=== PATIENT | female | born 1965 | race African-American/Black ===

== ENCOUNTER → 2018-11-11 | Day surgery (SDC) | payer MEDICARE ==
[~2018-11-11] MED LIST: AZATHIOPRINE50 MG PO; CARVEDILOL12.5 MG PO; CYCLOBENZAPRINE10 MG PO; DULOXETINE PO; EYLEA2 MG/0.05 IM; FENTANYL CITRATE/PF 100MCG/2 ML INJ ONE; MIDAZOLAM HCL 2 MG/2 ML VIAL ONE; MULTI-VITAMIN1 EACH PO; PROPOFOL IV EMULSION 10 MG/ML 50 ML VIAL ONE; RIZATRIPTAN PO; TYLENOL WITH C1 EACH PO; VALIUM5 MG PO
--- OUTSIDE RECORDS SUMMARY | 2018-11-11 06:24 | XMS REPORT | Clinical Summary ---
Author Author [facility] Organization [place] [facility] Address Unknown Phone Unavailable Care Team Providers Care Fraud Manager Name Role Phone Tristin South MD PCP Allergies Comments Active Allergy Reactions Severity Noted Date Ketorolac Hives, 05/09/2018 Itching Hydrocodone-Acetaminophen Itching 08/17/2016 Medications End Date Status Medication Sig Dispensed Refills Start Date Active acetaminophen-codeine Take 1 tablet 0 (TYLENOL WITH CODEINE #3) by mouth 300-30 mg per tablet every 6 (six) hours as needed for moderate pain. Active CITALOPRAM HYDROBROMIDE Take 40 mg by 0 (CITALOPRAM ORAL) mouth every morning. Active clobetasol (TEMOVATE) Apply 1 0 0.05 % external solution application topically as needed. Active cyclobenzaprine Take 10 mg by 0 (FLEXERIL) 10 mg tablet mouth 3 (three) times a day. Active aspirin (ECOTRIN) 81 MG Take 81 mg by 0 enteric coated tablet mouth daily. Active SJANGTKZ-WAC-EBLDI-HYALUR Take 1 tablet 0 ON AC ORAL by mouth daily. Active clonAZEPAM (KlonoPIN) 2 Take 2 mg by 0 MG tablet mouth 2 (two) times a day as needed for seizures. Active azaTHIOprine (IMURAN) 50 Take 100 mg 0 mg tablet by mouth daily. Active DULoxetine (CYMBALTA) 60 Take 60 mg by 0 MG capsule mouth daily. Active carvedilol (COREG) 6.25 Take 6.25 mg 0 MG tablet by mouth 2 (two) times a day with meals. Active rizatriptan (MAXALT) 10 Take 10 mg by 0 MG tablet mouth once as needed for migraine. May repeat in 2 hours if unresolved. Do not exceed 30 mg in 24 hours. Active simethicone (MYLICON) 80 Chew 80 mg 0 MG chewable tablet every 6 (six) hours as needed for flatulence. Active diclofenac (VOLTAREN) 50 Take 50 mg by 0 MG EC tablet mouth 2 (two) times a day. 05/09/2018 Discontinued LORAZepam (ATIVAN) 2 MG Take 2 mg by 0 tablet mouth every 8 (eight) hours as needed for anxiety. 05/09/2018 Discontinued meloxicam (MOBIC) 7.5 mg Take 7.5 mg 0 tablet by mouth 2 (two) times a day. 05/09/2018 Discontinued terbinafine HCl (LamiSIL) Take 250 mg 0 250 mg tablet by mouth daily. 05/09/2018 Discontinued mirtazapine (REMERON) 15 Take 30 mg by 0 MG tablet mouth nightly. 05/09/2018 Discontinued rizatriptan (MAXALT) 10 Take 10 mg by 0 MG tablet mouth daily. May repeat in 2 hours if unresolved. Do not exceed 30 mg in 24 hours. 05/09/2018 Discontinued QUEtiapine (SEROquel) 50 Take 50 mg by 0 MG tablet mouth nightly. 1-2 tab qpm for migraine 05/09/2018 Discontinued folic acid (FOLVITE) 1 MG Take 1 mg by 0 tablet mouth daily. 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 Transcribe Access Orders Radhames Schneider MD Movement disorder (Primary Dx); Muscle spasm; Generalized weakness 05/31/2018 Emergency Emergency Medicine Tristin South MD Acute back pain with sciatica, right; Dysphonia of organic tremor 05/26/2018 Hospital Radiology Encounter Tristin South MD Acute back pain with sciatica, right; Dysphonia of organic tremor 05/26/2018 Hospital Radiology Encounter Tristin South MD Acute back pain with sciatica, right (Primary Dx); Dysphonia of organic tremor 05/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 Last Filed Vital Signs Reading Time Taken Comments Vital Sign 138/78 05/31/2018 7:05 PM CDT Blood Pressure 77 05/31/2018 7:05 PM CDT Pulse 36.7 C (98 F) 05/31/2018 1:03 PM CDT Temperature 20 05/31/2018 7:05 PM CDT Respiratory Rate 100% 05/31/2018 7:05 PM CDT Oxygen Saturation - - Inhaled Oxygen Concentration 122 kg (269 lb) 05/09/2018 3:18 PM [facility] Weight - - Height 47.65 02/03/2017 1:16 PM [facility] Body Mass Index Plan of Treatment Care Team Description Date Type Specialty Sami Wong II, MD [address] [place] [address], [address] [place] [address] [phone] 12/02/2018 Office Visit Obstetrics and Gynecology Health Maintenance Due Date Last Done Comments CERVICAL CANCER SCREENING 01/09/1988 BREAST CANCER SCREENING 2017 COLONOSCOPY SCREENING 2017 SHINGLES VACCINES (#1) 2017 INFLUENZA VACCINE 10/21/2018 Procedures Comments Procedure Name Priority Date/Time Associated Diagnosis CT HEAD WO CONTRAST Routine 10/21/2018 Paralysis of the face 5:[address] MAXILLOFACIAL WO Routine 10/21/2018 Facial nerve paralysis CONTRAST 1:09 PM CDT MRI CERVICAL SPINE WO STAT 05/31/2018 CONTRAST 6:25 PM CDT MRI BRAIN WO CONTRAST STAT 05/31/2018 6:[address] ANGIOGRAM NECK W WO STAT 05/31/2018 CONTRAST 4:[address] ANGIOGRAM HEAD W WO STAT 05/31/2018 CONTRAST 3:[address] HEAD WO CONTRAST STAT 05/31/2018 3:59 PM CDT XR CHEST 1 VW PORTABLE STAT 05/31/2018 1:42 PM CDT ECG 12-LEAD STAT 05/31/2018 12:06 PM CDT ESTIMATED GFR STAT 05/31/2018 11:59 AM CDT B NATRIURETIC PEPTIDE STAT 05/31/2018 11:59 AM CDT TROPONIN STAT 05/31/2018 11:59 AM CDT COMPREHENSIVE METABOLIC STAT 05/31/2018 PANEL 11:59 AM CDT PROTHROMBIN TIME WITH INR STAT 05/31/2018 11:59 AM CDT PARTIAL THROMBOPLASTIN STAT 05/31/2018 TIME (PTT) 11:59 AM CDT HC COMPLETE BLD COUNT STAT 05/31/2018 W/AUTO DIFF 11:59 AM CDT ECG ED PRELIMINARY Routine 05/31/2018 INTERPRETATION 11:45 AM CDT XR LUMBAR SPINE COMPLETE Routine 05/26/2018 Acute back pain with 4+ VW 5:32 PM [facility] sciatica, right Dysphonia of organic tremor XR CERVICAL SPINE Routine 05/26/2018 Acute back pain with COMPLETE 5:31 PM [facility] sciatica, right Dysphonia of organic tremor TROPONIN Timed 05/09/2018 8:54 PM [facility] ECG 12-LEAD STAT 05/09/2018 8:22 PM [facility] XR SHOULDER 2+ VW LEFT STAT 05/09/2018 7:55 PM [facility] XR HUMERUS LEFT STAT 05/09/2018 7:53 PM [facility] XR ELBOW 3+ VW LEFT STAT 05/09/2018 7:52 PM [facility] ECG ED PRELIMINARY Routine 05/09/2018 INTERPRETATION 4:30 PM [facility] ECG 12-LEAD STAT 05/09/2018 3:55 PM [facility] ESTIMATED GFR STAT 05/09/2018 3:54 PM [facility] B NATRIURETIC PEPTIDE STAT 05/09/2018 3:54 PM [facility] TROPONIN STAT 05/09/2018 3:54 PM [facility] COMPREHENSIVE METABOLIC STAT 05/09/2018 PANEL 3:54 PM [facility] HC COMPLETE BLD COUNT STAT 05/09/2018 W/AUTO DIFF 3:54 PM [facility] after 11/10/2017 Results * CT Head Wo Contrast (10/21/2018 5:35 PM CDT) Only the most recent of 2 results within the time period is included. 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 CT imaging was performed with iterative reconstruction technique and/or automated exposure control to reduce radiation dose. FINDINGS: Parenchymal volume is normal. There is no acute hemorrhage, midline shift, hydrocephalus, edema, or extra-axial collections. .The visualized paranasal sinuses are well aerated.The mastoid air cells are well aerated. No destructive calvarial lesions are seen. The visualized orbits are unremarkable. IMPRESSION: No acute intracranial abnormality. 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 CT imaging was performed with iterative reconstruction technique and/or automated exposure control to reduce radiation dose. FINDINGS: Parenchymal volume is normal. There is no acute hemorrhage, midline shift, hydrocephalus, edema, or extra-axial collections. .The visualized paranasal sinuses are well aerated. The mastoid air cells are well aerated. No destructive calvarial lesions are seen. The visualized orbits are unremarkable. IMPRESSION: No acute intracranial abnormality. 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 Coronal and sagittal reconstructions were also performed. CT imaging was performed with iterative reconstruction techniques and/or automated exposure control to reduce radiation dose. FINDINGS: No mass is identified. No fracture or aggressive bone lesion is seen. The temporal bones are grossly unremarkable. Parotid glands are grossly unremarkable. Pterygopalatine fossa is unremarkable. Paranasal sinuses are clear. Orbits are unremarkable. No aerodigestive mucosal lesion is seen. Submandibular glands are unremarkable. No lymphadenopathy is seen. Included portions of the brain are unremarkable. IMPRESSION: Unremarkable CT of the maxillary facial structures. 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 Coronal and sagittal reconstructions were also performed. CT imaging was performed with iterative reconstruction techniques and/or automated exposure control to reduce radiation dose. FINDINGS: No mass is identified. No fracture or aggressive bone lesion is seen. The temporal bones are grossly unremarkable. Parotid glands are grossly unremarkable. Pterygopalatine fossa is unremarkable. Paranasal sinuses are clear. Orbits are unremarkable. No aerodigestive mucosal lesion is seen. Submandibular glands are unremarkable. No lymphadenopathy is seen. Included portions of the brain are unremarkable. IMPRESSION: Unremarkable CT of the maxillary facial structures. [id number] Performing Organization Address [facility] Phone Number [facility] [address] [place] [address] * MRI Cervical Spine Wo Contrast (05/31/2018 6:25 PM CDT) Specimen Narrative Performed At [facility] EXAMINATION: MRI CERVICAL SPINE WO CONTRAST CLINICAL HISTORY: neck pain COMPARISON:None TECHNIQUE: Multiplanar multisequence noncontrast enhanced examination was performed of the cervical spine. FINDINGS: Vertebral body heights are maintained. The cervicomedullary junction is unremarkable. No cord signal abnormality identified. No focal marrow lesions. No masses are present in the visualized prevertebral soft tissues. Cervical alignment is preserved with normal lordosis. There is no significant spondylolisthesis. Axial images through the disc spaces demonstrate the following: C1-C2: The atlantoaxial interval is intact with no significant disease or stenosis. C2-C3: No significant posterior disc disease, spinal canal or neural foraminal stenosis. C3-C4: Mildly degenerative disc. Facet and uncovertebral arthropathy contributes to moderate right foraminal stenosis. No central or left foraminal stenosis. C4-C5: Mild degenerative disc. No significant posterior disc disease, spinal canal or neural foraminal stenosis. C5-C6: No significant posterior disc disease, spinal canal or neural foraminal stenosis. C6-C7: No significant posterior disc disease, spinal canal or neural foraminal stenosis. C7-T1: No significant posterior disc disease, spinal canal or neural foraminal stenosis. No significant posterior disc disease, spinal canal or neural foraminal stenosis at other visualized levels. IMPRESSION: Mild degenerative changes. No acute abnormality. [facility]-[id number] Procedure Note Interface, Radiology Results Incoming - 05/31/2018 6:33 PM CDT EXAMINATION: MRI CERVICAL SPINE WO CONTRAST CLINICAL HISTORY: neck pain COMPARISON: None TECHNIQUE: Multiplanar multisequence noncontrast enhanced examination was performed of the cervical spine. FINDINGS: Vertebral body heights are maintained. The cervicomedullary junction is unremarkable. No cord signal abnormality identified. No focal marrow lesions. No masses are present in the visualized prevertebral soft tissues. Cervical alignment is preserved with normal lordosis. There is no significant spondylolisthesis. Axial images through the disc spaces demonstrate the following: C1-C2: The atlantoaxial interval is intact with no significant disease or stenosis. C2-C3: No significant posterior disc disease, spinal canal or neural foraminal stenosis. C3-C4: Mildly degenerative disc. Facet and uncovertebral arthropathy contributes to moderate right foraminal stenosis. No central or left foraminal stenosis. C4-C5: Mild degenerative disc. No significant posterior disc disease, spinal canal or neural foraminal stenosis. C5-C6: No significant posterior disc disease, spinal canal or neural foraminal stenosis. C6-C7: No significant posterior disc disease, spinal canal or neural foraminal stenosis. C7-T1: No significant posterior disc disease, spinal canal or neural foraminal stenosis. No significant posterior disc disease, spinal canal or neural foraminal stenosis at other visualized levels. IMPRESSION: Mild degenerative changes. No acute abnormality. [facility]-[id number] Performing Organization Address [facility] Phone Number [facility] [address] [place] [address] * MRI Brain Wo Contrast (05/31/2018 6:25 PM CDT) Specimen Narrative Performed At EXAMINATION: MRI BRAIN WO CONTRAST [facility] CLINICAL HISTORY: neurologic symptoms COMPARISON:CT head same date; MRI brain 01/06/2017 TECHNIQUE: Multiplanar and multisequence MRI imaging of the brain was obtained without contrast. FINDINGS: No evidence of acute intracranial hemorrhage, mass, mass effect, acute infarct or midline shift. No significant T2 FLAIR signal abnormality within the brain parenchyma. Ventricles and sulci are normal in appearance for age. No abnormal susceptibility. Basal cisterns are clear. Major intracranial flow voids are maintained. Orbits are normal in appearance. Visualized paranasal sinuses and mastoid air cells are clear. IMPRESSION: 1. No acute intracranial abnormality. [id number] Procedure Note [facility], Radiology Results [facility] - 05/31/2018 6:34 PM CDT EXAMINATION: MRI BRAIN WO CONTRAST CLINICAL HISTORY: neurologic symptoms COMPARISON: CT head same date; MRI brain 01/06/2017 TECHNIQUE: Multiplanar and multisequence MRI imaging of the brain was obtained without contrast. FINDINGS: No evidence of acute intracranial hemorrhage, mass, mass effect, acute infarct or midline shift. No significant T2 FLAIR signal abnormality within the brain parenchyma. Ventricles and sulci are normal in appearance for age. No abnormal susceptibility. Basal cisterns are clear. Major intracranial flow voids are maintained. Orbits are normal in appearance. Visualized paranasal sinuses and mastoid air cells are clear. IMPRESSION: 1. No acute intracranial abnormality. [id number] Performing Organization Address [facility] Phone Number [facility] [address] [place] [address] * CTA Neck W Wo Contrast (05/31/2018 4:00 PM CDT) Specimen Narrative Performed At EXAMINATION:CT ANGIOGRAM NECK W WO CONTRAST [facility] CLINICAL HISTORY:Stroke COMPARISON:MRA neck 05/23/2012 TECHNIQUE: Neck CTA with multi-planar MIP and volumetric rendering (3D) after bolus intravenous iodinated contrast administration was performed. All CT images were acquired using low-dose technique with automated exposure control. FINDINGS: Normal branching pattern of the aortic arch. The bilateral cervical carotid and vertebral arterial systems appear patent without dissection or hemodynamically significant stenosis (0% by NASCET criteria). The left vertebral artery is dominant. IMPRESSION: No significant cervical carotid or vertebral artery stenosis. [id number] Procedure Note Interface, Radiology Results - 05/31/2018 4:09 PM CDT EXAMINATION: CT ANGIOGRAM NECK W WO CONTRAST CLINICAL HISTORY: Stroke COMPARISON: MRA neck 05/23/2012 TECHNIQUE: Neck CTA with multi-planar MIP and volumetric rendering (3D) after bolus intravenous iodinated contrast administration was performed. All CT images were acquired using low-dose technique with automated exposure control. FINDINGS: Normal branching pattern of the aortic arch. The bilateral cervical carotid and vertebral arterial systems appear patent without dissection or hemodynamically significant stenosis (0% by NASCET criteria). The left vertebral artery is dominant. IMPRESSION: No significant cervical carotid or vertebral artery stenosis. [id number] Performing Organization Address City/State/Zipcode Phone Number [facility] [address] [place] [address] * CTA Head W Wo Contrast (05/31/2018 3:59 PM CDT) Specimen Narrative Performed At EXAMINATION:CT ANGIOGRAM HEAD W WO CONTRAST [facility] CLINICAL HISTORY:stroke COMPARISON:None. FINDINGS: Axial images were obtained throughout the the brain after intravenous contrast infusion with MPR and 3-D MIP image reconstructions. CT scans are performed using radiation dose reduction techniques. Technical factors are evaluated and adjusted to ensure appropriate moderation of exposure. Automated dose management technology is applied to adjust radiation exposure while achieving a highly diagnostic quality image. There is patency of the large intracranial arteries. There is no definite large artery stenosis or focal aneurysm. There is dural venous sinus patency. IMPRESSION: Unremarkable examination. [id number] Procedure Note Interface, Radiology Results - 05/31/2018 4:09 PM CDT EXAMINATION: CT ANGIOGRAM HEAD W WO CONTRAST CLINICAL HISTORY: stroke COMPARISON: None. FINDINGS: Axial images were obtained throughout the the brain after intravenous contrast infusion with MPR and 3-D MIP image reconstructions. CT scans are performed using radiation dose reduction techniques. Technical factors are evaluated and adjusted to ensure appropriate moderation of exposure. Automated dose management technology is applied to adjust radiation exposure while achieving a highly diagnostic quality image. There is patency of the large intracranial arteries. There is no definite large artery stenosis or focal aneurysm. There is dural venous sinus patency. IMPRESSION: Unremarkable examination. [id number] Performing Organization Address [facility] Phone Number [facility] [address] [place] [address] * XR Chest 1 Vw Portable (05/31/2018 1:42 PM CDT) Specimen Narrative Performed At EXAMINATION:XR CHEST 1 VW PORTABLE [facility] CLINICAL HISTORY:cough XR CHEST 1 VW PORTABLEimages are submitted COMPARISON:Chest x-rays dated July 27, 2016. FINDINGS: Lines/tubes:None. Heart and mediastinum:Unremarkable Lungs:The lungs are well inflated and clear. There is no evidence of pneumonia or pulmonary edema. Pleura:There is no pleural effusion or pneumothorax. Bones:unremarkable. IMPRESSION: Negative for acute cardiopulmonary disease. [id number] Procedure Note Hm Interface, Radiology Results Incoming - 05/31/2018 1:46 PM CDT EXAMINATION: XR CHEST 1 VW PORTABLE CLINICAL HISTORY: cough XR CHEST 1 VW PORTABLE images are submitted COMPARISON: Chest x-rays dated July 27, 2016. FINDINGS: Lines/tubes: None. Heart and mediastinum: Unremarkable Lungs: The lungs are well inflated and clear. There is no evidence of pneumonia or pulmonary edema. Pleura: There is no pleural effusion or pneumothorax. Bones: unremarkable. IMPRESSION: Negative for acute cardiopulmonary disease. [id number] Performing Organization Address [facility] Phone Number [facility] [address] [place] [address] * ECG 12 lead (05/31/2018 12:06 PM CDT) Only the most recent of 3 results within the time period is included. Ventricular 97 [facility] rate Atrial rate 97 [facility] PA interval 118 [facility] QRSD interval 82 [facility] QT interval 352 [facility] QTC interval 447 [facility] P axis 1 50 [facility] QRS axis 1 48 [facility] T wave axis 19 [facility] EKG impression Normal sinus rhythm-Normal [facility] ECG-In automated comparison with ECG of 09-MAY-2018 20:22,-T wave inversion now evident in Inferior leads- Specimen Narrative Performed At Performing Organization Address City/State/Zipcode Phone Number [facility] [address] [place] [address] * Estimated GFR (05/31/2018 11:59 AM CDT) Only the most recent of 2 results within the time period is included. [facility] Estimated GFR 75 mL/min/1.73 m2 [facility] >=90 Normal or high G2 60-89Mildly decreased [id number] Mildly to moderately decreased [id number] Moderately to severely decreased G4 15-29Severely decreased G5 <15Kidney failure The eGFR was calculated using the Chronic Kidney Disease Epidemiology Collaboration (CKD-EPI) equation. Interpretation is based on recommendations of the National Kidney Foundation-Kidney Disease Outcomes Quality Initiative (NKF-KDOQI) published in 2014. Specimen Plasma specimen Performing Organization Address City/[facility] Phone Number [address] * Troponin (05/31/2018 11:59 AM CDT) Only the most recent of 3 results within the time period is included. [facility] Troponin <0.30 0.00 - 0.30 ng/mL [facility] Comment: DR[facility] [place] 0.11 - 1.49 [facility] indicate increased risk of acute coronary syndrome. >=1.5 ng/ml Consistent with acute myocardial infarction. The diagnostic value of a single normal or non-diagnostic result is questionable.Serial samples at 2-6 hour intervals are required to rule out acute myocardial injury. Specimen Plasma specimen Performing Organization Address City/[facility]/Zipcode Phone Number [address] [address] PATHOLOGY [address] [place] [address] [facility] * Partial thromboplastin time, activated (05/31/2018 11:59 AM CDT) Pathologist [facility] PTT 34.9 23.0 - 36.0 sec [facility] Comment: VITA FELIX PTT therapeutic range for KAREN unfractionated heparin is [facility]OSPITAL 61.0-112.0 seconds which corresponds to Anti-Xa 0.3-0.7 U/ml. Note:Change in Panic Value The PTT Panic Value is changing from 110 sec. to 100 sec. due to new instrumentation and reagents. Correlation studies have been performed to validate this result. Specimen Blood Performing Organization Address City/[facility]/Zipcode Phone Number [address] * Prothrombin time with INR (05/31/2018 11:59 AM CDT) [facility] Prothrombin 13.8 11.5 - 14.5 sec [facility] INR 1.09 [facility] Comment: VITA FELIX For patients on anticoagulant KAREN therapy, reference ranges [facility]OS[facility]ITAL below: Indication: INR Value Treatment of Venous Thrombosis, 2.0-3.0 pulmonary emboli, or prophylaxis of a venous thrombosis, or systemic emboli. High dose, high risk patients 3.0-4.5 with mechanical valves. NOTE:INR values over 3.0 are sometimes associated with gastrointestinal hemorrhage, especially values over 4.0. Specimen Blood Performing Organization Address City/[facility]/Zipcode Phone Number [address] * CBC with platelet and differential (05/31/2018 11:59 AM CDT) Only the most recent of 2 results within the time period is included. [facility] WBC 7.7 4.2 - 11.0 k/uL [facility] RBC 5.03 4.04 - 5.86 m/uL [facility] HGB 13.6 11.5 - 15.3 g/dL [facility] HCT 44.4 34.0 - 45.0 % [facility] MCV 88.3 80.0 - 98.0 fL [facility] MCH 27.0 27.0 - 34.0 pg [facility] MCHC 30.6 (L) 31.5 - 36.5 g/dL [facility] RDW - SD 47.5 37.0 - 51.0 fL [facility] MPV 11.0 (H) 7.4 - 10.4 fL [facility] Platelet count 298 150 - 400 k/uL [facility] Nucleated RBC 0.00 /100 WBC [facility] Neutrophils 73.2 (H) 36.0 - 66.0 % [facility] Lymphocytes 15.9 (L) 24.0 - 44.0 % [facility] Monocytes 8.2 (H) 0.0 - 6.0 % [facility] Eosinophils 1.6 0.0 - 6.0 % [facility] Basophils 0.7 0.0 - 1.2 % [facility] Immature 0.4 0.0 - 1.0 % [facility] granulocytes [facility] Specimen Blood Performing Organization Address City/State/[place] [address] PATHOLOGY AND GENOMIC MEDICINE [address] * B natriuretic peptide (05/31/2018 11:59 AM CDT) Only the most recent of 2 results within the time period is included. BNP <3 0 - 100 pg/mL [facility] Specimen Blood Performing Organization Address City/[facility]/[place] [address] PATHOLOGY AND GENOMIC MEDICINE [address] * Comprehensive metabolic panel (05/31/2018 11:59 AM CDT) Only the most recent of 2 results within the time period is included. Sodium 138 135 - 150 mEq/L [facility] Potassium 4.2 3.5 - 5.0 mEq/L [facility] Chloride 101 98 - 112 mEq/L [facility] CO2 26 24 - 31 mmol/L [facility] Anion gap 11@[email or web address] 7 - 15 mEq/L [facility] BUN 13 7 - 18 mg/dL [facility] Creatinine 1.00 (H) 0.50 - 0.90 mg/dL [facility] Glucose 143 (H) 65 - 100 mg/dL [facility] Calcium 9.3 8.3 - 10.2 mg/dL [facility] Protein 7.2 6.3 - 8.3 g/dL [facility] Albumin 3.6 3.5 - 5.0 g/dL [facility] A/G ratio 1.0 0.7 - 3.8 [facility] Alkaline 60 0 - 104 U/L [facility] phosphatase [facility] AST 19 10 - 35 U/L [facility] ALT 13 5 - 50 U/L [facility] Total bilirubin 0.3 0.2 - 1.2 mg/dL [facility] Specimen Plasma specimen Performing Organization Address City/State/Zipcode Phone Number [facility] [place] [address] PATHOLOGY AND GENOMIC MEDICINE [address] * ECG ED Preliminary Interpretation - Not an Order (05/31/2018 11:45 AM CDT) Only the most recent of 2 results within the time period is included. Narrative Performed At Radhames Schneider MD 05/31/20187:05 PM ECG ED Preliminary Interpretation - Not an Order Performed by: Radhames Schneider MD Authorized by: Radhames Schneider MD ECG reviewed by ED Physician in the absence of a motor analyst: yes Rate: ECG rate:97 ECG rate assessment: normal Rhythm: Rhythm: sinus rhythm Ectopy: Ectopy: none QRS: QRS axis:Normal QRS intervals:Normal Conduction: Conduction: normal * XR Lumbar Spine Complete 4+ Vw (05/26/2018 5:32 PM [facility]) Specimen Narrative Performed At EXAMINATION: XR LUMBAR SPINE COMPLETE 4VW [facility] CLINICAL HISTORY: M54.41 Lumbago with sciaticaright side, R25.1 Tremorunspecified, m54.41 r25.1 COMPARISON:None IMPRESSION: 6 views of the lumbar spine were obtained lumbar spine alignment is normal. Sacroiliac joints are intact. Oblique images shows no spondylolysis. There is no fracture or spondylolisthesis. Vertebral body heights and disc heights are preserved at all levels. No significant lumbar spine abnormality identified. [facility]-[id number] Procedure Note Interface, Radiology Results Incoming - 05/26/2018 5:38 PM [facility] EXAMINATION: XR LUMBAR SPINE COMPLETE 4 VW CLINICAL HISTORY: M54.41 Lumbago with sciatica right side, R25.1 Tremor unspecified, m54.41 r25.1 COMPARISON: None IMPRESSION: 6 views of the lumbar spine were obtained lumbar spine alignment is normal. Sacroiliac joints are intact. Oblique images shows no spondylolysis. There is no fracture or spondylolisthesis. Vertebral body heights and disc heights are preserved at all levels. No significant lumbar spine abnormality identified. [facility]-[id number] Performing Organization Address City/State/Zipcode Phone Number [facility] [address] [place] [address] * XR Cervical Spine Complete (05/26/2018 5:31 PM [facility]) Specimen Narrative Performed At EXAMINATION: XR CERVICAL SPINE COMPLETE [facility] CLINICAL HISTORY: M54.41 Lumbago with sciaticaright side, R25.1 Tremorunspecified, m54.41 COMPARISON:None IMPRESSION: 6 views of the cervical spine were obtained. There is normal cervical lordosis. There is no fracture or spondylolisthesis. Prevertebral soft tissues are within normal limits. Oblique images shows no osseous foraminal narrowing. No acute osseous abnormalities are identified. [facility]-[id number] Procedure Note Interface, Radiology Results Incoming - 05/26/2018 5:37 PM [facility] EXAMINATION: XR CERVICAL SPINE COMPLETE CLINICAL HISTORY: M54.41 Lumbago with sciatica right side, R25.1 Tremor unspecified, m54.41 COMPARISON: None IMPRESSION: 6 views of the cervical spine were obtained. There is normal cervical lordosis. There is no fracture or spondylolisthesis. Prevertebral soft tissues are within normal limits. Oblique images shows no osseous foraminal narrowing. No acute osseous abnormalities are identified. [facility]-[id number] Performing Organization Address [facility]/Zipcode Phone Number [facility] [address] [place] [address] * XR Shoulder 2+ Vw Left (05/09/2018 7:55 PM [facility]) Specimen Narrative Performed At EXAM:XR SHOULDER 2VW LEFT [facility] CLINICAL HISTORY:arm pain COMPARISON:None. IMPRESSION: 1.No evidence of acute displaced left shoulder fracture or dislocation. Soft tissues are unremarkable. [facility]-[id number] Procedure Note Interface, Radiology Results Incoming - 05/09/2018 8:00 PM [facility] EXAM: XR SHOULDER 2 VW LEFT CLINICAL HISTORY: arm pain COMPARISON: None. IMPRESSION: 1. No evidence of acute displaced left shoulder fracture or dislocation. Soft tissues are unremarkable. [facility]-[id number] Performing Organization Address [facility] Phone Number [facility] [address] [place] [address] * XR Humerus Left (05/09/2018 7:53 PM [facility]) Specimen Narrative Performed At EXAM:XR HUMERUS LEFT HM [facility] CLINICAL HISTORY:arm pain COMPARISON:None. IMPRESSION: 1.No evidence of acute displaced left humerus fracture or dislocation. Soft tissues are unremarkable. [facility]-[id number] Procedure Note Interface, Radiology Results Incoming - 05/09/2018 7:59 PM [facility] EXAM: XR HUMERUS LEFT CLINICAL HISTORY: arm pain COMPARISON: None. IMPRESSION: 1. No evidence of acute displaced left humerus fracture or dislocation. Soft tissues are unremarkable. [facility]-[id number] Performing Organization Address [facility]/Zipcode Phone Number [facility] [address] [place] [address] * XR Elbow 3+ Vw Left (05/09/2018 7:52 PM [facility]) Specimen Narrative Performed At EXAM:XR ELBOW 3VW LEFT [facility] CLINICAL HISTORY:arm pain COMPARISON:None. IMPRESSION: 1.No evidence of acute displaced left elbow fracture, dislocation, or joint effusion. Soft tissues are unremarkable. [facility]-[id number] Procedure Note Interface, Radiology Results Incoming - 05/09/2018 7:59 PM [facility] EXAM: XR ELBOW 3 VW LEFT CLINICAL HISTORY: arm pain COMPARISON: None. IMPRESSION: 1. No evidence of acute displaced left elbow fracture, dislocation, or joint effusion. Soft tissues are unremarkable. [facility]-[id number] Performing Organization Address City/State/Zipcode Phone Number [facility] [address] [place] [address] after 11/10/2017 Insurance Type Payer Benefit Subscriber ID Effective Phone Address Plan / Dates Group O [facility] MEDICARE AARP xxxxxxxxx [id number] MEDICARE resent COMPLETE [facility] Advance Directives For more information, please contact: [phone] Patient Magnetic Doctor Explanation Type Date Recorded Advance Directives, 05/31/2018 2:02 PM Living Will and Medical Power of Joint Runner Advance Directives, 01/06/2017 11:51 AM Living Will and Medical Power of Joint Runner Advance Directives, 05/09/2018 7:58 PM Living Will and Medical Power of Joint Runner
--- OUTSIDE RECORDS SUMMARY | 2018-11-11 06:28 | XMS REPORT ---
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
--- OUTSIDE RECORDS SUMMARY | 2018-11-11 06:28 | XMS REPORT ---
Author Randolph Montanez Organization [employer] Address Unknown Phone Unavailable Care Team Providers Care Terminal Superintendent Name Role Phone Randolph Young CP Unavailable Allergies No Known Allergies Problems Problem Type Condition Code Onset Dates Condition Status Problem Central retinal vein thrombosis H34.819 Active Problem Thyroid enlargement E04.9 Active Problem Hip bursitis M70.70 Active Problem Other forms of systemic lupus erythematosus M32.8 Active Problem Other senior living (current) drug therapy Z79.899 Active Problem Complication following infusion and therapeutic injection T80.90XA Active Problem Lupus M32.9 Active Medications No Known Medications Results No Known Results Summary Purpose [employer] Submission
--- OUTSIDE RECORDS SUMMARY | 2018-11-11 06:28 | XMS REPORT ---
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
--- OUTSIDE RECORDS SUMMARY | 2018-11-11 06:28 | XMS REPORT | Continuity of Care Document ---
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 Name Role Phone [employer] Unavailable Unavailable Problems Problem Status Onset Date Classification Date Reported Comments Source INSOMNIA Active 07/27/2017 Diagnosis 08/18/2017 [facility] Vitamin D deficiency Active 07/09/2017 Diagnosis 08/18/2017 [facility] Screening for endocrine disease Active 07/09/2017 Diagnosis 08/18/2017 [facility] Elevated blood pressure Active 07/09/2017 Diagnosis 08/18/2017 [facility] Reactive airway disease Active 06/19/2017 Diagnosis 08/18/2017 [facility] Hot flashes Active 03/05/2017 Diagnosis 08/18/2017 [facility] FATIGUE Active 03/05/2017 Diagnosis 08/18/2017 [facility] Snoring Active 03/05/2017 Diagnosis 08/18/2017 [facility] Joint pain Active 12/01/2016 Diagnosis 08/18/2017 [facility] Body aches Active 12/01/2016 Diagnosis 08/18/2017 [facility] Onychomycosis Active 12/01/2016 Diagnosis 08/18/2017 [facility] ANXIETY DISORDER IN CONDITIONS CLASSIFIED ELSEWHERE Active 10/20/2016 Diagnosis 08/18/2017 [facility] Pseudoseizures Active 09/03/2016 Diagnosis 08/18/2017 [facility] Seizure disorder Inactive 08/21/2016 Problem 08/18/2017 [facility] Multiple thyroid nodules Active 05/20/2016 Diagnosis 08/18/2017 [facility] Screening for lipid disorder Active 05/20/2016 Diagnosis 08/18/2017 [facility] Screening for anemia Active 05/20/2016 Diagnosis 08/18/2017 [facility] Laparoscopic adjustable gastric banding Active 05/20/2016 Diagnosis 08/18/2017 [facility] Major depression, recurrent, in remission Inactive 05/06/2016 Diagnosis 08/18/2017 [facility] Major depression, recurrent, moderate Active 05/06/2016 Diagnosis 08/18/2017 [facility] Anxiety disorder in conditions classified elsewhere Inactive 05/06/2016 Diagnosis 08/18/2017 [facility] Obsessive-compulsive disorder Inactive 05/06/2016 Diagnosis 08/18/2017 [facility] Obsessive-compulsive disorder, unspecified Active 05/06/2016 Diagnosis 08/18/2017 [facility] Systemic lupus erythematosus Active 05/06/2016 Diagnosis 08/18/2017 [facility] Central retinal vein thrombosis Active Problem 11/06/2018 Stephen Young Thyroid enlargement Active Problem 11/06/2018 Stephen Young Hip bursitis Active Problem 11/06/2018 Stephen oYung Other forms of systemic lupus erythematosus Active Problem 07/24/2018 Stephen Samueler Other salvage determiner drug therapy Active Problem 10/14/2018 Stephen Young Complication following infusion and therapeutic injection Active Problem 11/06/2018 Stephen Young Lupus Active Problem 11/06/2018 Stephen Young Tremor Active Problem 11/06/2018 Stephen Young Polyarthralgia Active Problem 11/06/2018 Stephen Young Movement disorder Active Problem 11/06/2018 Stephen Young Lupus Active Problem 11/16/2015 Stephen Young Polyarthralgia Active Problem 11/16/2015 Stephen Young Unspecified drug dependence Active Diagnosis 03/30/2014 Stephen Young Shortness of breath Active Diagnosis 10/13/2015 Stephen Young Muscle spasm of back Active Diagnosis 02/07/2016 Stephen Young Other jail (current) drug therapy Active Problem 11/06/2018 Stephen Young Medications Medication Details Route Status Patient Instructions Ordering Provider Order Date Source Azathioprine as directed Orally Active 50 MG Orally 3 pills in the am and then 2 pills q pm Young 11/05/2018 Stephen Young Tylenol/Codeine #3 1 tablet as needed Orally Active 300-30 MG Orally every 6 hrs Young 10/13/2018 Stephen Young Tylenol/Codeine #3 1 TABLET NEEDED Orally Active 300-30 MG Orally every 6 hrs Young 07/23/2018 Stephen Young Azathioprine 2 tablets Orally Active 50 MG Orally bid Young 04/12/2018 Stephen Young Tylenol/Codeine #3 1 TABLET NEEDED Orally Active 300-30 MG Orally every 6 hrs Young 04/12/2018 Stephen Young Cyclobenzaprine HCl 1 tablet Orally Active 10 MG Orally Three times a day Young 04/12/2018 Stephen Young Azathioprine take 2 tablets by mouth every day Orally Active 50 MG Orally bid Shonto 03/17/2018 Stephen Young Medrol Dose Jose as directed Orally Active 4mg Orally as directed Shonto 12/28/2017 Stephen Samueler Flexeril 1 tablet as needed Orally Active 10 MG Orally qid Shonto 12/28/2017 Stephen Young Flexeril 1 tablet as needed Orally Active 10 MG Orally qid Shonto 10/20/2017 Stephen Young Hydroxychloroquine Sulfate TAKE 1 TABLET BY MOUTH TWICE A DAY WITH FOOD OR MILK NA Active 200 MG Not taking Shonto 10/20/2017 Stephen Young Acetaminophen-Codeine #3 1 tablet as needed Orally Active 300- 30 MG Orally every 6 hrs Shonto 10/20/2017 Stephen Young AMBIEN 5 MG ORAL TABLET 1 by mouth nightly at bedtime as needed for insomnia Active 1 by mouth nightly at bedtime as needed for insomnia 07/27/2017 [facility] HYDROCHLOROTHIAZIDE 1 by mouth every day Active 1 by mouth every day 07/09/2017 [facility] Medrol Dose Jose as directed Orally Active 4mg Orally as directed Shonto 07/03/2017 Stephen Young LAMISIL 250 MG ORAL TABLET 1 by mouth every day Active 1 by mouth every day 06/19/2017 [facility] PROAIR HFA 108 (90 BASE) MCG/ACT INHALATION AEROSOL SOLUTION 2 puffs every 4 - 6 hours as needed Active 2 puffs every 4 - 6 hours as needed 06/19/2017 [facility] Medrol Dose Jose as directed Orally Active 4mg Orally once a day Shonto 06/04/2017 Stephen Young Azathioprine-50 mg day two capsules orally Active 50 mg orally daily Shonto 04/14/2017 Stephen Young CELEXA 40 MG ORAL TABLET 1 tab By Mouth qdaily for depression , anxiety Active 1 tab By Mouth qdaily for depression , anxiety 03/04/2017 [facility] Hydroxychloroquine Sulfate 1 tablet with food or milk Orally Active 200 MG Orally bid Shonto 03/02/2017 Stephen Young REMERON 45 MG ORAL TABLET 1 tab By Mouth take at bedtime for insomnia Active 1 tab By Mouth take at bedtime for insomnia 01/22/2017 [facility] REMERON 45 MG ORAL TABLET 1 tab By Mouth take at bedtime for insomnia No Longer Active 1 tab By Mouth take at bedtime for insomnia 01/22/2017 [facility] LAMISIL 250 MG ORAL TABLET 1 by mouth every day Active 1 by mouth every day 12/01/2016 [facility] TYLENOL WITH CODEINE #3 300-30 MG ORAL TABLET one tablet every 6 hrs as needed Active one tablet every 6 hrs as needed 12/01/2016 [facility] PREDNISONE 1 tablet once a day for 5 days No Longer Active 1 tablet once a day for 5 days 12/01/2016 [facility] LAMISIL 250 MG ORAL TABLET 1 by mouth every day No Longer Active 1 by mouth every day 12/01/2016 [facility] Methotrexate 5 tablets Orally Active 2.5 MG Orally q week Daron 10/09/2016 Stephen Young Folic Acid 1 tablet Orally Active 1 MG Orally Once a day Daron 10/09/2016 Stephen Young Folic Acid 1 tablet Orally Active 1 MG Orally Once a day Young 10/09/2016 Stephen Young EFFEXOR XR 37.5 MG ORAL CAPSULE EXTENDED RELEASE 24 HOUR 1 cap By Mouth qdaily for anxiety, OCD Active 1 cap By Mouth qdaily for anxiety, OCD 09/03/2016 [facility] EFFEXOR XR 37.5 MG ORAL CAPSULE EXTENDED RELEASE 24 HOUR 1 cap By Mouth qdaily for anxiety, OCD No Longer Active 1 cap By Mouth qdaily for anxiety, OCD 09/03/2016 [facility] ERGOCALCIFEROL One tablet by mouth once per week for 6 to 8 weeks Active One tablet by mouth once per week for 6 to 8 weeks 08/22/2016 [facility] B-12 COMPLIANCE INJECTION 1000 MCG/ML INJECTION KIT Administer 1mL weekly x 2 weeks Active Administer 1mL weekly x 2 weeks 08/21/2016 [facility] LORAZEPAM 1 tab By Mouth Twice a Day for anxiety Active 1 tab By Mouth Twice a Day for anxiety 05/06/2016 [facility] CELEXA 40 MG ORAL TABLET 1 tab By Mouth Every Morning for anxiety, depression Active 1 tab By Mouth Every Morning for anxiety, depression 05/06/2016 [facility] SEROQUEL 50 MG ORAL TABLET 1-2 tablets By Mouth take at bedtime for migraines Active 1-2 tablets By Mouth take at bedtime for migraines 05/06/2016 [facility] METHOTREXATE TABLET Active 05/06/2016 [facility] FOLIC ACID TABLET Active 05/06/2016 [facility] FUROSEMIDE 1 tab By Mouth qdaily for fluid retention Active 1 tab By Mouth qdaily for fluid retention 05/06/2016 [facility] MELOXICAM 1 tab By Mouth Twice a Day for pain Active 1 tab By Mouth Twice a Day for pain 05/06/2016 [facility] CYCLOBENZAPRINE HCL TABLET Active 05/06/2016 [facility] PROMETHAZINE HCL TABS Active 05/06/2016 [facility] METHOTREXATE TABLET No Longer Active 05/06/2016 [facility] SEROQUEL 50 MG ORAL TABLET 1-2 tablets By Mouth take at bedtime for migraines No Longer Active 1-2 tablets By Mouth take at bedtime for migraines 05/06/2016 [facility] CELEXA 40 MG ORAL TABLET 1 tab By Mouth Every Morning for anxiety, depression No Longer Active 1 tab By Mouth Every Morning for anxiety, depression 05/06/2016 [facility] Acetaminophen-Codeine #3 1 tablet as needed Orally Active 300- 30 MG Orally every 6 hrs Tavares 04/04/2016 Stephen Young Folic Acid 1 tablet Orally Active 1 MG Orally Once a day Shonto 03/25/2016 Stephen Young Methotrexate 3 tablets Orally Active 2.5 MG Orally q week Young 03/25/2016 Stephen Young Acetaminophen-Codeine #3 1 tablet as needed Orally Active 300- 30 MG Orally every 6 hrs Tavares 02/04/2016 Stephen Young Cyclobenzaprine HCl 1 tablet Orally Active 10 MG Orally Three times a day Young 02/04/2016 Stephen Young [place] 1 tablet as needed Orally No Longer Active 325-7.5 MG Orally once a day as needed Tavares 01/07/2016 Stephen Young Promethazine HCl 1 tablet as needed Orally Active 25 MG Orally every 6 hrs Tavares 12/10/2015 Stephen Young Promethazine HCl 1 tablet as needed Orally Active 25 MG Orally every 6 hours prn for nausea Tavares 10/09/2015 Stephen Young Prednisone Taper 3 tablets for 5 days, 2 tablets for 5 days and then 1 tablet for 5 days orally Active 5mg orally q am with food Shonto 02/03/2014 Stephen Young PredniSONE begin after 15 day taper of prednsione Orally Active 5 MG Orally Once a day Shonto 02/03/2014 Stephen Young Prednisone 5 mg day one tab orally Active 5 mg orally daily Amilcar Mccain 01/04/2013 Stephen Young Albuterol as directed Inhalation Active 90 MCG/ACT Inhalation prn Daron Stephen Young ClobetaPlus Ointment not defined Externally Active 0.05 & 2.3 % Externally twice a day Daron Stephen Young Folic Acid 1 tablet Orally Active 1 MG Orally Once a day Daron Stephen Young Citalopram Hydrobromide 1 tablet Orally Active 20 MG Orally Once a day Daron Stephen Young Acetaminophen-Codeine #3 1 tablet as needed Orally Active 300- 30 MG Orally every 6 hrs Daron Stephen Young Lorazepam 1 tablet at bedtime as needed Orally Active 2 MG Orally Once a day Daron Stephen Young Benlysta 10MG/KG IV NA Active 10MG/KG Q4 WEEKS Daron Stephen Young Eylea 0.05 ml Intraocular Active 2 MG/0.05ML Intraocular into the eye q 6 weeks Daron Stephen Young Methotrexate 5 tablets Orally Active 2.5 MG Orally q week Daron Stephen Young Cyclobenzaprine HCl 1 tablet Orally Active 10 MG Orally Three times a day Daron Stephen Young Seroquel 1 or 2 tablets Orally Active 50 MG Orally at bedtime Daron Stephen Young Zyrtec Allergy 1 tablet Orally Active 10 MG Orally Once a day Daron Stephen Young Meloxicam TAKE 1 TABLET BY MOUTH TWICE A DAY WITH FOOD NA Active 7.5 MG Young Stephen Young Rizatriptan Benzoate 1 tablet as needed one time Orally Active 10 MG Orally Once a day Daron Stephen Young Lactose as directed NA Active - Stephen Young Aspirin 1 tablet Orally Active 81 MG Orally Once a day Daron Stephen Young Keppra 1 tablet Orally Active 250 MG Orally Once a day Daron Stephen Young Promethazine HCl 1 tablet as needed Orally Active 25 MG Orally every 12 hrs Daron Stephen Young Vitamin D (Ergocalciferol) 1 capsule Orally Active 80912 UNIT Orally once a week Daron Stephen Young Lorazepam 1 tablet at bedtime as needed Orally Active 2 MG Orally Once a day Young Stephen Young Vitamin D (Ergocalciferol) 1 capsule Orally Active 52809 UNIT Orally once a week Hector Young Acetaminophen-Codeine #3 1 tablet as needed Orally Active 300- 30 MG Orally every 6 hrs Hector Young Lactose as directed NA Active - Young Stephen Young Eylea 0.05 ml Intraocular Active 2 MG/0.05ML Intraocular into the eye q 6 weeks Hector Young Flexeril TAKE 1 TABLET BY MOUTH 3 TIMES A DAY NA Active 10 MG Shonto Stephen Young Rizatriptan Benzoate 1 tablet as needed one time Orally Active 10 MG Orally Once a day Shonto Stephen Samueler Terbinafine HCl 1 tablet Orally Active 250 MG Orally [facility] a [facility] Samueler Promethazine HCl 1 tablet as needed Orally Active 25 MG Orally every 12 hrs Shonto Stephen Young ClobetaPlus Ointment not defined Externally Active 0.05 & 2.3 % Externally twice a day Shonto Stephen Samueler Citalopram Hydrobromide 1 tablet Orally Active 20 MG Orally Once a day Shonto Stephen Young Mirtazapine 1 tablet at bedtime Orally Active 15 MG Orally Once a day [facility] Stephen Samueler Tylenol/Codeine #3 TAKE 1 TABLET BY MOUTH EVERY 6 HOURS NEEDED NA Active 300-30 MG Shonto Stephen Young Azathioprine take 2 tablets by mouth every day Orally Active 50 MG Orally bid [facility] Young Carvedilol 1 tablet Orally Active 6.25 MG Orally Twice a day Shonto Stephen Young Clonazepam 1 tablet Orally Active 1 MG Orally Once a day [facility] Young Cymbalta 1 capsule Orally Active 20 MG Orally Twice a day [facility] Samueler Hemp Oil 1 mL Orally Active 500 MG Orally Once a day [place]onto Stephen Samueler Azathioprine as directed Orally Active 50 MG Orally 3 pills in the am and then 2 pills q pm Shonto Stephen Young Cymbalta 1 capsule Orally Active 30 MG Orally Once a day Amilcar Mccain Stephen Young Meloxicam 1 tablet Orally Active 7.5 MG Orally bid with food [facility] Samuel[facility] Tramadol one tablet orally Active 50 mg orally twice a day [place] Stephen Young Augmentin 20 ml Orally Active 125-31.25 MG/5ML Orally Amilcar Young Wellbutrin SR 1 tablet Orally Active 150 MG Orally Twice a day Shonto Stephen Samueler Hydroxychloroquine Sulfate 1 tablet with food or milk Orally Active 200 Orally twice a day [facility] Young Cranberry as directed Orally Active 84 MG Orally Shonto Stephen Young Amitriptyline HCl 2 tablets NA Active 50mg at night Shonto Stephen Young PredniSONE 1 tablet Orally Active 10 MG Orally q am with food [place] Stephen Young [place] Jelly as directed Orally Active 200 MG Orally T[place] Stephenthais Young Tylenol/Codeine #3 1 tablet as needed Orally Active 300-30 MG Orally every 6 hrs Shonto Stephenthais Young Fluocinonide as directed Externally Active 0.05 % Externally Shonto Stephen Young Cranberry as directed Orally Active 84 MG Orally Shonto Stephen Young Hydroxychloroquine Sulfate 1 tablet with food or milk Orally Active 200 MG Orally bid [place]onto Stephen Young Divalproex Sodium 1 tablet Orally Active 250 MG Orally Twice a day [place] Stephen Young Plaquenil 1 tablet with food or milk Orally Active 200 MG Orally bid [place] Stephen Samueler Duexis 1 tablet Orally Active 800-26.6 MG Orally Three times a day [place] Stephen Young Azelastine HCl 1 puff in each nostril Nasally Active 137 MCG/SPRAY Nasally prn [place] Stephen Young Cephalexin 1 capsule Orally Active 500 MG Orally Twice a day [place] Stephen Young Loratadine 1 tablet Orally Active 10 MG Orally Once a day [place] Stephen Young Hydroxychloroquine Sulfate TAKE 1 TABLET BY MOUTH TWICE A DAY WITH FOOD OR MILK NA Active 200 MG [place] Stephen Samueler Meloxicam 1 tablet NA Active 7.5 MG once a day [place] Stephen Samueler Linzess 1 capsule Orally Active 145 MCG Orally Once a day [place] Stephen Young Albuterol as directed Inhalation Active 90 MCG/ACT Inhalation Shonto Stephen Young Allergies, Adverse Reactions, Alerts Substance Category Reaction Severity Reaction type Status Date Reported Comments Source N.K.D.A. Adverse Reaction Info Not Available Adverse Reaction Active 07/24/2016 Stephen Young Methotrexate Adverse Reaction pt thinks her tremors started after starting MTX Adverse Reaction Active 07/13/2018 Stephen Young Hydroxychloroquine Sulfate Adverse Reaction Info Not Available Adverse Reaction Active 07/13/2018 Stephen Young Immunizations Immunization Date Given Site Status Last Updated Comments Source Depomedrol 08/22/2014 completed Stephen Young depomedrol 07/04/2013 completed Stephen Young Results Order Name Results Value Reference Range Date Interpretation Comments Source pH, urine, semiquantitative 5.5 07/09/2017 [facility] lymphocyte count, blood, automated 2.6 X10E3/UL 0.7 - 3.1 07/09/2017 [facility] bilirubin, urine negative 07/09/2017 [facility] urea nitrogen, blood 12 6 - 24 07/09/2017 [facility] creatinine, serum 0.91 0.57 - 1.00 07/09/2017 [facility] chloride, serum 97 96 - 106 07/09/2017 [facility] mean corpuscular volume, RBC 84 79 - 97 07/09/2017 [facility] erythrocyte (RBC) count 5.65 X10E6/UL 3.77 - 5.28 07/09/2017 [facility] Estimated Glomerular Filtration Rate (calc) 74 >59 07/09/2017 [facility] platelet count 405 X10E3/UL 150 - 379 07/09/2017 [facility] appearance, urine clear 07/09/2017 [facility] red blood cell distribution width 15.6 12.3 - 15.4 07/09/2017 [facility] protein, total, serum 7.5 6.0 - 8.5 07/09/2017 [facility] glucose, urine, semiquantitative negative 07/09/2017 [facility] albumin/globulin ratio, serum 1.4 1.2 - 2.2 07/09/2017 [facility] eosinophils as percent of blood leukocytes 0 Not Estab. 07/09/2017 [facility] Absolute Neutrophils 9.3 X10E3/UL 1.4 - 7.0 07/09/2017 [facility] basophil count, absolute 0.1 x10E3/uL 0.0 - 0.2 07/09/2017 [facility] alanine aminotransferase (SGPT), serum 22 0 - 32 07/09/2017 [facility] monocytes as percent of blood leukocytes 6 Not Estab. 07/09/2017 [facility] nitrite, urine, semiquantitative negative 07/09/2017 [facility] urine culture No growth 07/09/2017 [facility] mean corpuscular hemoglobin concentration, RBC 32.5 G/DL 31.5 - 35.7 07/09/2017 [facility] hemoglobin, blood 15.4 11.1 - 15.9 07/09/2017 [facility] leukocyte esterase, urine, by dipstick negative 07/09/2017 [facility] leukocyte count, blood 12.9 X10E3/UL 3.4 - 10.8 07/09/2017 [facility] protein, urine, semiquantitative (dipstick) negative 07/09/2017 [facility] hematocrit, blood 47.4 34.0 - 46.6 07/09/2017 [facility] globulin, serum 3.1 1.5 - 4.5 07/09/2017 [facility] vitamin D 25-hydroxy, serum 12.9 30.0 - 100.0 07/09/2017 [facility] thyroid stimulating hormone, serum 0.780 0.450 - 4.500 07/09/2017 [facility] albumin, serum 4.4 3.5 - 5.5 07/09/2017 [facility] urobilinogen, urine, semiquantitative (dipstick) negative 07/09/2017 [facility] calcium, serum 10.4 8.7 - 10.2 07/09/2017 [facility] basophils as percent of blood leukocytes 1 Not Estab. 07/09/2017 [facility] thyroxine, serum, free 1.21 0.82 - 1.77 07/09/2017 [facility] monocyte count, blood, automated 0.8 X10E3/UL 0.1 - 0.9 07/09/2017 [facility] immature granulocytes, percentage of total cells, blood 1 Not Estab. 07/09/2017 [facility] urea nitrogen/creatinine ratio, serum 13 9 - 23 07/09/2017 [facility] eGFR if 85 >59 07/09/2017 [facility] lymphocytes as percent of blood leukocytes 20 Not Estab. 07/09/2017 [facility] carbon dioxide, venous blood 24 18 - 29 07/09/2017 [facility] sodium, serum 138 134 - 144 07/09/2017 [facility] hemoglobin A1C, blood, as % of total hemoglobin 6.7 4.8 - 5.6 07/09/2017 [facility] alkaline phosphatase, serum 74 39 - 117 07/09/2017 [facility] ketones, urine, by test strip negative 07/09/2017 [facility] Eosinophil Absolute Count 0.0 X10E3/UL 0.0 - 0.4 07/09/2017 [facility] specific gravity, urine 1.015 07/09/2017 [facility] mean corpuscular hemoglobin, RBC 27.3 26.6 - 33.0 07/09/2017 [facility] bilirubin, serum, total <0.2 mg/dL 0.0 - 1.2 07/09/2017 [facility] neutrophils as percent of blood leukocytes 72 Not Estab. 07/09/2017 [facility] blood in urine (hemoglobin) by dipstick negative 07/09/2017 [facility] blood glucose, random 87 65 - 99 07/09/2017 [facility] potassium, serum 4.9 3.5 - 5.2 07/09/2017 [facility] aspartate aminotransferase (SGOT), serum 22 0 - 40 07/09/2017 [facility] urine color yellow 07/09/2017 [facility] follicle stimulating hormone, serum 5.9 03/05/2017 [facility] B-12, serum 470 232 - 1245 03/05/2017 [facility] luteinizing hormone, serum 6.2 03/05/2017 [facility] triglyceride, serum, fasting 106 0 - 149 05/20/2016 [facility] HDL cholesterol, serum 48 >39 05/20/2016 [facility] LDL cholesterol, serum 133 0 - 99 05/20/2016 [facility] cholesterol, serum 202 100 - 199 05/20/2016 [facility] very low density lipoproteins 21 5 - 40 05/20/2016 [facility] Pathology Reports No Data Provided for This Section Diagnostic Reports No Data Provided for This Section Consultation Notes No Data Provided for This Section Discharge Summaries No Data Provided for This Section History and Physicals No Data Provided for This Section Vital Signs Vital Sign Value Date Comments Source Weight 263.2 07/13/2018 Stephen Young Height 63 07/13/2018 Stephne Young Temperature Oral (F) 97.0 F 07/13/2018 Stephen Young Heart Rate 88 07/13/2018 Stephen Young Diastolic (mm Hg) 64 07/13/2018 Stephen Young Systolic (mm Hg) 126 07/13/2018 Stephen Young Weight 265 12/28/2017 Stephen Young Height 63 12/28/2017 Stephen Young Temperature Oral (F) 97.4 F 12/28/2017 Stephen Young Heart Rate 96 12/28/2017 Stephen Young Diastolic (mm Hg) 90 12/28/2017 Stephen Young Systolic (mm Hg) 132 12/28/2017 Stephen Young Weight 266 10/20/2017 Stephen Young Height 63 10/20/2017 Stephen Young Temperature Oral (F) 97.9 F 10/20/2017 Stephen Young Heart Rate 96 10/20/2017 Stephen Young Diastolic (mm Hg) 88 10/20/2017 Stephen Young Systolic (mm Hg) 118 10/20/2017 Stephen Young Diastolic (mm Hg) 90 07/27/2017 [facility] Systolic (mm Hg) 129 07/27/2017 [facility] Height 63 07/27/2017 [facility] Heart Rate 99 07/27/2017 [facility] Respitory Rate 16 07/27/2017 [facility] Temperature Oral (F) 98.3 F 07/27/2017 [facility] Weight 255.20 07/27/2017 [facility] Diastolic (mm Hg) 88 07/09/2017 [facility] Systolic (mm Hg) 138 07/09/2017 [facility] Height 63 07/09/2017 [facility] Heart Rate 104 07/09/2017 [facility] Respitory Rate 23 07/09/2017 [facility] Temperature Oral (F) 98.8 F 07/09/2017 [facility] Weight 254 07/09/2017 [facility] Diastolic (mm Hg) 88 06/19/2017 [facility] Systolic (mm Hg) 127 06/19/2017 [facility] Height 63 06/19/2017 [facility] Heart Rate 90 06/19/2017 [facility] Respitory Rate 16 06/19/2017 [facility] Temperature Oral (F) 98.3 F 06/19/2017 [facility] Weight 262 06/19/2017 [facility] Weight 267 04/14/2017 Stephen Young Height 63 04/14/2017 Stephen Young Temperature Oral (F) 98.5 F 04/14/2017 Stephen Young Heart Rate 80 04/14/2017 Stephen Young Diastolic (mm Hg) 82 04/14/2017 Stephen Young Systolic (mm Hg) 118 04/14/2017 Stephen Young Diastolic (mm Hg) 89 03/05/2017 [facility] Systolic (mm Hg) 128 03/05/2017 [facility] Height 63 03/05/2017 [facility] Heart Rate 98 03/05/2017 [facility] Respitory Rate 17 03/05/2017 [facility] Temperature Oral (F) 98.6 F 03/05/2017 [facility] Weight 264.80 03/05/2017 [facility] Diastolic (mm Hg) 84 03/04/2017 [facility] Systolic (mm Hg) 127 03/04/2017 [facility] Height 63 03/04/2017 [facility] Heart Rate 132 03/04/2017 [facility] Weight 265.20 03/04/2017 [facility] Diastolic (mm Hg) 104 01/22/2017 [facility] Systolic (mm Hg) 146 01/22/2017 [facility] Height 63 01/22/2017 [facility] Heart Rate 137 01/22/2017 [facility] Weight 269.40 01/22/2017 [facility] Weight 271 01/16/2017 Stephen Young Height 63 01/16/2017 Stephen Young Temperature Oral (F) 97.9 F 01/16/2017 Stephen Young Heart Rate 92 01/16/2017 Stephen Young Diastolic (mm Hg) 96 01/16/2017 Stephen Young Systolic (mm Hg) 138 01/16/2017 Stephen Young Diastolic (mm Hg) 86 12/05/2016 [facility] Systolic (mm Hg) 137 12/05/2016 [facility] Height 63 12/05/2016 [facility] Heart Rate 83 12/05/2016 [facility] Weight 256.60 12/05/2016 [facility] Diastolic (mm Hg) 86 12/01/2016 [facility] Systolic (mm Hg) 137 12/01/2016 [facility] Height 63 12/01/2016 [facility] Heart Rate 76 12/01/2016 [facility] Respitory Rate 17 12/01/2016 [facility] Temperature Oral (F) 98.1 F 12/01/2016 [facility] Weight 261.40 12/01/2016 [facility] Diastolic (mm Hg) 83 11/07/2016 [facility] Systolic (mm Hg) 120 11/07/2016 [facility] Height 63 11/07/2016 [facility] Heart Rate 98 11/07/2016 [facility] Weight 261.38 11/07/2016 [facility] Weight 258 10/09/2016 Stephen Young Height 63 10/09/2016 Stephen Young Temperature Oral (F) 97.0 F 10/09/2016 Stephen Young Heart Rate 88 10/09/2016 Stephen Young Diastolic (mm Hg) 80 10/09/2016 Stephen Young Systolic (mm Hg) 122 10/09/2016 Stephen Young Diastolic (mm Hg) 80 10/08/2016 [facility] Systolic (mm Hg) 127 10/08/2016 [facility] Height 63 10/08/2016 [facility] Heart Rate 94 10/08/2016 [facility] Weight 258.40 10/08/2016 [facility] Diastolic (mm Hg) 81 09/19/2016 [facility] Systolic (mm Hg) 124 09/19/2016 [facility] Height 63 09/19/2016 [facility] Heart Rate 109 09/19/2016 [facility] Weight 255.38 09/19/2016 [facility] Diastolic (mm Hg) 85 09/03/2016 [facility] Systolic (mm Hg) 139 09/03/2016 [facility] Height 63 09/03/2016 [facility] Heart Rate 92 09/03/2016 [facility] Weight 254.80 09/03/2016 [facility] Diastolic (mm Hg) 82 08/21/2016 [facility] Systolic (mm Hg) 115 08/21/2016 [facility] Height 63 08/21/2016 [facility] Heart Rate 86 08/21/2016 [facility] Respitory Rate 19 08/21/2016 [facility] Temperature Oral (F) 98.9 F 08/21/2016 [facility] Weight 253 08/21/2016 [facility] Diastolic (mm Hg) 78 08/20/2016 [facility] Systolic (mm Hg) 124 08/20/2016 [facility] Height 63 08/20/2016 [facility] Heart Rate 82 08/20/2016 [facility] Weight 253.60 08/20/2016 [facility] Weight 257 07/24/2016 Stephen Young Height 63 07/24/2016 Stephen Young Temperature Oral (F) 97.9 F 07/24/2016 Stephen Young Heart Rate 96 07/24/2016 Stephen Young Diastolic (mm Hg) 80 07/24/2016 Stephen Young Systolic (mm Hg) 140 07/24/2016 Stephen Young Weight 266 05/12/2016 Stephen Young Height 63 05/12/2016 Stephen Young Temperature Oral (F) 97.9 F 05/12/2016 Stephen Young Heart Rate 99 05/12/2016 Stephen Young Diastolic (mm Hg) 85 05/12/2016 Stephen Young Systolic (mm Hg) 167 05/12/2016 Stephen Young Weight 271.8 03/25/2016 Stephen Young Height 63 03/25/2016 Stephen Young Temperature Oral (F) 97.2 F 03/25/2016 Stephen Young Heart Rate 88 03/25/2016 Stephen Young Diastolic (mm Hg) 72 03/25/2016 Stephen Young Systolic (mm Hg) 142 03/25/2016 Stephen Young Weight 279.1 02/04/2016 Stephen Young Height 63 02/04/2016 Stephen Young Temperature Oral (F) 97.0 F 02/04/2016 Stephen Young Heart Rate 94 02/04/2016 Stephen Young Diastolic (mm Hg) 90 02/04/2016 Stephen Young Systolic (mm Hg) 152 02/04/2016 Stephen Young Weight 277 01/07/2016 Stephen Young Height 63 01/07/2016 Stephen Young Temperature Oral (F) 97.4 F 01/07/2016 Tsephen Young Heart Rate 88 01/07/2016 Stephen Young Diastolic (mm Hg) 75 01/07/2016 Stephen Young Systolic (mm Hg) 134 01/07/2016 Stephen Young Weight 272 12/10/2015 Stephen Young Height 63 12/10/2015 Stephen Young Temperature Oral (F) 97.6 F 12/10/2015 Stephen Young Heart Rate 92 12/10/2015 Stephen Young Diastolic (mm Hg) 91 12/10/2015 Stephen Young Systolic (mm Hg) 158 12/10/2015 Stephen Young Diastolic (mm Hg) 89 11/06/2015 Stephen Young Systolic (mm Hg) 160 11/06/2015 Stephen Young Weight 277 11/06/2015 Stephen Young Temperature Oral (F) 97.6 F 11/06/2015 Stephen Young Heart Rate 90 11/06/2015 Stephen Young Weight 254 04/23/2015 Stephen Young Height 63 04/23/2015 Stephen Young Temperature Oral (F) 97.0 F 04/23/2015 Stephen Young Heart Rate 78 04/23/2015 Stephen Young Diastolic (mm Hg) 72 04/23/2015 Stephen Young Systolic (mm Hg) 122 04/23/2015 Stephen Young Weight 247 01/31/2015 Stephen Young Height 63 01/31/2015 Stephen Young Temperature Oral (F) 98.9 F 01/31/2015 Stephen Young Heart Rate 80 01/31/2015 Stephen Young Diastolic (mm Hg) 78 01/31/2015 Stephen Young Systolic (mm Hg) 130 01/31/2015 Stephen Young Weight 254 10/09/2014 Stephen Young Height 63 10/09/2014 Stephen Young Temperature Oral (F) 98.6 F 10/09/2014 Stephen Young Heart Rate 82 10/09/2014 Stephen Young Diastolic (mm Hg) 74 10/09/2014 Stephen Young Systolic (mm Hg) 124 10/09/2014 Stephen Young Weight 244 08/22/2014 Stephen Young Height 62 08/22/2014 Stephen Young Temperature Oral (F) 98.2 F 08/22/2014 Stephen Young Heart Rate 80 08/22/2014 Stephen Young Diastolic (mm Hg) 76 08/22/2014 Stephen Young Systolic (mm Hg) 122 08/22/2014 Stephen Young Weight 245 03/21/2014 Stephen Young Height 62 03/21/2014 Stephen Young Temperature Oral (F) 97.1 F 03/21/2014 Stephen Young Heart Rate 76 03/21/2014 Stephen Young Diastolic (mm Hg) 84 03/21/2014 Stephen Young Systolic (mm Hg) 124 03/21/2014 Stephen Young Weight 246 02/03/2014 Stephen Young Height 62 02/03/2014 Stephen Young Temperature Oral (F) 98.2 F 02/03/2014 Stephne Young Heart Rate 80 02/03/2014 Stephen Young Diastolic (mm Hg) 76 02/03/2014 Stephen Young Systolic (mm Hg) 132 02/03/2014 Stephen Young Weight 229 07/04/2013 Stephen Young Height 63 07/04/2013 Stephen Young Temperature Oral (F) 97.4 F 07/04/2013 Stephen Young Heart Rate 76 07/04/2013 Stephen Young Diastolic (mm Hg) 78 07/04/2013 Stephen Young Systolic (mm Hg) 114 07/04/2013 Stephen Young Encounters Location Location Details Encounter Type Encounter Number Reason For Visit Attending Provider ADM Date DC Date Status Source Randolph Young MD 4 w f/u [id number] 07/04/2013 07/04/2013 Stephen Young MD 4 w f/u [id number] 07/04/2013 07/04/2013 Stephen Young MD 4 w f/u [id number] 07/04/2013 07/04/2013 Stephen Young MD 4 w f/u qv545bt3-70t3-7y07-i4dp-2c87b2n551g8 07/04/2013 07/04/2013 Stephen Young MD 4 w f/u ri941565-g96q-81qz-a01q-40m18ia4u1c7 07/04/2013 07/04/2013 Stephen Young MD 4 w f/u 0893f6w1-56ui-5x59-a49j-553g8n1t14p6 07/04/2013 07/04/2013 Stephen Young MD 4 w f/u 81e1136q-705g-2l71-4714-h1ea3j1570t4 07/04/2013 07/04/2013 Stephen Young MD 4 w f/u 01l7938d-87y8-1y90-i585-7o23bi86r92o 07/04/2013 07/04/2013 Stephen Young MD 4 w f/u z0zb0v57-p5p9-4ehg-g157-[id number] 07/04/2013 07/04/2013 Stephen Young MD 4 w f/u h690ci11-c2bi-4757-4e5l-e5l2b41hf509 07/04/2013 07/04/2013 Stephen Young MD 4 w f/u qo310y2k-7b48-36hs-o570-6919e7a73683 07/04/2013 07/04/2013 Stephen Young MD 4 w f/u bt7n27vw-4d3m-62wo-60tp-577e46a390b8 07/04/2013 07/04/2013 Stephen Young MD 4 w f/u 25r01867-c4a8-5300-ke95-68g791h1a897 07/04/2013 07/04/2013 Stephen Young MD 4 w f/u 6m8r7j2g-4891-087c-1t36-9wwz4850ge6g 07/04/2013 07/04/2013 Stephen Young MD 4 w f/u 69j42210-4k63-886z-fzos-057jnq72xhaw 07/04/2013 07/04/2013 Stephen Young MD 4 w f/u g476i82n-q22x-4m88-wvm3-x7e899i3n232 07/04/2013 07/04/2013 Stephen Young MD 4 w f/u f51u150x-uz4n-78hb-9sv2-5u3g619v41x5 07/04/2013 07/04/2013 Stephen Young MD 4 w f/u 2rl6xa87-3fn5-7580-8k54-78y9701jpfaw 07/04/2013 07/04/2013 Stephen Young MD 4 w f/u 607f68g1-2fjd-6u87-s4z3-1771c31411h4 07/04/2013 07/04/2013 Stephen Young MD 4 w f/u 16h0b160-5q3i-3ht0-tswc-a3i1u35388qy 07/04/2013 07/04/2013 Stephen Young MD 4 w f/u 58z9g3tl-z7gj-614t-lr8c-ykj0tv071p8d 07/04/2013 07/04/2013 Stephen Young MD 4 w f/u e36h0t5r-x80h-03t6-n742-46i58e0005a8 07/04/2013 07/04/2013 Stephen Young MD 4 w f/u 324t8fr9-2610-13lo-r302-6405ddr5n626 07/04/2013 07/04/2013 Stephen Young MD 4 w f/u 6008zn62-65wo-7n8r-k266-0002x433e83n 07/04/2013 07/04/2013 Stephen Young MD 4 w f/u 439f8753-m811-39y1-6mzb-3vr537h442x9 07/04/2013 07/04/2013 Stephen Young MD 4 w f/u dcp53987-6775-5359-w590-s622667682h9 07/04/2013 07/04/2013 Stephen Young MD 4 w f/u 4ffi006c-p46q-496t-vb71-5ff9d6o05n04 07/04/2013 07/04/2013 Stephen Young MD 4 w f/u n2k28200-4784-701o-kvu6-79e811n96659 07/04/2013 07/04/2013 Stephen Young MD 4 w f/u sd4r82y2-7v8j-4q04-4t91-9k9881mu7iu8 07/04/2013 07/04/2013 Stephen Young MD 4 w f/u 7521383l-555u-49s8-330l-8c3ni58d1211 07/04/2013 07/04/2013 Stephen Young MD 4 w f/u m7ig28v7-7lp5-13xw-5425-2lc1pi68r783 07/04/2013 07/04/2013 Stephen Young MD 4 w f/u 658a1n20-4i3o-6550-x7z5-7ci0axjo4374 07/04/2013 07/04/2013 Stephen Young MD 4 w f/u dw9w2039-u9db-5e40-y224-59kg67s8t3aj 07/04/2013 07/04/2013 Stephen Young MD 4 w f/u b243v6av-vv4e-1757-5pm5-d09xgp53405a 07/04/2013 07/04/2013 Stephen Young MD 4 w f/u 0e994771-f0r2-8375-9af6-a572q3dq23p5 07/04/2013 07/04/2013 Stephen Young MD 4 w f/u j0p59d02-3m10-4nm3-7s57-cn856r69kt6a 07/04/2013 07/04/2013 Stephen Young MD 4 w f/u 0d597014-787n-6l0c-0ak6-66zy2q6aq144 07/04/2013 07/04/2013 Stephen Young MD 4 w f/u s908z80w-56j8-7491-fhfg-j19500x06053 07/04/2013 07/04/2013 Stephen Young MD 4 w f/u 335fz3i9-3b79-3776-e18c-qw87m36f7943 07/04/2013 07/04/2013 Stephen Young MD 4 w f/u 7r49u890-51ag-1878-565y-7f2470i36033 07/04/2013 07/04/2013 Stephen Young MD 4 w f/u 1h29oj3b-8r4g-7491-3c7z-5xu6y4615n64 07/04/2013 07/04/2013 Stephen Young MD 4 w f/u wm74s368-r26n-5b8d-6183-216n36ua3474 07/04/2013 07/04/2013 Stephen Young MD 4 w f/u 0n651641-5th9-3651-8ac0-67n6y19qp85i 07/04/2013 07/04/2013 Stephen Young MD 4 w f/u 6523p957-4u67-8d62-110i-1tj5862my325 07/04/2013 07/04/2013 Stephen Young MD 4 w f/u 61y22zby-16q3-36s7-o9d4-3hoi3r395g47 07/04/2013 07/04/2013 Stephen Young MD 4 w f/u 18248ta7-9n04-58e3-x8ww-m7201p97aazv 07/04/2013 07/04/2013 Stephen Young MD 4 w f/u m4z7b314-m425-47qj-n619-es25897k0611 07/04/2013 07/04/2013 Stephen Young MD 4 w f/u 23207e33-1qt9-47k2-ig01-to6m754i55p9 07/04/2013 07/04/2013 Stephen Young MD 4 w f/u ui31b5d4-xt96-1pn8-29yc-5twd8x6g1008 07/04/2013 07/04/2013 Stephen Young MD 4 w f/u 9kshw550-7q1h-9wqb-y4xd-c7011281x5zz 07/04/2013 07/04/2013 Stephen Young MD 4 w f/u 45k67mvt-e3sh-1pvo-9840-1nt1cu8p60u2 07/04/2013 07/04/2013 Stephen Young MD Pt. Depo Update il75zoq5-r381-6523-kpk8-3i9g2r7eamp4 07/11/2013 07/11/2013 Stephen Young MD Pt. Depo Update 98i3o4a7-58v8-0748-3k2n-99w23017056i 07/11/2013 07/11/2013 Stephen Young MD Pt. Depo Update n1qx1d5k-z2j4-41j3-p82d-m34m948633o9 07/11/2013 07/11/2013 Stephen Young MD Pt. Depo Update 390j2c70-8338-7w2u-dms3-456w52c51144 07/11/2013 07/11/2013 Stephen Young MD Pt. Depo Update 13iw5538-2e18-0638-x5k7-xxi9r554vdwm 07/11/2013 07/11/2013 Stephen Young MD Pt. Depo Update [id number]-d554-0zn454x14p4s 07/11/2013 07/11/2013 Stephen Young MD Pt. Depo Update 7rt661ta-26d5-9h45-2y27-97k7muz42b70 07/11/2013 07/11/2013 Stephen Young MD Pt. Depo Update [id number]-u8e6-jskgdj963661 07/11/2013 07/11/2013 Stephen Young MD Pt. Depo Update 0loo988e-29v8-014x-y43a-7l2oz8kj54m1 07/11/2013 07/11/2013 Stephen Young MD Pt. Depo Update 901sv757-z74k-064j-9cng-i887cmb31475 07/11/2013 07/11/2013 Stephen Young MD Pt. Depo Update hyf30789-50b6-7pm6-kei4-1c9maweht812 07/11/2013 07/11/2013 Stephen Young MD Pt. Depo Update wp27l9ye-6841-04zp-lx6m-fw80y61528ar 07/11/2013 07/11/2013 Stephen Young MD Pt. Depo Update 51663a74-y13a-91hi-2373-419l9l34a54d 07/11/2013 07/11/2013 Stephen Young MD Pt. Depo Update 0j07w5p4-b93l-650k-35ad-37349h10tso3 07/11/2013 07/11/2013 Stephen Young MD Pt. Depo Update 09c0i9s9-4832-53j2-060v-swb311466164 07/11/2013 07/11/2013 Stephen Young MD Pt. Depo Update g321z772-0398-6z3f-99mc-6q8z722e0l29 07/11/2013 07/11/2013 Stephen Young MD Pt. Depo Update nh334w06-28s3-743g-6875-2c4z9n737t29 07/11/2013 07/11/2013 Stephen Young MD Pt. Depo Update w16k3822-6902-767s-v60q-r8694kh19l35 07/11/2013 07/11/2013 Stephen Young MD Pt. Depo Update 742zoj96-4893-65s7-45z2-vd3yip719g10 07/11/2013 07/11/2013 Stephen Young MD Pt. Depo Update 89r47f8b-2z26-0lqp-s160-676nem8k9no4 07/11/2013 07/11/2013 Stephen Young MD Pt. Depo Update h1700v26-5scm-899f-23s2-262l26y772x0 07/11/2013 07/11/2013 Stephen Young MD Pt. Depo Update q954ub4z-2mb5-043v-5638-6zv389441463 07/11/2013 07/11/2013 Stephen Young MD Pt. Depo Update m0r868cp-48yo-1812-6vjd-k558268s776h 07/11/2013 07/11/2013 Stephen Young MD Pt. Depo Update 35742g31-6jwg-39og-2z0d-834uyf2p3c53 07/11/2013 07/11/2013 Stephen Young MD Pt. Depo Update 0q7953q1-r1oh-80nm-1h9i-11q457289g2s 07/11/2013 07/11/2013 Stephen Young MD Pt. Depo Update roz7247g-3v5t-103q-fli5-8299ctytsn61 07/11/2013 07/11/2013 Stephen Young MD Pt. Depo Update r2y9s226-6294-3hmf-8x49-3w602r4aw73a 07/11/2013 07/11/2013 Stephen Young MD Pt. Depo Update wmc9u906-67ob-1535-rbc6-6200fkl136xm 07/11/2013 07/11/2013 Stephen Young MD Pt. Depo Update 1i32hfd4-7pye-3307-3m4g-3vt1at8l1m08 07/11/2013 07/11/2013 Stephen Young MD Pt. Depo Update sds8u53n-5d42-6q71-6241-21s0c8grq2tk 07/11/2013 07/11/2013 Stephen Young MD Pt. Depo Update 73go5l13-6341-6729-5j92-0c9839671w5o 07/11/2013 07/11/2013 Stephen Young MD Pt. Depo Update 8q8x1b67-v5d9-8066-f6mr-30f8vggnj6of 07/11/2013 07/11/2013 Stephen Young MD Pt. Depo Update ki624576-s396-04c3-y39c-08xdka7674bn 07/11/2013 07/11/2013 Stephen Young MD Pt. Depo Update 9a427900-154g-3q95-hzb5-82s007w48p0r 07/11/2013 07/11/2013 Stephen Young MD Pt. Depo Update yacom7t5-n8f1-4880-6k7c-wl492ov2pz99 07/11/2013 07/11/2013 Stephen Young MD Pt. Depo Update 7ms7e2e3-2752-9a0g-gw07-3a8f1awms93s 07/11/2013 07/11/2013 Stephen Young MD Pt. Depo Update 7060w4q0-xa5s-3698-bh79-4529wx67xbjp 07/11/2013 07/11/2013 Stephen Young MD Pt. Depo Update yynp9nl9-dct1-8g16-d2qv-a2aj1rnyk774 07/11/2013 07/11/2013 Stephen Young MD Pt. Depo Update 5ut4026l-75eo-33y3-9pe2-911e2p0337a1 07/11/2013 07/11/2013 Stephen Young MD Pt. Depo Update 52105090-gk75-5k97-b435-az67fqwx2q38 07/11/2013 07/11/2013 Stephen Young MD Pt. Depo Update 79nzu4dx-154b-4984-v9kt-n6511v9e6j33 07/11/2013 07/11/2013 Stephen Young MD Pt. Depo Update 9948jq90-3glf-1a95-1r42-5p24eeh6x01e 07/11/2013 07/11/2013 Stephen Young MD Pt. Depo Update rn46x2jj-c824-5dj2-9xq3-449e7x3564h8 07/11/2013 07/11/2013 Stephen Young MD Pt. Depo Update 2q4931c7-b8l6-5593-c0i4-n2l7p2vv4m5g 07/11/2013 07/11/2013 Stephen Young MD Pt. Depo Update wu30redr-jt4t-35n6-091w-z87p6ycp4z4i 07/11/2013 07/11/2013 Stephen Young MD Pt. Depo Update eh9900t0-3978-14g5-c2d6-70u6cr35v008 07/11/2013 07/11/2013 Stephen Young MD Pt. Depo Update 45mz7531-4lvc-2545-u6b1-0899x7q03y6n 07/11/2013 07/11/2013 Stephen Young MD Pt. Depo Update kem5y2yn-x753-4i39-62uv-228d2l86a879 07/11/2013 07/11/2013 Stephen Young MD Pt. Depo Update w94c721g-8131-400c-a231-cnf42zbi734o 07/11/2013 07/11/2013 Stephen Young MD Pt. Depo Update m038op97-0r1c-3x0x-d58k-4sv0840f9i45 07/11/2013 07/11/2013 Stephen Young MD Pt. Depo Update 8j78t110-2lb0-744j-qwqf-30014399y139 07/11/2013 07/11/2013 Stephen Young MD Pt. Depo Update 83f43981-u143-86l8-u224-pg8v0n89r1zf 07/11/2013 07/11/2013 Stephen Young MD rash n5z0z27v-9899-7q1v-mng1-f9e1h8o9687r 10/28/2013 10/28/2013 Stephen Young MD rash 57e16x41-i14y-87x2-1bib-n425647f2w2p 10/28/2013 10/28/2013 Stephen Young MD rash u34940il-0wb4-6knv-1tb1-00q589n52e3p 10/28/2013 10/28/2013 Stephen Young MD rash 42m3w339-9sn7-043a-j100-03r4e6o737j1 10/28/2013 10/28/2013 Stephen Young MD rash se4921q4-2u03-8ig5-4e7v-ln3tpbe174v6 10/28/2013 10/28/2013 MD deya Arce i890r357-5n2t-2492-0e7k-brw091117744 10/28/2013 10/28/2013 MD deya Arce 506u348b-594k-0g65-xfbg-ugw08v9uf2wp 10/28/2013 10/28/2013 MD deya Arce 0qyj51wl-7n63-4r23-2974-9yk81e9b374f 10/28/2013 10/28/2013 MD deya Arce 52168g68-2ibo-2h48-x7tt-64t88dj9x561 10/28/2013 10/28/2013 MD deya Arce 3xh4l914-8f6q-6it4-9n76-x23i5sp92z50 10/28/2013 10/28/2013 Stephen Young MD rash 48169i1w-2o71-0405-yo23-y4i96235bu57 10/28/2013 10/28/2013 Stephen Young MD rash 810zifdk-c33o-9134b91z-4710-w2v9-sk54821800v0 10/28/2013 10/28/2013 Stephen Young MD rash 0o6hi232-20ob-86v9-310o-tr5095n80o9d 10/28/2013 10/28/2013 Stephen Young MD rash a93742il-86d0-34vm-qt98-3zc573w25jvi 10/28/2013 10/28/2013 Stephen Young MD rash a77yu905-9a6d-6l5u-qm17-3168j5j763o7 10/28/2013 10/28/2013 Stephen Young MD rash 564q1d1m-f612-3val-9d08-1f8gli3v71z3 10/28/2013 10/28/2013 Stephen Young MD rash 507ed19j-t641-24x7-eb12-f0k6w9o08x88 10/28/2013 10/28/2013 MD deya Arce 429v0ek6-5n7q-6795-2184-8o636d7w4eto 10/28/2013 10/28/2013 MD deya Arce 2251642q-1n63-96pi-e50l-by2s5256v4s3 10/28/2013 10/28/2013 MD deya Arce 788d9t0s-94f8-2809-05k4-r49ib68017rx 10/28/2013 10/28/2013 Stephen Young MD rash 92913c65-6xl8-26gb-3530-0rlsc5kk19l5 10/28/2013 10/28/2013 Stephen Young MD rash 503w20qi-155h-9dl1-117f-76j976q38085 10/28/2013 10/28/2013 Stephen Young MD rash 3214h591-3701-11vw-4362-635zbmct1258 10/28/2013 10/28/2013 Stephen Young MD rash 7085zix4-55u8-6c02-9914-894omkgj5d81 10/28/2013 10/28/2013 Stephen Young MD rash tb474i52-2c43-9tz4-38eq-2a859rv40g01 10/28/2013 10/28/2013 Stephen Young MD rash rkocy252-jc90-4490-xmnl-23887orw73jy 10/28/2013 10/28/2013 MD deya Arce 71946n69-7769-749m-87d7-w3e0189u5iw8 10/28/2013 10/28/2013 MD deya Arce dzx66952-k3pq-806f-7134-w72s42t4l0af 10/28/2013 10/28/2013 MD deya Arce cs2010g9-95qu-3u07-9f4n-64cm067645e0 10/28/2013 10/28/2013 MD deya Arce p7d4094t-8269-136h-n0r5-5e66314m39q4 10/28/2013 10/28/2013 MD deya Arce 67a246d6-db4h-9285-6q34-27cc2q1i029w 10/28/2013 10/28/2013 MD deya Arce 21p59th3-83e5-2aa1-8194-5q02727wu7e5 10/28/2013 10/28/2013 MD deya Arce osu87112-53l2-1059-50jo-i2i663yyol0p 10/28/2013 10/28/2013 MD deya Arce 9rfr275w-cw48-4119-454o-y47ezx22sw4i 10/28/2013 10/28/2013 MD deya Arce k2879o5k-89ad-8x2c-5959-c22c07le6j1b 10/28/2013 10/28/2013 Stephen Young MD rash ace0imaj-1643-4974-0z5f-07c2ixbjv972 10/28/2013 10/28/2013 MD deya Arce ngbf81zp-5my0-7e65-6gc5-6fw85dmg969s 10/28/2013 10/28/2013 MD deya Arce 590br598-34g6-682i-f81z-56z8qo4dpi8v 10/28/2013 10/28/2013 Stephen Young MD rash ch4aaw65-73y6-724l-9789-7nc8c334zl74 10/28/2013 10/28/2013 MD deya Arce hz6n1b11-54j3-63o2-fcxw-w420343o3fh7 10/28/2013 10/28/2013 Stephen Young MD rash 1255ny0l-emj7-53o2-p85j-t3990q76bt1f 10/28/2013 10/28/2013 MD deya Arce 6s5b0185-6h98-2985-0z6d-s7y9681c90u2 10/28/2013 10/28/2013 MD deya Arce 19333389-8044-671r-20n1-2359873500w9 10/28/2013 10/28/2013 MD deya Arce 3hsl8sm7-0093-4708-as78-0otb34gng06o 10/28/2013 10/28/2013 MD deya Arce 7j611y09-or3f-55m1-h67h-0664971twbl1 10/28/2013 10/28/2013 Stephen Young MD rash 0606t446-22si-4hlb-3j52-32v252oz9y27 10/28/2013 10/28/2013 Stephen Young MD rash 9j554upo-43zf-70w4-x79u-g7tkz74t14h3 10/28/2013 10/28/2013 Stephen Young MD rash 832axrb2-i579-8v04-fd23-0ce9s764y031 10/28/2013 10/28/2013 Stephen Young MD [facility] 2i455e8s-5g2w-8470-y405-z1915128l219 10/28/2013 10/28/2013 Stephen Young MD [facility] 963j177v-g623-085f-au6i-ws3xcg45436v 10/28/2013 10/28/2013 Stephen Young MD 4-6 wk f/u u50ys2c5-77sm-4481-3597-8b659g94sez6 11/25/2013 11/25/2013 Stephen Young MD 4-6 wk f/u 4m66d012-g4c7-7598-72jx-d9367b6kt45s 11/25/2013 11/25/2013 Stephen Young MD 4-6 wk f/u 13f3jz8q-nsq6-665b-5510-m19raf43ap6r 11/25/2013 11/25/2013 Stephen Young MD 4-6 wk f/u 2c4dgkz6-pq01-5hn3-2q79-6xqbibt02164 11/25/2013 11/25/2013 Stephen Young MD 4-6 wk f/u bw8929fq-sz25-291v-49m5-067k176q62p7 11/25/2013 11/25/2013 Stephen Young MD 4-6 wk f/u 16w1a62d-1z6d-1m85-85o2-6s9d5g79127q 11/25/2013 11/25/2013 Stephen Young MD 4-6 wk f/u yk0460mz-ln13-4d0u-9o0w-2d8t90i2hiob 11/25/2013 11/25/2013 Stephen Young MD 4-6 wk f/u 440c4309-jy3t-78f4-n6e8-7u062254dp40 11/25/2013 11/25/2013 Stephen Young MD 4-6 wk f/u 4f821dj0-t7l2-4iez-791w-9tx8y0q4j357 11/25/2013 11/25/2013 Stephen Young MD 4-6 wk f/u [id number] 11/25/2013 11/25/2013 Stephen Young MD 4-6 wk f/u 482175p0-2132-2qb2-6nck-0gk71265cb20 11/25/2013 11/25/2013 Stephen Young MD 4-6 wk f/u z7t87i87-2651-9z67-ji27-z4813stl7067 11/25/2013 11/25/2013 Stephen Young MD 4-6 wk f/u 81j9g61k-3298-242y-u6h3-y43a1b1q0406 11/25/2013 11/25/2013 Stephen Young MD 4-6 wk f/u 5v6c8sy5-w720-2900-gu92-4dq76e78l1v9 11/25/2013 11/25/2013 Stephen Young MD 4-6 wk f/u 57fbc7dn-412i-8dn0-019u-00b018t9st19 11/25/2013 11/25/2013 Stephen Young MD 4-6 wk f/u c0b3zjkw-965f-711g-8m7a-0gw3q50448pp 11/25/2013 11/25/2013 Stephen Young MD 4-6 wk f/u 0p7u5018-is86-4m56-6m72-bc505y9m3s31 11/25/2013 11/25/2013 Stephen Young MD 4-6 wk f/u tvf800y6-a4r3-2562-87sg-4j459aas73a8 11/25/2013 11/25/2013 Stephen Young MD 4-6 wk f/u m1cw035r-3dc7-9z7w-88b1-j8s9c1wt56y5 11/25/2013 11/25/2013 Stephen Young MD 4-6 wk f/u g57e8r91-fu64-0sql-9854-2443lq0g0n9r 11/25/2013 11/25/2013 Stephen Young MD 4-6 wk f/u sd2k26dz-8mjv-2762-y7p2-7g67wc038gbr 11/25/2013 11/25/2013 Stephen Young MD 4-6 wk f/u 9kg01937-l8oj-94s2-gxko-xf7y895v6767 11/25/2013 11/25/2013 Stephen Young MD 4-6 wk f/u 469fx49r-b48q-8cr5-8fz8-3n2306dl8ou1 11/25/2013 11/25/2013 Stephen Young MD 4-6 wk f/u 66051kvq-6gab-4f2a-9fv3-a23r7lbgd7m9 11/25/2013 11/25/2013 Stephen Young MD 4-6 wk f/u l5z05h60-9g6c-2f44-yk57-ziyn27p5p8o5 11/25/2013 11/25/2013 Stephen Young MD 4-6 wk f/u uij9m27x-4e8i-1e4d-gr76-uz8h0u0618t4 11/25/2013 11/25/2013 Stephen Young MD 4-6 wk f/u 6h05s8k2-9b97-4p8p-6f2w-12i40140185b 11/25/2013 11/25/2013 Stephen Young MD 4-6 wk f/u 28q6f5a4-2fww-2201-41s1-2c93a911otat 11/25/2013 11/25/2013 Stephen Young MD 4-6 wk f/u 40w0u27h-s53h-9vuj-acy3-x0yj8e5lg230 11/25/2013 11/25/2013 Stephen Young MD 4-6 wk f/u [id number]ae7921207xy 11/25/2013 11/25/2013 Stephen Young MD 4-6 wk f/u ay2007a1-3di8-5h0y-06uq-3u2vpd5ysq1d 11/25/2013 11/25/2013 Stephen Young MD 4-6 wk f/u um2z1u2m-80p7-6242-i29z-v93168v0852g 11/25/2013 11/25/2013 Stephen Young MD 4-6 wk f/u [id number]-n846-00o3-v6a5-qap90n6uq168 11/25/2013 11/25/2013 Stephen Young MD 4-6 wk f/u 7b8w29z1-c474-997n-29ia-3iu8565018e7 11/25/2013 11/25/2013 Stephen Young MD 4-6 wk f/u 42c2ce73-25t5-6j72-x6en-wb85u4w44q7h 11/25/2013 11/25/2013 Stephen Young MD 4-6 wk f/u 11z9ox01-4l00-3eiz-4ej3-4n5898g85c8l 11/25/2013 11/25/2013 Stephen Young MD 4-6 wk f/u upj38m14-983l-4a78-gn91-5829wn575e3y 11/25/2013 11/25/2013 Stephen Young MD 4-6 wk f/u 90p89g0s-055n-7qw9-1wsd-5pufo30xpsa1 11/25/2013 11/25/2013 Stephen Young MD 4-6 wk f/u 54474wp5-317b-7a30-jxj7-7yh69r841ux2 11/25/2013 11/25/2013 Stephen Young MD 4-6 wk f/u 9idi79ec-6hw2-350q-5918-r5pm7v16u953 11/25/2013 11/25/2013 Stephen Young MD 4-6 wk f/u 1d034f02-881w-0ag6-lkvc-b826stgy2m7m 11/25/2013 11/25/2013 Stephen Young MD 4-6 wk f/u 76273oi6-j39b-88zy-6s9b-2785kb5679qk 11/25/2013 11/25/2013 Stephen Young MD 4-6 wk f/u g7n29901-99if-41hk-v25f-9454e9a58857 11/25/2013 11/25/2013 Stephen Young MD Unknown [id number] 11/27/2013 11/27/2013 Stephen Young MD Unknown [id number]-f61f1s807qm4 11/27/2013 11/27/2013 Stephen Young MD Unknown [id number] 11/27/2013 11/27/2013 Stephen Young MD Unknown [id number] 11/27/2013 11/27/2013 Stephen Young MD Unknown [id number] 11/27/2013 11/27/2013 Stephen Young MD Unknown [id number] 11/27/2013 11/27/2013 Stephen Young MD Unknown [id number] 11/27/2013 11/27/2013 Stephen Young MD Unknown [id number] 11/27/2013 11/27/2013 Stephen Young MD Unknown [id number] 11/27/2013 11/27/2013 Stephen Young MD Unknown [id number]-[id number] 11/27/2013 11/27/2013 Stephen Young MD Unknown [id number] 11/27/2013 11/27/2013 Stephen Young MD Unknown [id number] 11/27/2013 11/27/2013 Stephen Young MD Unknown [id number] 11/27/2013 11/27/2013 Stephen Young MD Unknown [id number] 11/27/2013 11/27/2013 Stephen Young MD Unknown [id number]-[id number] 11/27/2013 11/27/2013 Stephen Young MD Unknown [id number] 11/27/2013 11/27/2013 Stephen Young MD Unknown [id number] 11/27/2013 11/27/2013 Stephen Young MD Unknown [id number] 11/27/2013 11/27/2013 Stephen Young MD Unknown [id number] 11/27/2013 11/27/2013 Stephen Young MD Unknown [id number] 11/27/2013 11/27/2013 Stephen Young MD Unknown [id number] 11/27/2013 11/27/2013 Stephen Young MD Unknown [id number] 11/27/2013 11/27/2013 Stephen Young MD Unknown [id number] 11/27/2013 11/27/2013 Stephen Young MD Unknown [id number] 11/27/2013 11/27/2013 Stephen Young MD Unknown [id number] 11/27/2013 11/27/2013 Stephne Young MD Unknown [id number] 11/27/2013 11/27/2013 Stephen Young MD Unknown [id number] 11/27/2013 11/27/2013 Stephen Young MD Unknown [id number] 11/27/2013 11/27/2013 Stephen Young MD Unknown [id number] 11/28/2013 11/28/2013 Stephen Young MD Unknown [id number] 11/28/2013 11/28/2013 Stephen Young MD Unknown [id number] 11/28/2013 11/28/2013 Stephen Young MD Unknown [id number] 11/28/2013 11/28/2013 Stephen Young MD Unknown [id number] 11/28/2013 11/28/2013 Stephen Young MD Unknown [id number] 11/28/2013 11/28/2013 Stephen Young MD Unknown [id number] 11/28/2013 11/28/2013 Stephen Young MD Unknown [id number] 11/28/2013 11/28/2013 Stephen Young MD Unknown [id number] 11/28/2013 11/28/2013 Stephen Young MD Unknown [id number] 11/28/2013 11/28/2013 Stephen Young MD Unknown [id number] 11/28/2013 11/28/2013 Stephen Young MD Unknown [id number] 11/28/2013 11/28/2013 Stephen Young MD Unknown [id number] 11/28/2013 11/28/2013 Stephen Young MD Unknown [id number] 11/28/2013 11/28/2013 Stephen Young MD Unknown [id number] 11/28/2013 11/28/2013 Stephen Young MD Unknown [id number] 11/28/2013 11/28/2013 Stephen Young MD Unknown [id number] 11/28/2013 11/28/2013 Stephen Young MD Unknown [id number] 11/28/2013 11/28/2013 Stephen Young MD Unknown [id number] 11/28/2013 11/28/2013 Stephen Young MD Unknown [id number] 11/28/2013 11/28/2013 Stephen Young MD Unknown [id number] 11/28/2013 11/28/2013 Stephen Young MD FMLA UPDATE [id number] 11/28/2013 11/28/2013 Stephen Young MD FMLA UPDATE [id number] 11/28/2013 11/28/2013 Stephen Young MD FMLA UPDATE [id number] 11/28/2013 11/28/2013 Stephen Young MD FMLA UPDATE [id number] 11/28/2013 11/28/2013 Stephen Young MD FMLA UPDATE [id number] 11/28/2013 11/28/2013 Stephen Young MD FMLA UPDATE [id number] 11/28/2013 11/28/2013 Stephen Young MD FMLA UPDATE [id number] 11/28/2013 11/28/2013 Stehpen Young MD FMLA UPDATE [id number] 11/28/2013 11/28/2013 Stephen Young MD FMLA UPDATE [id number] 11/28/2013 11/28/2013 Stephen Young MD FMLA UPDATE [id number] 11/28/2013 11/28/2013 Stephen Young MD FMLA UPDATE [id number] 11/28/2013 11/28/2013 Stephen Young MD FMLA UPDATE [id number] 11/28/2013 11/28/2013 Stephen Young MD FMLA UPDATE [id number] 11/28/2013 11/28/2013 Stephen Young MD FMLA UPDATE [id number] 11/28/2013 11/28/2013 Stephen Young MD FMLA UPDATE [id number] 11/28/2013 11/28/2013 Stephen Young MD FMLA UPDATE [id number] 11/28/2013 11/28/2013 Stephen Young MD FMLA UPDATE [id number] 11/28/2013 11/28/2013 Stephen Young MD FMLA UPDATE [id number] 11/28/2013 11/28/2013 Stephen Young MD FMLA UPDATE [id number] 11/28/2013 11/28/2013 Stephen Young MD FMLA UPDATE [id number] 11/28/2013 11/28/2013 Stephen Young MD FMLA UPDATE [id number] 11/28/2013 11/28/2013 Stephen Young MD FMLA UPDATE [id number] 11/28/2013 11/28/2013 Stephen Young MD FMLA UPDATE [id number] 11/28/2013 11/28/2013 Stephen Young MD FMLA UPDATE [id number] 11/28/2013 11/28/2013 Stephen Young MD FMLA UPDATE [id number] 11/28/2013 11/28/2013 Stephen Young MD FMLA UPDATE [id number] 11/28/2013 11/28/2013 Stephen Young MD FMLA UPDATE [id number] 11/28/2013 11/28/2013 Stephen Young MD FMLA UPDATE [id number] 11/28/2013 11/28/2013 Stephen Young MD FMLA UPDATE [id number] 11/28/2013 11/28/2013 Stephen Young MD FMLA UPDATE [id number] 11/28/2013 11/28/2013 Stephen Young MD FMLA UPDATE [id number] 11/28/2013 11/28/2013 Stephen Young MD FMLA UPDATE [id number] 11/28/2013 11/28/2013 Stephen Young MD FMLA UPDATE [id number] 11/28/2013 11/28/2013 Stephen Young MD FMLA UPDATE [id number] 11/28/2013 11/28/2013 Stephen Young MD FMLA UPDATE [id number] 11/28/2013 11/28/2013 Stephen Young MD FMLA UPDATE [id number] 11/28/2013 11/28/2013 Stephen Young MD FMLA UPDATE [id number] 11/28/2013 11/28/2013 Stephen Young MD FMLA UPDATE [id number] 11/28/2013 11/28/2013 Stephen Young MD FMLA UPDATE [id number] 11/28/2013 11/28/2013 Stephen Young MD FMLA UPDATE [id number] 11/28/2013 11/28/2013 Stephen Young MD FMLA UPDATE [id number] 11/28/2013 11/28/2013 Stephen Young MD FMLA UPDATE [id number] 11/28/2013 11/28/2013 Stephen Young MD FMLA UPDATE [id number] 11/28/2013 11/28/2013 Stephen Young MD FMLA UPDATE [id number] 11/28/2013 11/28/2013 Stephen Young MD FMLA UPDATE [id number] 11/28/2013 11/28/2013 Stephen Young MD FMLA UPDATE [id number] 11/28/2013 11/28/2013 Stephen Young MD [place] [id number] 11/28/2013 11/28/2013 Stephen Young MD [place] [id number] 11/28/2013 11/28/2013 Stephen Young MD FMLA UPDATE [id number] 11/28/2013 11/28/2013 Stephen Young MD [facility] [id number] 12/01/2013 12/01/2013 Stephen Young MD [facility] [id number] 12/01/2013 12/01/2013 Stephen Young MD [facility] [id number] 12/01/2013 12/01/2013 MD Zena Arce [id number] 12/01/2013 12/01/2013 Stephen Young MD [facility] [id number] 12/01/2013 12/01/2013 Stephen Young MD [facility] [id number] 12/01/2013 12/01/2013 Stephen Young MD [facility] [id number] 12/01/2013 12/01/2013 Stephen Young MD [facility] [id number] 12/01/2013 12/01/2013 Stephen Young MD [facility] [id number] 12/01/2013 12/01/2013 Stephen Young MD [facility] [id number] 12/01/2013 12/01/2013 Stephen Young MD [facility] [id number] 12/01/2013 12/01/2013 Stephen Young MD [facility] [id number] 12/01/2013 12/01/2013 Stephen Young MD [facility] [id number] 12/01/2013 12/01/2013 Stephen Young MD [facility] [id number] 12/01/2013 12/01/2013 Stephen Young MD [facility] [id number] 12/01/2013 12/01/2013 Stephen Young MD [facility] [id number] 12/01/2013 12/01/2013 Stephen Young MD [facility] [id number] 12/01/2013 12/01/2013 Stephen Young MD [facility] [id number] 12/01/2013 12/01/2013 Stephen Young MD [facility] [id number] 12/01/2013 12/01/2013 Stephen Young MD [facility] [id number] 12/01/2013 12/01/2013 Stephen Young MD [facility] [id number] 12/01/2013 12/01/2013 Stephen Young MD [facility] [id number] 12/01/2013 12/01/2013 Stephen Young MD [facility] [id number] 12/01/2013 12/01/2013 Stephen Young MD [facility] [id number] 12/01/2013 12/01/2013 Stephen Young MD [facility] [id number] 12/01/2013 12/01/2013 Stephen Young MD [facility] [id number] 12/01/2013 12/01/2013 Stephen Young MD [facility] [id number] 12/01/2013 12/01/2013 Stephen Young MD [facility] [id number] 12/01/2013 12/01/2013 Stephen Young MD [facility] [id number] 12/01/2013 12/01/2013 Stephen Young MD [facility] [id number] 12/01/2013 12/01/2013 Stephen Young MD [facility] [id number] 12/01/2013 12/01/2013 Stephen Young MD [facility] -[id number] 12/01/2013 12/01/2013 Stephen Young MD [facility] [id number] 12/01/2013 12/01/2013 Stephen Young MD [facility] [id number] 12/01/2013 12/01/2013 Stephen Young MD [facility] [id number] 12/01/2013 12/01/2013 Stephen Young MD [facility] [id number] 12/01/2013 12/01/2013 Stephen Young MD [facility] [id number] 12/01/2013 12/01/2013 Stephen Young MD [facility] [id number] 12/01/2013 12/01/2013 Stephen Young MD [facility] [id number] 12/01/2013 12/01/2013 Stephen Young MD [facility] [id number] 12/01/2013 12/01/2013 Stephen Young MD [facility] [id number] 12/01/2013 12/01/2013 Stephen Young MD [facility] [id number] 12/01/2013 12/01/2013 Stephen Young MD [facility] [id number] 12/01/2013 12/01/2013 Stephen Young MD [facility] [id number] 12/01/2013 12/01/2013 Stephen Young MD [facility] [id number] 12/01/2013 12/01/2013 Stephen Young MD [facility] [id number] 12/01/2013 12/01/2013 Stephen Young MD [facility] [id number] 12/01/2013 12/01/2013 Stephen Young MD [facility] [id number] 12/01/2013 12/01/2013 Stephen Young MD [facility] [id number] 12/01/2013 12/01/2013 Stephen Young MD [facility] [id number]-[id number] 12/01/2013 12/01/2013 Stephen Young MD [facility] [id number] 12/01/2013 12/01/2013 Stephen Young MD [facility] [id number]-7urc-[id number] 12/01/2013 12/01/2013 Stephen Young MD [facility] 5yvte386-q95r-7d2l-6509-82na139a70s9 12/01/2013 12/01/2013 Stephen Young MD [facility] [id number] 12/01/2013 12/01/2013 Stephen Young MD [facility] np097hx6-y54s-95r8-d6dp-4p9495o2kqux 12/01/2013 12/01/2013 Stephen Young MD [facility] j987ja0b-c22u-5amg-5989-816w0b2df4vm 12/01/2013 12/01/2013 Stephen Young MD [facility] [id number]-[id number] 12/01/2013 12/01/2013 Stephen Young MD [facility] [id number]-rw8o-[id number]-mb0kd8a10po5 12/01/2013 12/01/2013 Stephen Young MD [facility] [id number]-x849-g93e218oimim 12/01/2013 12/01/2013 Stephen Young MD [facility] [id number]-hlx7-5974j0fl0g69 12/01/2013 12/01/2013 Stephen Young MD [facility] [id number]-[id number] 12/01/2013 12/01/2013 Stephen Young MD [facility] [id number]-b932-g037t6783wo9 12/01/2013 12/01/2013 Stephen Young MD [facility] [id number]-9bo7-[id number] 12/01/2013 12/01/2013 Stephen Young MD [facility] [id number]-97i788y90dum 12/01/2013 12/01/2013 Stephen Young MD [facility] 340294zr-g746-688p-0567-e510ft75083d 12/01/2013 12/01/2013 Stephen Young MD [facility] 148p2rmb-9vx6-9uw3-d228-8lb859wg5m0f 12/01/2013 12/01/2013 Stephen Young MD [facility] wbbt04dx-k2e4-01w3-pjnk-v0lb1r0ez38x 12/01/2013 12/01/2013 Stephen Young MD [facility] [id number]-t84u-9zm8-vc4m-6147428s96xu 12/01/2013 12/01/2013 Stephen Young MD [facility] 46991cp2-07ac-7bp0-10j3-823a4d0nw2pa 12/01/2013 12/01/2013 Stephen Young MD [facility] yq62rl6m-x5h9-3c43-5803-lo651646d809 12/01/2013 12/01/2013 Stephen Young MD [facility] e4m7s3nd-t08z-89h5-4458-453x4r29f5q0 12/01/2013 12/01/2013 Stephen Young MD [facility] f415s17o-kc82-2ek7-hhah-nv94oo5h51m1 12/01/2013 12/01/2013 Stephen Young MD [facility] [id number] 12/01/2013 12/01/2013 Stephen Young MD [facility] tn8hq0g6-0e36-3208-l14f-f090tlu4z17u 12/01/2013 12/01/2013 Stephen Young MD [facility] 13qk6e6h-[id number]-i7i202257983 12/01/2013 12/01/2013 Stephen Young MD [facility] n62eq5oi-u00e-7l29-0c7v-116f77282w09 12/01/2013 12/01/2013 Stephen Young MD [facility] m65dz8x1-k372-9s61-pcf6-670hwwjg39k1 12/01/2013 12/01/2013 Stephen Young MD [facility] 47qe1r3g-5444-20y6-9t0q-7386ob3l7944 12/01/2013 12/01/2013 Stephen Young MD [facility] [id number]-y2229f032k86 12/01/2013 12/01/2013 Stephen Young MD [facility] 9r32y917-r38v-2s4b-u7qj-xf40763gxik8 12/01/2013 12/01/2013 Stephen Young MD [facility] [id number]-x5m6-3k129aumhub0 12/01/2013 12/01/2013 Stephen Young MD [facility] 2987g607-iptr-5047-68az-as3048i2p51d 12/01/2013 12/01/2013 Stephen Young MD [facility] [id number]3ti 12/01/2013 12/01/2013 Stephen Young MD [facility] 725kadez-676g-68k251y2-6wr7-78a91836921u 12/01/2013 12/01/2013 Stephen Young MD [facility] [id number]-4232f89u6873 12/01/2013 12/01/2013 Stephen Young MD [facility] 19j3w03i-057o-4j17-7484-423r8g59ow3s 12/01/2013 12/01/2013 Stephen Young MD [facility] dt6ox961-x0af-4r6f-e93p-71xg23k8s988 12/01/2013 12/01/2013 Stephen Young MD [facility] eu38kg59-76wi-[id number]-y7x7yb741444 12/01/2013 12/01/2013 Stephen Young MD [facility] [id number]-a714-3619439953y4 12/01/2013 12/01/2013 Stephen Young MD [facility] 6eyz8tw7-031l-5h4g-u231-9b01kz745zd4 12/01/2013 12/01/2013 Stephen Young MD [facility] 44uv0u74-1r5r-5ic8-8izw-2hp5e45p2ff0 12/01/2013 12/01/2013 Stephen Young MD [facility] [id number]-2546-6588-qs8l-749831c370ta 12/01/2013 12/01/2013 Stephen Young MD [facility] 88y2k6s5-n87z-100f-dh3w-ug8ex1d377y2 12/01/2013 12/01/2013 Stephen Young MD [facility] [id number]-sk41-4oqs-6z50-2joni507g741 12/01/2013 12/01/2013 Stephen Young MD [facility] [id number]-5f05-20w1-044z32q3y765 12/01/2013 12/01/2013 Stephen Young MD [facility] f0451bk6-kx38-8455-bp1h-5s31vu37rkwj 12/01/2013 12/01/2013 Stephen Young MD [facility] 42h60v9m-22ns-7p7d-ki83-7287ah1j5d1y 12/01/2013 12/01/2013 Stephen Young MD [facility] [id number]-ug03-zzs585893yw8 12/01/2013 12/01/2013 Stephen Young MD 4-6 wk f/u [id number]-[id number] 02/03/2014 02/03/2014 Stephen Young MD 4-6 wk f/u m00k30g7-51dp-832u-4384-h3cwx9fw083s 02/03/2014 02/03/2014 Stephen Young MD 4-6 wk f/u t3535x62-t91d-3o78-5f27-n496u51j018g 02/03/2014 02/03/2014 Stephen Young MD 4-6 wk f/u 7i2hbn48-wt75-6d3q-09j1-ou934s17823k 02/03/2014 02/03/2014 Stephen Young MD 4-6 wk f/u 5gw03f4u-x750-4t1u-8lv8-q7723j3891mp 02/03/2014 02/03/2014 Stephen Young MD 4-6 wk f/u 4j1d942q-gk6o-04zj-93n7-5o23l19x7q30 02/03/2014 02/03/2014 Stephen Young MD 4-6 wk f/u [id number] 02/03/2014 02/03/2014 Stephen Young MD 4-6 wk f/u [id number]-e734-54015z88952c 02/03/2014 02/03/2014 Stephen Young MD 4-6 wk f/u s0f8148t-r7y5-4r03-j430-03s41l75egr4 02/03/2014 02/03/2014 Stephen Young MD 4-6 wk f/u [id number]-[id number] 02/03/2014 02/03/2014 Stephen Young MD 4-6 wk f/u 9025y68k-53h3-40rh-e01d-i7l95p18030s 02/03/2014 02/03/2014 Stephen Young MD 4-6 wk f/u va08691f-hqyf-9034-75g3-59c47hdj4u67 02/03/2014 02/03/2014 Stephen Young MD 4-6 wk f/u 93lbx225-hhs8-800v-t294-in472pd65c63 02/03/2014 02/03/2014 Stephen Young MD 4-6 wk f/u wc796p42-uk26-1b06-8477-19210rh8543t 02/03/2014 02/03/2014 Stephen Young MD 4-6 wk f/u 81f1f154-g0n5-454e-10hr-di2999ny71gz 02/03/2014 02/03/2014 Stephen Young MD 4-6 wk f/u [id number]-7g46-gln0-wp6716t8b7dk 02/03/2014 02/03/2014 Stephen Young MD 4-6 wk f/u ej970wd5-4k3m-1r0m-14e7-d9n10og0gmr2 02/03/2014 02/03/2014 Stephen Young MD 4-6 wk f/u 9jz71o7w-3286-2207-z87x-1v9802mu3352 02/03/2014 02/03/2014 Stephen Young MD 4-6 wk f/u 4fc8gl47-r49t-1284-a7yo-q4b566129072 02/03/2014 02/03/2014 Stephen Young MD 4-6 wk f/u wv626l54-7314-58w2-76ks-9f47gu87y681 02/03/2014 02/03/2014 Stephen Young MD 4-6 wk f/u 0f1k6016-v022-675f-71lc-q17lax1du20t 02/03/2014 02/03/2014 Stephen Young MD 4-6 wk f/u 38554gm5-v4ag-4w68-zd7l-v1hf43cwc89l 02/03/2014 02/03/2014 Stephen Young MD 4-6 wk f/u g50589k2-x666-49p0-l5r0-x9ss3951t1o9 02/03/2014 02/03/2014 Stephen Young MD 4-6 wk f/u s02e36ig-[id number] 02/03/2014 02/03/2014 Stephen Young MD 4-6 wk f/u [id number] 02/03/2014 02/03/2014 Stephen Young MD 4-6 wk f/u [id number] 02/03/2014 02/03/2014 Stephen Young MD 4-6 wk f/u [id number] 02/03/2014 02/03/2014 Stephen Young MD 4-6 wk f/u [id number]-[id number] 02/03/2014 02/03/2014 Stephen Young MD 4-6 wk f/u [id number] 02/03/2014 02/03/2014 Stephen Young MD 4-6 wk f/u [id number] 02/03/2014 02/03/2014 Setphen Young MD 4-6 wk f/u [id number] 02/03/2014 02/03/2014 Stephen Young MD 4-6 wk f/u [id number]-[id number] 02/03/2014 02/03/2014 Stephen Young MD 4-6 wk f/u [id number] 02/03/2014 02/03/2014 Stephen Young MD 4-6 wk f/u [id number] 02/03/2014 02/03/2014 Stephen Young MD 4-6 wk f/u [id number] 02/03/2014 02/03/2014 Stephen Young MD 4-6 wk f/u [id number] 02/03/2014 02/03/2014 Stephen Young MD 4-6 wk f/u [id number] 02/03/2014 02/03/2014 Stephen Young MD 4-6 wk f/u [id number]-4y8454gcxxr5 02/03/2014 02/03/2014 Stephen Young MD 4-6 wk f/u [id number] 02/03/2014 02/03/2014 Stephen Young MD 4-6 wk f/u [id number] 02/03/2014 02/03/2014 Stephen Young MD 4-6 wk f/u [id number] 02/03/2014 02/03/2014 Stephen Young MD 4-6 wk f/u [id number] 02/03/2014 02/03/2014 Stephen Young MD 4-6 wk f/u [id number]-xdt9-520am5bg690b 02/03/2014 02/03/2014 Stephen Young MD 4-6 wk f/u [id number] 02/03/2014 02/03/2014 Stephen Young MD 4-6 wk f/u [id number]-gy91iijbq00i 02/03/2014 02/03/2014 Stephen Young MD 6WKS PER R YOUNG [id number] 03/21/2014 03/21/2014 Stephen Young MD 6WKS PER R YOUNG [id number]-87ni1mzh8627 03/21/2014 03/21/2014 Stephen Young MD 6WKS PER R YOUNG [id number]-[id number] 03/21/2014 03/21/2014 Stephen Young MD 6WKS PER R YOUNG [id number] 03/21/2014 03/21/2014 Stephen Young MD 6WKS PER R YOUNG [id number] 03/21/2014 03/21/2014 Stephen Young MD 6WKS PER R YOUNG [id number] 03/21/2014 03/21/2014 Stephen Young MD 6WKS PER R YOUNG [id number] 03/21/2014 03/21/2014 Stephen Young MD 6WKS PER R YOUNG [id number] 03/21/2014 03/21/2014 Stephen Young MD 6WKS PER R YOUNG [id number] 03/21/2014 03/21/2014 Stephen Young MD 6WKS PER R YOUNG [id number]-[id number] 03/21/2014 03/21/2014 Stephen Young MD 6WKS PER R YOUNG [id number] 03/21/2014 03/21/2014 Stephen Young MD 6WKS PER R YOUNG [id number]-y326-st828w2gplp5 03/21/2014 03/21/2014 Stephen Young MD 6WKS PER R YOUNG [id number] 03/21/2014 03/21/2014 Stephen Young MD 6WKS PER R YOUNG [id number] 03/21/2014 03/21/2014 Stephen Young MD 6WKS PER R YOUNG [id number] 03/21/2014 03/21/2014 Stephen Young MD 6WKS PER R YOUNG [id number]-792q-[id number] 03/21/2014 03/21/2014 Stephen Young MD 6WKS PER R YOUNG [id number] 03/21/2014 03/21/2014 Stephen Young MD 6WKS PER R YOUNG [id number] 03/21/2014 03/21/2014 Stephen Young MD 6WKS PER R YOUNG [id number]-34rvmfo0tj1l 03/21/2014 03/21/2014 Stephen Young MD 6WKS PER R YOUNG [id number] 03/21/2014 03/21/2014 Stephen Young MD 6WKS PER R YOUNG [id number] 03/21/2014 03/21/2014 Stephen Young MD 6WKS PER R YOUNG [id number] 03/21/2014 03/21/2014 Stephen Young MD 6WKS PER R YOUNG [id number] 03/21/2014 03/21/2014 Stephen Young MD 6WKS PER R YOUNG [id number] 03/21/2014 03/21/2014 Stephen Young MD 6WKS PER R YOUNG [id number]-[id number] 03/21/2014 03/21/2014 Stephen Young MD 6WKS PER R YOUNG [id number] 03/21/2014 03/21/2014 Stephen Young MD 6WKS PER R YOUGN [id number] 03/21/2014 03/21/2014 Stephen Young MD 6WKS PER R YOUNG [id number]-[id number] 03/21/2014 03/21/2014 Stephen Young MD 6WKS PER R YOUNG [id number] 03/21/2014 03/21/2014 Stephen Young MD 6WKS PER R YOUNG [id number]-[id number] 03/21/2014 03/21/2014 Stephen Young MD 6WKS PER R YOUNG [id number] 03/21/2014 03/21/2014 Stephen Young MD 6WKS PER R YOUNG [id number] 03/21/2014 03/21/2014 Stephen Young MD 6WKS PER R YOUNG [id number] 03/21/2014 03/21/2014 Stephen Young MD 6WKS PER R YOUNG [id number] 03/21/2014 03/21/2014 Stephen Young MD 6WKS PER R YOUNG [id number] 03/21/2014 03/21/2014 Stephen Young MD 6WKS PER R YOUNG [id number] 03/21/2014 03/21/2014 Stephen Young MD 6WKS PER R YOUNG [id number] 03/21/2014 03/21/2014 Stephen Young MD 6WKS PER R YOUNG [id number] 03/21/2014 03/21/2014 Stephen Young MD 6WKS PER R YOUNG [id number] 03/21/2014 03/21/2014 Stephen Young MD 6WKS PER R YOUNG [id number] 03/21/2014 03/21/2014 Stephen Young MD 6WKS PER R YOUNG [id number] 03/21/2014 03/21/2014 Stephen Young MD 6WKS PER R YOUNG [id number] 03/21/2014 03/21/2014 Stephen Young MD 6WKS PER R YOUNG [id number] 03/21/2014 03/21/2014 Stephen Young MD 6WKS PER R YOUNG [id number] 03/21/2014 03/21/2014 Stephen Young MD 6WKS PER R HECTOR [id number] 03/21/2014 03/21/2014 Stephen Young MD Kidney Infection [id number] 05/03/2014 05/03/2014 Stephen Young MD Kidney Infection [id number] 05/03/2014 05/03/2014 Stephen Young MD Kidney Infection [id number]-k390-g717e9b171mx 05/03/2014 05/03/2014 Stephen Young MD Kidney Infection [id number]-fvp4-5s16-9w9u-29m16oag1563 05/03/2014 05/03/2014 Stephen Young MD Kidney Infection p8l6v302-22c1-530c-393c-3k96eg82g39a 05/03/2014 05/03/2014 Stephen Young MD Kidney Infection [id number]-ly6r-6j37o81h5i3a 05/03/2014 05/03/2014 Stephen Young MD Kidney Infection 048ml0dh-0854-8w73-98v9-glk6b2vcsi40 05/03/2014 05/03/2014 Stephen Young MD Kidney Infection 475u17a0-7vcu-2y5i-238c-1j44365h8927 05/03/2014 05/03/2014 Stephen Young MD Kidney Infection jn32a040-j39n-1535-bxi8-n36h15b1947g 05/03/2014 05/03/2014 Stephen Young MD Kidney Infection [id number]-y188pv6d354j 05/03/2014 05/03/2014 Stephen Young MD Kidney Infection 411y66i1-5871-1u86-47p2-68zim7vhy1g1 05/03/2014 05/03/2014 Stephen Young MD Kidney Infection b4jbm783-dx87-8c26-170o-uk7f7vkp974x 05/03/2014 05/03/2014 Stephen Young MD Kidney Infection 951m9i47-7b37-5jr1-799k-wk909b247bll 05/03/2014 05/03/2014 Stephen Young MD Kidney Infection t92148w0-73h1-76as-97q7-501p24g997d5 05/03/2014 05/03/2014 Stephen Young MD Kidney Infection ros45e45-zm53-978d-de86-1096gh7f9696 05/03/2014 05/03/2014 Stephen Young MD Kidney Infection n5961t98-6e9g-55b8-1483-e2y896380y90 05/03/2014 05/03/2014 Stephen Young MD Kidney Infection u1qm5cn8-z3q6-1y81-5v49-2wd486f48y7m 05/03/2014 05/03/2014 Stephen Young MD Kidney Infection s1a107vq-3std-9n0r-xe00-x4c55725r998 05/03/2014 05/03/2014 Stephen Young MD Kidney Infection n3hf0786-265u-8wke-lre1-7324j6563i9s 05/03/2014 05/03/2014 Stephen Young MD Kidney Infection 755u01t9-96y1-96n8-okp3-a098788vxy04 05/03/2014 05/03/2014 Stephen Young MD Kidney Infection kk92qp3h-z613-7t56-f5e2-8796res76ynm 05/03/2014 05/03/2014 Stephen Young MD Kidney Infection ji49j986-20ss-7940-351c-18pbnl0t61v7 05/03/2014 05/03/2014 Stephen Young MD Kidney Infection 291rj35g-2sr5-3106-06y9-2oh264p2k1e0 05/03/2014 05/03/2014 Stephen Young MD Kidney Infection 5r198960-gr75-9fms-73d8-xef8838jn29k 05/03/2014 05/03/2014 Stephen Young MD Kidney Infection 94304y71-bpy6-89i5-u734-884154pt09z2 05/03/2014 05/03/2014 Stephen Young MD Kidney Infection xfq37007-01mw-82jb-k275-08czj69244s3 05/03/2014 05/03/2014 Stephen Young MD Kidney Infection 482nu6vt-1468-07lz-keaw-sgq905cab7m2 05/03/2014 05/03/2014 Stephen Young MD Kidney Infection x1ndu4is-72cf-5i25-827g-8c304175282n 05/03/2014 05/03/2014 Stephen Young MD Kidney Infection 3z7361a1-95i9-6fw1-w9c5-w835ze50s698 05/03/2014 05/03/2014 Stephen Yougn MD Kidney Infection 771a54py-7767-1a5x-4862-if5h2tc39485 05/03/2014 05/03/2014 Stephen Young MD Kidney Infection r54275g9-6w5m-3810-t2bq-49h195g4h1l2 05/03/2014 05/03/2014 Stephen Young MD Kidney Infection 8f5m7088-926o-8v22-2290-357c60194595 05/03/2014 05/03/2014 Stephen Young MD Kidney Infection 8y365606-573q-7075-53o9-286i72p5t2nr 05/03/2014 05/03/2014 Stephen Young MD Kidney Infection 8v67008o-k585-0liz-8726-77b86r3fw12e 05/03/2014 05/03/2014 Stephen Young MD Kidney Infection 1r8cd60h-52hf-7742-697r-92cnwfq4r3g2 05/03/2014 05/03/2014 Stephen Young MD Kidney Infection 25834m52-4751-12ah-641n-0z206o2oj609 05/03/2014 05/03/2014 Stephen oYung MD Kidney Infection 03c6qbz0-7w6x-2rr6-v7n9-uunc3g1h5522 05/03/2014 05/03/2014 Stephen Young MD Kidney Infection e9zm0a17-1yv1-8283-6b8k-31w3qckr4iw9 05/03/2014 05/03/2014 Stephen Young MD Kidney Infection o807pj51-rvs6-7y02-edr2-p88d49c6m570 05/03/2014 05/03/2014 Stephen Young MD Kidney Infection h4bwmw52-bc0f-87u1-x7kx-kn867997g271 05/03/2014 05/03/2014 Stephen Young MD Kidney Infection qxy8o7q3-0072-26g9-6e65-h1wvd07lyg69 05/03/2014 05/03/2014 Stephen Young MD Kidney Infection 909ge640-51re-256u-ctg0-3l8gi4703477 05/03/2014 05/03/2014 Stephen Young MD Kidney Infection g5r8t7pd-5x16-8t6c-rwk8-7y4344vzi231 05/03/2014 05/03/2014 Stephen Young MD FMLA Update 9thw2m20-8878-79a6-jx23-3208n0pb4r0l 05/19/2014 05/19/2014 Stephen Young MD FMLA Update t5ddvi1y-g5e2-5ua6-784z-c246c637w4vy 05/19/2014 05/19/2014 Stephen Young MD FMLA Update 8a5520x5-1s45-87v8-a3s9-2bbkmm6tsz75 05/19/2014 05/19/2014 Stephen Young MD FMLA Update f9z8155k-2d0b-5v33-d8cp-63a55995h1v3 05/19/2014 05/19/2014 Stephen Young MD FMLA Update h2qsk33y-2k1m-4620-j66v-jz5vs0mxg05k 05/19/2014 05/19/2014 Stephen Young MD FMLA Update 16d30480-2i80-6u38-4rl5-[id number] 05/19/2014 05/19/2014 Stephen Young MD FMLA Update 829z8765-a4p8-277t-a885-76l39vy0a985 05/19/2014 05/19/2014 Stephen Young MD FMLA Update 32e1a967-33oo-7132-448l-267028e8n5v9 05/19/2014 05/19/2014 Stephen Young MD FMLA Update s42805r6-xo8u-6547-89d1-c2370zzjn40y 05/19/2014 05/19/2014 Stephen Young MD FMLA Update 20633289-0631-0534-i454-3288tb8qpc95 05/19/2014 05/19/2014 Stephen Young MD FMLA Update d8y8ow28-g875-701g-9ao2-61ly0e4cc613 05/19/2014 05/19/2014 Stephen Young MD FMLA Update gco7io31-qkb8-78n5-23fe-6ph04e799d36 05/19/2014 05/19/2014 Stephen Young MD FMLA Update pu40g8x3-57i8-7439-0xqm-8r20azd6s965 05/19/2014 05/19/2014 Stephen Young MD FMLA Update 4lfp4a9q-855d-6672-kw47-9d925o62d2i0 05/19/2014 05/19/2014 Stephen Young MD FMLA Update 1061579z-72j3-2m4c-73os-we64758071d0 05/19/2014 05/19/2014 Stephen Young MD FMLA Update l4097gw1-q8n5-8153-koi3-8592d38316h6 05/19/2014 05/19/2014 Stephen Young MD FMLA Update j68q1x6p-e732-75x9-1z64-0do5cm4yc470 05/19/2014 05/19/2014 Stephen Young MD FMLA Update 716aj21q-667t-634m-dv71-a91406050947 05/19/2014 05/19/2014 Stephen Young MD FMLA Update 83l2m0e3-x19g-8uet-ljz9-pg034y24ul8r 05/19/2014 05/19/2014 Stephen Young MD FMLA Update e400o850-m264-03x3-ah13-06339t8s04i6 05/19/2014 05/19/2014 Stephen Young MD FMLA Update 1v588yh8-rw9x-4l06-yo03-k9y272e651b2 05/19/2014 05/19/2014 Stephen Young MD FMLA Update [id number]-[id number]-u9035rv8dl4q 05/19/2014 05/19/2014 Stephen Young MD FMLA Update m1947nn4-7ue8-444z-7tx8-89077lf88naz 05/19/2014 05/19/2014 Stephen Young MD FMLA Update 7460q428-l625-9v35-x4wo-68897722x4s6 05/19/2014 05/19/2014 Stephen Young MD FMLA Update 1x3xa322-7a4z-0k8d-5w79-4p40fith4770 05/19/2014 05/19/2014 Stephen Young MD FMLA Update 6g885892-154m-4764-4822-225724tm1w0k 05/19/2014 05/19/2014 Stephen Young MD FMLA Update 6353zlw5-t065-65y4-3u9c-z359vk9383s6 05/19/2014 05/19/2014 Stephen Young MD FMLA Update 2xb8bm9x-i620-9w78-3ii1-837nio31z4a6 05/19/2014 05/19/2014 Stephen Young MD FMLA Update x0202hm2-5297-925t-1392-874or9741533 05/19/2014 05/19/2014 Stephen Young MD FMLA Update 57yop560-22kc-0322-cgw9-2i711x13k65v 05/19/2014 05/19/2014 Stephen Young MD FMLA Update 23kctrz7-5wh1-34x0-9693-021b6y313663 05/19/2014 05/19/2014 Stephen Young MD FMLA Update hk789947-35e9-544l-9336-50169ezak1qh 05/19/2014 05/19/2014 Stephen Young MD FMLA Update 1448wu19-i216-081x-oyty-rfl720813u50 05/19/2014 05/19/2014 Stephen Young MD FMLA Update 031t4461-y7d6-0a3i-1wb7-38yf3k12ig24 05/19/2014 05/19/2014 Stephen Young MD FMLA Update 6k12a7n0-k033-7dpg-58i7-54468lu0lwlt 05/19/2014 05/19/2014 Stephen Young MD FMLA Update zt80rl8t-fe71-34j4-407b-56458tp9xjl6 05/19/2014 05/19/2014 Stephen Young MD FMLA Update 7x1j12f1-71yf-8897-v6s2-5428x5341821 05/19/2014 05/19/2014 Stephen Young MD FMLA Update 22alb8w3-4638-165z-3814-wnap74x36fa3 05/19/2014 05/19/2014 Stephen Young MD FMLA Update 9d7r3bew-f90n-00u6-114m-yb6v0o4ym8k6 05/19/2014 05/19/2014 Stephen Young MD FMLA Update ku29535k-353g-6088-ud03-z6b1746v4w20 05/19/2014 05/19/2014 Stephen Young MD FMLA Update o81mix63-71q8-9734-nz21-5i858vfuq54z 05/19/2014 05/19/2014 Stephen Young MD FMLA Update 05fyf742-0p02-4191-736l-1qt2158ej860 05/19/2014 05/19/2014 Stephen Young MD FMLA UPDATE x5z84877-3ai0-1588-cumd-dti11h5brfm9 05/22/2014 05/22/2014 Stephen Young MD FMLA UPDATE [id number]-38y3-jl29-4g989g478692 05/22/2014 05/22/2014 Stephen Young MD FMLA UPDATE 253yv3s1-31w8-5o58-ts88-891x5608q0ma 05/22/2014 05/22/2014 Stephen Young MD FMLA UPDATE 1420bm3f-4l4y-1964-ub3u-716p8026o5y4 05/22/2014 05/22/2014 Stephen Young MD FMLA UPDATE [id number]-49rh-9mdi-0c13-9v68974787ao 05/22/2014 05/22/2014 Stephen Young MD FMLA UPDATE [id number]-o332-576q-x345-58nw49063994 05/22/2014 05/22/2014 Stephen Young MD FMLA UPDATE x0f4o768-i15h-9ce1-8qk4-1327oi8m1451 05/22/2014 05/22/2014 Stephen Young MD FMLA UPDATE oc36d340-ze58-43m7-ch65-92528u255v87 05/22/2014 05/22/2014 Stephen Young MD FMLA UPDATE 642r0xz7-5x68-7x39-0f6f-3663kg79gx00 05/22/2014 05/22/2014 Stephen Young MD FMLA UPDATE bn62h002-164i-4858-d82e-c2d614p0ejz0 05/22/2014 05/22/2014 Stephen Young MD FMLA UPDATE 8w3l6zt5-c1mn-335g-x143-909pk22n4ie8 05/22/2014 05/22/2014 Stephen Young MD FMLA UPDATE n64y6604-1laj-35c4-1088-44mhw4t2t92c 05/22/2014 05/22/2014 Stephen Young MD FMLA UPDATE [id number]-e6a7-8fhr314gxu68 05/22/2014 05/22/2014 Stephen Young MD FMLA UPDATE 22c15u90-6ki9-8905-ga97-1511f9msu9h3 05/22/2014 05/22/2014 Stephen Young MD FMLA UPDATE 5g5987oj-8dhn-862x-25j8-1q67r3z8p59o 05/22/2014 05/22/2014 Stephen Young MD FMLA UPDATE 8n03n029-60rg-167u-dc34-a520q9v0l9z0 05/22/2014 05/22/2014 Stephen Young MD FMLA UPDATE ek0m3j2r-y900-0685-46jt-3k6ief6qv554 05/22/2014 05/22/2014 Stephen Young MD FMLA UPDATE 83f6f0u8-u1ol-0129-2094-s2482p4tr588 05/22/2014 05/22/2014 Stephen Young MD FMLA UPDATE e0ii6xr2-7664-35q0-y4c9-674w0781rs4m 05/22/2014 05/22/2014 Stephen Young MD FMLA UPDATE 21z89171-dxx3-43z7-hc45-04b038701548 05/22/2014 05/22/2014 Stephen Young MD FMLA UPDATE hg0j31q9-ndyf-7a7r-y289-5a972817ji47 05/22/2014 05/22/2014 Stephen Young MD FMLA UPDATE 6j63u8qj-37k8-5wip-1ocu-nw1p8gzb9c45 05/22/2014 05/22/2014 Stephen Young MD FMLA UPDATE 485q4m95-341a-4d66-85i2-y336r16cby28 05/22/2014 05/22/2014 Stephen Young MD FMLA UPDATE 405le1yt-496t-66w2-9hn5-w36605149qz4 05/22/2014 05/22/2014 Stephen Young MD FMLA UPDATE k2x0711n-t904-5a94-1qn8-s8c108lr5vp8 05/22/2014 05/22/2014 Stephen Young MD FMLA UPDATE 01a30907-3jdx-4j11-9n5u-325a4hbob737 05/22/2014 05/22/2014 Stephen Young MD FMLA UPDATE 3og3v21a-7k28-5771-df55-n72k8zyg2z4j 05/22/2014 05/22/2014 Stephen Young MD FMLA UPDATE 96123oz5-h157-36q7-4r9t-64wfti8gr74r 05/22/2014 05/22/2014 Stephen Young MD FMLA UPDATE 3p9i009x-wve4-48yy-u649-nus17r09i831 05/22/2014 05/22/2014 Stephen Young MD FMLA UPDATE 1y149ez3-7719-940f-8n4t-2w628k37711k 05/22/2014 05/22/2014 Stephen Young MD FMLA UPDATE kj7qbd1y-tc6t-81p7-7665-91320a403997 05/22/2014 05/22/2014 Stephen Young MD FMLA UPDATE y79p9056-2u53-2jx6-i0sw-w626127g0708 05/22/2014 05/22/2014 Stephen Young MD FMLA UPDATE 96x06xk8-ide5-126y-rt91-8is6y2222664 05/22/2014 05/22/2014 Stephen Young MD FMLA UPDATE [id number]-0756-29r7-7pzv25j6h5ar 05/22/2014 05/22/2014 Stephen Young MD FMLA UPDATE [id number]-j700-7422-q775-7qm71n699y28 05/22/2014 05/22/2014 Stephen Young MD FMLA UPDATE [id number]-y856-23f4-3839-g3gaa72385y5 05/22/2014 05/22/2014 Stephen Young MD [place] UPDATE k8f4394a-9d5v-76y3-498y-5w4yex00jv88 05/22/2014 05/22/2014 Stephen Young MD FMLA UPDATE [id number]-9sei-73ed-2gq9-z4807u7863z5 05/22/2014 05/22/2014 Stephen Young MD [place] w75k6727-4067-7336-6yik-v9o25p84sde9 05/22/2014 05/22/2014 Stephen Young MD [place] 6n53t84m-89eq-0g6o-42jn-3j0v6435sl22 05/22/2014 05/22/2014 Stephen Young MD FMLA UPDATE cf08v7h1-huy3-9159-13c9-mw5x574078ss 05/22/2014 05/22/2014 Stephen Young MD [place] 9617x8u8-5043-51d7-7rmq-9911f10n70v0 05/22/2014 05/22/2014 Stephen Young MD f/u k8627bxr-45st-5455-at25-80fc2vy740n5 06/20/2014 06/20/2014 Stephen Yonug MD f/u 2417r2gc-6949-3or9-yji0-14w79c66192p 06/20/2014 06/20/2014 Stephen Young MD f/u b99xsc0b-1133-4411-6z6d-njt9j9w9y683 06/20/2014 06/20/2014 Stephen Young MD f/u c1k32n5q-t728-2b41-g22j-g085851jqn13 06/20/2014 06/20/2014 Stephen Young MD f/u 03k9713r-7742-8q6u-h64y-70x57w7dquy4 06/20/2014 06/20/2014 Stephen Young MD f/u 47649q9h-9669-5842-t377-vpqas16400b9 06/20/2014 06/20/2014 Stephen Young MD [facility]/u 4ha055r5-8i4q-6hs7-i630-np66t8ysc588 06/20/2014 06/20/2014 Stephen Young MD f/u mx833c38-733o-6q37-sphu-1hpz7d8zr8k8 06/20/2014 06/20/2014 Stephen Young MD f/u 80304963-26l3-5d4p-8404-t4e5vg226v42 06/20/2014 06/20/2014 Stephen Young MD [facility]/u 485p2fc3-z52a-01u4-baq2-9xi298f2d3rr 06/20/2014 06/20/2014 Stephen oYung MD f/u 386084q0-4s38-66xo-67e2-zj144529k835 06/20/2014 06/20/2014 Stephen Young MD [facility]/u 26p4m0vr-49j6-058h-1eaw-mk5622paj234 06/20/2014 06/20/2014 Stephen Young MD f/u nwwn9zm4-9715-5b86-1s26-310l4b11876b 06/20/2014 06/20/2014 Stephen Young MD f/u f9c20a1o-wjzm-360w-3n0x-dw1wf0l1g6tg 06/20/2014 06/20/2014 Stephen Young MD f/u kctesw62-98f5-7328-v0b6-3ergj7j412fw 06/20/2014 06/20/2014 Stephen Young MD f/u c0558y66-j4wi-7013-f278-721wt3bt3uj3 06/20/2014 06/20/2014 Stephen Young MD f/u w5bw812g-584y-49ws-4u27-4txxqx469282 06/20/2014 06/20/2014 Stephen Young MD f/u 7952x006-3x98-54h5-687i-47yh8l41uqqo 06/20/2014 06/20/2014 Stephen Young MD f/u l14pt847-2u45-01r3-5f2u-8phoqn6ve7lc 06/20/2014 06/20/2014 Stephen Young MD f/u t6rkml56-4901-56g9-spr2-9067qbzb7v91 06/20/2014 06/20/2014 Stephen Young MD f/u k7d53mx6-14e4-4c51-9q13-68i69zmj8x57 06/20/2014 06/20/2014 Stephen Young MD f/u z44er2ww-8b30-0480-t782-5lrr7q8l535g 06/20/2014 06/20/2014 Stephen Young MD f/u 7lc1nq0c-20b9-03jj-f93g-z732ht6to698 06/20/2014 06/20/2014 Stephen Young MD f/u 370753y1-6c22-6486-9956-511p43d3516n 06/20/2014 06/20/2014 Stephen Young MD f/u d3362d72-92ms-4si1-77p1-p4dxwjcs1d60 06/20/2014 06/20/2014 Stephen Young MD f/u 0x0s1645-r867-33zm-92y5-99814983oh89 06/20/2014 06/20/2014 Stephen Young MD f/u o1d16r16-4781-32f1-9018-o04h59l01575 06/20/2014 06/20/2014 Stephen Young MD f/u 41r6b718-zm5o-2a12-nf64-8585y32584c5 06/20/2014 06/20/2014 Stephen Young MD f/u 0k670p1w-j005-3356-597i-35v790381g0s 06/20/2014 06/20/2014 Stephen Young MD f/u qefe905m-nj7r-3116-3587-9y70wrm9e1p4 06/20/2014 06/20/2014 Stephen Young MD f/u z3dzs17q-31zl-9738-98o6-71909b1ca5b0 06/20/2014 06/20/2014 Stephen Young MD f/u f2448270-708u-8750-nl6i-6298k030a0v0 06/20/2014 06/20/2014 Stephen Young MD f/u u41o0o59-1gj0-869d-c99l-s032e80w9s9h 06/20/2014 06/20/2014 Stephen Young MD f/u un90pg04-o96f-92tn-v918-3393ub2c6wu1 06/20/2014 06/20/2014 Stephen Young MD f/u 6g1d66k3-v573-95fb-y441-114569297j50 06/20/2014 06/20/2014 Stephne Young MD f/u 121g262o-5s91-8x5l-1zb6-tg0e56z75zpz 06/20/2014 06/20/2014 Stephen Young MD f/u z6a0mlr6-353m-8w56-5220-17qaj49o8582 06/20/2014 06/20/2014 Stephen Young MD f/u b8xk1l70-1fn8-48o7-3o92-z93n845gto39 06/20/2014 06/20/2014 Stephen Young MD f/u g636gp26-6164-1dm1-53vr-4732w070r188 06/20/2014 06/20/2014 Stephen Young MD f/u x17v40t0-z86q-8626-d243-4b9302501025 06/20/2014 06/20/2014 Stephen Young MD [employer] o3o4m339-[id number]-33674y37f6v9 08/22/2014 08/22/2014 Stephen Young MD [employer] a70ksehy-8e5k-7n63-qdc2-g1m7xtmld3u8 08/22/2014 08/22/2014 Stephen Young MD [employer] [id number] 08/22/2014 08/22/2014 Stephen Young MD [employer] [id number] 08/22/2014 08/22/2014 Stephen Young MD [employer] [id number] 08/22/2014 08/22/2014 tSephen Young MD [employer] [place] [id number] 08/22/2014 08/22/2014 Stephen Young MD [employer] [id number]-15lh-7bx2-e3r9-7691g3p49q1o 08/22/2014 08/22/2014 Stephen Young MD [employer] [id number] 08/22/2014 08/22/2014 Stephen Young MD [employer] [id number] 08/22/2014 08/22/2014 Stephen Yonug MD [employer] [id number] 08/22/2014 08/22/2014 Stephen Young MD [employer] [id number] 08/22/2014 08/22/2014 Stephen Young MD [employer] [id number] 08/22/2014 08/22/2014 Stephen Young MD [employer] [id number] 08/22/2014 08/22/2014 Stephen Young MD [employer] [id number] 08/22/2014 08/22/2014 Stephen Young MD [employer] [id number] 08/22/2014 08/22/2014 Stephen Young MD [employer] [id number] 08/22/2014 08/22/2014 Stephen Young MD [employer] [id number]-[id number] 08/22/2014 08/22/2014 Stephen Young MD [employer] [id number] 08/22/2014 08/22/2014 Stephen Young MD [employer] [id number] 08/22/2014 08/22/2014 Stephen Young MD [employer] [id number] 08/22/2014 08/22/2014 Stephen Young MD [employer] [id number] 08/22/2014 08/22/2014 Stephen Young MD [employer] [id number] 08/22/2014 08/22/2014 Stephen Young MD [employer] [id number] 08/22/2014 08/22/2014 Stephen Young MD [employer] [id number] 08/22/2014 08/22/2014 Stephen Young MD [employer] [id number] 08/22/2014 08/22/2014 Stephen Young MD [employer] [id number] 08/22/2014 08/22/2014 Stephen Young MD [employer] [id number] 08/22/2014 08/22/2014 Stephen Young MD [employer] [employer] [id number] 08/22/2014 08/22/2014 Stephen Young MD [employer] [employer] [id number] 08/22/2014 08/22/2014 Stephen Young MD [employer] [employer] [id number] 08/22/2014 08/22/2014 Stephen Young MD [employer] [employer] [id number] 08/22/2014 08/22/2014 Stephen Young MD [employer] [employer] [id number] 08/22/2014 08/22/2014 Stephen Young MD [employer] [employer] [id number] 08/22/2014 08/22/2014 Stephen Young MD [employer] [employer] [id number] 08/22/2014 08/22/2014 Stephen Young MD [employer] [employer] [id number] 08/22/2014 08/22/2014 Stephen Young MD [employer] [employer] [id number] 08/22/2014 08/22/2014 Stephen Young MD [employer] [employer] [id number] 08/22/2014 08/22/2014 Stephen Young MD [employer] [employer] [id number] 08/22/2014 08/22/2014 Stephen Young MD [employer] [id number] 08/22/2014 08/22/2014 Stephen Young MD [employer] [employer] [id number] 08/22/2014 08/22/2014 Stephen Young MD Research [id number] 08/22/2014 08/22/2014 Stephen Young MD Research [id number] 08/22/2014 08/22/2014 Stephen Young MD Research [id number] 08/22/2014 08/22/2014 Stephen Young MD Research [id number] 08/22/2014 08/22/2014 Stephen Young MD Research [id number] 08/22/2014 08/22/2014 Stephen Young MD Research [id number] 08/22/2014 08/22/2014 Stephen Young MD Research [id number] 08/22/2014 08/22/2014 Stephen Young MD Research [id number] 08/22/2014 08/22/2014 Stephen Young MD Research [id number] 08/22/2014 08/22/2014 Stephen Young MD Research [id number] 08/22/2014 08/22/2014 Stephen Young MD Research [id number] 08/22/2014 08/22/2014 Stephen Young MD Research [id number] 08/22/2014 08/22/2014 Stephen Young MD Research [id number] 08/22/2014 08/22/2014 Stephen Young MD Research [id number] 08/22/2014 08/22/2014 Stephen Young MD Research [id number] 08/22/2014 08/22/2014 Stephen Young MD Research [id number] 08/22/2014 08/22/2014 Stephen Young MD Research [id number] 08/22/2014 08/22/2014 Stephen Young MD Research [id number] 08/22/2014 08/22/2014 Stephen Young MD Research [id number] 08/22/2014 08/22/2014 Stephen Young MD Research [id number] 08/22/2014 08/22/2014 Stephen oYung MD Research [id number] 08/22/2014 08/22/2014 Stephen Young MD Research [id number] 08/22/2014 08/22/2014 Stephen Young MD Research [id number] 08/22/2014 08/22/2014 Stephen Young MD Research [id number] 08/22/2014 08/22/2014 Stephen Young MD Research [id number] 08/22/2014 08/22/2014 Stephen Young MD Research [id number] 08/22/2014 08/22/2014 Stephen Young MD Research [id number] 08/22/2014 08/22/2014 Stephen Young MD Research [id number] 08/22/2014 08/22/2014 Stephen Young MD Research [id number] 08/22/2014 08/22/2014 Stephen Young MD Research [id number] 08/22/2014 08/22/2014 Stephen Young MD Research [id number] 08/22/2014 08/22/2014 Stephen Young MD Research [id number] 08/22/2014 08/22/2014 Stephen Young MD Research [id number] 08/22/2014 08/22/2014 Stephen Young MD Research [id number] 08/22/2014 08/22/2014 Stephen Young MD Research [id number] 08/22/2014 08/22/2014 Stephen Young MD Research [id number] 08/22/2014 08/22/2014 Stephen Young MD Research [id number] 08/22/2014 08/22/2014 Stephen Young MD Research [id number] 08/22/2014 08/22/2014 Stephen Young MD Research [id number] 08/22/2014 08/22/2014 Stephen Young MD Research [id number] 08/22/2014 08/22/2014 Stephen Young MD UPDATE [id number] 08/28/2014 08/28/2014 Stephen Young MD UPDATE [id number] 08/28/2014 08/28/2014 Stephen Young MD UPDATE [id number] 08/28/2014 08/28/2014 Stephen Young MD UPDATE [id number] 08/28/2014 08/28/2014 Stephen Young MD UPDATE [id number] 08/28/2014 08/28/2014 Stephen Young MD UPDATE [id number] 08/28/2014 08/28/2014 Stephen Young MD UPDATE [id number] 08/28/2014 08/28/2014 Stephen Young MD UPDATE [id number] 08/28/2014 08/28/2014 Stephen Young MD UPDATE [id number] 08/28/2014 08/28/2014 Stephen Young MD UPDATE [id number] 08/28/2014 08/28/2014 Stephen Young MD UPDATE [id number] 08/28/2014 08/28/2014 Stephen Young MD UPDATE [id number] 08/28/2014 08/28/2014 Stephen Young MD UPDATE [id number] 08/28/2014 08/28/2014 Stephen Young MD UPDATE [id number] 08/28/2014 08/28/2014 Stephen Young MD UPDATE [id number] 08/28/2014 08/28/2014 Stephen Young MD UPDATE [id number] 08/28/2014 08/28/2014 Stephen Young MD UPDATE [id number] 08/28/2014 08/28/2014 Stephen Young MD UPDATE [id number] 08/28/2014 08/28/2014 Stephen Young MD UPDATE [id number] 08/28/2014 08/28/2014 Stephen Young MD UPDATE [id number] 08/28/2014 08/28/2014 Stephen Young MD UPDATE [id number] 08/28/2014 08/28/2014 Stephen Young MD UPDATE [id number] 08/28/2014 08/28/2014 Stephen Young MD UPDATE [id number] 08/28/2014 08/28/2014 Stephen Young MD UPDATE [id number] 08/28/2014 08/28/2014 Stephen Young MD UPDATE [id number] 08/28/2014 08/28/2014 Stephen Young MD UPDATE [id number] 08/28/2014 08/28/2014 Stephen Young MD UPDATE [id number] 08/28/2014 08/28/2014 Stephen Young MD UPDATE [id number] 08/28/2014 08/28/2014 Stephen Young MD UPDATE [id number] 08/28/2014 08/28/2014 Stephen Young MD UPDATE [id number] 08/28/2014 08/28/2014 Stephen Young MD UPDATE [id number] 08/28/2014 08/28/2014 Stephen Young MD UPDATE sar014i7-wudc-99si-hpm3-1sl8ex12i6b6 08/28/2014 08/28/2014 Stephen Young MD UPDATE 81fzoq0m-ak49-8929-0u18-du07lenwe881 08/28/2014 08/28/2014 Stephen Young MD UPDATE 82j35vh5-0j60-03jt-h381-dzgj4706po1g 08/28/2014 08/28/2014 Stephen Young MD UPDATE [id number]-d479-gtk2e47x228s 08/28/2014 08/28/2014 Stephen Young MD UPDATE 6slz58q6-50gf-0424-3r97-54iw7114448b 08/28/2014 08/28/2014 Stephen Young MD UPDATE gm990b18-333z-79um-dz22-0u7823422524 08/28/2014 08/28/2014 Stephen Young MD UPDATE [id number]-4pxf-47qm878z8391 08/28/2014 08/28/2014 Stephen Young MD UPDATE cfp25l89-d94p-35u1-wwn6-k34720887uw7 08/28/2014 08/28/2014 Stephen Young MD UPDATE yg9a5f76-y6fb-5f92-0l23-8u2m7wrcuq11 08/28/2014 08/28/2014 Stephen Young MD PE/SLE Assessments [id number]-wxsy-y74cfqk91527 09/07/2014 09/07/2014 Stephen Young MD PE/SLE Assessments 3q9h5os1-t449-41et-6k02-liouiw6ba234 09/07/2014 09/07/2014 Stephen Young MD PE/SLE Assessments [id number]-49z4-ow57-p58f6934f2p8 09/07/2014 09/07/2014 Stephen Young MD PE/SLE Assessments [id number]-a797-z8a647f30t51 09/07/2014 09/07/2014 Stephen Young MD PE/SLE Assessments a123l86b-5395-76bz-91g6-095h82u21y17 09/07/2014 09/07/2014 Stephen Young MD PE/SLE Assessments 2an35m29-4037-376r-mi1z-60vi82b3m426 09/07/2014 09/07/2014 Stephen Young MD PE/SLE Assessments 73wdq2rq-a9i4-77b1-4197-30o081a5i1w7 09/07/2014 09/07/2014 Stephen Young MD PE/SLE Assessments 5t42gd04-301e-429d-j544-vql4q8857h6y 09/07/2014 09/07/2014 Stephen Young MD PE/SLE Assessments bm543i1l-41p2-0wv6-7238-l9087zh55n16 09/07/2014 09/07/2014 Stephen Young MD PE/SLE Assessments f289f6aw-v098-9554-jozc-5r0zj9710d35 09/07/2014 09/07/2014 Stephen Young MD PE/SLE Assessments 9pb0k5bj-046a-4e66-8p70-3b433oo0te43 09/07/2014 09/07/2014 Stephen Young MD PE/SLE Assessments mo046ph8-8f11-1g78-p06y-s2kh5l15y8w4 09/07/2014 09/07/2014 Stephen Young MD PE/SLE Assessments 5s59y46t-6041-3745-410m-t557v6u273uu 09/07/2014 09/07/2014 Stephen Young MD PE/SLE Assessments [id number]-wi1y-2a6twr3030sx 09/07/2014 09/07/2014 Stephen Young MD PE/SLE Assessments 157c8z85-2951-22c6-54g7-99m3d4m271e0 09/07/2014 09/07/2014 Stephen Young MD PE/SLE Assessments 8g532wt7-14m7-447m-5k08-9730h90a282i 09/07/2014 09/07/2014 Stephen Young MD PE/SLE Assessments s8u1976q-2y26-5720-a953-m3mq4s1252iu 09/07/2014 09/07/2014 Stephen Young MD PE/SLE Assessments [id number]2g1 09/07/2014 09/07/2014 Stephen Young MD PE/SLE Assessments [id number]-2e42-36i5-h12q-g7i60v89d7fi 09/07/2014 09/07/2014 Stephen Young MD PE/SLE Assessments u98j043q-3241-83w6-fsg4-cd21m77dv9e6 09/07/2014 09/07/2014 Stephen Young MD PE/SLE Assessments 236zlz4o-42u4-3779-kv7p-c9xpclsi1117 09/07/2014 09/07/2014 Stephen Young MD PE/SLE Assessments n9uxs12a-866g-10j5-v08d-35340b4f5y33 09/07/2014 09/07/2014 Stephen Young MD PE/SLE Assessments loi6enh7-m098-8m93-s234-qe0t2419230z 09/07/2014 09/07/2014 Stephen Young MD PE/SLE Assessments 43mc5zl6-8j0w-4eu3-cq20-8o3977n0312j 09/07/2014 09/07/2014 Stephen Young MD PE/SLE Assessments [id number]-qw19-nqe27kb37428 09/07/2014 09/07/2014 Stephen Young MD PE/SLE Assessments [id number]-e61u-1x5s-3629-83y8n7727s60 09/07/2014 09/07/2014 Stephen Young MD PE/SLE Assessments 7nybdt90-585x-114t-c416-6b3rs8a83112 09/07/2014 09/07/2014 Stephen Young MD PE/SLE Assessments 73sg23m6-27i5-4r86-0302-8vw9mh6708i7 09/07/2014 09/07/2014 Stephen Young MD PE/SLE Assessments g606k039-v354-2609-v61f-fm4w10842sf6 09/07/2014 09/07/2014 Stephen Young MD PE/SLE Assessments p240t6cz-9h6c-3469-i312-50r1q5b03433 09/07/2014 09/07/2014 Stephen Young MD PE/SLE Assessments 1x9n79fy-lw50-69x8-8b31-kv8hsy2i24p0 09/07/2014 09/07/2014 Stephen Young MD PE/SLE Assessments sjx5s40f-2k7a-2o21-oo06-3p9pv6800p5c 09/07/2014 09/07/2014 Stephen Young MD PE/SLE Assessments [id number]-j59y-4i7d-64c3-mq0skyqp391z 09/07/2014 09/07/2014 Stephen Young MD PE/SLE Assessments 8rh393x6-6og0-2253-y95q-z853c686589i 09/07/2014 09/07/2014 Stephen Young MD PE/SLE Assessments irx2ao30-c59n-95i4-057b-c604nc54yeka 09/07/2014 09/07/2014 Stephen Young MD PE/SLE Assessments [id number]-4565-14in-3d85-sb797w4815v9 09/07/2014 09/07/2014 Stephen Young MD PE/SLE Assessments 23vj4zny-0368-543h-gadx-a72rsn647pk0 09/07/2014 09/07/2014 Stephen Young MD PE/SLE Assessments cn3757s7-6v39-6m6w-z14t-92ej7k41f2hb 09/07/2014 09/07/2014 Stephen Young MD PE/SLE Assessments [id number]-[id number] 09/07/2014 09/07/2014 Stephen Young MD PE/SLE Assessments 10i048d6-93t1-341a-sr74-033qp5lw0qos 09/07/2014 09/07/2014 Stephen Young MD Depo[facility]rol IM [id number]-[id number] 09/19/2014 09/19/2014 Stephen Young MD [facility] IM f51dz13v-s4ny-037t-27j2-19gu5l68y02e 09/19/2014 09/19/2014 Stephen Young MD [facility] IM [id number]-v4f4-f12l01i56k53 09/19/2014 09/19/2014 Stephen Young MD [facility] IM [id number] 09/19/2014 09/19/2014 Stephen Young MD [facility] IM [id number]-hx73-9xu352o6473s 09/19/2014 09/19/2014 Stephen Young MD [facility] IM [id number]-fgzf-9r0378s9d40e 09/19/2014 09/19/2014 Stephen Young MD [facility] IM 09g2q488-x33s-9b28-4xuh-420rp4j9w82u 09/19/2014 09/19/2014 Stephen Young MD [facility] IM ll55c5k6-2329-9810-i1nw-x362070tmv5m 09/19/2014 09/19/2014 Stephen Young MD [facility] IM [id number] 09/19/2014 09/19/2014 Stephen Young MD [facility] IM z95k773g-919v-1y78-ytxj-y10h0261bg0d 09/19/2014 09/19/2014 Stephen Young MD [facility] IM [id number]-[id number] 09/19/2014 09/19/2014 Stephen Young MD [facility] IM [id number]-u31k-88tp-kc58-3zkz7v3w8p9q 09/19/2014 09/19/2014 Stephen Young MD [facility] IM [id number]-[id number]-q23na6md0888 09/19/2014 09/19/2014 Stephen Young MD [facility] IM [id number]-936m-70if-6809-gr1i43h7oanu 09/19/2014 09/19/2014 Stephen Young MD [facility] IM [id number]-48w3-7292-0xdi-tuao920500xx 09/19/2014 09/19/2014 Stephen Young MD [facility] IM [id number]-51r2-61ic-6202-14rg900eol4n 09/19/2014 09/19/2014 Stephen Young MD [facility] IM [id number]-[id number]-g15rh940z401 09/19/2014 09/19/2014 Stephen Young MD [facility] IM [id number]-3s09-d04w9746g0cr 09/19/2014 09/19/2014 Stephen Young MD [facility] IM [id number]-8vz1-137a-us73-5210s172r752 09/19/2014 09/19/2014 Stephen Young MD [facility] IM [id number]-xmf0-314f634j491n 09/19/2014 09/19/2014 Stephen Young MD [facility] IM [id number]-m58s-360z-c4y3-2g172p3b6b23 09/19/2014 09/19/2014 Stephen Young MD [facility] IM [id number]-[id number]-4548c674j1v1 09/19/2014 09/19/2014 Stephen Young MD [facility] IM [id number]-a6ep-7tym5s19798z 09/19/2014 09/19/2014 Stephen Young MD [facility] IM [id number] 09/19/2014 09/19/2014 Stephen Young MD [facility] IM [id number]-591g-qud0-xblsh1441244 09/19/2014 09/19/2014 Stephen Young MD [facility] IM [id number]-l03o-6969-13uv-5i633s089627 09/19/2014 09/19/2014 Stephen Young MD [facility] IM [id number]-6694-82xo-852y-40xcj42jd6e9 09/19/2014 09/19/2014 Stephen Young MD [facility] IM [id number]-k109-97gk-k451-95779v40n101 09/19/2014 09/19/2014 Stephen Young MD Dep[facility]rol IM [id number]-76xp-1636-a227ua5hs5y9 09/19/2014 09/19/2014 Stephen Young MD [facility]rol IM [id number]-511r9w692h42 09/19/2014 09/19/2014 Stephen Young MD [facility] IM [id number]-412i-t8o7z9251d89 09/19/2014 09/19/2014 Stephen Young MD [facility] IM [id number]-0z81-6ke8-o6716v10423l 09/19/2014 09/19/2014 Stephen Young MD [facility] IM [id number]-[id number] 09/19/2014 09/19/2014 Stephen Young MD Dep[facility]rol IM [id number]-zb3y-9077-2z2n-499h185d4083 09/19/2014 09/19/2014 Stephen Young MD [facility] IM [id number]-ly89-251s-b41s-nge5v2e3rslg 09/19/2014 09/19/2014 Stephen Young MD [facility] IM [id number]-2x2c-i3z2-tgmqj34y4499 09/19/2014 09/19/2014 Stephen Young MD [facility] IM [id number]-s7180bke5312 09/19/2014 09/19/2014 Stephen Young MD [facility] IM [id number]-9n95-a645ah78459c 09/19/2014 09/19/2014 Stephen Young MD [facility] IM [id number]-x1rf-0610-7068-8u0420o8427u 09/19/2014 09/19/2014 Stephen Young MD [facility] IM [id number]-c6q3-s000qx5dvr43 09/19/2014 09/19/2014 Stephen Young MD Balance 1s6ufa1w-7u94-50up-a275-o6qv2991402d 10/09/2014 10/09/2014 Stephen Young MD Balance 76039256-2k1k-1m47-qcx6-463yw0qv2100 10/09/2014 10/09/2014 Stephen Young MD Balance 34514ebp-515n-0ef1-wg3q-471p35o5wv16 10/09/2014 10/09/2014 Stephen Young MD Balance 4dw73q50-o00p-5x2w-7261-4q78s5v1wdqq 10/09/2014 10/09/2014 Stephen Young MD Balance 2621o102-r0g3-9442-52z9-570s148jcg9b 10/09/2014 10/09/2014 Stephen Young MD Balance 137h5272-j188-43v5-ht6b-6e96b8v459u8 10/09/2014 10/09/2014 Stephen Young MD Balance 09esd86m-sg46-9194-j88x-363cu05gr14q 10/09/2014 10/09/2014 Stephen Young MD Balance 5z2yo96k-ga91-3o05-vjw3-7307qt1z3559 10/09/2014 10/09/2014 Stephen Young MD Balance 620k7b00-i046-5hup-dyq6-g625i47f271o 10/09/2014 10/09/2014 Stephen Young MD Balance 3nc4ar22-1r3d-47t7-n47n-pu2p0uc1t945 10/09/2014 10/09/2014 Stephen Young MD Balance fsiwlncn-5308-31q277l8-4cs0-57o72a2339cr 10/09/2014 10/09/2014 Stephen Young MD Balance 9d4b6w48-0i43-808f-d71d-y9ur24134092 10/09/2014 10/09/2014 Stephen Young MD Balance 5j6m54t1-m979-99c1-ra84-46il02yh4k8y 10/09/2014 10/09/2014 Stephen Young MD Balance 7186p7b5-67b7-656p-8h20-6he66o9vy96g 10/09/2014 10/09/2014 Stephen Young MD Balance z74ktv3q-i188-726a-0bzk-3rk7z4qwku4v 10/09/2014 10/09/2014 Stephen Young MD Balance 6129wd59-ee6n-7tdc-149h-0ktk814p610c 10/09/2014 10/09/2014 Stephen Young MD Balance 77358ciq-1105-8150-snf0-29rf57oex25a 10/09/2014 10/09/2014 Stephen Young MD Balance x36s1744-gl52-78e2-c9l8-r1p8z6v866dy 10/09/2014 10/09/2014 Stephen Young MD Balance u6is10vs-n1bp-9z86-j12o-14744089yz2v 10/09/2014 10/09/2014 Stephen Young MD Balance 1r8g0793-737g-4201-1c7x-7z3d6654k76u 10/09/2014 10/09/2014 Stephen Young MD Balance 514n50a5-ary0-105d-e28r-jum45xc11x56 10/09/2014 10/09/2014 Stephen Young MD Balance u3yg890u-6x5b-40wo-1e69-98z7l35b1649 10/09/2014 10/09/2014 Stephen Young MD f/u 8xhd3os1-5914-5y74-0044-1828264qv9s7 10/09/2014 10/09/2014 Stephen Young MD f/u 35r23t5w-264c-2t9w-e326-5i5d58152366 10/09/2014 10/09/2014 Stephen Young MD f/u 014q9z63-h7i1-9z60-9500-wqg54825385z 10/09/2014 10/09/2014 Stephen Young MD f/u 50cm2y10-8851-2xx0-2h8n-803k413bp92i 10/09/2014 10/09/2014 Stephen Young MD f/u ij606600-93p6-80j8-y6w9-j6rpey2f4t0t 10/09/2014 10/09/2014 Stephen Young MD f/u 11n55by3-8946-9b87-gv68-h811ed256g27 10/09/2014 10/09/2014 Stephen Young MD f/u h69t22f9-9yd2-21h2-a7w7-612y1m339qd8 10/09/2014 10/09/2014 Stephen Young MD f/u v40j4z7b-4r1k-6r66-0dv1-53979o68sb11 10/09/2014 10/09/2014 Stephen Young MD f/u ce1zl1c2-12j3-7799-509d-scm8co0x0125 10/09/2014 10/09/2014 Stephen Young MD f/u 669t4315-7b8t-7a92-5674-9f738xy0676z 10/09/2014 10/09/2014 Stephen Young MD f/u d5p4v819-49z0-9u81-qh6u-3401v926me00 10/09/2014 10/09/2014 Stephen Young MD [facility]/u 36194282-5427-87xl-7354-x45pidhfp17n 10/09/2014 10/09/2014 Stephen Young MD f/u 2349414a-w7g0-8349-q84d-8472i91tt715 10/09/2014 10/09/2014 Stephen Young MD [facility]/u 733xz090-xm2n-1l75-fc4q-4d929p4784w5 10/09/2014 10/09/2014 Stephen Young MD f/u c73901i1-u346-7667-z46s-074t5k1w5ghu 10/09/2014 10/09/2014 Stephen Young MD f/u 3wuj2466-6892-820z-46c7-llh4bxn7q0r6 10/09/2014 10/09/2014 Stephen Young MD f/u 39400cd4-4ua9-1t0e-z82s-156d6h444hy2 10/09/2014 10/09/2014 Stephen Young MD [facility]/u 29jy1o0a-333m-6q7l-a0j6-29lh1z797qs6 10/09/2014 10/09/2014 Stephen Young MD f/u 407ggkw1-85lk-1r4a-74a9-7487zma3br3k 10/09/2014 10/09/2014 Stephen Young MD f/u e4t93667-1188-9fa1-1b70-deq188gln204 10/09/2014 10/09/2014 Stephen Young MD f/u b2977k87-z3y6-1289-r915-4cx8t7u3a756 10/09/2014 10/09/2014 Stephen Young MD f/u 2w66j7h9-57b0-86z2-674a-0b2o3ck3308g 10/09/2014 10/09/2014 Stephen Young MD Balance j8sjox47-2r15-7u59-3236-i79507p31u9z 10/09/2014 10/09/2014 Stephen Young MD Balance i951s78l-w5j1-5225-849v-9130kpe056c1 10/09/2014 10/09/2014 Stephen Young MD Balance 14c7k433-p7d4-90ue-53lm-o4k17pb77xe0 10/09/2014 10/09/2014 Stephen Young MD Balance w594dlrf-zw3y-2a53-y292-3w3848rcr9f4 10/09/2014 10/09/2014 Stephen Young MD Balance n07e90mb-97l4-1g62-0s69-2483825713d3 10/09/2014 10/09/2014 Stephen Young MD Balance 9w0315hn-fp08-8p70-5ll5-l2u8wimek76y 10/09/2014 10/09/2014 Stephen Young MD Balance 43s1c785-ch77-5c5a-0t96-96tl504169os 10/09/2014 10/09/2014 Stephen Young MD Balance s87kj9h1-6280-7y04-j78n-nt7ftoy6hmz5 10/09/2014 10/09/2014 Stephen Young MD Balance 5qtm5133-54d1-0k60-09n9-8983965762ut 10/09/2014 10/09/2014 Stephen Young MD Balance 61259659-f34v-37t1-8w89-3x3cf3l86633 10/09/2014 10/09/2014 Stephen Young MD Balance 7613n71o-228m-3815-wat6-77sxcijimp43 10/09/2014 10/09/2014 Stephen Young MD Balance 0hzk14d9-6561-269x-3335-z1647f8584l7 10/09/2014 10/09/2014 Stephen Young MD Balance 6j9f44tp-my4i-27r2-4m16-955sc370p2w1 10/09/2014 10/09/2014 Stephen Young MD Balance 515p0153-w453-301s-tgko-r68t1o15k03s 10/09/2014 10/09/2014 Stephen Young MD Balance 5y02l016-j491-759b-29sm-55ls803r272w 10/09/2014 10/09/2014 Stephen Young MD Balance 8x97aq62-lrtf-866j-38lg-jwu857u74ooa 10/09/2014 10/09/2014 Stephen Young MD Balance xhm5d0cl-79zi-12d2-69x6-9375255g598a 10/09/2014 10/09/2014 Stephen Young MD Balance k4667917-f0m5-250h-070s-9592251g7w9c 10/09/2014 10/09/2014 Stephen Young MD f/u 2tw8c775-0d66-5hsm-71f0-gq7072u132n9 10/09/2014 10/09/2014 Stephen Young MD f/u a8k10p02-3tz8-0ab9-8r9f-clw2zpx2d4s8 10/09/2014 10/09/2014 Stephen Young MD f/u 2j9262s8-zjn0-4v2n-02yu-784ba7fy206b 10/09/2014 10/09/2014 Stephen Young MD f/u d893v9m5-j86s-9793-4j45-01777i3ca52a 10/09/2014 10/09/2014 Stephen Young MD f/u 9qg0y4ru-872k-5887-a6nt-x2ayl6i68oa2 10/09/2014 10/09/2014 Stephen Young MD f/u 5d626k81-76r3-8286-rt82-64769j7wlt21 10/09/2014 10/09/2014 Stephen Young MD f/u uimg1813-137e-7l49-b930-o48n000ax1u0 10/09/2014 10/09/2014 Stephen Young MD f/u 56637an4-96qm-92qb-3h4k-c9f3d1b0ami0 10/09/2014 10/09/2014 Stephen Young MD f/u f1gx0x4e-9esm-2az0-l19e-7s9839a8244y 10/09/2014 10/09/2014 Stephen Young MD f/u a8z8110p-u068-60t9-357d-6n1767cik189 10/09/2014 10/09/2014 Stephen Young MD f/u g24eyr51-1b77-90q9-580b-2uc26143y839 10/09/2014 10/09/2014 Stephen Young MD f/u x92cei94-468o-9o35-10t4-4u995dz8o9j7 10/09/2014 10/09/2014 Stephen Young MD f/u 3896kn98-ax9w-68d5-rlo6-7o896rb0j39o 10/09/2014 10/09/2014 Stephen oYung MD f/u 4m9r702b-58dt-7i05-d237-j60e44m85802 10/09/2014 10/09/2014 Stephen Young MD f/u p7e0478a-v08c-5z68-7d01-z0r93y746s6k 10/09/2014 10/09/2014 Stephen Young MD f/u 701484c2-qob3-6249-0155-j1743x64h2el 10/09/2014 10/09/2014 Stephen Young MD f/u 632bmsue-8fn6-20176zs6-3886-480d-3849ck58d9tm 10/09/2014 10/09/2014 Stephen Young MD f/u i443v65c-clus-15di-1248-33917sm21ty2 10/09/2014 10/09/2014 Stephen Young MD C1113 x70552s5-55w8-36h2-5i0j-4sh5yvj244f3 2015 2015 Stephen Young MD C1113 fkr8w2cf-1849-36sr-669a-gn080p4289ko 2015 2015 Stephen Young MD C1113 h6x0sa68-s286-726h-2970-v2wfq1ir432e 2015 2015 Stephen Young MD C1113 4d2mn77o-69y5-8989-nl2j-e31837r1l649 2015 2015 Stephen Young MD C1113 18462sb5-nk83-181e-w7d6-en1qpp8171ce 2015 2015 Stephen Young MD C1113 x9077841-vf53-482q-ri6w-ciq020ut36d0 2015 2015 Stephen Young MD C1113 v97f1hem-d7i9-5fm4-0768-618395948q71 2015 2015 Stephen Young MD C1113 x87085o7-242u-92hk-7s80-vupc7b918r63 2015 2015 Stephen Young MD C1113 30f1n8n1-496p-876x-17w5-3e9a3ad27080 2015 2015 Stephen Young MD C1113 6393u32b-0624-2o42-x169-009ae120i440 2015 2015 Stephen Young MD C1113 110g59fp-4k81-2924-gc36-ea8bo22lydg5 2015 2015 Stephen Young MD C1113 349ehw75-btr9-2666-30qz-35010a246p9v 2015 2015 Stephen Young MD C1113 ms6365g5-7312-13ug-8746-8n596tepmon4 2015 2015 Stephen Young MD C1113 ggcnjte1-30m2-577f29m8-241h-2x10-rf44892z6122 2015 2015 Stephen Young MD C1113 9640lt80-4901-8z73-o8k6-u340csz53w68 2015 2015 Stephen Young MD C1113 1x4if2l1-x8t2-4156-2842-2059s41441cp 2015 2015 Stephen Young MD C1113 1d7af244-6999-030s-09lt-4383i8u2d332 2015 2015 Stephen Young MD C1113 7t0389j0-894e-02h2-60y8-69043790t875 2015 2015 Stephen Young MD C1113 44ys08fs-1evt-01vl-kow4-t4y1a0cy03e2 2015 2015 Stephen Young MD C1113 c8o7k5z8-8ja6-673e-o258-h457l86n6v3m 2015 2015 Stephen Young MD C1113 r73cmg46-i5e8-3018-xxoc-160148ter976 2015 2015 Stephen Young MD C1113 65m8y9re-t779-730z-c9wx-t3971g584w13 2015 2015 Stephen Young MD C1113 1o6exz16-40n1-56bo-33xk-06a082ftac6x 2015 2015 Stephen Young MD C1113 q00376y5-xq15-3rx3-tf2x-k245r4r6p4q0 2015 2015 Stephen Young MD C1113 f60jn7y5-8956-2917-35r3-97x5tp1h7112 2015 2015 Stephen Young MD C1113 ro628y4f-o77d-9dgn-k9b9-va0mw5hl2t2s 2015 2015 Stephen Young MD C1113 513tz093-o56s-52xv-6168-62yz32m2b1a7 2015 2015 Stephen Young MD C1113 29t394kx-h4lt-65b0-9gx2-819zj0rmr316 2015 2015 Stephen Young MD C1113 2r451696-4971-4015-q9z1-1042dq05fsqk 2015 2015 Stephen Young MD C1113 o7n700i1-2kx9-081u-t5o1-ec29u2x0l2q2 2015 2015 Stephen Young MD C1113 bbd40nh8-q8ea-883k-9812-04z827n5t2dr 2015 2015 Stephen Young MD C1113 9vs9wq72-w945-6793-o950-dbc7w6n24x46 2015 2015 Stephen Young MD C1113 ho551q5y-g52v-6i39-3l80-274r8t0degq6 2015 2015 Stephen Young MD C1113 fysjb9c9-6a98-1195-412o-8r10n8215v2l 2015 2015 Stephen Young MD C1113 841tqa66-p7x1-4867-iqv7-k646749zfc11 2015 2015 Stephen Young MD C1113 ilz0lucf-963v-2777-mx9m-qsn04v73y8o7 2015 2015 Stephen Young MD f/u aw4so8nz-7983-365k-g5v3-3hgld537a1x7 2015 2015 Stephen Young MD f/u 6e9j5d4u-7537-20g5-130u-l92931rhye82 2015 2015 Stephen Young MD f/u [id number] 2015 2015 Stephen Young MD f/u p7livc9j-569m-[id number]-41nr38wwhrf9 2015 2015 Stephen Young MD f/u [id number]-6i1p-h99169r8lf4g 2015 2015 Stephen Young MD f/u 1479ujns-161k-3xx10zv6-1u32-10stk3vba100 2015 2015 Stephen Young MD f/u 795l0hin-zf9w-5q38-z826-4k9nfib3i677 2015 2015 Stephen Young MD f/u [id number]-[id number]-bn5rw7661zx8 2015 2015 Stephen Young MD f/u gd007a5y-52lf-248m-69u7-7re474t476p2 2015 2015 Stephen Young MD f/u [id number]-8tuz-8rav36w9gkk2 2015 2015 Stephen Young MD f/u [id number]-[id number]-sh1p-[id number] 2015 2015 Stephen Young MD f/u [id number]-[id number]-[id number] 2015 2015 Stephen Young MD [facility]/u [id number]-256p-254k-u0m8-3zz58e444fca 2015 2015 Stephne Young MD [facility]/u [id number]-z8op-[id number] 2015 2015 Stephen Young MD [facility]/u [id number]-437m-8b8s-w4r4-f7q991cfu759 2015 2015 Stephen Young MD [facility] [id number]-l80d-5sjw-50ky-k00977ud310t 2015 2015 Stephen Young MD [facility] [id number]-e8m4-1et9-cpf4-[id number] 2015 2015 Stephen Young MD f/u 7gxjx490-91u1-624j-b341-1ri69w255na2 2015 2015 Stephen Young MD f/u p685nz7m-rzch-6293-[id number] 2015 2015 Stephen Young MD f/u 7099b0i2-jiv9-39wh-g364-9e23m869y90c 2015 2015 Stephen Young MD f/u [id number]-[id number]-huhsdf87a912 2015 2015 Stephen Young MD [facility] [id number]-381d-ni65-69v5xno5n51y 2015 2015 Stephen Young MD f/u [id number]-[id number]-a791kvs16904 2015 2015 Stephen Young MD [facility]u [id number]49d1f6 2015 2015 Stephen Young MD [facility] [id number]-[id number]-n814-vb676634g9r9 2015 2015 Stephen Young MD [facility] [id number]-[id number]-m6a9-ovn2or5f08x8 2015 2015 Stephen Young MD [facility] 35hcr7m6-05do-7lm7-5uw3-2hyl6o5321h0 2015 2015 Stephen Young MD [facility] [id number]-h46n-3xc3-imt5-7d36g81561pr 2015 2015 Stephen Young MD [facility] [id number]-[id number]-d24m-[id number] 2015 2015 Stephen Young MD [facility]u [id number]-ll5zp743797h 2015 2015 Stephen Young MD f/u 40vwvw7u-29rs-65mu-9u38-1de0274hjm7c 2015 2015 Stephen Young MD f/u 2582d8p7-308e-829f-ze2a-c0riarqu499n 2015 2015 Stephen Young MD f/u [id number]-eala-5298c8so2l19 2015 2015 Stephen Young MD f/u 6q74n90u-i7kj-286t-a7aq-9n86r6361403 2015 2015 Stephen Young MD f/u 6t40t829-ot8d-7207-e432-2k39q9nf1h88 2015 2015 Stephen Young MD f/u 1iuf76j0-232e-4989-9w4q-63n4r5770pyb 2015 2015 Stephen Young MD labs [id number]-i1k6-8u1r-a9gb-[id number] 2015 2015 Stephen Young MD labs 00687w34-s9j9-212i-5ci3-37k1j7t8s7uh 2015 2015 Stephen Young MD labs [id number]-0w0x-66l8-1sod-2e43i76873rj 2015 2015 Stephen Young MD labs [id number]-[id number] 2015 2015 Stephen Young MD labs q0ec57o1-i45o-8543-mt2k-64c113h8z619 2015 2015 Stephen Young MD labs [id number]-i6j1-8s2z-58gn-832v3442id73 2015 2015 Stephen Young MD labs 042uqb1i-m5xl-5y73-0q57-550mo4b0887d 2015 2015 Stephen Young MD labs dh4h85k6-v7c4-998r-21u8-03l9523e7o28 2015 2015 Stephen Young MD labs 5l91g4j2-8935-7j92-g982-[id number] 2015 2015 Stephen Young MD labs 70f29y1k-00v8-7f57-u7x7-6g4ib5mq1468 2015 2015 Stephen Young MD labs v9kje018-l45b-940b-07by-e05g738r0zb2 2015 2015 Stephen Young MD labs [id number]-h860-3b16-282t-[id number] 2015 2015 Stephen Young MD labs qp7325oa-9ag5-68j9-11b3-awdt9925dlf5 2015 2015 Stephen Young MD labs [id number]-zl81-980h-6g14-53037lbie33f 2015 2015 Stephen Young MD labs mqt047p5-087f-6a3h-[id number] 2015 2015 Stephen Young MD labs x62wvdqx-h842-66tr-cfzi-206y80v6ns47 2015 2015 Stephen Young MD labs [id number]-k599-06k6-d20g-z722817srru9 2015 2015 Stephen Young MD labs [id number]-uw33-8i3h-gmr2-q01108qm751a 2015 2015 MD Franky Arcelysta qjpr3hu1-z3w9-178u-ch03-g0294jp3614e 2015 2015 MD Unruly Arce [id number]-[id number]-86y3818o1ynn 2015 2015 MD Unruly Arce [id number]-87rl-y8i6-u64y802yhpp0 2015 2015 MD Franky Arcelysingrid [id number]-[id number]-i547-[id number] 2015 2015 MD Unruly Arce [id number] 2015 2015 MD Franky Arcelysingrid [id number]-7r6d-r3zb-7y4gny7n8697 2015 2015 MD Franky Arcelysta [id number]-[id number] 2015 2015 MD Unruly Arce [id number]-[id number]-956u-4n4c-b3o5c95153gn 2015 2015 MD Franky Arcelysta [id number]-[id number]-954b-[id number] 2015 2015 MD Unruly Arce [id number]-[id number]-v964w4z84u7u 2015 2015 MD Unruly Arce [id number]-ywjx-2423-3211-91945e04ut2f 2015 2015 MD Unruly Arce [id number]-i033-x4l65nfi7aet 2015 2015 MD Franky Arcelysingrid [id number]-wqtu-116q-pnb3-9ku3aa021501 2015 2015 MD Franky Arcelysingrid [id number]-6269-73q2y52k8o2r 2015 2015 MD Franky Arcelysta 93jp5k75-792j-1g3n-9w1r-4p93n47i67k8 2015 2015 MD Franky Arcelysingrid [id number]-7u40-9m16-b2q9-v70xu0nlg4v1 2015 2015 MD Franky Arcelysta [id number] 2015 2015 MD Unruly Arce [id number]-k2o2-647s2f987e41 2015 2015 Stephen Young MD [facility] [id number]-w0yl-72q0013x1zvl 2015 2015 Stephen Young MD labs snhxs8g7-ku46-6bgl-6z12-89v9702zl381 2015 2015 Stephen Young MD labs [id number]-9odm-1223-v99w-485k560ruff7 2015 2015 Stephen Young MD labs k31l9jv4-188r-5088-k98l-57z58v2k310b 2015 2015 Stephen Young MD labs 546kl04x-5d4c-2o90-4588-r3d5t990b6e1 2015 2015 Stephen Young MD labs 319lj95e-883t-176r-x6cg-76jxu8750u5s 2015 2015 Stephen Young MD labs 31xud7zz-157a-2ir0-6zo3-1jp0n3lc5j03 2015 2015 Stephen Young MD labs [id number]-dr38-516ha69h2200 2015 2015 Stephen Young MD labs [id number]-t6vs-1dz6-0g13-[id number] 2015 2015 Stephen Young MD labs 0h3apyy4-o16n-9kld-16d4-6tx579q70869 2015 2015 Stephen Young MD labs [id number]-685p-r568-4v3w28hv40b2 2015 2015 Stephen Young MD labs [id number]-d4z0-7q9b-7w46-[id number] 2015 2015 Stephen Young MD labs 3s2f2dcq-849l-2174-44l9-62km532g6258 2015 2015 Stephen Young MD labs [id number]-[id number]-5493-c6llm5045x98 2015 2015 Stephen Young MD labs 559jf3nb-[id number] 2015 2015 Stephen Young MD labs [id number]-z1vi-[id number] 2015 2015 Stephen Young MD labs [id number]-[id number]-hbk8-7v90t6cl2p56 2015 2015 Stephen Young MD labs [id number]-69w85vs10w4i 2015 2015 Stephen Young MD [facility] c62gg648-23h0-02d2-4kd3-536hrh4s362l 2015 2015 Stephen Young MD [facility] 23l50x9u-72s1-5409-550u-8ba079mt0774 2015 2015 Stephen Young MD [facility] [id number]-sl81-6312-ma45-88w52p08ge65 2015 2015 Stephen Young MD [place]sta [id number]-qnsc-07596fxt965o 2015 2015 Stephen Young MD [place] [id number]-[id number] 2015 2015 MD Unruly Arce [id number]-d251-l2lu29ge66l3 2015 2015 MD Unruly Arce [id number]-[id number]-nozs-rj69ja3x7533 2015 2015 MD Unruly Arce [id number] 2015 2015 MD Unruly Arce [id number]-16464j1oaa9j 2015 2015 MD Unruly Arce shg257r4-9862-2r28-9gs3-0q260l455sc0 2015 2015 MD Unruly Arce [id number]-[id number]-j5tw05skr110 2015 2015 MD Unruly Arce dos564nu-8kb2-1s99-j5w6-629q095f41g4 2015 2015 MD Unruly Arce [id number] 2015 2015 MD Unruly Arce [id number] 2015 2015 MD Unruly Arce [id number]-[id number]-suu2-d34z10fxe0am 2015 2015 MD Unruly Arce [id number]-[id number]-[id number] 2015 2015 Stephen Young MD [place] [id number]-s09b-6r83-2mg3-6s7738uhb68r 2015 2015 Stephen Young MD [place] 66jj8twb-zru4-1637-t96v-nq17yk9d2vsb 2015 2015 Stephen Young MD Ultrasound [id number]-qd7w-b30a9qq2t286 01/09/2015 01/09/2015 Stephen Young MD Ultrasound [id number]-[id number]-6a3f724g2447 01/09/2015 01/09/2015 Stephen Young MD Ultrasound 97hyt5qy-4rg7-3292-7020-nyebe6l4t74r 01/09/2015 01/09/2015 Stephen Young MD Ultrasound [id number]-bh54-1rg0-24m0-5m40g4lq6q42 01/09/2015 01/09/2015 Stephen Young MD Ultrasound [id number]-kg25-0272-7tus-924p1s903c16 01/09/2015 01/09/2015 Stephen Young MD Ultrasound [id number]-8314-j6h1-3yyg217q1h53 01/09/2015 01/09/2015 Stephen Young MD Ultrasound [id number]-481m-190bs840r006 01/09/2015 01/09/2015 Stephen Young MD Ultrasound [id number]-2iwt-[id number]-778ns288et38 01/09/2015 01/09/2015 Stephen Young MD Ultrasound [id number]-w1p9-[id number] 01/09/2015 01/09/2015 Stephen Young MD Ultrasound [id number]-5rd7-d799-3b43c9f4665b 01/09/2015 01/09/2015 Stephen Young MD Ultrasound 8d07f5m5-92q3-653k-l7gb-6qh96516b4bk 01/09/2015 01/09/2015 Stephen Young MD Ultrasound [id number]-789b-896l-07fvd8n6m5fd 01/09/2015 01/09/2015 Stephen Young MD Ultrasound [id number]-69h6-7027v921h9x4 01/09/2015 01/09/2015 Stephen Young MD Ultrasound [id number]-tg9m-08ve-n4zm-1zv8h2s8694d 01/09/2015 01/09/2015 Stephen Young MD Ultrasound [id number]-yydi7q7nj605 01/09/2015 01/09/2015 Stephen Young MD Ultrasound [id number] 01/09/2015 01/09/2015 Stephen Young MD Ultrasound [id number]-mj6v-6466-4jte-fi4a9au8t9t8 01/09/2015 01/09/2015 Stephen Young MD Ultrasound [id number]-3493-r3rq-[id number] 01/09/2015 01/09/2015 Stephen Young MD Ultrasound 65l510fs-5c0o-0158-x46v-e0bg1r8fou9r 01/09/2015 01/09/2015 Stephen Young MD Ultrasound cw959p0u-1a57-6767-t5n0-52p5j27a75hp 01/09/2015 01/09/2015 Stephen Young MD Ultrasound [id number]-7a76-7e36db8xwcq1 01/09/2015 01/09/2015 Stephen Young MD Ultrasound [id number]-v9p6-3k9d81063322 01/09/2015 01/09/2015 Stephen Young MD Ultrasound [id number]-9530-1xj2-7100-833s93ko835o 01/09/2015 01/09/2015 Stephen Young MD Ultrasound [id number]-h93n-l82i4281w2sg 01/09/2015 01/09/2015 Stephen Young MD Ultrasound [id number]-[id number]-[id number] 01/09/2015 01/09/2015 Stephen Young MD Ultrasound 1080c749-ew0u-8852-6i16-b5djvr7e69tt 01/09/2015 01/09/2015 Stephen Young MD Ultrasound b8sln769-xv8n-10pm-d123-q3s50039okn7 01/09/2015 01/09/2015 Stephen Young MD Ultrasound [id number]-x4ww-1955v568x8z4 01/09/2015 01/09/2015 Stephen Young MD Ultrasound 3rjiq84g-m999-2n11-qq80-b742j7p86z5m 01/09/2015 01/09/2015 Stephen Young MD Ultrasound [id number]-[id number]-bk097743m6av 01/09/2015 01/09/2015 Stephen Young MD Ultrasound [id number]-t10u-160t93hdum52 01/09/2015 01/09/2015 Stephen Young MD Ultrasound i00vtr30-4eq4-9544-k442-mz0rh990k3h5 01/09/2015 01/09/2015 Stephen Young MD Ultrasound [id number]-07x9-d006-v04k359kx7cd 01/09/2015 01/09/2015 Stephen Young MD Ultrasound 78lv96kn-y2u6-88mt-e7u7-q154d17b19z7 01/09/2015 01/09/2015 Stephen Young MD Ultrasound [id number]-h166-[id number] 01/09/2015 01/09/2015 Stephen Young MD Ultrasound [id number]-[id number]-70a9o1p19yn2 01/09/2015 01/09/2015 Stephen Young MD OV ?? [id number] 01/31/2015 01/31/2015 Stephen Young MD OV ?? [id number] 01/31/2015 01/31/2015 Stephen Young MD OV ?? [id number] 01/31/2015 01/31/2015 Stephen Young MD OV ?? [id number] 01/31/2015 01/31/2015 Stephen Young MD OV ?? [id number] 01/31/2015 01/31/2015 Stephen Young MD OV ?? [id number] 01/31/2015 01/31/2015 Stephen Young MD OV ?? [id number] 01/31/2015 01/31/2015 Stephen Young MD OV ?? [id number]-013v-x16219o4t8p9 01/31/2015 01/31/2015 Stephen Young MD OV ?? [id number]-3z6p4v5v52cu 01/31/2015 01/31/2015 Stephen Young MD OV ?? [id number]-yk3q-78ej-w8u2-jf8704282wxr 01/31/2015 01/31/2015 Stephen Young MD OV ?? [id number]-[id number] 01/31/2015 01/31/2015 Stephen Young MD OV ?? [id number]-089emz6288vo 01/31/2015 01/31/2015 Stephen Young MD OV ?? [id number] 01/31/2015 01/31/2015 Stephen Young MD OV ?? [id number] 01/31/2015 01/31/2015 Stephen Young MD OV ?? [id number] 01/31/2015 01/31/2015 Stephen Young MD OV ?? [id number] 01/31/2015 01/31/2015 Stephen Young MD OV ?? 138dz93m-7bud-7iph-5j5m-1wo69a2y6bgb 01/31/2015 01/31/2015 Stephen Young MD OV ?? [id number]-[id number] 01/31/2015 01/31/2015 Stephen Young MD OV ?? [id number] 01/31/2015 01/31/2015 Stephen Young MD OV ?? [id number] 01/31/2015 01/31/2015 Stephen Young MD OV ?? [id number] 01/31/2015 01/31/2015 Stephen Young MD OV ?? [id number]-i5oq-807hm6mk4e79 01/31/2015 01/31/2015 Stephen Young MD OV ?? [id number]-gw27-4e24ea1h2n62 01/31/2015 01/31/2015 Stephen Young MD OV ?? [id number] 01/31/2015 01/31/2015 Stephen Young MD OV ?? [id number] 01/31/2015 01/31/2015 Stephen Young MD OV ?? [id number] 01/31/2015 01/31/2015 Stephen Young MD OV ?? [id number]-wr0pt831d86a 01/31/2015 01/31/2015 Stephen Young MD OV ?? [id number] 01/31/2015 01/31/2015 Stephen Young MD OV ?? [id number] 01/31/2015 01/31/2015 Stephen Young MD OV ?? [id number] 01/31/2015 01/31/2015 Stephen Young MD OV ?? [id number]-i4k27l9g8z89 01/31/2015 01/31/2015 Stephen Young MD OV ?? [id number] 01/31/2015 01/31/2015 Stephen Young MD OV ?? [id number] 01/31/2015 01/31/2015 Stephen Young MD OV ?? [id number] 01/31/2015 01/31/2015 Stephen Young MD OV ?? [id number] 01/31/2015 01/31/2015 Stephen Young MD OV ?? [id number] 01/31/2015 01/31/2015 Stephen Young MD Unknown [id number] 01/31/2015 01/31/2015 Stephen Young MD Unknown [id number] 01/31/2015 01/31/2015 Stephen Young MD Unknown [id number] 01/31/2015 01/31/2015 Stephen Young MD Unknown [id number] 01/31/2015 01/31/2015 Stephen Young MD Unknown [id number] 01/31/2015 01/31/2015 Stephen Young MD Unknown [id number]-cdkz-706v-[id number] 01/31/2015 01/31/2015 Stephen Young MD Unknown [id number] 01/31/2015 01/31/2015 Stephen Young MD Unknown [id number] 01/31/2015 01/31/2015 Stephen Young MD Unknown [id number] 01/31/2015 01/31/2015 Stephen Young MD Unknown [id number] 01/31/2015 01/31/2015 Stephen Young MD Unknown [id number]-q250-u2is425u227m 01/31/2015 01/31/2015 Stephen Young MD Unknown [id number] 01/31/2015 01/31/2015 Stephen Young MD Unknown [id number] 01/31/2015 01/31/2015 Stephen Young MD Unknown [id number] 01/31/2015 01/31/2015 Stephen Young MD Unknown [id number] 01/31/2015 01/31/2015 Stephen Young MD Unknown [id number] 01/31/2015 01/31/2015 Stephen Young MD Unknown [id number] 01/31/2015 01/31/2015 Stephen Young MD Unknown [id number] 01/31/2015 01/31/2015 Stephen Young MD Unknown [id number] 01/31/2015 01/31/2015 Stephen Young MD Unknown [id number] 01/31/2015 01/31/2015 Stephen Young MD Unknown [id number] 01/31/2015 01/31/2015 Stephen Young MD Treatment [id number] 02/01/2015 02/01/2015 Stephen Young MD Treatment [id number]-hqeu-8c4l372h8oe9 02/01/2015 02/01/2015 Stephen Young MD Treatment [id number]-55x6-nt57-hw1imb50l45p 02/01/2015 02/01/2015 Stephen Young MD Treatment [id number]-67e7ah8n99q5 02/01/2015 02/01/2015 Stephen Young MD Treatment r7s8xq2d-2d39-5933-q385-8jn768211y8t 02/01/2015 02/01/2015 Stephen Young MD Treatment 6nm72fm3-q842-2tib-q9px-wm088te5ihaz 02/01/2015 02/01/2015 Stephen Young MD Treatment [id number]-w4s9-74yj-d893-533vw483m487 02/01/2015 02/01/2015 Stephen Young MD Treatment [id number]-v054-27b3-pq2z-3792y7i3933s 02/01/2015 02/01/2015 Stephen Young MD Treatment [id number]-fjmgu9gz9370 02/01/2015 02/01/2015 Stephen Young MD Treatment to09e8i8-69z5-9414-7v26-35034hqxv5t2 02/01/2015 02/01/2015 Stephen Young MD Treatment [id number]-6k10-045x-w327-725w5ei8h7s9 02/01/2015 02/01/2015 Stephen Young MD Treatment [id number]-[id number]-[id number] 02/01/2015 02/01/2015 Stephen Young MD Treatment c9ibx1a5-c040-2667-qp5d-6031u7f6048u 02/01/2015 02/01/2015 Stephen Young MD Treatment [id number]-n369-4260-ttp7-361oymvolj29 02/01/2015 02/01/2015 Stephen Young MD Treatment [id number]-sd6k-j76y793me1rf 02/01/2015 02/01/2015 Stephen Young MD Treatment 9vi7b85k-8b06-70iz-lgom-w5j53w1o3224 02/01/2015 02/01/2015 Stephen Young MD Treatment zlva11s9-7s9z-2rl4-u88l-1j56vx247bds 02/01/2015 02/01/2015 Stephen Young MD Treatment [id number]-f4bu-l34437l67535 02/01/2015 02/01/2015 Stephen Young MD Treatment 9154w5xp-15jj-5792-2vik-u1vvhx75i0ke 02/01/2015 02/01/2015 Stephen Young MD Treatment vc7f2d18-4b55-4da0-12bu-i001y6hu16a6 02/01/2015 02/01/2015 Stephen Young MD Treatment 95a4064y-5q79-16cl-369y-45a9457r831a 02/01/2015 02/01/2015 Stephen Young MD Treatment 28s1y4m9-exf5-1044-jmc2-hg10g5odn38k 02/01/2015 02/01/2015 Stephen Young MD Treatment qp0015sb-70ic-79h3-sc95-fx7n2660t34r 02/01/2015 02/01/2015 Stephen Young MD Treatment [id number]-zr1326525yb9 02/01/2015 02/01/2015 Stephen Young MD Treatment [id number]-84hz-[id number] 02/01/2015 02/01/2015 Stephen Young MD Treatment [id number]-8275-[id number] 02/01/2015 02/01/2015 Stephen Young MD Treatment n7y4t684-65us-5g3i-fn1o-45058235p075 02/01/2015 02/01/2015 Stephen Young MD Treatment 95bfb97j-5824-1cj4-me83-52n86yl422m6 02/01/2015 02/01/2015 Stephen Young MD Treatment [id number]-64mc-x22y561c59f0 02/01/2015 02/01/2015 Stephen Young MD Treatment 0l24u3rh-ysi1-5986-crxu-hl4za581wbe0 02/01/2015 02/01/2015 Stephen Young MD Treatment [id number]-426h1508lom2 02/01/2015 02/01/2015 Stephen Young MD Treatment [id number]-03ff-972a-678581w05fap 02/01/2015 02/01/2015 Stephen Young MD Treatment [id number]-[id number] 02/01/2015 02/01/2015 Stephen Young MD Treatment 8x3d29x5-vjd3-5203-74ix-7k8ha8von11g 02/01/2015 02/01/2015 Stephen Young MD Treatment p8tge09f-r9xs-4y94-go56-[id number] 02/01/2015 02/01/2015 Stephen Young MD FEELING SICK/ SINCE HER IINFUSION uy752es3-86bs-24g0-113b-33lo378u4i7n 02/07/2015 02/07/2015 Stephen Young MD FEELING SICK/ SINCE HER IINFUSION [id number]-g5kdb957o44p 02/07/2015 02/07/2015 Stephen Young MD FEELING SICK/ SINCE HER IINFUSION 74gf7647-xg13-6145-4ed1-ln15315826t0 02/07/2015 02/07/2015 Stephen Young MD FEELING SICK/ SINCE HER IINFUSION 95t66469-o95r-3344-3sq8-43vo1244l964 02/07/2015 02/07/2015 Stephen Young MD FEELING SICK/ SINCE HER IINFUSION 224b3b8m-05x6-2544-24sp-x5h4974g8767 02/07/2015 02/07/2015 Stephen Young MD FEELING SICK/ SINCE HER IINFUSION 45vxf8gj-162e-103q-19x2-rt62390p18uc 02/07/2015 02/07/2015 Stephen Young MD FEELING SICK/ SINCE HER IINFUSION t0ub8vq0-2761-033p-d428-d0b0j97d5p4o 02/07/2015 02/07/2015 Stephen Young MD FEELING SICK/ SINCE HER IINFUSION 8854644d-si38-8t26-314w-2x90g71l3n8r 02/07/2015 02/07/2015 Stephen Young MD FEELING SICK/ SINCE HER IINFUSION 93v853jo-0577-8rf7-u2pl-56j5jf0pt185 02/07/2015 02/07/2015 Stephen Young MD FEELING SICK/ SINCE HER IINFUSION mf3l488k-u5r3-9t5b-83y9-8t5281044jk6 02/07/2015 02/07/2015 Stephen Young MD FEELING SICK/ SINCE HER IINFUSION 50h7vt75-124x-[id number] 02/07/2015 02/07/2015 Stephen Young MD FEELING SICK/ SINCE HER IINFUSION 21ms635r-4z4c-31pf-1r15-u9q8j5wxvw11 02/07/2015 02/07/2015 Stephen Young MD FEELING SICK/ SINCE HER IINFUSION [id number]-d41e-068qb0824vag 02/07/2015 02/07/2015 Stephen Young MD FEELING SICK/ SINCE HER IINFUSION [id number]-jdn0-48nn86ik961j 02/07/2015 02/07/2015 Stephen Young MD FEELING SICK/ SINCE HER IINFUSION [id number]-7166-w41ey63119hy 02/07/2015 02/07/2015 Stephen Young MD FEELING SICK/ SINCE HER IINFUSION 09p519t6-34y5-48k6-4q7a-8231d41fxhi9 02/07/2015 02/07/2015 Stephen Young MD FEELING SICK/ SINCE HER IINFUSION [id number]-vl0r-42p8t3h86409 02/07/2015 02/07/2015 Stephen Young MD FEELING SICK/ SINCE HER IINFUSION 50g56357-hz3h-8v99-k5pr-470167383dz2 02/07/2015 02/07/2015 Stephen Young MD FEELING SICK/ SINCE HER IINFUSION 97f781j6-et4x-7222-jkh1-5yr44k7f7i61 02/07/2015 02/07/2015 Stephen Young MD FEELING SICK/ SINCE HER IINFUSION 71ua6764-0pm6-3ly5-x4cu-xn11149k9705 02/07/2015 02/07/2015 Stephen Young MD FEELING SICK/ SINCE HER IINFUSION [id number]-if4a-817v501fq04a 02/07/2015 02/07/2015 Stephen Young MD FEELING SICK/ SINCE HER IINFUSION [id number]-u47634oub93s 02/07/2015 02/07/2015 Stephen Young MD FEELING SICK/ SINCE HER IINFUSION [id number]-v6f8-658m-0jx5-tmk7j63r9x83 02/07/2015 02/07/2015 Stephen Young MD FEELING SICK/ SINCE HER IINFUSION [id number]-326911x06425 02/07/2015 02/07/2015 Stephen Young MD FEELING SICK/ SINCE HER IINFUSION 2583u3m0-zcze-758i-vhn7-77a17n89to3m 02/07/2015 02/07/2015 Stephen Young MD FEELING SICK/ SINCE HER IINFUSION 678h6im2-t9js-14va-j435-5qyxa02600v0 02/07/2015 02/07/2015 Stephen Young MD FEELING SICK/ SINCE HER IINFUSION [id number]-54f9-774j-828q812000q1 02/07/2015 02/07/2015 Stephen Young MD FEELING SICK/ SINCE HER IINFUSION rifttj2l-752m-49e2-3wzq-855809684231 02/07/2015 02/07/2015 Stephen Young MD FEELING SICK/ SINCE HER IINFUSION [id number]-187x-11tk-o24x-8q8e74m1768b 02/07/2015 02/07/2015 Stephen Young MD FEELING SICK/ SINCE HER IINFUSION 75t142rx-389a-2468-8p46-ug090mg41542 02/07/2015 02/07/2015 Stephen Young MD FEELING SICK/ SINCE HER IINFUSION 01l9j1jp-1fb7-1026-r7kx-3f82ajy2lu95 02/07/2015 02/07/2015 Stephen Young MD FEELING SICK/ SINCE HER IINFUSION 13s61e3o-6l4c-7882-kw22-hb52794ch4si 02/07/2015 02/07/2015 Stephen Young MD FEELING SICK/ SINCE HER IINFUSION 4150z259-ez9p-96s8-905z-r92e480w6387 02/07/2015 02/07/2015 Stephen Young MD FEELING SICK/ SINCE HER IINFUSION fs64e5k1-3ob5-4n3v-83g8-0pd086x87j31 02/07/2015 02/07/2015 Stephen Young MD PT IS FEELING SICK [id number]-03gb-nogz-zz583thn6906 02/23/2015 02/23/2015 Stephen Young MD PT IS FEELING SICK [id number]-3u70-1qdw-w782hn380822 02/23/2015 02/23/2015 Stephen Young MD PT IS FEELING SICK 0o42vz5a-u678-09qc-cv85-cwwr342u84s5 02/23/2015 02/23/2015 Stephen Young MD PT IS FEELING SICK [id number]-9x39-908g51e846b8 02/23/2015 02/23/2015 Stephen Young MD PT IS FEELING SICK [id number]-d2d0rc980565 02/23/2015 02/23/2015 Stephen Young MD PT IS FEELING SICK 8p5usat9-77ea-[id number]-sh72n1373058 02/23/2015 02/23/2015 Stephen Young MD PT IS FEELING SICK [id number] 02/23/2015 02/23/2015 Stephen Young MD PT IS FEELING SICK 134j0v06-of3g-84gy-rwe6-638ejx2y8kzo 02/23/2015 02/23/2015 Stephen Young MD PT IS FEELING SICK 2lf09z5l-r498-85l1-e6d6-2b29qp826jnh 02/23/2015 02/23/2015 Stephen Young MD PT IS FEELING SICK 4pe9c55l-9sy6-69bk-235n-3g99g4p80a08 02/23/2015 02/23/2015 Stephen Young MD PT IS FEELING SICK 4t3d306z-9rsu-28a7-wv42-372q637l00e8 02/23/2015 02/23/2015 Stephen Young MD PT IS FEELING SICK [id number]-t9t97007340j 02/23/2015 02/23/2015 Stephen Young MD PT IS FEELING SICK lo3l66i4-q15x-4r7o-m23o-7117g7m16j94 02/23/2015 02/23/2015 Stephen Young MD PT IS FEELING SICK [id number]-21j4-0852-v8q3-426v31688h16 02/23/2015 02/23/2015 Stephen Young MD PT IS FEELING SICK o6yy980j-l36l-8la6-qi54-zoi4f2x8tg96 02/23/2015 02/23/2015 Stephen Young MD PT IS FEELING SICK [id number]-[id number] 02/23/2015 02/23/2015 Stephen Young MD PT IS FEELING SICK [id number]-q3a1-4a83e80z158o 02/23/2015 02/23/2015 Stephen Young MD PT [facility] [id number] 02/23/2015 02/23/2015 Stephen Young MD PT [facility] [id number] 02/23/2015 02/23/2015 Stephen Young MD PT [facility] [id number] 02/23/2015 02/23/2015 Stephen Young MD PT [facility] [id number] 02/23/2015 02/23/2015 Stephen Young MD PT [facility] [id number] 02/23/2015 02/23/2015 Stephen Young MD PT [facility] [id number] 02/23/2015 02/23/2015 Stephen Young MD PT [facility] [id number] 02/23/2015 02/23/2015 Stephen Young MD PT [facility] [id number] 02/23/2015 02/23/2015 Stephen Young MD PT [facility] [id number] 02/23/2015 02/23/2015 Stephen Young MD PT [facility] [id number] 02/23/2015 02/23/2015 Stephen Young MD PT [facility] [id number] 02/23/2015 02/23/2015 Stephen Young MD PT [facility] [id number] 02/23/2015 02/23/2015 Stephen Young MD PT [facility] [id number] 02/23/2015 02/23/2015 Stephen Young MD PT [facility] [id number] 02/23/2015 02/23/2015 Stephen Young MD PT [facility] [id number] 02/23/2015 02/23/2015 Stephen Young MD PT [facility] [id number] 02/23/2015 02/23/2015 Stephen Young MD scheduled for [facility] [id number] 03/08/2015 03/08/2015 Stephen Young MD scheduled for [facility] [id number] 03/08/2015 03/08/2015 Stephen Young MD scheduled for [facility] [id number]-[id number] 03/08/2015 03/08/2015 Stephen Young MD scheduled for [facility] [id number] 03/08/2015 03/08/2015 Stephen Young MD scheduled for [facility] [id number]-t88r-55i3-z26d-lv083ga4w906 03/08/2015 03/08/2015 Stephen Young MD scheduled for [facility] [id number] 03/08/2015 03/08/2015 Stephen Young MD scheduled for [facility] [id number]-2179-l5r0-4s7m8j6661gx 03/08/2015 03/08/2015 Stephen Young MD scheduled for [facility] [id number]-[id number] 03/08/2015 03/08/2015 Stephen Young MD scheduled for [facility] tjtxm6a9-017h-[id number] 03/08/2015 03/08/2015 Stephen Young MD scheduled for [facility] [id number]-[id number]-[id number] 03/08/2015 03/08/2015 Stephen Young MD scheduled for [facility] [id number]-36r0h96e0t1p 03/08/2015 03/08/2015 Stephen Young MD scheduled for [facility] [id number]-uj5x-[id number] 03/08/2015 03/08/2015 Stephen Young MD scheduled for [facility] [id number]-2fuv-g37s-[id number] 03/08/2015 03/08/2015 Stephen Young MD scheduled for [facility] [id number]-x21v19881j1q 03/08/2015 03/08/2015 Stephen Young MD scheduled for [facility] [id number] 03/08/2015 03/08/2015 Stephen Young MD scheduled for [facility] [id number]-[id number] 03/08/2015 03/08/2015 Stephen Young MD scheduled for [facility] [id number]-23c4-t26q-707866of9774 03/08/2015 03/08/2015 Stephen Young MD scheduled for [facility] [id number]-9dj2-055c-t6g0-p1580e97g640 03/08/2015 03/08/2015 Stephen Young MD scheduled for [facility] 7gxh6ntk-59e9-21r6-7n1l-33b72ld6v23j 03/08/2015 03/08/2015 Stephen Young MD scheduled for [facility] [id number]-xhw1-eg27u69d4p8f 03/08/2015 03/08/2015 Stephen Young MD scheduled for [facility] n4f329c9-1e4a-[id number] 03/08/2015 03/08/2015 Stephen Young MD scheduled for [facility] [id number]-[id number] 03/08/2015 03/08/2015 Stephen Young MD scheduled for [facility] [id number]-[id number] 03/08/2015 03/08/2015 Stephen Young MD scheduled for [facility] [id number]-z483-5v6m4x9mtcr5 03/08/2015 03/08/2015 Stephen Young MD scheduled for [facility] f6492fkx-jgg7-3fkt-s0i4-40879gnt7830 03/08/2015 03/08/2015 Stephen Young MD scheduled for [facility] [id number]-710q-875k-39257a12gji7 03/08/2015 03/08/2015 Stephen Young MD scheduled for [facility] q58g7m0e-d40t-908d-y1g8-kgk15nugxbk5 03/08/2015 03/08/2015 Stephen Young MD scheduled for [facility] 513w1o6n-[id number]-8430-b27402v6mkqq 03/08/2015 03/08/2015 Stephen Young MD scheduled for [facility] [id number]-jbh4-[id number] 03/08/2015 03/08/2015 Stephen Young MD scheduled for [facility] [id number]-[id number]-[id number] 03/08/2015 03/08/2015 Stephen Young MD scheduled for [facility] [id number]-331h-[id number] 03/08/2015 03/08/2015 Stephen Young MD scheduled for [facility] [id number]-[id number] 03/08/2015 03/08/2015 Stephen Young MD [facility] [id number] 03/29/2015 03/29/2015 Stephen Young MD [facility] [id number] 03/29/2015 03/29/2015 Stephen Young MD [facility] [id number] 03/29/2015 03/29/2015 Stephen Young MD [facility] [id number]-[id number] 03/29/2015 03/29/2015 MD FRANKY [facility] [id number] 03/29/2015 03/29/2015 MD [facility] [id number] 03/29/2015 03/29/2015 MD [facility] [id number]-d92vxa4z0d78 03/29/2015 03/29/2015 MD FRANK[facility] [id number] 03/29/2015 03/29/2015 MD [facility]ANK[facility] [id number] 03/29/2015 03/29/2015 MD FRANK[facility] [id number] 03/29/2015 03/29/2015 MD [facility] [id number] 03/29/2015 03/29/2015 MD [facility] [id number] 03/29/2015 03/29/2015 MD [facility] [id number] 03/29/2015 03/29/2015 MD [facility] [id number] 03/29/2015 03/29/2015 Stephen Young MD [facility] [id number] 03/29/2015 03/29/2015 MD [facility] [id number] 03/29/2015 03/29/2015 MD [facility] [id number] 03/29/2015 03/29/2015 Stephen Young MD [facility] [id number] 03/29/2015 03/29/2015 MD [facility] [id number] 03/29/2015 03/29/2015 MD [facility] [id number]-65u770tlb98z 03/29/2015 03/29/2015 Stephen Young MD [facility] [id number] 03/29/2015 03/29/2015 Stephen Young MD [facility] [id number] 03/29/2015 03/29/2015 MD [facility] [id number] 03/29/2015 03/29/2015 MD [facility] [id number] 03/29/2015 03/29/2015 MD FRANKY ArceLYSTA PREMEDS [id number] 03/29/2015 03/29/2015 MD FRANKY ArceLYSTA PREMEDS [id number] 03/29/2015 03/29/2015 MD UNRULY Arce PREMEDS [id number] 03/29/2015 03/29/2015 MD UNRULY Arce PREMEDS [id number] 03/29/2015 03/29/2015 MD FRANKY ArceLYSINGRID PREMEDS [id number] 03/29/2015 03/29/2015 MD UNRULY Arce PREMEDS [id number] 03/29/2015 03/29/2015 MD FRANKY ArceLYSINGRID PREMEDS [id number] 03/29/2015 03/29/2015 Stephen Young MD Message [id number]-fx9pr8q8rw0j 04/06/2015 04/06/2015 Stephen Young MD Message [id number] 04/06/2015 04/06/2015 Stephen Young MD Message [id number] 04/06/2015 04/06/2015 Stephen Young MD Message [id number] 04/06/2015 04/06/2015 Stephen Young MD Message [id number] 04/06/2015 04/06/2015 Stephen Young MD Message [id number] 04/06/2015 04/06/2015 Stephen Young MD Message [id number]-[id number]-6kzo-q9g4tb20613x 04/06/2015 04/06/2015 Stephen Young MD Message [id number] 04/06/2015 04/06/2015 Stephen Young MD Message [id number] 04/06/2015 04/06/2015 Stephen Young MD Message [id number]-[id number] 04/06/2015 04/06/2015 Stephen Young MD Message [id number] 04/06/2015 04/06/2015 Stephen Young MD Message [id number] 04/06/2015 04/06/2015 Stephen Young MD Message [id number] 04/06/2015 04/06/2015 Stephen Young MD Message [id number]-q5p6-g41vv1dnn69u 04/06/2015 04/06/2015 Stephen Young MD Message [id number] 04/06/2015 04/06/2015 Stephen Young MD Message [id number] 04/06/2015 04/06/2015 Stephen Young MD Message [id number] 04/06/2015 04/06/2015 Stephen Young MD Message [id number] 04/06/2015 04/06/2015 Stephen Young MD Message [id number]-[id number] 04/06/2015 04/06/2015 Stephen Young MD Message [id number] 04/06/2015 04/06/2015 Stephen Young MD Message [id number] 04/06/2015 04/06/2015 Stephen Young MD Message [id number] 04/06/2015 04/06/2015 Stephen Young MD Message [id number] 04/06/2015 04/06/2015 Stephen Young MD Message [id number] 04/06/2015 04/06/2015 Stephen Young MD Message [id number] 04/06/2015 04/06/2015 Stephen Young MD Message [id number] 04/06/2015 04/06/2015 Stephen Young MD Message [id number] 04/06/2015 04/06/2015 Stephen Young MD Message [id number]-[id number] 04/06/2015 04/06/2015 Stephen Young MD Message [id number]-tp1x-1870lz5p0o9j 04/06/2015 04/06/2015 Stephen Young MD Message [id number] 04/06/2015 04/06/2015 Stephen Young MD Message [id number] 04/11/2015 04/11/2015 Stephen Young MD Message [id number] 04/11/2015 04/11/2015 Stephen Young MD Message [id number]-[id number]-ql23x4q5229p 04/11/2015 04/11/2015 Stephen Young MD Message [id number] 04/11/2015 04/11/2015 Stephen Young MD Message [id number] 04/11/2015 04/11/2015 Stephen Young MD Message [id number] 04/11/2015 04/11/2015 Stephen Young MD Message [id number] 04/11/2015 04/11/2015 Stephen Young MD Message [id number] 04/11/2015 04/11/2015 Stephen Young MD Message [id number]-[id number] 04/11/2015 04/11/2015 Stephen Young MD Message [id number] 04/11/2015 04/11/2015 Stephen Young MD Message [id number] 04/11/2015 04/11/2015 Stephen Young MD Message [id number] 04/11/2015 04/11/2015 Stephen Young MD Message [id number] 04/11/2015 04/11/2015 Stephen Young MD Message [id number] 04/11/2015 04/11/2015 Stephen Young MD Message [id number] 04/11/2015 04/11/2015 Stephen Young MD Message [id number] 04/11/2015 04/11/2015 Stephen Young MD Message [id number] 04/11/2015 04/11/2015 Stephen Young MD Message [id number] 04/11/2015 04/11/2015 Stephen Young MD Message [id number] 04/11/2015 04/11/2015 Stephen Young MD Message [id number] 04/11/2015 04/11/2015 Stephen Young MD Message [id number]-zcn9s15m5ua0 04/11/2015 04/11/2015 Stephen Young MD Message [id number]-[id number] 04/11/2015 04/11/2015 Stephen Young MD Message [id number]-r54i-[id number] 04/11/2015 04/11/2015 Stephen Young MD Message [id number] 04/11/2015 04/11/2015 Stephen Young MD Message [id number] 04/11/2015 04/11/2015 Stephen Young MD Message [id number] 04/11/2015 04/11/2015 Stephen Young MD Message [id number] 04/11/2015 04/11/2015 Stephen Young MD Message [id number] 04/11/2015 04/11/2015 Stephen Young MD [facility] [id number]-vga4p9676nj4 04/11/2015 04/11/2015 Stephen Young MD [facility] [id number]-t1nt-[id number] 04/11/2015 04/11/2015 MD Unruly Arce qbfk0q4k-a69i-5p84-a0o7-860zri9dm2w4 04/11/2015 04/11/2015 MD Unruly Arce [id number]-y2s8-73v90b9d2m45 04/11/2015 04/11/2015 MD Unruly Arce ew5jn024-bwg9-16v7-6869-8045u503e9a2 04/11/2015 04/11/2015 MD Unruly Arce [id number]-v9lyhn155hz4 04/11/2015 04/11/2015 MD Unruly Arce [id number]-3rx8-h92133us107v 04/11/2015 04/11/2015 MD Unruly Arce [id number]-56r2-9928-343j3k0s9490 04/11/2015 04/11/2015 MD Unruly Arce [id number]-5vd6-508x8i6x64fu 04/11/2015 04/11/2015 MD Unruly Arce y5f8rb07-38m6-2609-6l53-38645m2xo415 04/11/2015 04/11/2015 MD Unruly Arce r2t90a7o-[id number]-u579-72665g784wp7 04/11/2015 04/11/2015 MD Unruly Arce [id number]-795l-7359-15cy-a38ysr90q31q 04/11/2015 04/11/2015 MD Unruly Arce [id number]-9422-34ie-[id number] 04/11/2015 04/11/2015 MD Unruly Arce 8ysq660c-jv6e-65sa-7g48-8932r52514la 04/11/2015 04/11/2015 MD Unruly Arce m8r2oqof-w7ni-7352-s120-ifqcuh7v55i2 04/11/2015 04/11/2015 MD Unruly Arce gt797z90-5cyz-5482-w1fy-q505487810e2 04/11/2015 04/11/2015 MD Unruly Arce [id number]-[id number]-0b52r4fc86ot 04/11/2015 04/11/2015 MD Unruly Arce [id number]-1cmu-9wb2-yw32-bgu492bl131x 04/11/2015 04/11/2015 MD Unruly Arce 394s8wu1-239w-2221-mtc7-v012768m9z47 04/11/2015 04/11/2015 MD Unruly Arce 4568s636-3jm0-4661-1sth-4nar533m133p 04/11/2015 04/11/2015 MD Unruly Arce be3n1c6b-xb07-3543-q7e6-v2rag6n2v12p 04/11/2015 04/11/2015 MD Unruly Arce e24z3xl6-y2u2-5080-109m-p698y8n11cg0 04/11/2015 04/11/2015 MD Unruly Arce e4f6c628-s5p3-378w-p4x7-9l8913g3fzw2 04/11/2015 04/11/2015 MD Unruly Arce 1111pmu1-7b43-2kug-cj53-79p9kl4b5r57 04/11/2015 04/11/2015 MD Unruly Arce f9d1nmy5-s0r1-6xr3-81ur-f110m4efky6l 04/11/2015 04/11/2015 MD Unruly Arce b97xy0z3-38e9-9iyg-a614-30e1o04r6fq2 04/11/2015 04/11/2015 MD Unruly Arce j707t9n4-ke59-6gs7-62t4-74j3b6dx30ob 04/11/2015 04/11/2015 MD Unruly Arce [id number]-2z69-4417az63cie1 04/11/2015 04/11/2015 MD Unruly Arce 526h1hbm-1949-8iw6-0hk6-1r198xx02w86 04/11/2015 04/11/2015 MD Unruly Arce [id number]-6e8i-4g01-4ny0369847lu 04/11/2015 04/11/2015 MD Unruly Arce uxav61a5-9s9q-329r-2xr9-8fv7m1186942 04/11/2015 04/11/2015 MD Unruly Arce 9b0e81g1-97d4-914j-76y8-uz03z5gl073z 04/11/2015 04/11/2015 Stephen Young MD follow up [id number]-a3q5-109x-c33a-3m9alwh70495 04/23/2015 04/23/2015 Stephen Young MD follow up [id number] 04/23/2015 04/23/2015 Stephen Young MD follow up [id number]-[id number] 04/23/2015 04/23/2015 Stephen Young MD follow up [id number]-mo40-7r27-r889-q65t8ha950w4 04/23/2015 04/23/2015 Stephen Young MD follow up [id number]-[id number]-p229-[id number] 04/23/2015 04/23/2015 Stephen Young MD follow up -26t5-59h0-067f-w5p48go78g4k 04/23/2015 04/23/2015 Stephen Young MD follow up [id number]-u3u9-qv190s58tmi1 04/23/2015 04/23/2015 Stephen Young MD follow up 8aukn0x5-n197-6117-858g-uyren2y4ua16 04/23/2015 04/23/2015 Stephen Young MD follow up [id number]-us0k760xb54n 04/23/2015 04/23/2015 Stephen Young MD follow up [id number]-4rz5-ob25-4inw1mq2pr3q 04/23/2015 04/23/2015 Stephen Young MD follow up [id number] 04/23/2015 04/23/2015 Stephen Young MD follow up [id number]-[id number]-1m1m-u8649x48ae54 04/23/2015 04/23/2015 Stephen Young MD follow up [id number] 04/23/2015 04/23/2015 Stephen Young MD follow up [id number]-153g-[id number] 04/23/2015 04/23/2015 Stephen Young MD follow up 77jpx946-p470-2h5w-kowc-74ii0w14q630 04/23/2015 04/23/2015 Stephen Young MD follow up 79vu3h86-4n37-92wx-71re-p69710vwbqdc 04/23/2015 04/23/2015 Stephen Young MD follow up [id number]-y83n-0h14-of06-07dje454unav 04/23/2015 04/23/2015 Stephen Young MD follow up [id number]-9vy0-19jh-f978xn2dutji 04/23/2015 04/23/2015 Stephen Young MD follow up [id number]-[id number]-8e40-s1id12s28443 04/23/2015 04/23/2015 Stephen Young MD follow up ig0k1j48-05vi-7503-4u48-5wis035i56n2 04/23/2015 04/23/2015 Stephen Young MD follow up [id number]-[id number] 04/23/2015 04/23/2015 Stephen Young MD follow up [id number]-[id number] 04/23/2015 04/23/2015 Stephen Young MD follow up [id number] 04/23/2015 04/23/2015 Stephen Young MD follow up 74xa8jup-i2eo-33aa-1a12-3446spfd6e93 04/23/2015 04/23/2015 Stephen Young MD ophthalmologist/Neurologist 4w6o554v-52o3-8318-txxk-n819xr2r1dw8 05/10/2015 05/10/2015 Stephen Young MD ophthalmologist/Neurologist [id number]-0yyn-2277-ngcz-8i341iq97p6s 05/10/2015 05/10/2015 Stephen Young MD ophthalmologist/Neurologist 5kml028u-472n-2315-qp71-dmh3c19elz41 05/10/2015 05/10/2015 Stephen Young MD ophthalmologist/Neurologist ypu49233-[id number]-d57b332na776 05/10/2015 05/10/2015 Stephen Young MD ophthalmologist/Neurologist q14lc79g-q0y2-4c50-3y15-506upj8192w9 05/10/2015 05/10/2015 Stephen Young MD ophthalmologist/Neurologist 7l10775j-9d00-346c-s0l0-2387z5p50o01 05/10/2015 05/10/2015 Stephen Young MD ophthalmologist/Neurologist r76380d8-5oow-2af3-l533-1zk57t6786fx 05/10/2015 05/10/2015 Stephen Young MD ophthalmologist/Neurologist i2l3ci4v-50e0-7cn2-576k-281k047a469b 05/10/2015 05/10/2015 Stephen Young MD ophthalmologist/Neurologist 928g4v1l-3rq8-95n4-w9s5-n8q11vr4u987 05/10/2015 05/10/2015 Stephen Young MD ophthalmologist/Neurologist 6g1adlh7-ces6-6gt4-4532-5u3ihi892179 05/10/2015 05/10/2015 Stephen Young MD ophthalmologist/Neurologist 819d0c0r-n05o-71v0-fu46-32j773dn9313 05/10/2015 05/10/2015 Stephen Young MD ophthalmologist/Neurologist [id number]-da3e-0rl1-ob56-r29o2fq21123 05/10/2015 05/10/2015 Stephen Young MD ophthalmologist/Neurologist eh267cr5-ds41-370g-ig99-[id number] 05/10/2015 05/10/2015 Stephen Young MD ophthalmologist/Neurologist 31t8908l-8r7u-851n-yb71-3x29979xty08 05/10/2015 05/10/2015 Stephen Young MD ophthalmologist/Neurologist eqi83hyt-ju43-8r8x-527d-5ngek7v4pap6 05/10/2015 05/10/2015 Stephen Young MD ophthalmologist/Neurologist [id number]-513m-20i4-788c-7x84d25zn602 05/10/2015 05/10/2015 Stephen Young MD ophthalmologist/Neurologist 269k8pzb-6a2v-6zcd-a0t3-716qsar63725 05/10/2015 05/10/2015 Stephen Young MD ophthalmologist/Neurologist x2e2oc97-6vy3-1xyy-z25c-1b76460x173c 05/10/2015 05/10/2015 Stephen Young MD ophthalmologist/Neurologist g3x7292w-035d-50ci-2dpm-15x0425y3976 05/10/2015 05/10/2015 Stephen Young MD ophthalmologist/Neurologist 6720sw7f-19v6-81n6-6221-i5n91861j842 05/10/2015 05/10/2015 Stephen Young MD ophthalmologist/Neurologist 05063qri-4786-2958-515o-70ti6f5e52d1 05/10/2015 05/10/2015 Stephen Young MD ophthalmologist/Neurologist k2g9d0m3-9495-8235-18o1-i274191w0756 05/10/2015 05/10/2015 Stephen Young MD ophthalmologist/Neurologist 63c60e93-467r-7029-70iy-1w5933i87e64 05/10/2015 05/10/2015 Stephen Young MD ophthalmologist/Neurologist g2a4p06e-4xn2-6f24-n8y7-1s5ot2f9zr1h 05/10/2015 05/10/2015 Stephen Young MD ophthalmologist/Neurologist 1u211c87-re28-99dq-3t18-0494k2gsa5lq 05/10/2015 05/10/2015 Stephen Young MD ophthalmologist/Neurologist y3a52988-l2ik-84c5-b907-5x9oib580lf4 05/10/2015 05/10/2015 Stephen Young MD ophthalmologist/Neurologist 2e19u543-tp8y-6819-ybbr-8qx5n75g5r31 05/10/2015 05/10/2015 Stephen Young MD pt feeling [facility] [id number]-8n75-546695p0rso1 05/16/2015 05/16/2015 Stephen Young MD pt feeling bad 39tyxe25-mv51-3bp4-3998-n44d29tdis8v 05/16/2015 05/16/2015 Stephen Young MD pt feeling bad 4rhz651d-bm1a-1b3l-41r5-5y0016m5mwt1 05/16/2015 05/16/2015 Stephen Young MD pt feeling bad 49018ng0-82l7-0ugc-p118-i21614y0l5rt 05/16/2015 05/16/2015 Stephen Young MD pt feeling bad 5rd54wp3-8r05-4326-d9t7-85d894828q80 05/16/2015 05/16/2015 Stephen Young MD pt feeling bad 1d4dt567-0q52-6556-p3m5-q7rv698blqh2 05/16/2015 05/16/2015 Stephen Young MD pt feeling bad o7kyf34i-v333-0e07-7qf0-496orljm4v6m 05/16/2015 05/16/2015 Stephen Young MD pt feeling bad r0r895g3-23pa-6ewr-9582-87ljz95huh08 05/16/2015 05/16/2015 Stephen Young MD pt feeling bad w72565h7-5zib-865a-nh67-jh75t58980lm 05/16/2015 05/16/2015 Stephen Young MD pt feeling bad 61l61z7g-zm31-3c20-u261-to02g1us4p68 05/16/2015 05/16/2015 Stephen Young MD pt feeling bad 2696lo6p-xvt5-122g-6492-099ku5h863u7 05/16/2015 05/16/2015 Stephen Young MD pt feeling bad 44zw5yyp-96l0-8tzi-u825-165681sc62sw 05/16/2015 05/16/2015 Stephen Young MD pt feeling bad 9t9ew59j-7259-1135-p116-357jl3f44982 05/16/2015 05/16/2015 Stephen Young MD pt feeling bad 8lf164ie-m19l-837a-5162-474929a1n098 05/16/2015 05/16/2015 Stephen Young MD pt feeling bad 660r5p3e-5d42-47p4-g7rx-qgguneso44ey 05/16/2015 05/16/2015 Stephen Young MD pt feeling bad 066o6h33-49c0-74n4-fj65-u54hb9fg6550 05/16/2015 05/16/2015 Stephen Young MD pt feeling bad z7749y05-1wn3-6j9x-v152-68qgo9o4q16n 05/16/2015 05/16/2015 Stephen Young MD pt feeling bad 2om6oy8d-3z48-7826-n055-5o7ed9452214 05/16/2015 05/16/2015 Stephen Young MD pt feeling bad 6e3c97r2-1355-667d-666i-491va16hu7u8 05/16/2015 05/16/2015 Stephen Young MD pt feeling bad yz6yw77e-3n98-27so-3l34-47a4o5x1b582 05/16/2015 05/16/2015 Stephen Young MD pt feeling bad 45615041-8922-28er-6163-u0135010hg1s 05/16/2015 05/16/2015 Stephen Young MD pt feeling bad a3e0lw31-0827-5az9-i832-a1ihoy43w246 05/16/2015 05/16/2015 Stephen Young MD pt feeling bad 641o28l2-1m11-18l4-c8w0-272k28v6d6b5 05/16/2015 05/16/2015 Stephen Young MD pt feeling bad i7517c33-2464-4c95-sjd2-629et85774a4 05/16/2015 05/16/2015 Stephen Young MD pt feeling bad 4h35n983-ko9o-746f-w1ld-eg4607924i20 05/16/2015 05/16/2015 Stephen Young MD pt feeling bad u827a45o-29a3-426e-zfvf-x8c65n67131d 05/16/2015 05/16/2015 Stephen Young MD [facility] [employer] [id number]-zn2o-5n93-i0yq-2p5o0584d6zb 05/17/2015 05/17/2015 Stephen Young MD [facility] [employer] h91l85f0-7v5j-7863-n97q-o8747b04q513 05/17/2015 05/17/2015 Stephen Young MD [facility] [employer] uzzq40wi-u641-5t37-0608-4954pkyx8387 05/17/2015 05/17/2015 Stephen Young MD [facility] [employer] [facility] 9516gj08-fk66-5656-r42y-v9p9yr362x02 05/17/2015 05/17/2015 Stephen Young MD [facility] [employer] 7i2gmcpt-7962-91ga-g22b-b1i255l8ub74 05/17/2015 05/17/2015 Stephen Young MD [facility] [employer] 6h08p3mq-c27m-9x4f-55t0-0537k3257av3 05/17/2015 05/17/2015 Stephen Young MD [facility] [employer] [id number]-i06s-n7m4i07x5o53 05/17/2015 05/17/2015 Stephen Young MD [facility] [employer] [facility] 3xle42wf-c34w-061h-j51h-c5834mbmn344 05/17/2015 05/17/2015 Stephen Young MD [facility] [employer] [id number]-64b6-69ly-kcc8-956z12t83689 05/17/2015 05/17/2015 Stephen Young MD [facility] [employer] 4r092q92-zzf4-3846-evde-9b4n1q9h23j2 05/17/2015 05/17/2015 Stephen Young MD [facility] [employer] [id number]-[id number] 05/17/2015 05/17/2015 Stephen Young MD [facility] [employer] [id number]-vi00-m9594309oi3q 05/17/2015 05/17/2015 Stephen Young MD [facility] [employer] gm17qp0e-710o-1u98-w3k1-2g3225bw0647 05/17/2015 05/17/2015 Stephen Young MD [facility] [employer] [id number] 05/17/2015 05/17/2015 Stephen Young MD [facility] [employer] 0c0h2al5-4v1v-2584-b51m-28os2k87s00o 05/17/2015 05/17/2015 Stephen Young MD [facility] [employer] [id number]-sl85-0db7-[id number] 05/17/2015 05/17/2015 Stephen Young MD [facility] [employer] [id number]-x45819911s46 05/17/2015 05/17/2015 Stephen Young MD [facility] [employer] 0fw6xm99-v61f-6km8-lzk6-689r2u3z114r 05/17/2015 05/17/2015 Stephen Young MD [facility] [employer] [id number]-o176-03102x71usb2 05/17/2015 05/17/2015 Stephen Young MD [facility] [employer] 006r3h36-4pa3-9q6q-hr3r-180c9y5j0865 05/17/2015 05/17/2015 Stephen oYung MD [facility] [employer] [id number] 05/17/2015 05/17/2015 Stephen Young MD [facility] [employer] [id number] 05/17/2015 05/17/2015 Stephen Young MD [facility] [employer] [id number] 05/17/2015 05/17/2015 Stephen Young MD [facility] [employer] [id number] 05/17/2015 05/17/2015 Stephen Young MD [facility] [employer] [id number] 05/17/2015 05/17/2015 Stephen Young MD [facility] paperwork. [id number] 06/18/2015 06/18/2015 Stephen Young MD [facility] paperwork. [id number] 06/18/2015 06/18/2015 Stephen Young MD [facility] paperwork. [id number] 06/18/2015 06/18/2015 Stephen Young MD [facility] paperwork. [id number] 06/18/2015 06/18/2015 Stephen Young MD [facility] paperwork. [id number] 06/18/2015 06/18/2015 Stephen Young MD [facility] paperwork. [id number] 06/18/2015 06/18/2015 Stephen Young MD [facility] paperwork. [id number] 06/18/2015 06/18/2015 Stephen Young MD [facility] paperwork. [id number] 06/18/2015 06/18/2015 tSephen Young MD [facility] paperwork. [id number] 06/18/2015 06/18/2015 Stephen Young MD [facility] paperwork. [id number] 06/18/2015 06/18/2015 Stephen Young MD [facility] paperwork. [id number] 06/18/2015 06/18/2015 Stephen Young MD [facility] paperwork. [id number] 06/18/2015 06/18/2015 Stephen Young MD [facility] paperwork. [id number] 06/18/2015 06/18/2015 Stephen Young MD [facility] paperwork. [id number] 06/18/2015 06/18/2015 Stephen Young MD [facility] paperwork. [id number] 06/18/2015 06/18/2015 Stephen Young MD [facility] paperwork. [id number] 06/18/2015 06/18/2015 Stephen Young MD [facility] paperwork. [id number] 06/18/2015 06/18/2015 Stephen Young MD [facility] paperwork. [id number] 06/18/2015 06/18/2015 Stephen Young MD [facility] paperwork. [id number] 06/18/2015 06/18/2015 Stephen Young MD [facility] paperwork. [id number] 06/18/2015 06/18/2015 Stephen Young MD [facility] paperwork. [id number] 06/18/2015 06/18/2015 Stephen Young MD [facility] paperwork. [id number] 06/18/2015 06/18/2015 Stephen Young MD [facility] paperwork. [id number] 06/18/2015 06/18/2015 Stephen Young MD [employer] [id number] 07/05/2015 07/05/2015 Stephen Young MD [employer] [id number] 07/05/2015 07/05/2015 Stephen Young MD [employer] [id number] 07/05/2015 07/05/2015 Stephen Young MD [employer] [id number] 07/05/2015 07/05/2015 Stephen Young MD [employer] [id number] 07/05/2015 07/05/2015 Stephen Young MD [employer] [id number] 07/05/2015 07/05/2015 Stephen Young MD [employer] [id number] 07/05/2015 07/05/2015 Stephen Young MD [employer] [id number] 07/05/2015 07/05/2015 Stephen Young MD [employer] [id number] 07/05/2015 07/05/2015 Stephen Young MD [employer] [id number] 07/05/2015 07/05/2015 Stephen Young MD [employer] [id number] 07/05/2015 07/05/2015 Stephen Young MD [employer] [id number] 07/05/2015 07/05/2015 Stephen Young MD [employer] [id number] 07/05/2015 07/05/2015 Stephen Young MD [employer] [id number] 07/05/2015 07/05/2015 Stephen Young MD [employer] [id number] 07/05/2015 07/05/2015 Stephen Young MD [employer] [id number] 07/05/2015 07/05/2015 Stephen Young MD [employer] [id number] 07/05/2015 07/05/2015 Stephen Young MD [employer] [id number] 07/05/2015 07/05/2015 Stephen Young MD [employer] [id number] 07/05/2015 07/05/2015 Stephen Young MD [employer] [id number] 07/05/2015 07/05/2015 Stephen Young MD [employer] [id number] 07/05/2015 07/05/2015 Stephen Young MD [employer] [id number] 07/05/2015 07/05/2015 Stephen Young MD billing. [id number] 07/23/2015 07/23/2015 Stephen Young MD billing. [id number] 07/23/2015 07/23/2015 Stephen Young MD billing. [id number] 07/23/2015 07/23/2015 Stephen Young MD billing. [id number] 07/23/2015 07/23/2015 Stephen Young MD billing. [id number] 07/23/2015 07/23/2015 Stephen Young MD billing. [id number] 07/23/2015 07/23/2015 Stephen Young MD billing. [id number] 07/23/2015 07/23/2015 Stephen Young MD billing. [id number] 07/23/2015 07/23/2015 Stephen Young MD billing. [id number] 07/23/2015 07/23/2015 Stephen Young MD billing. [id number] 07/23/2015 07/23/2015 Stephen Young MD billing. [id number] 07/23/2015 07/23/2015 Stephen Young MD billing. [id number] 07/23/2015 07/23/2015 Stephen Young MD billing. [id number] 07/23/2015 07/23/2015 Stephen Young MD billing. [id number] 07/23/2015 07/23/2015 Stephen Young MD billing. [id number] 07/23/2015 07/23/2015 Stephen Young MD billing. [id number] 07/23/2015 07/23/2015 Stephen Young MD billing. [id number]-k5z9il3212rp 07/23/2015 07/23/2015 Stephen Young MD billing. 6380hft4-m042-8x7k-a5ug-04r62q80t6l6 07/23/2015 07/23/2015 Stephen Young MD billing. [id number]-9zm3-b47v-0i4dkqfrm57t 07/23/2015 07/23/2015 Stephen Young MD billing. [id number]-098y-o9zf795su6c3 07/23/2015 07/23/2015 Stephen Young MD infusion appt 2870ops0-rds9-9ee6-6v8e-1rw5r6374237 08/10/2015 08/10/2015 Stephen Young MD infusion appt 49xoc733-0191-3616-u85h-911hgc430g6b 08/10/2015 08/10/2015 Stephen Young MD infusion appt i3vtd0la-nr26-4b59-d293-x3f2w812lb30 08/10/2015 08/10/2015 Stephen Young MD infusion appt f1z07152-7435-460l-vl1x-zo5434d11t35 08/10/2015 08/10/2015 Stephen Young MD infusion appt uc23y33f-0p70-60rf-9ehz-52en046h9v23 08/10/2015 08/10/2015 Stephen Young MD infusion appt 973o79v4-3jd1-1i95-3v33-2or92y026462 08/10/2015 08/10/2015 Stephen Young MD infusion appt f19b3p2a-4400-7w16-n749-329504q1l94a 08/10/2015 08/10/2015 Stephen Young MD infusion appt 00twb8x8-4m2x-8fxw-c348-ay20872cq05y 08/10/2015 08/10/2015 Stephen Young MD infusion appt 9j6m0828-x261-2444-1wa4-9whs988c9q47 08/10/2015 08/10/2015 Stephen Young MD infusion appt 8t52b01w-22j4-5u55-r120-8sl1q6cgm1a3 08/10/2015 08/10/2015 Stephen Young MD infusion appt [id number]5n1 08/10/2015 08/10/2015 Stephen Young MD infusion appt y7jd83r9-2fzu-2z14-r650-d302o35648d3 08/10/2015 08/10/2015 Stephen Young MD infusion appt 0u9s9t38-0797-200m-8102-p5bo464c23sd 08/10/2015 08/10/2015 Stephen Young MD infusion appt 5y38ubp9-p5pc-2891-zor9-n3p98197881n 08/10/2015 08/10/2015 Stephen Young MD infusion appt kgu1x41o-938o-0wdj-5327-322e8462685y 08/10/2015 08/10/2015 Stephen Young MD infusion appt 8j559986-67e5-3576-c63p-jkk01zw7v393 08/10/2015 08/10/2015 Stephen Young MD infusion appt 3j00k3d0-8ps6-3800-w774-34954k9wo1i7 08/10/2015 08/10/2015 Stephen Young MD infusion appt 28i56f59-d667-15r7-bwt3-j3orf60m614r 08/10/2015 08/10/2015 Stephen Young MD infusion appt l7782gy1-4l66-9t71-upbb-4m7598q3569o 08/10/2015 08/10/2015 Stephen Young MD FOLLOW UP o4n9p0j5-u105-9384-965w-01iani5m41x0 10/08/2015 10/08/2015 Stephen Young MD FOLLOW UP 25s384j3-49a0-68t7-4934-25127m60124b 10/08/2015 10/08/2015 Stephen Young MD FOLLOW UP i42b79q7-9227-42go-4990-72qz108251j1 10/08/2015 10/08/2015 Stephen Young MD FOLLOW UP 05pg9272-8yc2-217l-p47d-y62m5vl536uo 10/08/2015 10/08/2015 Stephen Young MD FOLLOW UP 3s5z780b-3x79-7203-l0t4-3714856446r4 10/08/2015 10/08/2015 Stephen Young MD FOLLOW UP z26r315n-8734-3lru-yiy0-56366pc47s2h 10/08/2015 10/08/2015 Stephen Young MD FOLLOW UP se97877w-9753-9w2x-438f-3047r43m6e53 10/08/2015 10/08/2015 Stephen Young MD FOLLOW UP y5ppv343-k3ck-112c-547m-98u5s13s88n0 10/08/2015 10/08/2015 Stephen Young MD FOLLOW UP 85ts124g-x71b-3612-511o-w8a961uynl46 10/08/2015 10/08/2015 Stephen Young MD FOLLOW UP 5565cj9z-51q6-87v8-h594-4832q80r8579 10/08/2015 10/08/2015 Stephen Young MD FOLLOW UP y94ws08s-plj1-5uy7-2dtf-s636sp8fs786 10/08/2015 10/08/2015 Stephen Young MD FOLLOW UP 51v72e09-nkqr-43k2-uz75-8347ap25y6q7 10/08/2015 10/08/2015 Stephen Young MD FOLLOW UP j4otc19x-6j7d-39y2-9a84-3i859xq98mug 10/08/2015 10/08/2015 Stephen Young MD FOLLOW UP lx82t263-w748-829n-xp34-xmj251iz8e55 10/08/2015 10/08/2015 Stephen Young MD FOLLOW UP 5bh3p04j-l2b0-1pb6-8o39-fpmoi4i6u3np 10/08/2015 10/08/2015 Stephen Young MD FOLLOW UP [id number]-0d02-d243-420o575dw238 10/08/2015 10/08/[address] lungs 2y52cd30-j789-0sc9-d501-wp76367320mo 10/09/2015 10/09/[address] lungs [id number]-v4s2-8gth-7q7x-1b50o6v6n37r 10/09/2015 10/09/[address] lungs [id number]-f4ap-1vq1cn1or994 10/09/2015 10/09/[address] lungs [id number]-2889-68i3-5835m21j74r5 10/09/2015 10/09/[address] lungs 85eqn6s0-yv99-8o10-s26q-8hjj4038p7dx 10/09/2015 10/09/[address] lungs [id number]-0oo1-3547-07r1-6p76224843v6 10/09/2015 10/09/[address] lungs 5644vt14-7491-236f-u3h5-t77gb5k2bsbk 10/09/2015 10/09/[address] lungs 72vus34m-80pw-94vb-i0jm-52mz0r6evr65 10/09/2015 10/09/[address] lungs [id number]-h692-355dfo9g4693 10/09/2015 10/09/[address] lungs 28j9f5bh-sb1o-0w16-k83e-zm1ki2k0jyf4 10/09/2015 10/09/[address] lungs 6f0878d5-g99b-30kg-w585-17ob8z2344fh 10/09/2015 10/09/[address] lungs 127s7o69-1q6i-23jd-j0j9-r24gxt98y756 10/09/2015 10/09/[address] lungs 25k90713-o958-0409-4p1m-as85m9485597 10/09/2015 10/09/[address] lungs 52pr8x02-47bj-47fz-1com-j2945g1quy12 10/09/2015 10/09/[address] lungs 5wwv69z7-a09s-0052-4p2k-02m575rp241h 10/09/2015 10/09/[address] lungs 92828rji-s0w8-63gp-r215-93405182ft71 10/09/2015 10/09/[address] lungs 8bz5387f-51k4-372b-le1z-4495axju4di6 10/09/2015 10/09/[address] lungs l9189p8i-ltz2-7496-2184-0rmxwm9i259y 10/09/2015 10/09/2015 Stephen Young MD Promethazine. 8401j35u-567c-159j-24iy-pjxppz84942o 10/09/2015 10/09/2015 Stephen Young MD Promethazine. 8g319h8l-599w-08oq-l07b-30023mu68yaq 10/09/2015 10/09/2015 Stephen Young MD Promethazine. 3s88q57h-0020-4mqf-t219-w493n8944om3 10/09/2015 10/09/2015 Stephen Young MD Promethazine. [id number]-b5t3-[id number] 10/09/2015 10/09/2015 Stephen Young MD Promethazine. kk3v061z-8i00-4163-1m4g-e5f2818t87j9 10/09/2015 10/09/2015 Stephen Young MD Promethazine. 7nq68o53-8h56-6be4-0405-v8s9ug79r352 10/09/2015 10/09/2015 Stephen Young MD Promethazine. 902w9jj4-9q27-7b85-577a-98lz7xg3z6r2 10/09/2015 10/09/2015 Stephen Young MD Promethazine. 1p9i5625-dv83-0kn0-f0o1-1xx8l2jeih85 10/09/2015 10/09/2015 Stephen Young MD Promethazine. miq5b480-8694-8qm8-91m3-d5k2k192o24a 10/09/2015 10/09/2015 Stephen Young MD Promethazine. o93g874s-54jl-8480-9m5j-m872w036v892 10/09/2015 10/09/2015 Stephen Young MD Promethazine. z155483x-jiot-0603-c48v-5da006x91em5 10/09/2015 10/09/2015 Stephen Young MD Promethazine. 4754qvi9-56a7-4489-3385-809q788vu047 10/09/2015 10/09/2015 Stephen Young MD Promethazine. 8q023909-0442-1783-xwcl-11n17ypnfmg2 10/09/2015 10/09/2015 Stephen Young MD Promethazine. 6l1vwktm-o0ra-717n-yovz-k9z81j54a795 10/09/2015 10/09/2015 Stephen Young MD Promethazine. d4x9327p-3vle-0804-b685-h4dw5y99jc5p 10/09/2015 10/09/2015 Stephen Young MD Promethazine. 4p223807-1y9w-7f52-m933-7y9a9i8m766t 10/09/2015 10/09/2015 Stephen Young MD Promethazine. 5k117yd5-q173-0827-o8jm-r481l85x7841 10/09/2015 10/09/2015 Stephen Young MD Promethazine. 9t2y0n36-32ma-6yk8-tu7c-d1qf3m90pxf4 10/09/2015 10/09/[address] SCAN [id number]-i68g-pn9f9408299o 10/12/2015 10/12/[address] SCAN 9xdwq074-gnaq-628p-rrhw-r699r65580v9 10/12/2015 10/12/[address] SCAN [id number] 10/12/2015 10/12/[address] SCAN 07npr8p4-z154-06fg-2d5n-p232r948h0fr 10/12/2015 10/12/[address] SCAN 6f6e2z4j-tiq0-0d02-04x5-9tp41n4pwh72 10/12/2015 10/12/[address] SCAN [id number]-f0u1-c9m720ljt731 10/12/2015 10/12/[address] SCAN [id number]-j1568o8o6550 10/12/2015 10/12/[address] SCAN [id number]-[id number] 10/12/2015 10/12/[address] SCAN [id number]-5o11-n77729t93l41 10/12/2015 10/12/[address] SCAN [id number] 10/12/2015 10/12/[address] SCAN [id number]-[id number] 10/12/2015 10/12/[address] SCAN h3ngr29z-[id number]-p47p-vey7h24g330x 10/12/2015 10/12/[address] SCAN [id number] 10/12/2015 10/12/[address] SCAN [id number]-[id number] 10/12/2015 10/12/[address] SCAN 89r96j9m-[id number] 10/12/2015 10/12/2015 Stephen Young MD FOLLOW UP 4sg009b4-290p-18ae-y19q-7207v236e03l 11/06/2015 11/06/2015 Stephen Young MD FOLLOW UP 71j9258c-g724-8pv8-g4u1-ph8m4ef8447m 11/06/2015 11/06/2015 Stephen Young MD FOLLOW UP 12837x2q-[id number]-k651-w8il44g57019 11/06/2015 11/06/2015 Stephen Young MD FOLLOW UP 3617x6bf-4p06-8fvu-4211-bptsm0375g4q 11/06/2015 11/06/2015 Stephen Young MD FOLLOW UP 45h74g42-5820-602q-3520-jf260du91j83 11/06/2015 11/06/2015 Stephen Young MD FOLLOW UP ntz98n8a-kdv6-028i-1914-f75k36375bd5 11/06/2015 11/06/2015 Stephen Young MD FOLLOW UP hgn5af76-384f-4aks-x518-fum384317bes 11/06/2015 11/06/2015 Stephen Young MD FOLLOW UP v015nm0p-gd35-726s-lfnx-80q397i0be24 11/06/2015 11/06/2015 Stephen Young MD FOLLOW UP 9dy59ob9-3sp5-1i49-25m5-3bzk58376m95 11/06/2015 11/06/2015 Stephen Young MD FOLLOW UP o52s656b-k784-5f03-c206-6j475m6gz050 11/06/2015 11/06/2015 Stephen Young MD FOLLOW UP d0h564x3-5kk8-6y7w-j021-v3n3277827rj 11/06/2015 11/06/2015 Stephen Young MD FOLLOW UP [id number]-5830-pkyr9x659751 11/06/2015 11/06/2015 Stephen Young MD Refill - Promethazine p12c3c8u-av74-5n44-ss26-26971y99687c 11/06/2015 11/06/2015 Stephen Young MD Refill - Promethazine 69724o25-9970-3ay4-k2gr-a2hnlkfw789l 11/06/2015 11/06/2015 Stephen Young MD Refill - Promethazine qin66u5l-wyvp-99u3-3911-94s5565ad095 11/06/2015 11/06/2015 Stephen Young MD Refill - Promethazine 5c3q54r6-0795-56cs-5792-t1x4vq3hinxm 11/06/2015 11/06/2015 Stephen Young MD Refill - Promethazine 3j1s4s2f-lp27-1q2q-3d1q-7ze980296l97 11/06/2015 11/06/2015 Setphen Young MD Refill - Promethazine 79g3r9w7-wog2-4e46-zw0k-a68910012e94 11/06/2015 11/06/2015 Stephen Young MD Refill - Promethazine 0sc9f68s-t796-49p4-kyk4-zl4f9bck4sv2 11/06/2015 11/06/2015 Stephen Young MD Refill - Promethazine 078kys73-33y7-06e5-y183-39r645o378j9 11/06/2015 11/06/2015 Stephen Young MD Refill - Promethazine 35tfoaxe-l546-2i94r581-2z73-mw63-g4z7ah9282te 11/06/2015 11/06/2015 Stehpen Young MD Refill - Promethazine [id number]68e 11/06/2015 11/06/2015 Stephen Young MD Refill - Promethazine 9m0439a3-dwf1-8673-ml13-5a789cr7mf3k 11/06/2015 11/06/2015 Stephen Young MD Refill - Promethazine p8o3i105-xzm6-6538-452r-4198e3au9dl4 11/06/2015 11/06/2015 Stephen Young MD Refill - Promethazine 10w68597-19c2-3991-0297-0ydp1s0a38v8 11/06/2015 11/06/2015 Stephen Young MD Refill - Promethazine 3kl8n4gs-gpw5-0066-169q-yq9916s082o6 11/06/2015 11/06/2015 Stephen Young MD GI w990k987-102l-4941-7rq7-085h21p5rh36 11/06/2015 11/06/2015 Stephen Young MD GI 02b1ek61-6169-40q5-khlj-a4f70afc6izb 11/06/2015 11/06/2015 Stephen Young MD GI 0959b405-03vn-0688-h1pc-w8jp6nbt983u 11/06/2015 11/06/2015 Stephen Young MD GI 6n000w94-2wd7-11vl-0563-41ov880h036i 11/06/2015 11/06/2015 Stephen Young MD GI 203125m9-l939-7u66-ko60-181c329c198g 11/06/2015 11/06/2015 Stephen Young MD GI fes3x8w5-7en2-8mt6-1926-110nr827rixp 11/06/2015 11/06/2015 Stephen Young MD c903049q-hxgn-4325-pa10-mo785w2709ly 11/06/2015 11/06/2015 Stephen Young MD 408i1quv-4572-2849-s333-2v7864ewg261 11/06/2015 11/06/2015 Stephen Young MD 9b53511q-m802-9u93-vxq2-20592peva092 11/06/2015 11/06/2015 Stephen Young MD gdo362de-48v8-1nl6-m3b0-47ced466kbdi 11/06/2015 11/06/2015 Stephen Young MD qcs5we22-9hy8-0arr-97yu-47a910347690 11/06/2015 11/06/2015 Stephen Young MD 6yz2u2el-m806-0j50-5m0w-4200j2wmr60q 11/06/2015 11/06/2015 Stephen Young MD 150xg0fm-mlo9-8927-3442-6z9n77421nag 11/06/2015 11/06/2015 Stephen Young MD [id number]-y526-991t-2083-102cr7z18453 11/06/2015 11/06/2015 Stephen Young MD Promethazine 066929vu-x824-5gow-y5a8-6vqg6a473dpd 12/07/2015 12/07/2015 Stephen Young MD Promethazine h204at59-095r-3vf9-b219-7q23587z57d2 12/07/2015 12/07/2015 Stephen Young MD Promethazine q794sk58-5010-3it9-3025-28z360g97622 12/07/2015 12/07/2015 Stephen Young MD Promethazine 45i80c07-c7vg-04nz-w3w2-x87fyo34joe5 12/07/2015 12/07/2015 Stephen Young MD Promethazine dvr091an-6k90-339z-dji4-25r4404528w3 12/07/2015 12/07/2015 Stephen Young MD Promethazine ts22l04p-5w87-021o-qs96-0k966kep90r2 12/07/2015 12/07/2015 Stephen Young MD Promethazine t5y969x5-7901-57t0-u413-vup911a2565b 12/07/2015 12/07/2015 Stephen Young MD Promethazine 4mjfg29x-64ib-1cq0-95xn-587e7r28pf34 12/07/2015 12/07/2015 Stephen Young MD Promethazine b321389g-h45k-2g44-a292-685440460cc5 12/07/2015 12/07/2015 Stephen Young MD Promethazine 9g94gm5e-1w91-362f-e9hs-34049gqk19v1 12/07/2015 12/07/2015 Stephen Young MD Promethazine 973b5196-2n09-904w-pvz0-a6rp71442419 12/07/2015 12/07/2015 Stephen Young MD Refills request [id number] 12/07/2015 12/07/2015 Stephen Young MD Refills request [id number] 12/07/2015 12/07/2015 Stephen Young MD Refills request [id number]-y377-6k436w2h17u8 12/07/2015 12/07/2015 Stephen Young MD Refills request [id number]-f86686ig7vnn 12/07/2015 12/07/2015 Stephen Young MD Refills request [id number] 12/07/2015 12/07/2015 Stephen Young MD Refills request [id number]-y770-01s9yg428bmt 12/07/2015 12/07/2015 Stephen Young MD Refills request [id number]-6lw8r5ie7347 12/07/2015 12/07/2015 Stephen Young MD Refills request [id number] 12/07/2015 12/07/2015 Stephen Young MD Refills request [id number]-9518-ft36-4xj3964y8610 12/07/2015 12/07/2015 Stephen Young MD Refills request [id number] 12/07/2015 12/07/2015 Stephen Young MD Refills request [id number]-cj4u-p757a7343o8t 12/07/2015 12/07/2015 Stephen Young MD BOA a3810p24-h36p-7yd2-goj7-d8p4647r22z0 12/10/2015 12/10/2015 Stephen Young MD BOA 74d9l442-90gc-6p36-593c-eoykq7clkgb7 12/10/2015 12/10/2015 Stephen Young MD BOA 3e75s7q3-7s4k-7j1c-24x5-1o29383xde37 12/10/2015 12/10/2015 Stephen Young MD FOLLOW UP ee2c0c94-2h26-55co-mqz7-31bf092453xe 12/10/2015 12/10/2015 Stephen Young MD FOLLOW UP 5m18d400-64y3-73m9-w077-830m58x74k2y 12/10/2015 12/10/2015 Stephen Young MD BOA ijy51001-v5fc-0739-ql6l-eg5l97859641 12/10/2015 12/10/2015 Stephen Young MD BOA 3192v32e-3srw-4957-vnp6-34340y252931 12/10/2015 12/10/2015 Stephen Young MD BOA 972uymbq-35jp-29r902y2-y207-vfl1238b8c8r 12/10/2015 12/10/2015 Stephen Young MD BOA r66ax12w-8946-62o5-lz92-8aio09630207 12/10/2015 12/10/2015 Stephen Young MD BOA 55173h3v-jh13-1uhk-zxqd-z60m1e29757b 12/10/2015 12/10/2015 Stephen Young MD BOA 7n30922i-6548-599d-889h-45kp8ea28g3r 12/10/2015 12/10/2015 Stephen Young MD FOLLOW UP 6ij29133-4wjf-430m-jdzo-3m16d027o06k 12/10/2015 12/10/2015 Stephen Young MD FOLLOW UP 1t2u6eu4-7679-73x5-4gk0-m6p6wn624079 12/10/2015 12/10/2015 Stephen Young MD FOLLOW UP v8s903er-36nc-34sj-5l62-b60hwx448074 12/10/2015 12/10/2015 Stephen Young MD FOLLOW UP 416f430m-tzr6-5pq3-vv30-joj612wj291k 12/10/2015 12/10/2015 Stephen Young MD FOLLOW UP 8gziao43-29s6-62ah-5a52-d1u6e4978ru5 12/10/2015 12/10/2015 Stephen Young MD FOLLOW UP 611d2160-603w-7984-ryn6-p0h7ixr254bj 12/10/2015 12/10/2015 Stephen Young MD Unknown mwod055y-565s-2l76-5457-g5b17o26350o 01/07/2016 01/07/2016 Stephen Young MD Unknown gw68w843-64r4-21p8-fr72-04nf6uq5rt6x 01/07/2016 01/07/2016 Stephen Young MD Unknown [id number]-sa24-p7c727636390 01/07/2016 01/07/2016 Stephen Young MD Unknown a30r7r10-9b7l-690e-w9my-87md57s40441 01/07/2016 01/07/2016 Stephen Young MD Unknown a4y093dl-v7nu-590c-1yz3-w91d9x7o5546 01/07/2016 01/07/2016 Stephen Young MD Unknown [id number]-[id number] 01/07/2016 01/07/2016 Stephen Young MD Unknown a1p3jy6v-a3r2-22m8-0609-522ep26489gw 01/07/2016 01/07/2016 Stephen Young MD [facility] [id number]-05nh-3aqx-225d524q0105 02/01/2016 02/01/2016 Stephen Young MD [facility] 12z5bw5s-2n14-0926-n1k3-11k5qjd3767o 02/01/2016 02/01/2016 Stephen Young MD [facility] 4j0y75ag-7w83-9p9u-s3i2-968sr0o012oy 02/01/2016 02/01/2016 Stephen Young MD [facility] [id number]-167f-5999-wkcd2o960h3n 02/01/2016 02/01/2016 Stephen Young MD [facility] [id number]-[id number]-5v28qg4k8339 02/01/2016 02/01/2016 Stephen Young MD [facility] [id number]-nj9k55ugildz 02/01/2016 02/01/2016 Stephen Young MD FU [id number]-f5b5-055t1q2763r7 02/04/2016 02/04/2016 Stephen Young MD FU [id number]-sw46n2ejyoyb 02/04/2016 02/04/2016 Stephen Young MD FU [id number]-1845-fb69-pcz6582m0742 02/04/2016 02/04/2016 Stephen Young MD FU [id number]-[id number]-ky94-768rsq2u98fv 02/04/2016 02/04/2016 Stephen Young MD FU [id number]-[id number]-77v5q24m463i 02/04/2016 02/04/2016 Stephen Young MD Follow-Up [id number]-xhv9-1128-e287-7rw4f7he457g 03/25/2016 03/25/2016 Stephen Young MD Follow-Up [id number] 03/25/2016 03/25/2016 Stephen Yuong MD Follow-Up [id number]-l3k2-13a73m2n682e 03/25/2016 03/25/2016 Stephen Young MD Follow-Up [id number]-53rn-96646o6gn166 03/25/2016 03/25/2016 Stephen Young MD BOA [id number]-tjw5-p5q9dun60116 05/08/2016 05/08/2016 Stephen Young MD BOA [id number]-17w9-f97wt6740370 05/08/2016 05/08/2016 Stephen Young MD BOA [id number] 05/08/2016 05/08/2016 Stephen Young [facility] Est Patient Exp Problem - 32001 [id number] Sam Sauceda MD 05/20/2016 [facility] Young MD HIP INJ [id number] 05/21/2016 05/21/2016 Stephen Young MD [facility] C1112 Study [id number] 05/26/2016 05/26/2016 Stephen Young MD [facility] C1112 Study [id number] 05/26/2016 05/26/2016 Stephen Young [facility] Est Patient Exp Problem - 55939 [id number] Grey Woodard MD 06/05/2016 [facility] Est Patient Detailed - 30253 [id number] Grey Woodard MD 08/20/2016 [facility] Est Patient Exp Problem - 23769 [id number] Anny Zaman D.O. 08/21/2016 [facility] Est Patient Detailed - 05940 [id number] Grey Woodard MD 09/03/2016 [facility] Est Patient Detailed - 70667 [id number] Grey Woodard MD 09/19/2016 [facility] Est Patient Detailed - 86743 [id number] Grey Woodard MD 10/08/2016 [facility] Est Patient Exp Problem - 14568 [id number] Grey Woodard MD 11/07/2016 [facility] Est Patient Detailed - 39793 [id number] Fiona Alvarez MD 12/01/2016 [facility] Est Patient Exp Problem - 30235 [id number] Grey Woodard MD 12/05/2016 [facility] Est Patient Detailed - 85420 [id number] Grey Woodard MD 01/23/2017 [facility] Est Patient Detailed - 30046 [id number] Grey Woodard MD 03/04/2017 [facility] Est Patient Exp Problem - 21299 [id number] Fiona Alvarez MD 03/16/2017 [facility] Est Patient Exp Problem - 29828 [id number] Fiona Alvarez MD 07/05/2017 [facility] Est Patient Detailed - 54074 [id number] Beverley Mera MD 07/17/2017 [facility] Est Patient Detailed - 44085 [id number] Beverley Mera MD 08/17/2017 [facility] Procedures Procedure Code Date Perfomer Comments Source Diagnostic evaluation (no medical) - 82686 12515 10/20/2016 Siva DAS [facility] Patient Well Exam (40 - 64 Yrs) - 14114 59351 05/20/2016 Sohail DAVID [facility] Diagnostic evaluation with medical - 62582 87186 05/06/2016 Yamilet DAVID [facility] Assessment and Plan No Data Provided for This Section Plan of Care No Data Provided for This Section Social History Social History Date Source Social History ElementQualifiersDate Reported Diet: no. May 12, 2016 Tobacco Use: . Are you a:: never smoker May 12, 2016 Marital Status: . May 12, 2016 Caffeine: yes. frequency: 2 cups May 12, 2016 Exercise: yes. walking May 12, 2016 Alcohol: no. May 12, 2016 Occupation: [facility]. [employer] [facility] [employer] accessories [employer] May 12, 2016 05/12/2016 Stephen Young Family History Value Date Source QualifierDescriptionCommentDate Reported Maternal Grandmother Comment not available Apr 09, 2015 Paternal Grandmother Comment not available Apr 09, 2015 Siblings Comment not available Apr 09, 2015 Maternal Grandfather Comment not available Apr 09, 2015 Children Comment not available Apr 09, 2015 Father unknown Comment not available Apr 09, 2015 Paternal Grandfather Comment not available Apr 09, 2015 Mother alive high blood pressure, diabeties, arthritis Apr 09, 2015 Other: Comment not available Apr 09, 2015 03/30/2015 Stephen Young Advance Directives No Data Provided for This Section Functional Status No Data Provided for This Section
--- OUTSIDE RECORDS SUMMARY | 2018-11-11 06:28 | XMS REPORT ---
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
--- OUTSIDE RECORDS SUMMARY | 2018-11-11 06:28 | XMS REPORT ---
Author Author Jah Neri [facility] eClinicalWorks Address Unknown Phone Unavailable Care Team Providers Care Sebd Teacher Name Role Phone Jah Neri Unavailable Allergies, Adverse Reactions, Alerts Substance Reaction Event Type N.K.D.A. 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 [address]-33 50 MG Orally at bedtime Active 1 or 2 tablets Folic Acid [facility] [address]-89 1 MG Orally Once a day Active 1 tablet ClobetaPlus Ointment [facility] [address]-57 0.05 & 2.3 % Externally twice a day Active not defined Benlysta [facility] 18379-954-62 10MG/KG Q4 WEEKS Active 10MG/KG IV Citalopram Hydrobromide [facility] [address]-04 20 MG Orally Once a day Active 1 tablet Methotrexate [facility] [address]-66 2.5 MG Orally q week Active 5 tablets Albuterol [facility] 0 90 MCG/ACT Inhalation Active as directed Lorazepam [facility] [address]-61 2 MG Orally Once a day Active 1 tablet at bedtime as needed Rizatriptan Benzoate [facility] [address]-28 10 MG Orally Once a day Active 1 tablet as needed one time Lactose [facility] [address]-31 - Active as directed Meloxicam [facility] 14227892053 7.5 MG Active TAKE 1 TABLET BY MOUTH TWICE A DAY WITH FOOD Aspirin [facility] [address]-78 81 MG Orally Once a day Active 1 tablet Acetaminophen-Codeine #[address] [facility] [address]-38 300-30 MG Orally every 6 hrs Active 1 tablet as needed Eylea [facility] [address]-70 2 MG/0.05ML Intraocular into the eye q 6 weeks Active 0.05 ml Keppra [facility] [address]-19 250 MG Orally Once a day Active 1 tablet Promethazine HCl [facility] [address]-91 25 MG Orally every 12 hrs Active 1 tablet as needed Vital Signs Date/Time: July 24, 2016 BMI 45.52 Index Weight 257 lbs Height 63 in Temperature 97.9 F Cardiac Monitoring Heart Rate 96 /min Blood Pressure Diastolic 80 mm Hg Blood Pressure Systolic 140 mm Hg Results No Known Results Summary Purpose eClinicalWorks Submission
--- OUTSIDE RECORDS SUMMARY | 2018-11-11 06:28 | XMS REPORT ---
Author Randolph Montanez Organization eClinicalWorks Address Unknown Phone Unavailable Care Team Providers Care Connie Cleaner Name Role Phone Randolph Young CP Unavailable Allergies No Known Allergies Problems Problem Type Condition Code Onset Dates Condition Status Problem Other terminal manager (current) drug therapy Z79.899 Active Problem Hip [...]
--- OUTSIDE RECORDS SUMMARY | 2018-11-11 06:28 | XMS REPORT ---
Author Randolph Montanez Organization eClinical[employer] Address Unknown Phone Unavailable Care Team Providers Care Fur Comber Name Role Phone Randolph Young CP Unavailable Allergies No Known Allergies Problems Problem Type Condition Code Onset Dates Condition Status Problem Central retinal vein thrombosis H34.819 Active Problem Thyroid enlargement E04.9 Active Problem Hip bursitis M70.70 Active Problem Other forms of systemic lupus erythematosus M32.8 Active Problem Other [facility] (current) drug therapy Z79.899 Active Problem Complication following infusion and therapeutic injection T80.90XA Active Problem Lupus M32.9 Active Medications No Known Medications Results No Known Results Summary Purpose eClinicalWorks Submission
--- OUTSIDE RECORDS SUMMARY | 2018-11-11 06:28 | XMS REPORT ---
Author Randolph Montanez Organization eClinicalWorks Address Unknown Phone Unavailable Care Team Providers Care Customer Account Administrator Name Role Phone Randolph Young CP Unavailable Allergies No Known Allergies Problems Problem Type Condition Code Onset Dates Condition Status Problem Other terminal carman (current) drug therapy Z79.899 Active Problem Hip [...]
--- OUTSIDE RECORDS SUMMARY | 2018-11-11 06:28 | XMS REPORT ---
Author Randolph Montanez Organization eClinicalWorks Address Unknown Phone Unavailable Care Team Providers Care Digital Media Manager Name Role Phone Randolph Young CP Unavailable Allergies No Known Allergies Problems Problem Type Condition Code Onset Dates Condition Status Problem Central retinal vein thrombosis H34.819 Active Problem Thyroid enlargement E04.9 Active Problem Hip bursitis M70.70 Active Problem Other forms of systemic lupus erythematosus M32.8 Active Problem Other care home (current) drug therapy Z79.899 Active Problem Complication following infusion and therapeutic injection T80.90XA Active Problem Lupus M32.9 Active Medications No Known Medications Results No Known Results Summary Purpose eClinicalWorks Submission
--- OUTSIDE RECORDS SUMMARY | 2018-11-11 06:28 | XMS REPORT ---
Author Author Jah Neri [facility] eClinicalWorks Address Unknown Phone Unavailable Care Team Providers Care Liquid Floor And Wall Applier Name Role Phone Jah Neri Unavailable Allergies, Adverse Reactions, Alerts Substance Reaction Event Type N.K.D.A. Info Not Available Non Drug Allergy Problems Problem Type Condition Code Onset Dates Condition Status Assessment Hip bursitis M70.70 Active Assessment Lupus M32.9 Active Assessment Other long-term (current) drug therapy Z79.899 Active Problem Central retinal vein thrombosis H34.819 Active Problem Thyroid enlargement E04.9 Active Problem Hip bursitis M70.70 Active Problem Other forms of systemic lupus erythematosus M32.8 Active Problem Other long-term (current) drug therapy Z79.899 Active Problem Complication following infusion and therapeutic injection T80.90XA Active Problem Lupus M32.9 Active Medications Medication Code System Code Instructions Start Date End Date Status Dosage Albuterol [facility] 0 90 MCG/ACT Inhalation Active as directed ClobetaPlus Ointment [facility] [address]-03 0.05 & 2.3 % Externally twice a day Active not defined Folic Acid [facility] [address]-64 1 MG Orally Once a day Active 1 tablet Citalopram Hydrobromide [facility] [address]-47 20 MG Orally Once a day Active 1 tablet Acetaminophen-Codeine #3 [facility] [address]-48 300-30 MG Orally every 6 hrs Active 1 tablet as needed Lorazepam [facility] [address]-68 2 MG Orally Once a day Active 1 tablet at bedtime as needed Benlysta [facility] 89114-830-28 10MG/KG Q4 WEEKS Active 10MG/KG IV Eylea [facility] [address]-85 2 MG/0.05ML Intraocular into the eye q 6 weeks Active 0.05 ml Methotrexate [facility] [address]-63 2.5 MG Orally q week Active 5 tablets Cyclobenzaprine HCl [facility] [address]-03 10 MG Orally Three times a day Active 1 tablet Seroquel [facility] [address]-18 50 MG Orally at bedtime Active 1 or 2 tablets Zyrtec Allergy [facility] [address]-22 10 MG Orally Once a day Active 1 tablet Meloxicam [facility] 36877617998 7.5 MG Active TAKE 1 TABLET BY MOUTH TWICE A DAY WITH FOOD Vital Signs Date/Time: May 12, 2016 BMI 47.11 Index Weight 266 lbs Height 63 in Temperature 97.9 F Cardiac Monitoring Heart Rate 99 /min Blood Pressure Diastolic 85 mm Hg Blood Pressure Systolic 167 mm Hg Results No Known Results Summary Purpose eClinicalWorks Submission
--- OUTSIDE RECORDS SUMMARY | 2018-11-11 06:28 | XMS REPORT ---
Author Randolph Montanez Organization eClinicalWorks Address Unknown Phone Unavailable Care Team Providers Care Ecosystem Ecology Professor Name Role Phone Randolph Young CP Unavailable Allergies No Known Allergies Problems Problem Type Condition Code Onset Dates Condition Status Problem Other watermaster (current) drug therapy Z79.899 Active Problem Hip [...]
--- OUTSIDE RECORDS SUMMARY | 2018-11-11 06:28 | XMS REPORT ---
Author Randolph Montanez Organization eClinicalWorks Address Unknown Phone Unavailable Care Team Providers Care Awning Erector Name Role Phone Randolph Young CP Unavailable Allergies No Known Allergies Problems Problem Type Condition Code Onset Dates Condition Status Problem Other terminal gauger supervisor (current) drug therapy Z79.899 Active Problem Hip [...]
--- OUTSIDE RECORDS SUMMARY | 2018-11-11 06:28 | XMS REPORT ---
Author Randolph Montanez Organization eClinicalWorks Address Unknown Phone Unavailable Care Team Providers Care Service Dog Trainer Name Role Phone Randolph Young CP Unavailable Allergies No Known Allergies Problems Problem Type Condition Code Onset Dates Condition Status Problem Central retinal vein thrombosis H34.819 Active Problem Thyroid enlargement E04.9 Active Problem Hip bursitis M70.70 Active Problem Other forms of systemic lupus erythematosus M32.8 Active Problem Other alf (current) drug therapy Z79.899 Active Problem Complication following infusion and therapeutic injection T80.90XA Active Problem Lupus M32.9 Active Medications No Known Medications Results No Known Results Summary Purpose eClinicalWorks Submission
--- OUTSIDE RECORDS SUMMARY | 2018-11-11 06:28 | XMS REPORT ---
Author Randolph Montanez Organization eClinicalWorks Address Unknown Phone Unavailable Care Team Providers Care Electroplating Sales Representative Name Role Phone Randolph Young CP Unavailable [...]
--- OUTSIDE RECORDS SUMMARY | 2018-11-11 06:28 | XMS REPORT ---
Author Randolph Montanez Organization eClinicalWorks Address Unknown Phone Unavailable Care Team Providers Care Deaf/Hard Of Hearing Specialist Name Role Phone Randolph Young CP Unavailable Allergies No Known Allergies Problems Problem Type Condition Code Onset Dates Condition Status Problem Central retinal vein thrombosis H34.819 Active Problem Thyroid enlargement E04.9 Active Problem Hip bursitis M70.70 Active Problem Other forms of systemic lupus erythematosus M32.8 Active Problem Other assisted (current) drug therapy Z79.899 Active Problem Complication following infusion and therapeutic injection T80.90XA Active Problem Lupus M32.9 Active Medications No Known Medications Results No Known Results Summary Purpose eClinicalWorks Submission
--- OUTSIDE RECORDS SUMMARY | 2018-11-11 06:29 | XMS REPORT ---
Author Randolph Montanez [facility] eClinicalWorks Address Unknown Phone Unavailable Care Team Providers Care Personal Banking Assistant Name Role Phone Randolph Young CP Unavailable Allergies, Adverse Reactions, Alerts Substance Reaction Event Type Methotrexate pt thinks her tremors started after starting MTX Drug Allergy Hydroxychloroquine Sulfate Info Not Available Drug Allergy Problems Problem Type Condition Code Onset Dates Condition Status Assessment Lupus M32.9 Active Problem Other forms of systemic lupus erythematosus M32.8 Active Problem Lupus M32.9 Active Assessment Other custodial (current) drug therapy Z79.899 Active Problem Tremor R25.1 Active Problem Hip bursitis M70.70 Active Problem Polyarthralgia M25.50 Active Problem Complication following infusion and therapeutic injection T80.90XA Active Problem Other custodial (current) drug therapy Z79.899 Active Problem Central retinal vein thrombosis H34.819 Active Problem Thyroid enlargement E04.9 Active Medications Medication Code System Code Instructions Start Date End Date Status Dosage Citalopram Hydrobromide [facility] 26262732936 20 MG Orally Once a day Active 1 tablet Lactose [facility] 44477957005 - Active as directed Hydroxychloroquine Sulfate [facility] 41119607450 200 MG Orally bid Mar 02, 2017 May 31, 2017 Active 1 tablet with food or milk Tylenol/Codeine #3 [facility] 44794989819 300-30 MG Active TAKE 1 TABLET BY MOUTH EVERY 6 HOURS NEEDED Folic Acid [facility] 99572538656 1 MG Orally Once a day October 09, 2016 Active 1 tablet Lorazepam ND 25678938584 2 MG Orally Once a day Active 1 tablet at bedtime as needed Meloxicam [facility] 93911640230 7.5 MG Active TAKE 1 TABLET BY MOUTH TWICE A DAY WITH FOOD Eylea [facility] 12585377062 2 MG/0.05ML Intraocular into the eye q 6 weeks Active 0.05 ml Promethazine HCl ND 19898158080 25 MG Orally every 12 hrs Active 1 tablet as needed Azathioprine-50 mg day NDC 0 50 mg orally daily Apr 14, 2017 July 13, 2017 Active two capsules Flexeril [facility] 98831186337 10 MG Active TAKE 1 TABLET BY MOUTH 3 TIMES A DAY Vitamin D (Ergocalciferol) [facility] 69303851319 68419 UNIT Orally once a week Active 1 capsule ClobetaPlus Ointment [facility] 43575122422 0.05 & 2.3 % Externally twice a day Active not defined Acetaminophen-Codeine #3 [facility] 27384177318 300-30 MG Orally every 6 hrs Active 1 tablet as needed Rizatriptan Benzoate [facility] 26295215336 10 MG Orally Once a day Active 1 tablet as needed one time Vital Signs Date/Time: Apr 14, 2017 BMI 47.29 Index Weight 267 lbs Height 63 in Temperature 98.5 F Cardiac Monitoring Heart Rate 80 /min Blood Pressure Diastolic 82 mm Hg Blood Pressure Systolic 118 mm Hg Results No Known Results Summary Purpose eClinicalWorks Submission
--- OUTSIDE RECORDS SUMMARY | 2018-11-11 06:29 | XMS REPORT ---
Author Author Randolph Young Organization eClinicalWorks Address Unknown Phone Unavailable Care Team Providers Care Motor Vehicle Technician Name Role Phone Randolph Young CP Unavailable Allergies No Known Allergies Problems Problem Type Condition Code Onset Dates Condition Status Problem Other intermediate (current) drug therapy Z79.899 Active Problem Lupus M32.9 Active Problem Polyarthralgia M25.50 Active Problem Tremor R25.1 Active Problem Movement disorder G25.9 Active Problem Thyroid enlargement E04.9 Active Problem Complication following infusion and therapeutic injection T80.90XA Active Problem Hip bursitis M70.70 Active Problem Central retinal vein thrombosis H34.819 Active Medications No Known Medications Results No Known Results Summary Purpose eClinicalWorks Submission
--- OUTSIDE RECORDS SUMMARY | 2018-11-11 06:29 | XMS REPORT ---
Author Randolph Montanez Organization eClinicalWorks Address Unknown Phone Unavailable Care Team Providers Care Staff Counselor Name Role Phone Randolph Young CP Unavailable Allergies No Known Allergies Problems Problem Type Condition Code Onset Dates Condition Status Problem Other forms of systemic lupus erythematosus M32.8 Active Problem Lupus M32.9 Active Problem Tremor R25.1 Active Problem Hip bursitis M70.70 Active Problem Polyarthralgia M25.50 Active Problem Complication following infusion and therapeutic injection T80.90XA Active Problem Other care home (current) drug therapy Z79.899 Active Problem Central retinal vein thrombosis H34.819 Active Problem Thyroid enlargement E04.9 Active Medications Medication Code System Code Instructions Start Date End Date Status Dosage Medrol Dose [facility] 22255892059 4mg Orally once a day June 04, 2017 June 16, 2017 Active as directed Results No Known Results Summary Purpose eClinicalWorks Submission
--- OUTSIDE RECORDS SUMMARY | 2018-11-11 06:29 | XMS REPORT ---
Author Randolph Montanez Organization eClinicalWorks Address Unknown Phone Unavailable Care Team Providers Care Video Journalist Name Role Phone Randolph Young CP Unavailable Allergies No Known Allergies Problems Problem Type Condition Code Onset Dates Condition Status Problem Other forms of systemic lupus erythematosus M32.8 Active Problem Lupus M32.9 Active Problem Tremor R25.1 Active Problem Hip bursitis M70.70 Active Problem Polyarthralgia M25.50 Active Problem Complication following infusion and therapeutic injection T80.90XA Active Problem Other [facility] (current) drug therapy Z79.899 Active Problem Central retinal vein thrombosis H34.819 Active Problem Thyroid enlargement E04.9 Active Medications No Known Medications Results No Known Results Summary Purpose eClinicalWorks Submission
--- OUTSIDE RECORDS SUMMARY | 2018-11-11 06:29 | XMS REPORT ---
Author Author Randolph Young Organization eClinicalWorks Address Unknown Phone Unavailable Care Team Providers Care Rn Case Mgr Name Role Phone Randolph Young CP Unavailable Allergies No Known Allergies Problems Problem Type Condition Code Onset Dates Condition Status Problem Other forms of systemic lupus erythematosus M32.8 Active Problem Lupus M32.9 Active Problem Tremor R25.1 Active Problem Hip bursitis M70.70 Active Problem Polyarthralgia M25.50 Active Problem Complication following infusion and therapeutic injection T80.90XA Active Problem Other roasterman (current) drug therapy Z79.899 Active Problem Central retinal vein thrombosis H34.819 Active Problem Thyroid enlargement E04.9 Active Medications No Known Medications Results No Known Results Summary Purpose eClinicalWorks Submission
--- OUTSIDE RECORDS SUMMARY | 2018-11-11 06:29 | XMS REPORT ---
Author Randolph Montanez Organization eClinicalWorks Address Unknown Phone Unavailable Care Team Providers Care Creel Clerk Name Role Phone Randolph Young CP Unavailable Allergies No Known Allergies Problems Problem Type Condition Code Onset Dates Condition Status Problem Other remote computer terminal operator (current) drug therapy Z79.899 Active Problem Hip [...]
--- OUTSIDE RECORDS SUMMARY | 2018-11-11 06:29 | XMS REPORT ---
Author Author Oliva Tavares [facility] eClinicalWorks Address Unknown Phone Unavailable Care Team Providers Care Specification Manager Name Role Phone Oliva Tavares Unavailable Allergies No Known Allergies Problems Problem [...]
--- OUTSIDE RECORDS SUMMARY | 2018-11-11 06:29 | XMS REPORT ---
Author Author Randolph Young Organization eClinicalWorks Address Unknown Phone Unavailable Care Team Providers Care Orthotic/Prosthetic Practitioner Name Role Phone Randolph Young CP Unavailable Allergies No Known Allergies Problems Problem Type Condition Code Onset Dates Condition Status Problem Other forms of systemic lupus erythematosus M32.8 Active Problem Lupus M32.9 Active Problem Tremor R25.1 Active Problem Hip bursitis M70.70 Active Problem Polyarthralgia M25.50 Active Problem Complication following infusion and therapeutic injection T80.90XA Active Problem Other vermin exterminator (current) drug therapy Z79.899 Active Problem Central retinal vein thrombosis H34.819 Active Problem Thyroid enlargement E04.9 Active Medications No Known Medications Results No Known Results Summary Purpose eClinicalWorks Submission
--- OUTSIDE RECORDS SUMMARY | 2018-11-11 06:29 | XMS REPORT ---
Author Randolph Montanez Organization eClinicalWorks Address Unknown Phone Unavailable Care Team Providers Care President Ergonomic Consulting Name Role Phone Randolph Young CP Unavailable Allergies No Known Allergies Problems Problem Type Condition Code Onset Dates Condition Status Problem Other forms of systemic lupus erythematosus M32.8 Active Problem Lupus M32.9 Active Problem Tremor R25.1 Active Problem Hip bursitis M70.70 Active Problem Polyarthralgia M25.50 Active Problem Complication following infusion and therapeutic injection T80.90XA Active Problem Other [facility] (current) drug therapy Z79.899 Active Problem Central retinal vein thrombosis H34.819 Active Problem Thyroid enlargement E04.9 Active Medications No Known Medications Results No Known Results Summary Purpose eClinicalWorks Submission
--- OUTSIDE RECORDS SUMMARY | 2018-11-11 06:29 | XMS REPORT ---
Author Randolph Montanez Organization eClinicalWorks Address Unknown Phone Unavailable Care Team Providers Care Cardiology Coordinator Name Role Phone Randolph Young CP Unavailable Allergies No Known Allergies Problems Problem Type Condition Code Onset Dates Condition Status Problem Other forms of systemic lupus erythematosus M32.8 Active Problem Lupus M32.9 Active Problem Tremor R25.1 Active Problem Hip bursitis M70.70 Active Problem Polyarthralgia M25.50 Active Problem Complication following infusion and therapeutic injection T80.90XA Active Problem Other alf (current) drug therapy Z79.899 Active Problem Central retinal vein thrombosis H34.819 Active Problem Thyroid enlargement E04.9 Active Medications No Known Medications Results No Known Results Summary Purpose eClinicalWorks Submission
--- OUTSIDE RECORDS SUMMARY | 2018-11-11 06:29 | XMS REPORT ---
Author Randolph Montanez [facility] eClinicalWorks Address Unknown Phone Unavailable Care Team Providers Care Cigar Bander Hand Name Role Phone Randolph Young CP Unavailable Allergies, Adverse Reactions, Alerts Substance Reaction Event Type Methotrexate pt thinks her tremors started after starting MTX Drug Allergy Hydroxychloroquine Sulfate Info Not Available Drug Allergy Problems Problem Type Condition Code Onset Dates Condition Status Problem Other half-way (current) drug therapy Z79.899 Active Problem Lupus M32.9 Active Problem Polyarthralgia M25.50 Active Problem Tremor R25.1 Active Problem Movement disorder G25.9 Active Problem Thyroid enlargement E04.9 Active Problem Complication following infusion and therapeutic injection T80.90XA Active Problem Hip bursitis M70.70 Active Problem Central retinal vein thrombosis H34.819 Active Assessment Tremor R25.1 Active Assessment Other half-way (current) drug therapy Z79.899 Active Assessment Movement disorder G25.9 Active Assessment Central retinal vein thrombosis H34.819 Active Assessment Lupus M32.9 Active Medications Medication Code System Code Instructions Start Date End Date Status Dosage Azathioprine ND 56987176188 50 MG Orally 3 pills in the am and then 2 pills q pm Active as directed Cymbalta ND 25493211007 20 MG Orally Twice a day Active 1 capsule Rizatriptan Benzoate ND 64352621798 10 MG Orally Once a day Active 1 tablet as needed one time Cyclobenzaprine HCl ND 57804265343 10 MG Orally Three times a day Apr 12, 2018 Active 1 tablet ClobetaPlus Ointment ND 69373103540 0.05 & 2.3 % Externally twice a day Active not defined Clonazepam ND 92800371956 1 MG Orally Once a day Active 1 tablet Hemp Oil NDC 0 500 MG Orally Once a day Active 1 mL Promethazine HCl ND 70533169785 25 MG Orally every 12 hrs Active 1 tablet as needed Eylea ND 16137383049 2 MG/0.05ML Intraocular into the eye q 6 weeks Active 0.05 ml Tylenol/Codeine #3 [facility] 87442945429 300-30 MG Orally every 6 hrs Apr 12, 2018 Active 1 TABLET NEEDED Carvedilol [facility] 18926537919 6.25 MG Orally Twice a day Active 1 tablet Lactose [facility] 88506558006 - Active as directed Vital Signs Date/Time: July 13, 2018 BMI 46.62 Index Weight 263.2 lbs Height 63 in Temperature 97.0 F Cardiac Monitoring Heart Rate 88 /min Blood Pressure Diastolic 64 mm Hg Blood Pressure Systolic 126 mm Hg Results No Known Results Summary Purpose eClinicalWorks Submission
--- OUTSIDE RECORDS SUMMARY | 2018-11-11 06:29 | XMS REPORT ---
Author Randolph Montanez Organization [employer] Address Unknown Phone Unavailable Care Team Providers Care Route Process Administrator Name Role Phone Randolph Young CP [...]
--- OUTSIDE RECORDS SUMMARY | 2018-11-11 06:29 | XMS REPORT ---
Author Randolph Montanez Organization [employer] Address Unknown Phone Unavailable Care Team Providers Care Professor Of Literacy Name Role Phone Randolph Young CP Unavailable Allergies No Known Allergies Problems Problem Type Condition Code Onset Dates Condition Status Problem Other forms of systemic lupus erythematosus M32.8 Active Problem Lupus M32.9 Active Problem Tremor R25.1 Active Problem Hip bursitis M70.70 Active Problem Polyarthralgia M25.50 Active Problem Complication following infusion and therapeutic injection T80.90XA Active Problem Other correction (current) drug therapy Z79.899 Active Problem Central retinal vein thrombosis H34.819 Active Problem Thyroid enlargement E04.9 Active Medications No Known Medications Results No Known Results Summary Purpose eClinicalWorks Submission
--- OUTSIDE RECORDS SUMMARY | 2018-11-11 06:29 | XMS REPORT ---
Author Randolph Montanez [facility] eClinical[employer] Address Unknown Phone Unavailable Care Team Providers Care Paper Cutter Name Role Phone Randolph Young CP Unavailable [...] and therapeutic injection T80.90XA Active Problem Other [facility] (current) drug therapy Z79.899 Active Problem Central retinal vein thrombosis H34.819 Active Problem Thyroid enlargement E04.9 Active Assessment Other termite inspector (current) drug therapy Z79.899 Active Assessment Polyarthralgia M25.50 Active Assessment Tremor R25.1 Active Assessment Lupus M32.9 Active Medications Medication Code System Code Instructions Start Date End Date Status Dosage Clonazepam [facility] 77573492844 1 MG Orally Once a day Active 1 tablet ClobetaPlus Ointment [facility] 11424781447 0.05 & 2.3 % Externally twice a day Active not defined Medrol Dose Jose [facility] 30918435933 4mg Orally as directed Dec 28, 2017 Jan 09, 2018 Active as directed Carvedilol [facility] 00523746825 6.25 MG Orally Twice a day Active 1 tablet Cymbalta [facility] 11344187031 20 MG Orally Twice a day Active 1 capsule Lactose [facility] 25247884462 - Active as directed Azathioprine [facility] 55681270687 50 MG Orally bid Active take 2 tablets by mouth every day Eylea [facility] 01970357395 2 MG/0.05ML Intraocular into the eye q 6 weeks Active 0.05 ml Acetaminophen-Codeine #3 [facility] 65344519686 300-30 MG Orally every 6 hrs Active 1 tablet as needed Promethazine HCl [facility] 34788702916 25 MG Orally every 12 hrs Active 1 tablet as needed Hemp Oil NDC 0 500 MG Orally Once a day Active 1 mL Flexeril ND 37036992277 10 MG Orally qid Dec 28, 2017 Apr 27, 2018 Active 1 tablet as needed Rizatriptan Benzoate ND 68672189774 10 MG Orally Once a day Active 1 tablet as needed one time Vital Signs Date/Time: Dec 28, 2017 BMI 46.94 Index Weight 265 lbs Height 63 in Temperature 97.4 F Cardiac Monitoring Heart Rate 96 /min Blood Pressure Diastolic 90 mm Hg Blood Pressure Systolic 132 mm Hg Results Name Result Date Reference Range Unit Abnormality Flag HIGH SENSITIVITY CRP ----HIGH SENSITIVITY CRP 1.9 20171228 SEE BELOW MG/L CBC W/AUTO DIFF ----PLATELET COUNT 385 20972034 130-400 K/UL ----MCV 82.8 75858683 80.0-100.0 fL ----HEMATOCRIT 42.7 01239988 34.0-45.0 % ----BASOPHILS 1.0 07783722 0.0-2.0 % ----MCHC 33.3 62225641 32.0-35.5 G/DL ----EOSINOPHILS 3.1 50713386 0.0-7.0 % ----MCH 27.5 92103110 27.0-34.0 PG ----MONOCYTES 7.7 13758265 4.0-13.0 % ----WBC 5.2 80542787 4.0-11.0 K/UL ----HEMOGLOBIN 14.2 41824112 11.5-15.5 G/DL ----RBC 5.16 77217763 3.80-5.10 M/UL H ----LYMPHOCYTES 28.5 42253265 19.0-48.0 % ----RDW 14.5 85906863 11.0-15.0 % ----NEUTROPHILS 59.7 98075050 40.0-74.0 % COMPREHENSIVE METABOLIC PANEL ----CALC A/G RATIO 1.6 00691912 1.0-2.6 RATIO ----CALC GLOBULIN 2.6 63557356 1.9-3.7 G/DL ----ALKALINE PHOSPHATASE 62 30830874 40-128 U/L ----BILIRUBIN, TOTAL 0.3 20171228 <=1.2 MG/DL ----CHLORIDE 103 20171228 95-107 MEQ/L ----ALT 12 20171228 5-40 U/L ----POTASSIUM 4.5 04424013 3.5-5.4 MEQ/L ----AST 19 20171228 9-40 U/L ----SODIUM 143 93892455 133-146 MEQ/L ----CALC BUN/CREAT 9 20171228 6-28 RATIO ---- eGFR NON- AMER. 69 20171228 >60 ML/MIN/1.73 ----CALCIUM 9.4 70885318 8.5-10.5 MG/DL ----CARBON DIOXIDE 29 20171228 19-31 MEQ/L ----ALBUMIN 4.2 45443281 3.5-5.2 G/DL ----PROTEIN, TOTAL 6.8 20171228 6.1-8.3 G/DL ----GLUCOSE 100 88155364 70-99 MG/DL H ----BUN 9 20171228 6-20 MG/DL ----CREATININE 0.96 20171228 0.60-1.30 MG/DL ---- eGFR AMER. 80 20171228 >60 ML/MIN/1.73 SEDIMENTATION RATE ----SEDIMENTATION RATE 12 20171228 0-20 MM/HOUR Summary Purpose eClinicalWorks Submission
--- OUTSIDE RECORDS SUMMARY | 2018-11-11 06:29 | XMS REPORT ---
Author Randolph Montanez Organization [employer] Address Unknown Phone Unavailable Care Team Providers Care Threading Machine Feeder Automatic Name Role Phone Randolph Young CP Unavailable Allergies No Known Allergies Problems Problem Type Condition Code Onset Dates Condition Status Problem Other forms of systemic lupus erythematosus M32.8 Active Problem Lupus M32.9 Active Problem Tremor R25.1 Active Problem Hip bursitis M70.70 Active Problem Polyarthralgia M25.50 Active Problem Complication following infusion and therapeutic injection T80.90XA Active Problem Other [facility] (current) drug therapy Z79.899 Active Problem Central retinal vein thrombosis H34.819 Active Problem Thyroid enlargement E04.9 Active Medications No Known Medications Results No Known Results Summary Purpose eClinicalWorks Submission
--- OUTSIDE RECORDS SUMMARY | 2018-11-11 06:29 | XMS REPORT ---
Author Author Jah Neri [facility] [place] eClinicalWorks Address Unknown Phone Unavailable Care Team Providers Care Labeling Machine Operator Name Role Phone Jah Neri CP Unavailable Allergies, Adverse Reactions, Alerts Substance Reaction Event Type Methotrexate pt thinks her tremors started after starting MTX Drug Allergy Hydroxychloroquine Sulfate Info Not Available Drug Allergy Problems Problem Type Condition Code Onset Dates Condition Status Assessment Tremor R25.1 Active Problem Other [facility] (current) drug therapy Z79.899 Active Assessment Lupus M32.9 Active Assessment Other long term care phlebotomist (current) drug therapy Z79.899 Active Problem Hip bursitis M70.70 Active Problem Central retinal vein thrombosis H34.819 Active Problem Tremor R25.1 Active Problem Lupus M32.9 Active Problem Other forms of systemic lupus erythematosus M32.8 Active Problem Thyroid enlargement E04.9 Active Problem Complication following infusion and therapeutic injection T80.90XA Active Medications Medication Code System Code Instructions Start Date End Date Status Dosage ClobetaPlus Ointment [facility] [address]-45 0.05 & 2.3 % Externally twice a day Active not defined Eylea [facility] [address]-05 2 MG/0.05ML Intraocular into the eye q 6 weeks Active 0.05 ml Lactose [facility] [address]-88 - Active as directed Meloxicam [facility] 25240472453 7.5 MG Active TAKE 1 TABLET BY MOUTH TWICE A DAY WITH FOOD Albuterol ND 0 90 MCG/ACT Inhalation prn Active as directed Methotrexate [facility] [address]-51 2.5 MG Orally q week October 09, 2016 Inactive 5 tablets Seroquel [facility] [address]-78 50 MG Orally at bedtime Active 1 or 2 tablets Rizatriptan Benzoate [facility] [address]-80 10 MG Orally Once a day Active 1 tablet as needed one time Promethazine HCl [facility] [address]-75 25 MG Orally every 12 hrs Active 1 tablet as needed Acetaminophen-Codeine #3 [facility] [address]-68 300-30 MG Orally every 6 hrs Active 1 tablet as needed Vitamin D (Ergocalciferol) [facility] [address]-71 69584 UNIT Orally once a week Active 1 capsule Lorazepam [facility] [address]-77 2 MG Orally Once a day Active 1 tablet at bedtime as needed Citalopram Hydrobromide [facility] [address]-84 20 MG Orally Once a day Active 1 tablet Folic Acid [facility] [address]-92 1 MG Orally Once a day October 09, 2016 Active 1 tablet Vital Signs Date/Time: October 09, 2016 BMI 45.70 Index Weight 258 lbs Height 63 in Temperature 97.0 F Cardiac Monitoring Heart Rate 88 /min Blood Pressure Diastolic 80 mm Hg Blood Pressure Systolic 122 mm Hg Results Name Result Date Reference Range Unit Abnormality Flag IdentRA ----14.3.3 ETA PROTEIN <0.2 [id number] <0.2 ng/mL ----RHEUMATOID FACTOR 9 69522651 <14 IU/mL ----CYCLIC CITRULLINATED PEPTIDE (CCP) AB (IGG) <16 40168981 Units TSH, 3RD GENERATION W/REFLEX TO FT4 ----TSH W/REFLEX TO FT4 0.97 41001068 mIU/L N VISHNU IFA SCREEN W/REFL TO TITER AND PATTERN, IFA ----VISHNU SCREEN, IFA NEGATIVE 20161009 NEGATIVE N SJOGREN'S ANTIBODIES (SS-A,SS-B) ----SJOGREN'S ANTIBODY (SS-B) <1.0 NEG 97180195 <1.0 NEG AI N ----SJOGREN'S ANTIBODY (SS-A) <1.0 NEG 98272722 <1.0 NEG AI N C-REACTIVE PROTEIN ----C-REACTIVE PROTEIN 0.81 58177343 <0.80 mg/dL H DS DNA-Crithidia Ifa w/ Reflex ----DNA AB (DS) CRITHIDIA,IFA NEGATIVE 20161009 NEGATIVE SED RATE BY MODIFIED WESTERGREN ----SED RATE BY MODIFIED WESTERGREN 6 92178938 < OR=20 mm/h N COMPREHENSIVE METABOLIC PANEL W/EGFR ----POTASSIUM 4.1 20161009 3.5-5.3 mmol/L N ----SODIUM 139 06815733 135-146 mmol/L N ----BUN/CREATININE RATIO 7 20161009 6-22 (calc) N ----eGFR 93 02330107 > OR=60 mL/min/1.73m2 N ----eGFR NON-AFR. MOZAMBICAN 80 20161009 > OR=60 mL/min/1.73m2 N ----CREATININE 0.85 48987490 0.50-1.10 mg/dL N ----UREA NITROGEN (BUN) 6 52165817 7-25 mg/dL L ----GLUCOSE 116 30066009 65-99 mg/dL H ----AST 13 34872378 10-35 U/L N ----GLOBULIN 2.6 65616968 1.9-3.7 g/dL (calc) N ----ALT 6 41625995 6-29 U/L N ----ALBUMIN/GLOBULIN RATIO 1.4 05352217 1.0-2.5 (calc) N ----BILIRUBIN, TOTAL 0.2 96880339 0.2-1.2 mg/dL N ----ALKALINE PHOSPHATASE 67 18407275 33-115 U/L N ----CARBON DIOXIDE 28 45529437 20-31 mmol/L N ----CALCIUM 8.5 57986359 8.6-10.2 mg/dL L ----PROTEIN, TOTAL 6.2 36027444 6.1-8.1 g/dL N ----ALBUMIN 3.6 87452692 3.6-5.1 g/dL N ----CHLORIDE 104 09150036 98-110 mmol/L N CBC (INCLUDES DIFF/PLT) ----HEMOGLOBIN 12.9 92667886 11.7-15.5 g/dL N ----RED BLOOD CELL COUNT 4.85 97061898 3.80-5.10 Million/uL N ----MCV 85.4 31660751 80.0-100.0 fL N ----HEMATOCRIT 41.4 07168561 35.0-45.0 % N ----MCHC 31.2 67631370 32.0-36.0 g/dL L ----MCH 26.6 48627439 27.0-33.0 pg L ----PLATELET COUNT 306 43695287 140-400 Thousand/uL N ----RDW 14.3 13621747 11.0-15.0 % N ----MPV 11.0 88590253 7.5-12.5 fL N ----ABSOLUTE LYMPHOCYTES 2033 64754703 850-3900 cells/uL N ----ABSOLUTE NEUTROPHILS 6256 65295732 5583-4772 cells/uL N ----ABSOLUTE EOSINOPHILS 202 14462701 15-500 cells/uL N ----ABSOLUTE MONOCYTES 635 83117025 200-950 cells/uL N ----NEUTROPHILS 68 35994042 % N ----WHITE BLOOD CELL COUNT 9.2 15195926 3.8-10.8 Thousand/uL N ----BASOPHILS 0.8 97858841 % N ----ABSOLUTE BASOPHILS 74 48572531 0-200 cells/uL N ----EOSINOPHILS 2.2 35402739 % N ----LYMPHOCYTES 22.1 99681943 % N ----MONOCYTES 6.9 50740977 % N Summary Purpose eClinicalWorks Submission
--- OUTSIDE RECORDS SUMMARY | 2018-11-11 06:29 | XMS REPORT ---
Author Author Silverio Jaime Organization [employer]Works Address Unknown Phone Unavailable Care Team Providers Care Senior Analysis Specialist Name Role Phone Addison Chandrakantmiracle CP Unavailable Allergies, Adverse Reactions, Alerts Substance Reaction Event Type Methotrexate pt thinks her tremors started after starting MTX Drug Allergy Hydroxychloroquine Sulfate Info Not Available Drug Allergy Problems Problem Type Condition Code Onset Dates Condition Status Assessment Polyarthralgia M25.50 Active Problem Other forms of systemic lupus erythematosus M32.8 Active Problem Lupus M32.9 Active Problem Tremor R25.1 Active Problem Hip bursitis M70.70 Active Problem Polyarthralgia M25.50 Active Problem Complication following infusion and therapeutic injection T80.90XA Active Problem Other intermediate manager (current) drug therapy Z79.899 Active Problem Central retinal vein thrombosis H34.819 Active Problem Thyroid enlargement E04.9 Active Assessment Thyroid enlargement E04.9 Active Assessment Other intermediate manager (current) drug therapy Z79.899 Active Assessment Other forms of systemic lupus erythematosus M32.8 Active Assessment Tremor R25.1 Active Assessment Lupus M32.9 Active Medications Medication Code System Code Instructions Start Date End Date Status Dosage Lorazepam [facility] 88475281704 2 MG Orally Once a day Active 1 tablet at bedtime as needed Vitamin D (Ergocalciferol) [facility] 38750482987 43237 UNIT Orally once a week Active 1 capsule Acetaminophen-Codeine #3 [facility] 04237783505 300-30 MG Orally every 6 hrs Active 1 tablet as needed Meloxicam ND 05560397652 7.5 MG Active TAKE 1 TABLET BY MOUTH TWICE A DAY WITH FOOD Lactose [facility] 24241274568 - Active as directed Eylea [facility] 82751725851 2 MG/0.05ML Intraocular into the eye q 6 weeks Active 0.05 ml Flexeril [facility] 04248055096 10 MG Active TAKE 1 TABLET BY MOUTH 3 TIMES A DAY Rizatriptan Benzoate [facility] 34866150117 10 MG Orally Once a day Active 1 tablet as needed one time Terbinafine HCl [facility] 04682713726 250 MG Orally Once a day Active 1 tablet Promethazine HCl [facility] 48708800881 25 MG Orally every 12 hrs Active 1 tablet as needed Folic Acid [facility] 84707132048 1 MG Orally Once a day October 09, 2016 Active 1 tablet ClobetaPlus Ointment [facility] 00279016256 0.05 & 2.3 % Externally twice a day Active not defined Citalopram Hydrobromide [facility] 62909277697 20 MG Orally Once a day Active 1 tablet Mirtazapine [facility] 53061367352 15 MG Orally Once a day Active 1 tablet at bedtime Vital Signs Date/Time: Jan 16, 2017 BMI 48.00 Index Weight 271 lbs Height 63 in Temperature 97.9 F Cardiac Monitoring Heart Rate 92 /min Blood Pressure Diastolic 96 mm Hg Blood Pressure Systolic 138 mm Hg Results No Known Results Summary Purpose eClinicalWorks Submission
--- OUTSIDE RECORDS SUMMARY | 2018-11-11 06:29 | XMS REPORT ---
Author Randolph Montanez Organization [employer] Address Unknown Phone Unavailable Care Team Providers Care Procedure Tech Name Role Phone Randolph Young CP Unavailable [...]
--- OUTSIDE RECORDS SUMMARY | 2018-11-11 06:29 | XMS REPORT ---
Author Author Randolph Young Organization [employer] Address Unknown Phone Unavailable Care Team Providers Care Automotive Heavy Mechanic Name Role Phone Randolph Young CP Unavailable Allergies No Known Allergies Problems Problem Type Condition Code Onset Dates Condition Status Problem Other halfway (current) drug therapy Z79.899 Active Problem Lupus [...]
--- OUTSIDE RECORDS SUMMARY | 2018-11-11 06:29 | XMS REPORT ---
Author Randolph Montanez Organization [employer] Address Unknown Phone Unavailable Care Team Providers Care Hatchery Supervisor Name Role Phone Randolph Young CP Unavailable [...]
--- OUTSIDE RECORDS SUMMARY | 2018-11-11 06:29 | XMS REPORT ---
Author Randolph Montanez Organization [employer] Address Unknown Phone Unavailable Care Team Providers Care Aircraft Skin Burnisher Name Role Phone Randolph Young CP Unavailable [...] Date End Date Status Dosage Medrol Dose [facility] 49661410858 4mg Orally as directed July 03, 2017 July 09, 2017 Active as directed Results No Known Results Summary Purpose eClinicalWorks Submission
--- OUTSIDE RECORDS SUMMARY | 2018-11-11 06:29 | XMS REPORT ---
Author Randolph Montanez Organization [employer] Address Unknown Phone Unavailable Care Team Providers Care Ticketer Name Role Phone Randolph Young CP Unavailable Allergies No Known Allergies Problems Problem Type Condition Code Onset Dates Condition Status Problem Other forms of systemic lupus erythematosus M32.8 Active Problem Lupus M32.9 Active Problem Tremor R25.1 Active Problem Hip bursitis M70.70 Active Problem Polyarthralgia M25.50 Active Problem Complication following infusion and therapeutic injection T80.90XA Active Problem Other [facility] (current) drug therapy Z79.899 Active Problem Central retinal vein thrombosis H34.819 Active Problem Thyroid enlargement E04.9 Active Medications Medication Code System Code Instructions Start Date End Date Status Dosage Hydroxychloroquine Sulfate [facility] 88572901717 200 MG Orally bid Mar 02, 2017 May 31, 2017 Active 1 tablet with food or milk Results No Known Results Summary Purpose eClinicalWorks Submission
--- OUTSIDE RECORDS SUMMARY | 2018-11-11 06:29 | XMS REPORT ---
Author Randolph Montanez Organization e[employer]Works Address Unknown Phone Unavailable Care Team Providers Care Ceramic Engineering Professor Name Role Phone Randolph Young CP Unavailable Allergies No Known Allergies Problems Problem Type Condition Code Onset Dates Condition Status Problem Other forms of systemic lupus erythematosus M32.8 Active Problem Lupus M32.9 Active Problem Tremor R25.1 Active Problem Hip bursitis M70.70 Active Problem Polyarthralgia M25.50 Active Problem Complication following infusion and therapeutic injection T80.90XA Active Problem Other [facility] (current) drug therapy Z79.899 Active Problem Central retinal vein thrombosis H34.819 Active Problem Thyroid enlargement E04.9 Active Medications Medication Code System Code Instructions Start Date End Date Status Dosage Azathioprine [facility] 86119425278 50 MG Orally bid Mar 17, 2018 June 15, 2018 Active take 2 tablets by mouth every day Results No Known Results Summary Purpose eClinicalWorks Submission
--- OUTSIDE RECORDS SUMMARY | 2018-11-11 06:29 | XMS REPORT ---
Author Author Randolph Young Organization eClinicalWorks Address Unknown Phone Unavailable Care Team Providers Care Financial Assistant Name Role Phone Randolph Young CP Unavailable Allergies No Known Allergies Problems Problem Type Condition Code Onset Dates Condition Status Problem Other group home (current) drug therapy Z79.899 Active Problem Lupus M32.9 Active Problem Polyarthralgia M25.50 Active Problem Tremor R25.1 Active Problem Movement disorder G25.9 Active Problem Thyroid enlargement E04.9 Active Problem Complication following infusion and therapeutic injection T80.90XA Active Problem Hip bursitis M70.70 Active Problem Central retinal vein thrombosis H34.819 Active Medications Medication Code System Code Instructions Start Date End Date Status Dosage Tylenol/Codeine #3 [facility] 27499956700 300-30 MG Orally every 6 hrs October 13, 2018 Active 1 tablet as needed Results No Known Results Summary Purpose eClinicalWorks Submission
--- OUTSIDE RECORDS SUMMARY | 2018-11-11 06:29 | XMS REPORT ---
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 83383171520 50 MG Orally bid Apr 12, 2018 Active 2 tablets Tylenol/Codeine #[address] [facility] 70541332870 300-30 MG Orally every 6 hrs Apr 12, 2018 Active 1 TABLET NEEDED Cyclobenzaprine HCl [facility] 89943666193 10 MG Orally Three times a day Apr 12, 2018 Active 1 tablet Results No Known Results Summary Purpose eClinicalWorks Submission
--- OUTSIDE RECORDS SUMMARY | 2018-11-11 06:29 | XMS REPORT ---
Author Randolph Montanez Organization eClinicalWorks Address Unknown Phone Unavailable Care Team Providers Care Sports Nutritionist Name Role Phone Randolph Young CP Unavailable Allergies No Known Allergies Problems Problem Type Condition Code Onset Dates Condition Status Problem Other forms of systemic lupus erythematosus M32.8 Active Problem Lupus M32.9 Active Problem Tremor R25.1 Active Problem Hip bursitis M70.70 Active Problem Polyarthralgia M25.50 Active Problem Complication following infusion and therapeutic injection T80.90XA Active Problem Other retirement (current) drug therapy Z79.899 Active Problem Central retinal vein thrombosis H34.819 Active Problem Thyroid enlargement E04.9 Active Medications Medication Code System Code Instructions Start Date End Date Status Dosage Acetaminophen-Codeine #3 [facility] 28656604625 300-30 MG Orally every 6 hrs Active 1 tablet as needed Results No Known Results Summary Purpose eClinicalWorks Submission
--- OUTSIDE RECORDS SUMMARY | 2018-11-11 06:29 | XMS REPORT ---
Author Randolph Montanez [facility] [place] eClinicalWorks Address Unknown Phone Unavailable Care Team Providers Care Lunch Wagon Operator Name Role Phone Randolph Young CP Unavailable Allergies, Adverse Reactions, Alerts Substance Reaction Event Type Methotrexate pt thinks her tremors started after starting MTX Drug Allergy Hydroxychloroquine Sulfate Info Not Available Drug Allergy Problems Problem Type Condition Code Onset Dates Condition Status Assessment Lupus M32.9 Active Problem Other forms of systemic lupus erythematosus M32.8 Active Problem Lupus M32.9 Active Assessment Other longterm (current) drug therapy Z79.899 Active Problem Tremor R25.1 Active Problem Hip bursitis M70.70 Active Problem Polyarthralgia M25.50 Active Problem Complication following infusion and therapeutic injection T80.90XA Active Problem Other longterm (current) drug therapy Z79.899 Active Problem Central retinal vein thrombosis H34.819 Active Problem Thyroid enlargement E04.9 Active Medications Medication Code System Code Instructions Start Date End Date Status Dosage Flexeril [facility] 65997012204 10 MG Orally qid October 20, 2017 Active 1 tablet as needed Tylenol/Codeine #3 [facility] 47721704747 300-30 MG Active TAKE 1 TABLET BY MOUTH EVERY 6 HOURS NEEDED Citalopram Hydrobromide [facility] 72121623184 20 MG Orally Once a day Active 1 tablet Vitamin D (Ergocalciferol) [facility] 19287386376 87678 UNIT Orally once a week Active 1 capsule ClobetaPlus Ointment [facility] 61660721890 0.05 & 2.3 % Externally twice a day Active not defined Folic Acid [facility] 41170611352 1 MG Orally Once a day October 09, 2016 Active 1 tablet Lactose [facility] 20568852083 - Active as directed Lorazepam ND 01001188151 2 MG Orally Once a day Active 1 tablet at bedtime as needed Azathioprine ND 59725475337 50 MG Orally bid Active take 2 tablets by mouth every day Hydroxychloroquine Sulfate ND 04010046689 200 MG Not taking October 20, 2017 Inactive TAKE 1 TABLET BY MOUTH TWICE A DAY WITH FOOD OR MILK Promethazine HCl [facility] 96021788018 25 MG Orally every 12 hrs Active 1 tablet as needed Carvedilol [facility] 97731390108 6.25 MG Orally Twice a day Active 1 tablet Rizatriptan Benzoate [facility] 20684098499 10 MG Orally Once a day Active 1 tablet as needed one time Meloxicam [facility] 98431675177 7.5 MG Active TAKE 1 TABLET BY MOUTH TWICE A DAY WITH FOOD Eylea [facility] 67082716734 2 MG/0.05ML Intraocular into the eye q 6 weeks Active 0.05 ml Acetaminophen-Codeine #3 [facility] 38543268241 300-30 MG Orally every 6 hrs October 20, 2017 Active 1 tablet as needed Vital Signs Date/Time: October 20, 2017 BMI 47.11 Index Weight 266 lbs Height 63 in Temperature 97.9 F Cardiac Monitoring Heart Rate 96 /min Blood Pressure Diastolic 88 mm Hg Blood Pressure Systolic 118 mm Hg Results No Known Results Summary Purpose eClinicalWorks Submission
--- OUTSIDE RECORDS SUMMARY | 2018-11-11 06:29 | XMS REPORT ---
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
--- OUTSIDE RECORDS SUMMARY | 2018-11-11 06:30 | XMS REPORT ---
Author Author Jah Neri [facility] eClinicalWorks Address Unknown Phone Unavailable Care Team Providers Care Fine Patcher Name Role Phone Jah Neri Unavailable Allergies, Adverse Reactions, Alerts Substance Reaction Event Type N.K.D.A. Info Not Available Non Drug Allergy Encounters Encounter Location Date FMLA UPDATE Randolph Young MD Nov 28, 2013 [facility] Randolph Young MD Dec 01, 2013 Answering Service/Dizziness Randolph Young MD Dec 01, 2013 Unknown Randolph Young MD Nov 27, 2013 Pt. Depo Update Randolph Young MD July 11, 2013 4 w f/u Randolph Young MD July 04, 2013 rash Randolph Young MD Oct 28, 2013 6WKS PER R LOBO Young MD Mar 21, 2014 4-6 wk f/u Randolph Young MD Feb 03, 2014 Problems Problem Type Condition ICD-9 Code Onset Dates Condition Status Problem Polyarthralgia 719.49 Active Assessment Unspecified drug dependence 304.90 Active Problem Lupus 710.0 Active Assessment Polyarthralgia 719.49 Active Assessment Lupus 710.0 Active Medications Medication Code System Code Instructions Start Date End Date Status Dosage Hydroxychloroquine Sulfate [facility] 76182741435 200 Active TAKE 1 TABLET BY MOUTH TWICE DAILY WITH FOOD OR MILK Cranberry [facility] [address]286 84 MG Orally Active as directed [place] Jelly [facility] [address]270 200 MG Orally Active as directed Tramadol Unknown 0 50 mg orally bid Active one tab PredniSONE [facility] [address]-85 5 MG Orally Once a day Feb 03, 2014 June 03, 2014 Active begin after 15 day taper of prednsione Amitriptyline HCl [facility] [address]-93 25mg at night Active 2 tablets ClobetaPlus Ointment [facility] [address]-61 0.05 & 2.3 % Externally Active as directed Fluocinonide [facility] [address]-68 0.05 % Externally Active as directed Meloxicam [facility] [address]-52 7.5 MG Orally Once a day Active 1 tablet Social History Social History Element Qualifiers Date Reported Tobacco Use: . Are you a:: never smoker Mar 21, 2014 Marital Status: . Mar 21, 2014 Caffeine: yes. frequency: 2 cups Mar 21, 2014 Exercise: yes. walking Mar 21, 2014 Alcohol: no. 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 [place](-> OR=60 mL/min/1.73m2) 64 ALKALINE PHOSPHATASE(-33-115 U/L) 59 eGFR (-> OR=60 mL/min/1.73m2) 74 BILIRUBIN, TOTAL(-0.2-1.2 mg/dL) 0.5 BUN/CREATININE RATIO(-6-22 (calc)) NOT APPLICABLE ALBUMIN/GLOBULIN RATIO(-1.0-2.5 (calc)) 1.5 SODIUM(-135-146 mmol/L) 140 GLOBULIN(-1.9-3.7 g/dL (calc)) 2.9 POTASSIUM(-3.5-5.3 mmol/L) 4.0 GLUCOSE(-65-99 mg/dL) 84 CHLORIDE(-98-110 mmol/L) 102 ALBUMIN(-3.6-5.1 g/dL) 4.3 UREA NITROGEN (BUN)(-7-25 mg/dL) 9 PROTEIN, TOTAL(-6.1-8.1 g/dL) 7.2 SED RATE BY MODIFIED [place]STERGR[place] SED RATE BY MODIFIED WESTERGREN(-< OR=20 mm/h) 8 C-REACTIVE PROTEIN C-REACTIVE PROTEIN(-<0.80 mg/dL) 0.31 CBC (INCLUDES DIFF/PLT) MCHC(-32.0-36.0 g/dL) 32.5 MCH(-27.0-33.0 pg) 27.8 PLATELET COUNT(-140-400 Thousand/uL) 263 RDW(-11.0-15.0 %) 14.5 ABSOLUTE LYMPHOCYTES(-850-3900 cells/uL) 2202 ABSOLUTE MONOCYTES(-200-950 cells/uL) 485 ABSOLUTE NEUTROPHILS(-2692-4140 cells/uL) 6926 NEUTROPHILS(- %) 71.4 HEMATOCRIT(-35.0-45.0 %) 43.5 LYMPHOCYTES(- %) 22.7 MCV(-80.0-100.0 fL) 85.5 RED BLOOD CELL COUNT(-3.80-5.10 Million/uL) 5.09 ABSOLUTE EOSINOPHILS(-15-500 cells/uL) 68 ABSOLUTE BASOPHILS(-0-200 cells/uL) 19 HEMOGLOBIN(-11.7-15.5 g/dL) 14.1 BASOPHILS(- %) 0.2 WHITE BLOOD CELL COUNT(-3.8-10.8 Thousand/uL) 9.7 MONOCYTES(- %) 5.0 EOSINOPHILS(- %) 0.7 SM AND SM/ORACLE MANAGER ANTIBODIES SM ANTIBODY(-<1.0 NEG AI) <1.0 NEG SM/ORACLE MANAGER ANTIBODY(-<1.0 NEG AI) <1.0 NEG DS DNA-Crithidia Ifa w/ Reflex DNA AB (DS) CRITHIDIA,IFA(-NEGATIVE ) NEGATIVE VISHNU IFA SCREEN W/REFL TO TITER AND PATTERN, IFA VISHNU SCREEN, IFA(-NEGATIVE ) NEGATIVE C3, C4, COMPLEMENT COMPLEMENT, TOTAL (CH50)(-31-60 U/mL) >60 COMPLEMENT COMPONENT C4C(-ADULTS: 16-47 mg/dL) 39 COMPLEMENT COMPONENT C3C(- mg/dL) 147 URINALYSIS, COMPLETE SPECIFIC GRAVITY(-1.001-1.035 ) 1.010 APPEARANCE(-CLEAR ) CLEAR GLUCOSE(-NEGATIVE ) NEGATIVE PH(-5.0-8.0 ) 6.0 KETONES(-NEGATIVE ) NEGATIVE BILIRUBIN(-NEGATIVE ) NEGATIVE PROTEIN(-NEGATIVE ) NEGATIVE OCCULT BLOOD(-NEGATIVE ) NEGATIVE NITRITE(-NEGATIVE ) NEGATIVE WBC(-< OR=5 /HPF) NONE SEEN LEUKOCYTE ESTERASE(-NEGATIVE ) NEGATIVE SQUAMOUS EPITHELIAL CELLS(-< OR=5 /HPF) NONE SEEN RBC(-< OR=3 /HPF) NONE SEEN HYALINE CAST(-NONE SEEN /LPF) NONE SEEN COLOR(-YELLOW ) YELLOW BACTERIA(-NONE SEEN /HPF) NONE SEEN Summary Purpose eClinicalWorks Submission
--- OUTSIDE RECORDS SUMMARY | 2018-11-11 06:30 | XMS REPORT ---
Author Author Randolph Young [facility] eClinicalWorks Address Unknown Phone Unavailable Care Team Providers Care International Logistics Coordinator Name Role Phone Randolph Young Unavailable Encounters Encounter Location Date Pt. Depo Update Randolph Young MD July 11, 2013 Problems Problem Type Condition ICD-9 Code Onset Dates Condition Status Problem Polyarthralgia 719.49 Active Social History Social History Element Qualifiers Date Reported Tobacco Use: . Are you a:: never smoker July 04, 2013 Marital Status: . July 04, 2013 Caffeine: yes. frequency: 2 cups July 04, 2013 Exercise: yes. walking July 04, 2013 Alcohol: no. 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
--- OUTSIDE RECORDS SUMMARY | 2018-11-11 06:30 | XMS REPORT ---
Author Author Randolph Young eClinicalWorks Address Unknown Phone Unavailable Care Team Providers Care Auto Transmission Mechanic Name Role Phone Randolph Young CP Unavailable Allergies, Adverse Reactions, Alerts Substance Reaction Event Type N.K.D.A. Info Not Available Non Drug Allergy Encounters Encounter Location Date FMLA UPDATE Randolph Young MD Nov 28, 2013 [facility] Randolph Young MD Dec 01, 2013 Answering Service/Dizziness Randolph Young MD Dec 01, 2013 Unknown Randolph Young MD Nov 27, 2013 Pt. Depo Update Randolph Young MD July 11, 2013 4 w f/u Randolph Young MD July 04, 2013 rash Randolph Young MD Oct 28, 2013 4-6 wk f/u Randolph Young MD Nov 25, 2013 PE/SLE Assessments Randolph Young MD September 07, 2014 3m f/u Randolph Young MD October 09, 2014 6WKS PER R LOBO Young MD Mar 21, 2014 4-6 wk f/u Randolph Young MD Feb 03, 2014 DepoMedrol IM Randolph Young MD September 19, 2014 LUPUS FLARE Randolph Young MD August 22, 2014 UPDATE Randolph Young MD August 28, 2014 Research Randolph Young MD August 22, 2014 FMLA UPDATE Randolph Young MD May 22, 2014 3m f/u Randolph Yuong MD June 20, 2014 Kidney Infection Randolph Young MD May 03, 2014 FMLA Update Randolph Young MD May 19, 2014 Balance Randolph Young MD October 09, 2014 Problems Problem Type Condition ICD-9 Code Onset Dates Condition Status Problem Polyarthralgia 719.49 Active Assessment Lupus 710.0 Active Problem Lupus 710.0 Active Medications Medication Code System Code Instructions Start Date End Date Status Dosage Wellbutrin SR [facility] [address]-89 150 MG Orally Twice a day Active 1 tablet Hydroxychloroquine Sulfate [facility] 88644601681 200 Orally twice a day Active 1 tablet with food or milk Cranberry [facility] 51779-[address]52 84 MG Orally Active as directed Amitriptyline HCl [facility] [address]-49 50mg at night Active 2 tablets PredniSONE [facility] [address]-92 10 MG Orally q am with food Active 3 tablets Tramadol Unknown 0 50 mg orally bid Active one tab [place] Jelly [facility] 50[address]64 200 MG Orally Active as directed Tylenol/Codeine #3 [facility] [address]-52 300-30 MG Orally every 6 hrs Active 1 tablet as needed Meloxicam [facility] [address]-35 7.5 MG Orally bid with food Active 1 tablet ClobetaPlus Ointment [facility] [address]-08 0.05 & 2.3 % Externally Active as directed Social History Social History Element Qualifiers Date Reported Diet: no. October 09, 2014 Tobacco Use: . Are you a:: never smoker October 09, 2014 Marital Status: . October 09, 2014 Caffeine: yes. frequency: 2 cups October 09, 2014 Exercise: yes. walking October 09, 2014 Alcohol: no. 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
--- OUTSIDE RECORDS SUMMARY | 2018-11-11 06:30 | XMS REPORT ---
Author Author Randolph Young eClinicalWorks Address Unknown Phone Unavailable Care Team Providers Care Otr Owner Operator Name Role Phone Randolph Young CP Unavailable Encounters Encounter Location Date 4-6 wk f/u Randolph Young MD Nov 25, 2013 [facility] Randolph Young MD Mar 29, 2015 scheduled for erna Young MD Mar 08, 2015 PT IS FEELING SICK Randolph Young MD Feb 23, 2015 Erna Young MD Apr 11, 2015 DepoMedrol IM Randolph Young MD September 19, 2014 LUPUS FLARE Randolph Young MD August 22, 2014 Message Randolph Young MD Apr 06, 2015 UPDATE Randolph Young MD August 28, 2014 Message Randolph Young MD Apr 11, 2015 Research Randolph Young MD August 22, 2014 FMLA UPDATE Randolph Young MD May 22, 2014 3m f/u Randolph Young MD June 20, 2014 Kidney Infection Randolph Young MD May 03, 2014 FMLA Update Randolph Young MD May 19, 2014 Balance Randolph Young MD October 09, 2014 FMLA UPDATE Randolph Young MD Nov 28, 2013 [facility] Randolph Young MD Dec 01, 2013 Answering Service/Dizziness Randolph Young MD Dec 01, 2013 Unknown Randolph Young MD Nov 27, 2013 Pt. Depo Update Randolph Young MD July 11, 2013 4 w f/u Randolph Young MD July 04, 2013 rash Randolph Young MD Oct 28, 2013 PE/SLE Assessments Randolph Young MD September 07, 2014 3m f/u Randolph Young MD October 09, 2014 6WKS PER R LOBO Young MD Mar 21, 2014 4-6 wk f/u Randolph Young MD Feb 03, 2014 3m f/u Randolph Young MD 2015 OV ?? Randolph Young MD Jan 31, 2015 Treatment Randolph Young MD Feb 01, 2015 FEELING SICK/ SINCE HER IINFUSION Randolph Young MD Feb 07, 2015 [id number] Randolph Young MD 2015 labs Randolph Young MD 2015 Benlysta Randolph Young MD 2015 Ultrasound Randolph Young MD Jan 09, 2015 Problems Problem Type Condition ICD-9 Code Onset Dates Condition Status Problem Complication following infusion and therapeutic injection T80.90XA Active Problem Lupus M32.9 Active Problem Thyroid enlargement E04.9 Active Problem Lupus 710.0 Active Problem Polyarthralgia 719.49 Active Problem Other forms of systemic lupus erythematosus M32.8 Active Problem Other senior care (current) drug therapy Z79.899 Active Social History Social History Element Qualifiers Date Reported Diet: no. Apr 26, 2015 Tobacco Use: . Are you a:: never smoker Apr 26, 2015 Marital Status: . Apr 26, 2015 Caffeine: yes. frequency: 2 cups Apr 26, 2015 Exercise: yes. walking Apr 26, 2015 Alcohol: no. 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
--- OUTSIDE RECORDS SUMMARY | 2018-11-11 06:30 | XMS REPORT ---
Author Author Randolph Young eClinicalWorks Address Unknown Phone Unavailable Care Team Providers Care Hand Rug Braider Name Role Phone Randolph Young CP Unavailable Encounters Encounter Location Date FMLA UPDATE Randolph Young MD Nov 28, 2013 [facility] Randolph Young MD Dec 01, 2013 Answering Service/Dizziness Randolph Young MD Dec 01, 2013 Unknown Randolph Young MD Nov 27, 2013 Pt. Depo Update Randolph Young MD July 11, 2013 4 w f/u Randolph Young MD July 04, 2013 rash Randolph Young MD Oct 28, 2013 Problems Problem Type Condition ICD-9 Code Onset Dates Condition Status Problem Polyarthralgia 719.49 Active Social History Social History Element Qualifiers Date Reported Tobacco Use: . Are you a:: never smoker Nov 25, 2013 Marital Status: . Nov 25, 2013 Caffeine: yes. frequency: 2 cups Nov 25, 2013 Exercise: yes. walking Nov 25, 2013 Alcohol: no. 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
--- OUTSIDE RECORDS SUMMARY | 2018-11-11 06:30 | XMS REPORT ---
Author Author Randolph Young eClinicalWorks Address Unknown Phone Unavailable Care Team Providers Care Road Worker Name Role Phone Randolph Young CP Unavailable Encounters Encounter Location Date FMLA UPDATE Randolph Young MD Nov 28, 2013 [facility] Randolph Young MD Dec 01, 2013 Answering [...] Dates Condition Status Problem Polyarthralgia 719.49 Active Problem Lupus 710.0 Active Social History Social History Element Qualifiers Date Reported Diet: no. October 09, 2014 Tobacco Use: . Are you a:: never smoker October 09, 2014 Marital Status: . October 09, 2014 Caffeine: yes. frequency: 2 cups October 09, 2014 Exercise: yes. walking October 09, 2014 Alcohol: no. 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
--- OUTSIDE RECORDS SUMMARY | 2018-11-11 06:30 | XMS REPORT ---
Author Author Randolph Young eClinicalWorks Address Unknown Phone Unavailable Care Team Providers Care Diamond Sizer And Sorter Name Role Phone Randolph Young CP Unavailable Encounters Encounter Location Date FMLA UPDATE Randolph Young MD Nov 28, 2013 [facility] Randolph Young MD Dec 01, 2013 Answering [...] Polyarthralgia 719.49 Active Problem Lupus 710.0 Active Medications Medication Code System Code Instructions Start Date End Date Status Dosage Tylenol/Codeine #3 [facility] [address]-90 300-30 MG Orally every 6 hrs Active 1 tablet as needed Tramadol Unknown 0 50 mg orally bid Active one tab ClobetaPlus Ointment [facility] [address]-21 0.05 & 2.3 % Externally Active as directed [place] Jelly [facility] [address]891 200 MG Orally Active as directed PredniSONE [facility] [address]-12 10 MG Orally q am with food Active 3 tablets Hydroxychloroquine Sulfate [facility] 60913273213 200 Orally twice a day Active 1 tablet with food or milk Meloxicam [facility] [address]-34 7.5 MG Orally bid with food Active 1 tablet Amitriptyline HCl [facility] [address]-39 50mg at night Active 2 tablets Cranberry [facility] 26077-40520 84 MG Orally Active as directed Wellbutrin SR [facility] [address]-06 150 MG Orally Twice a day Active 1 tablet Social History Social History Element Qualifiers Date Reported Diet: no. October 09, 2014 Tobacco Use: . Are you a:: never smoker October 09, 2014 Marital Status: . October 09, 2014 Caffeine: yes. frequency: 2 cups October 09, 2014 Exercise: yes. walking October 09, 2014 Alcohol: no. 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
--- OUTSIDE RECORDS SUMMARY | 2018-11-11 06:30 | XMS REPORT ---
Author Author Randolph Young eClinicalWorks Address Unknown Phone Unavailable Care Team Providers Care Production Control Coordinating Clerk Name Role Phone Randolph Young CP Unavailable Encounters Encounter Location Date FMLA UPDATE Randolph Young MD Nov 28, 2013 [facility] Randolph Young MD Dec 01, 2013 Answering [...] Alcohol: no. 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
--- OUTSIDE RECORDS SUMMARY | 2018-11-11 06:30 | XMS REPORT ---
Author Author Randolph Young eClinicalWorks Address Unknown Phone Unavailable Care Team Providers Care Plating Tank Operator Apprentice Name Role Phone Randolph Young CP Unavailable Encounters Encounter Location Date FMLA UPDATE Randolph Young MD Nov 28, 2013 [facility] Randolph Young MD Dec 01, 2013 Answering Service/Dizziness Randolph Young MD Dec 01, 2013 Unknown Randolph Young MD Nov 27, 2013 Pt. Depo Update Randolph Young MD July 11, 2013 Kidney Infection Randolph Young MD May 03, 2014 4 w f/u Randolph Young MD July 04, 2013 rash Randolph Young MD Oct 28, 2013 4-6 wk f/u Randolph Young MD Nov 25, 2013 6WKS PER R LOBO Young MD [...] Alcohol: no. 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
--- OUTSIDE RECORDS SUMMARY | 2018-11-11 06:30 | XMS REPORT ---
Author Author Randolph Young eClinicalWorks Address Unknown Phone Unavailable Care Team Providers Care Machine Bunch Maker Name Role Phone Randolph Young CP Unavailable Encounters Encounter Location Date FMLA UPDATE Randolph Young MD Nov 28, 2013 [facility] Randolph Young MD Dec 01, [...] Alcohol: no. 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
--- OUTSIDE RECORDS SUMMARY | 2018-11-11 06:30 | XMS REPORT ---
Author Author Randolph Young eClinicalWorks Address Unknown Phone Unavailable Care Team Providers Care Full Roll Inspector Name Role Phone Randolph Young CP Unavailable Encounters Encounter Location Date 4-6 wk f/u Randolph Young MD Nov 25, 2013 DepoMedrol IM Randolph Young MD September 19, [...] UPDATE Randolph Young MD Nov 28, 2013 [facility] Randolph Young MD Dec 01, 2013 Answering [...] ICD-9 Code Onset Dates Condition Status Problem Lupus M32.9 Active Problem Other forms of systemic lupus erythematosus M32.8 Active Problem Complication following infusion and therapeutic injection T80.90XA Active Problem Polyarthralgia 719.49 Active Problem Other termite exterminator (current) drug therapy Z79.899 Active Problem Lupus 710.0 Active Social History Social History Element Qualifiers Date Reported Diet: no. Jan 31, 2015 Tobacco Use: . Are you a:: never smoker Jan 31, 2015 Marital Status: . Jan 31, 2015 Caffeine: yes. frequency: 2 cups Jan 31, 2015 Exercise: yes. walking Jan 31, 2015 Alcohol: no. 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
--- OUTSIDE RECORDS SUMMARY | 2018-11-11 06:30 | XMS REPORT ---
Author Author Velia Posadas [facility] eClinicalWorks Address Unknown Phone Unavailable Care Team Providers Care Commissary Manager Name Role Phone Velia Posadas Unavailable Allergies, Adverse Reactions, Alerts Substance Reaction Event Type N.K.D.A. Info Not Available Non Drug Allergy Encounters Encounter Location Date Pt. Depo Update Randolph Young MD July 11, 2013 4 w f/u Randolph Young MD July 04, 2013 Problems Problem Type Condition ICD-9 Code Onset Dates Condition Status Assessment Polyarthralgia 719.49 Active Problem Polyarthralgia 719.49 Active Medications Medication Code System Code Instructions Start Date End Date Status Dosage Cymb[facility] [address]-28 30 MG Orally Once a day Active 1 capsule Prednisone 5 mg day Unknown 0 5 mg orally daily Jan 04, 2013 Active one tab Meloxicam [facility] [address]-38 7.5 MG Orally Once a day Active [address] [facility] [address]-70 0.05 & 2.3 % Externally Active as directed Tramadol Unknown 0 50 mg orally every 4-6 hours prn pain Active one tab Augmentin [facility] [address]-30 125-31.25 MG/5ML Orally Active 20 ml Social History Social History Element Qualifiers Date Reported Tobacco Use: . Are you a:: never smoker July 04, 2013 Marital Status: . July 04, 2013 Caffeine: yes. frequency: 2 cups July 04, 2013 Exercise: yes. walking July 04, 2013 Alcohol: no. 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
--- OUTSIDE RECORDS SUMMARY | 2018-11-11 06:30 | XMS REPORT ---
Author Author Randolph Young eClinicalWorks Address Unknown Phone Unavailable Care Team Providers Care Practice Coordinator Name Role Phone Randolph Young CP Unavailable Encounters Encounter Location Date FMLA UPDATE Randolph Young MD Nov 28, 2013 [facility] Randolph Young MD Dec 01, 2013 Answering [...] f/u Randolph Young MD Feb 03, 2014 FMLA UPDATE Randolph Young MD May 22, 2014 Kidney Infection Randolph Young MD May 03, 2014 FMLA Update Randolph Young MD May 19, 2014 Problems Problem Type Condition ICD-9 Code [...] Alcohol: no. 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
--- OUTSIDE RECORDS SUMMARY | 2018-11-11 06:30 | XMS REPORT ---
Author Author Randolph Young eClinicalWorks Address Unknown Phone Unavailable Care Team Providers Care Teacher Assistant Name Role Phone Randolph Young CP Unavailable Allergies, Adverse Reactions, Alerts Substance Reaction Event Type N.K.D.A. Info Not Available Non Drug Allergy Encounters Encounter Location Date FMLA UPDATE Randolph Young MD Nov 28, 2013 [facility] Randolph Young MD Dec 01, 2013 Answering [...] Condition Status Problem Polyarthralgia 719.49 Active Assessment Polyarthralgia 719.49 Active Problem Lupus 710.0 Active Assessment Lupus 710.0 Active Medications Medication Code System Code Instructions Start Date End Date Status Dosage Meloxicam [facility] [address]-51 7.5 MG Orally Once a day Active 1 tablet Tramadol Unknown 0 50 mg orally bid Active one tab Prednisone Taper Unknown 0 5mg orally q am with food Feb 03, 2014 Feb 18, 2014 Active 3 tablets for 5 days, 2 tablets for 5 days and then 1 tablet for 5 days ClobetaPlus Ointment [facility] [address]-76 0.05 & 2.3 % Externally Active as directed Fluocinonide [facility] [address]-68 0.05 % Externally Active as directed Cranberry [facility] [address]86-84674 84 MG Orally Active as directed Hydroxychloroquine Sulfate [facility] [address]-21 200 MG Orally bid Active 1 tablet with food or milk PredniSONE [facility] [address]-89 5 MG Orally Once a day Feb 03, 2014 June 03, 2014 Active begin after 15 day taper of prednsione Hankinson Jarenmatnatalie [facility] [address]-43042 200 MG Orally Active as directed Social History Social History Element Qualifiers Date Reported Tobacco Use: . Are you a:: never smoker Mar 21, 2014 Marital Status: . Mar 21, 2014 Caffeine: yes. frequency: 2 cups Mar 21, 2014 Exercise: yes. walking Mar 21, 2014 Alcohol: no. 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
--- OUTSIDE RECORDS SUMMARY | 2018-11-11 06:30 | XMS REPORT ---
Author Author Randolph Young [facility] eClinicalWorks Address Unknown Phone Unavailable Care Team Providers Care Roll Threader Operator Name Role Phone Randolph Young Unavailable Encounters [...] Use: . Are you a:: never smoker September 26, 2013 Marital Status: . September 26, 2013 Caffeine: yes. frequency: 2 cups September 26, 2013 Exercise: yes. walking September 26, 2013 Alcohol: no. 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
--- OUTSIDE RECORDS SUMMARY | 2018-11-11 06:30 | XMS REPORT ---
Author Author Randolph Young eClinicalWorks Address Unknown Phone Unavailable Care Team Providers Care [place] [employer] Name Role Phone Randolph Young CP Unavailable [...] UPDATE Randolph Young MD Nov 28, 2013 [facility] Randolph Young MD Dec 01, [...] Treatment Randolph Young MD Feb 01, 2015 [id number] Randolph Young MD 2015 labs Randolph Young MD 2015 Benlysta Randolph Young MD 2015 Ultrasound Randolph Yuong MD Jan 09, 2015 Problems Problem Type Condition ICD-9 Code Onset Dates Condition Status Problem Lupus M32.9 Active Problem Other forms of systemic lupus erythematosus M32.8 Active Problem Complication following infusion and therapeutic injection T80.90XA Active Problem Polyarthralgia 719.49 Active Problem Other group home (current) drug therapy [...] Alcohol: no. 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
--- OUTSIDE RECORDS SUMMARY | 2018-11-11 06:30 | XMS REPORT ---
Author Author Randolph Young eClinicalWorks Address Unknown Phone Unavailable Care Team Providers Care Customer Supply Coordinator Name Role Phone Randolph Young CP Unavailable Allergies, Adverse Reactions, Alerts Substance Reaction Event Type N.K.D.A. Info Not Available Non Drug Allergy Encounters Encounter Location Date FMLA UPDATE Randolph Young MD Nov 28, 2013 [facility] Randolph Young MD Dec 01, [...] Date End Date Status Dosage Hydroxychloroquine Sulfate [facility] 89027922291 200 Orally twice a day Active 1 tablet with food or milk Amitriptyline HCl [facility] [address]-81 50mg at night Active 2 tablets Adams Jelly [facility] 75363-76168 200 MG Orally Active as directed ClobetaPlus Ointment [facility] [address]-94 0.05 & 2.3 % Externally Active as directed Cranberry [facility] 17872-89737 84 MG Orally Active as directed PredniSONE [facility] [address]-72 10 MG Orally q am with food Active 1 tablet Tramadol Unknown 0 50 mg orally bid Active one tab Meloxicam [facility] [address]-69 7.5 MG Orally bid with food Active 1 tablet Social History Social History Element Qualifiers Date Reported Diet: no. October 09, 2014 Tobacco Use: . Are you a:: never smoker October 09, 2014 Marital Status: . October 09, 2014 Caffeine: yes. frequency: 2 cups October 09, 2014 Exercise: yes. walking October 09, 2014 Alcohol: no. 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 QATARI(-> OR=60 mL/min/1.73m2) 70 ALKALINE PHOSPHATASE(-33-115 U/L) 59 eGFR (-> OR=60 mL/min/1.73m2) 81 BILIRUBIN, TOTAL(-0.2-1.2 mg/dL) 0.3 BUN/CREATININE RATIO(-6-22 (calc)) NOT APPLICABLE ALBUMIN/GLOBULIN RATIO(-1.0-2.5 (calc)) 1.3 SODIUM(-135-146 mmol/L) 139 GLOBULIN(-1.9-3.7 g/dL (calc)) 2.8 POTASSIUM(-3.5-5.3 mmol/L) 4.3 GLUCOSE(-65-99 mg/dL) 114 CHLORIDE(-98-110 mmol/L) 104 ALBUMIN(-3.6-5.1 g/dL) 3.7 UREA NITROGEN (BUN)(-7-25 mg/dL) 10 PROTEIN, TOTAL(-6.1-8.1 g/dL) 6.5 SED RATE BY MODIFIED WESTERGREN SED RATE BY MODIFIED WESTERGREN(-< OR=20 mm/h) 2 C-REACTIVE PROTEIN C-REACTIVE PROTEIN(-<0.80 mg/dL) 0.18 CBC (INCLUDES DIFF/PLT) MCHC(-32.0-36.0 g/dL) 31.7 MCH(-27.0-33.0 pg) 27.6 PLATELET COUNT(-140-400 Thousand/uL) 263 RDW(-11.0-15.0 %) 16.0 BASOPHILS(- %) 0.0 ABSOLUTE NEUTROPHILS(-0402-3416 cells/uL) 06036 ABSOLUTE LYMPHOCYTES(-850-3900 cells/uL) 1880 MPV(-7.5-11.5 fL) 10.4 ABSOLUTE BASOPHILS(-0-200 cells/uL) 0 HEMATOCRIT(-35.0-45.0 %) 45.2 NEUTROPHILS(- %) 82.0 MCV(-80.0-100.0 fL) 87.0 RED BLOOD CELL COUNT(-3.80-5.10 Million/uL) 5.19 ABSOLUTE MONOCYTES(-200-950 cells/uL) 710 ABSOLUTE EOSINOPHILS(-15-500 cells/uL) 74 HEMOGLOBIN(-11.7-15.5 g/dL) 14.3 EOSINOPHILS(- %) 0.5 WHITE BLOOD CELL COUNT(-3.8-10.8 Thousand/uL) 14.8 LYMPHOCYTES(- %) 12.7 MONOCYTES(- %) 4.8 Summary Purpose eClinicalWorks Submission
--- OUTSIDE RECORDS SUMMARY | 2018-11-11 06:30 | XMS REPORT ---
Author Author Randolph Young eClinicalWorks Address Unknown Phone Unavailable Care Team Providers Care Account Supervisor Name Role Phone Randolph Young CP Unavailable Encounters Encounter Location Date FMLA UPDATE Randolph Young MD Nov 28, 2013 [facility] Randolph Young MD Dec 01, 2013 Answering [...] Alcohol: no. 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
--- OUTSIDE RECORDS SUMMARY | 2018-11-11 06:30 | XMS REPORT ---
Author Author Randolph Young eClinicalWorks Address Unknown Phone Unavailable Care Team Providers Care Pouncer Machine Name Role Phone Randolph Young CP Unavailable Encounters Encounter Location Date FMLA UPDATE Randolph Young MD Nov 28, 2013 [facility] Randolph Young MD Dec 01, 2013 [...] Alcohol: no. 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
--- OUTSIDE RECORDS SUMMARY | 2018-11-11 06:30 | XMS REPORT ---
Author Author Randolph Young eClinicalWorks Address Unknown Phone Unavailable Care Team Providers Care Ear Pull Machine Operator Name Role Phone Randolph Young CP Unavailable Encounters Encounter Location Date 4-6 wk f/u Randolph Young MD Nov 25, 2013 [facility] Randolph Young MD Mar 29, 2015 scheduled for erna Young MD Mar 08, 2015 PT IS FEELING SICK Randoplh Young MD Feb 23, 2015 Erna Young [...] UPDATE Randolph Young MD Nov 28, 2013 [facility] Randolph Young MD Dec 01, [...] systemic lupus erythematosus M32.8 Active Problem Other correction (current) drug therapy Z79.899 Active Social History Social History Element Qualifiers Date Reported Diet: no. Apr 26, 2015 Tobacco Use: . Are you a:: never smoker Apr 26, 2015 Marital Status: . Apr 26, 2015 Caffeine: yes. frequency: 2 cups Apr 26, 2015 Exercise: yes. walking Apr 26, 2015 Alcohol: no. 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
--- OUTSIDE RECORDS SUMMARY | 2018-11-11 06:30 | XMS REPORT ---
Author Author Randolph Young eClinicalWorks Address Unknown Phone Unavailable Care Team Providers Care Dance Entertainer Name Role Phone Randolph Young CP Unavailable [...] UPDATE Randolph Young MD Nov 28, 2013 [facility] Randolph Young MD Dec 01, 2013 Answering [...] ?? Randolph Young MD Jan 31, 2015 [id number] Randolph Young MD 2015 labs Randolph Young MD 2015 Edith Young MD 2015 Ultrasound Randolph Young MD Jan 09, 2015 Problems Problem Type Condition ICD-9 Code Onset Dates Condition Status Problem Lupus M32.9 Active Problem Other forms of systemic lupus erythematosus M32.8 Active Problem Complication following infusion and therapeutic injection T80.90XA Active Problem Polyarthralgia 719.49 Active Problem Other fpc (current) drug therapy Z79.899 Active Problem Lupus 710.0 Active Social History Social History Element Qualifiers Date Reported Diet: no. Jan 31, 2015 Tobacco Use: . Are you a:: never smoker Jan 31, 2015 Marital Status: . Jan 31, 2015 Caffeine: yes. frequency: 2 cups Jan 31, 2015 Exercise: yes. walking Jan 31, 2015 Alcohol: no. 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
--- OUTSIDE RECORDS SUMMARY | 2018-11-11 06:31 | XMS REPORT ---
Author Author Randolph Young eClinicalWorks Address Unknown Phone Unavailable Care Team Providers Care Medical Editor Name Role Phone Randolph Young CP Unavailable Encounters Encounter Location Date 4-6 wk f/u Randolph Young MD Nov 25, 2013 [facility] Randolph Young MD Mar 29, 2015 scheduled for erna Young MD Mar 08, 2015 PT IS FEELING SICK Randolph Young MD Feb 23, 2015 Erna Young MD Apr 11, 2015 DepoMedrol IM Randolph Young MD September 19, 2014 environmental aid/Neurologist Randolph Young MD May 10, 2015 LUPUS FLARE Randolph Young MD August 22, 2014 Message Randolph Young MD Apr 06, 2015 UPDATE Randolph Young MD August 28, 2014 Message Randolph Young MD Apr 11, 2015 Research Randolph Young MD August 22, 2014 FMLA UPDATE Randolph Young MD May 22, 2014 3m f/u Randolph Young MD June 20, 2014 pt feeling bad Randolph Young MD May 16, 2015 Kidney Infection Randolph Young MD May 03, 2014 FMLA Update Randolph Young MD May 19, 2014 Balance Randolph Young MD October 09, 2014 FMLA UPDATE Randolph Young MD Nov 28, 2013 [facility] Randolph Young MD Dec 01, 2013 Answering Service/Dizziness Randolph Young MD Dec 01, 2013 Unknown Rnadolph Young MD Nov 27, 2013 Pt. Depo [...] Condition Status Problem Polyarthralgia 719.49 Active Problem Thyroid enlargement E04.9 Active Problem Complication following infusion and therapeutic injection T80.90XA Active Problem Central retinal vein thrombosis H34.819 Active Problem Other long term care administrator (current) drug therapy Z79.899 Active Problem Lupus 710.0 Active Problem Lupus M32.9 Active Problem Other forms of systemic lupus erythematosus M32.8 Active Social History Social History Element Qualifiers Date Reported Diet: no. Apr 26, 2015 Tobacco Use: . Are you a:: never smoker Apr 26, 2015 Marital Status: . Apr 26, 2015 Caffeine: yes. frequency: 2 cups Apr 26, 2015 Exercise: yes. walking Apr 26, 2015 Alcohol: no. 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
--- OUTSIDE RECORDS SUMMARY | 2018-11-11 06:31 | XMS REPORT ---
Author Author Randolph Young eClinicalWorks Address Unknown Phone Unavailable Care Team Providers Care District Sales Leader Name Role Phone Randolph Young CP Unavailable Encounters Encounter Location Date 4-6 wk f/u Randolph Young MD Nov 25, 2013 [facility] Randolph Young MD Mar 29, 2015 scheduled for erna Young MD Mar 08, 2015 PT IS FEELING SICK Randolph Young MD Feb 23, 2015 Erna Young MD Apr 11, 2015 DepoMedrol IM Randolph Young MD September 19, 2014 case coordinator/Neurologist Randolph Young MD May 10, 2015 LUPUS FLARE Randolph Young MD August 22, 2014 Message Randolph Young MD Apr 06, 2015 UPDATE Randolph Young MD August 28, 2014 Message Randolph Young MD Apr 11, 2015 Research Randolph Young MD August 22, 2014 FMLA UPDATE Randolph Young MD May 22, 2014 3m f/u Radnolph Young MD June 20, 2014 pt feeling bad Randolph Young MD May 16, 2015 Kidney Infection Randolph Young MD May 03, 2014 jessica escoto disability Randolph Young MD May 17, 2015 FMLA Update Randolph Young MD May 19, 2014 Balance Randolph Young MD October 09, 2014 FMLA UPDATE Randolph Young MD Nov 28, 2013 Jessica Young MD Dec 01, 2013 Answering Service/Dizziness [...] retinal vein thrombosis H34.819 Active Problem Other mcfp (current) drug therapy Z79.899 Active Problem Lupus [...] Alcohol: no. 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
--- OUTSIDE RECORDS SUMMARY | 2018-11-11 06:31 | XMS REPORT ---
Author Author Randolph Young eClinicalWorks Address Unknown Phone Unavailable Care Team Providers Care Barrel Cutter Name Role Phone Randolph Young CP Unavailable Encounters Encounter Location Date 4-6 wk f/u Randolph Young MD Nov 25, 2013 scheduled for benlysta Randolph Young MD Mar 08, 2015 PT IS FEELING SICK Randolph Young MD Feb 23, 2015 DepoMedrol IM Randolph Young MD September [...] systemic lupus erythematosus M32.8 Active Problem Other snf (current) drug therapy Z79.899 Active Social History Social History Element Qualifiers Date Reported Diet: no. Mar 08, 2015 Tobacco Use: . Are you a:: never smoker Mar 08, 2015 Marital Status: . Mar 08, 2015 Caffeine: yes. frequency: 2 cups Mar 08, 2015 Exercise: yes. walking Mar 08, 2015 Alcohol: no. 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
--- OUTSIDE RECORDS SUMMARY | 2018-11-11 06:31 | XMS REPORT ---
Author Author Randolph Young eClinicalWorks Address Unknown Phone Unavailable Care Team Providers Care Sulfur Burner Name Role Phone Randolph Young CP Unavailable [...] Infection Randolph Young MD May 03, 2014 GI Randolph Young MD Nov 06, 2015 FMLA Update Randolph Young MD May 19, 2014 Balance Randolph Young MD October 09, 2014 FMLA UPDATE Randolph Young MD Nov 28, 2013 [facility] Randolph Young MD Dec 01, 2013 Answering [...] MD 2015 labs Randolph Young MD 2015 Erna Young MD 2015 Ultrasound Randolph Young MD Jan 09, 2015 [facility] Randolph Young MD Mar 29, 2015 scheduled for erna Young MD Mar 08, 2015 PT IS FEELING SICK Randolph Young MD Feb 23, 2015 Erna Young MD Apr 11, 2015 enterprise services manager/Neurologist Randolph Young MD May 10, 2015 Message Randolph Young MD Apr 06, 2015 Message Randolph Young MD Apr 11, 2015 follow up Randolph Young MD Apr 23, 2015 pt feeling bad Randolph Young MD May 16, 2015 [facility] Randolph Young MD May 17, 2015 sable study Randolph Young MD July 05, 2015 [facility] paperwork. Randolph Young MD June 18, 2015 billing. Randolph Young MD July 23, 2015 Unknown Randolph Young MD Jan 31, 2015 infusion appt Randolph Young MD August 10, 2015 CT lungs Randolph Young MD October 08, 2015 Promethazine. Randolph Young MD October 09, 2015 FOLLOW UP Randolph Young MD October 08, 2015 CT SCAN Randolph Young MD October 12, 2015 Refill -Promethazine Randolph Young MD Nov 06, 2015 Problems Problem Type Condition ICD-9 Code Onset Dates Condition Status Problem Polyarthralgia 719.49 Active Problem Thyroid enlargement E04.9 Active Problem Complication following infusion and therapeutic injection T80.90XA Active Problem Central retinal vein thrombosis H34.819 Active Problem Other senior care (current) drug therapy Z79.899 Active Problem Lupus 710.0 Active Problem Lupus M32.9 Active Problem Other forms of systemic lupus erythematosus M32.8 Active Social History Social History Element Qualifiers Date Reported Diet: no. Nov 06, 2015 Tobacco Use: . Are you a:: never smoker Nov 06, 2015 Marital Status: . Nov 06, 2015 Caffeine: yes. frequency: 2 cups Nov 06, 2015 Exercise: yes. walking Nov 06, 2015 Alcohol: no. 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
--- OUTSIDE RECORDS SUMMARY | 2018-11-11 06:31 | XMS REPORT ---
Author Author Randolph Young eClinicalWorks Address Unknown Phone Unavailable Care Team Providers Care Canning Machine Operator Name Role Phone Randolph Young CP Unavailable Encounters Encounter Location Date 4-6 wk f/u Randolph Young MD Nov 25, 2013 [facility] Randolph Young MD Mar 29, 2015 scheduled for benlysta Randolph Young MD Mar [...] UPDATE Randolph Young MD Nov 28, 2013 [facility] Randolph Young MD Dec 01, 2013 Answering Service/Dizziness Randolph Young MD Dec 01, 2013 Unknown Randolph Yougn MD Nov 27, 2013 Pt. Depo Update [...] [id number] Randolph Young MD 2015 labs Randolph Yuong MD 2015 Benlysta Randolph Young MD 2015 Ultrasound Randolph Young MD Jan 09, 2015 Problems Problem Type Condition ICD-9 Code Onset Dates Condition Status Problem Complication following infusion and therapeutic injection T80.90XA Active Problem Lupus M32.9 Active Problem Thyroid enlargement E04.9 Active Problem Lupus 710.0 Active Problem Polyarthralgia 719.49 Active Problem Other forms of systemic lupus erythematosus M32.8 Active Problem Other terminal makeup operator (current) drug therapy Z79.899 Active Social History Social History Element Qualifiers Date Reported Diet: no. Apr 09, 2015 Tobacco Use: . Are you a:: never smoker Apr 09, 2015 Marital Status: . Apr 09, 2015 Caffeine: yes. frequency: 2 cups Apr 09, 2015 Exercise: yes. walking Apr 09, 2015 Alcohol: no. 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
--- OUTSIDE RECORDS SUMMARY | 2018-11-11 06:31 | XMS REPORT ---
Author Author Randolph Young eClinicalWorks Address Unknown Phone Unavailable Care Team Providers Care Weighmaster Name Role Phone Randolph Young CP Unavailable Encounters Encounter Location Date 4-6 wk f/u Randolph Young MD Nov 25, 2013 [facility] Randolph Young MD Mar 29, 2015 scheduled for erna Young MD Mar 08, 2015 PT IS FEELING SICK Randolph Young MD Feb 23, 2015 Erna Young MD Apr 11, 2015 DepoMedrol IM Randolph Young MD September 19, 2014 library sales consultant/Neurologist Randolph Young MD May 10, 2015 LUPUS FLARE Randolph Young MD August 22, 2014 Message Randolph Young MD Apr 06, 2015 UPDATE Randolph Young MD August 28, 2014 Message Randolph Young MD Apr 11, 2015 Research Randolph Young MD August 22, 2014 follow up Randolph Young MD Apr 23, 2015 FMLA UPDATE Randolph Young MD May 22, [...] f/u Randolph Young MD October 09, 2014 sable study Randolph Young MD July 05, 2015 6WKS PER R LOBO Young MD Mar 21, 2014 fmla paperwork. Randolph Young MD June 18, 2015 4-6 wk f/u Randolph Young MD Feb 03, 2014 billing. Randolph Young MD July 23, 2015 Unknown Randolph Young MD Jan 31, 2015 infusion appt Randolph Young MD August 10, 2015 3m f/u Randolph Young MD 2015 OV [...] H34.819 Active Problem Other long term care phlebotomist (current) drug therapy Z79.899 Active Problem Lupus [...] Alcohol: no. 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
--- OUTSIDE RECORDS SUMMARY | 2018-11-11 06:31 | XMS REPORT ---
Author Author Randolph Young eClinicalWorks Address Unknown Phone Unavailable Care Team Providers Care Weaving Instructor Name Role Phone Randolph Young CP Unavailable Encounters Encounter Location Date 4-6 wk f/u Randolph Young MD Nov 25, 2013 [facility] Randolph Young MD Mar 29, 2015 scheduled for erna Young MD Mar 08, 2015 PT IS FEELING SICK Randolph Young MD Feb 23, 2015 Erna Young MD Apr 11, 2015 DepoMedrol IM Randolph Young MD September 19, 2014 storage specialist/Neurologist Randolph Young MD May 10, 2015 LUPUS [...] 2015 3m f/u Randolph Young MD 2015 CT lungs Randolph Young MD October 08, 2015 OV ?? Randolph Young MD Jan 31, 2015 Promethazine. Randolph Young MD October 09, 2015 Treatment Randolph Young MD Feb 01, 2015 FEELING SICK/ SINCE HER IINFUSION Randolph Young MD Feb 07, 2015 [id number] Randolph Young MD 2015 labs Randolph Young MD 2015 Benlysta Randolph Young MD 2015 Ultrasound Randolph Young MD Jan 09, 2015 Problems Problem Type Condition ICD-9 Code Onset Dates Condition Status Problem Polyarthralgia 719.49 Active Assessment Shortness of breath R06.02 Active Problem Thyroid enlargement E04.9 Active Problem Complication following infusion and therapeutic injection T80.90XA Active Problem Central retinal vein thrombosis H34.819 Active Problem Other intermediate accountant (current) drug therapy Z79.899 Active Problem Lupus 710.0 Active Problem Lupus M32.9 Active Problem Other forms of systemic lupus erythematosus M32.8 Active Social History Social History Element Qualifiers Date Reported Diet: no. October 08, 2015 Tobacco Use: . Are you a:: never smoker October 08, 2015 Marital Status: . October 08, 2015 Caffeine: yes. frequency: 2 cups October 08, 2015 Exercise: yes. walking October 08, 2015 Alcohol: no. 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
--- OUTSIDE RECORDS SUMMARY | 2018-11-11 06:31 | XMS REPORT ---
Author Author Oliva Tavares [facility] eClinicalWorks Address Unknown Phone Unavailable Care Team Providers Care Log Sawyer Name Role Phone Oliva Tavares Unavailable Allergies, Adverse Reactions, Alerts Substance Reaction Event Type N.K.D.A. Info Not Available Non Drug Allergy Encounters Encounter Location Date 4-6 wk f/u Randolph Young MD Nov 25, 2013 [facility] Randolph Young MD Mar 29, 2015 scheduled for erna Young MD Mar 08, 2015 PT IS FEELING SICK Randolph Young MD Feb 23, 2015 Bensharmila Young MD Apr 11, 2015 DepoMedrol IM Randolph Young MD September 19, 2014 employee operations examiner/Neurologist Randolph Young MD May 10, 2015 LUPUS [...] Infection Randolph Young MD May 03, 2014 [facility] disability Randolph Young MD May 17, 2015 FMLA Update Randolph Young MD May 19, 2014 Balance Randolph Young MD October 09, 2014 FMLA UPDATE Randolph Young MD Nov 28, 2013 Zena Young MD Dec 01, 2013 Answering Service/Dizziness [...] R LOBO Young MD Mar 21, 2014 [place] paperwork. Randolph Young MD June 18, 2015 4-6 wk f/u Randolph Young MD Feb 03, 2014 Unknown Randolph Young MD Jan 31, 2015 3m f/u Randloph Young MD 2015 OV ?? Randolph Young MD Jan 31, 2015 Treatment Randolph Young MD Feb 01, 2015 FEELING SICK/ SINCE HER IINFUSION Randolph Young MD Feb 07, 2015 [id number] Randolph Young MD 2015 labs Randolph Young MD 2015 Benlysta Randolph Young MD 2015 Ultrasound Randolph Young MD Jan 09, 2015 Problems Problem Type Condition ICD-9 Code Onset Dates Condition Status Assessment Other forms of systemic lupus erythematosus M32.8 Active Assessment Other ferry terminal supervisor (current) drug therapy Z79.899 Active Problem Lupus M32.9 Active Problem Other forms of systemic lupus erythematosus M32.8 Active Problem Complication following infusion and therapeutic injection T80.90XA Active Problem Polyarthralgia 719.49 Active Assessment Complication following infusion and therapeutic injection T80.90XA Active Problem Other ferry terminal supervisor (current) drug therapy Z79.899 Active Problem Lupus 710.0 Active Medications Medication Code System Code Instructions Start Date End Date Status Dosage Beebe Terri [facility] [address]-24365 200 MG Orally Active as directed Divalproex Sodium [facility] [address]-83 250 MG Orally Twice a day Active 1 tablet Plaquenil [facility] [address]-06 200 MG Orally bid Active 1 tablet with food or milk Duexis [facility] [address]-21 800-26.6 MG Orally Three times a day Active 1 tablet Tramadol Unknown 0 50 mg orally bid Active one tab Acetaminophen-Codeine #3 [facility] [address]-45 300-30 MG Orally every 6 hrs Active 1 tablet as needed Azelastine HCl [facility] [address]-88 137 MCG/SPRAY Nasally prn Active 1 puff in each nostril Lorazepam [facility] [address]-34 2 MG Orally Once a day Active 1 tablet at bedtime as needed PredniSONE [facility] [address]-52 10 MG Orally q am with food Active 1 tablet Cephalexin [facility] [address]-59 500 MG Orally Twice a day Active 1 capsule Benlysta [facility] 56599-134-25 10MG/KG Q4 WEEKS Active 10MG/KG IV Meloxicam [facility] [address]-38 7.5 MG Orally bid with food Active 1 tablet ClobetaPlus Ointment [facility] [address]-19 0.05 & 2.3 % Externally Active as directed Citalopram Hydrobromide [facility] [address]-53 20 MG Orally Once a day Active 1 tablet Social History Social History Element Qualifiers Date Reported Diet: no. Apr 26, 2015 Tobacco Use: . Are you a:: never smoker Apr 26, 2015 Marital Status: . Apr 26, 2015 Caffeine: yes. frequency: 2 cups Apr 26, 2015 Exercise: yes. walking Apr 26, 2015 Alcohol: no. 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
--- OUTSIDE RECORDS SUMMARY | 2018-11-11 06:31 | XMS REPORT ---
Author Author Randolph Young eClinicalWorks Address Unknown Phone Unavailable Care Team Providers Care Blind Escort Name Role Phone Randolph Young CP Unavailable Encounters Encounter Location Date 4-6 wk f/u Randolph Young MD Nov 25, 2013 [facility] Randolph Young MD Mar 29, 2015 scheduled for erna Young MD Mar 08, 2015 PT IS FEELING SICK Randolph Young MD Feb 23, 2015 Erna Young MD Apr 11, 2015 DepoMedrol IM Randolph Young MD September 19, 2014 wafer fabrication technician/Neurologist Randolph Young MD May 10, 2015 LUPUS [...] retinal vein thrombosis H34.819 Active Problem Other ferry terminal supervisor (current) [...] 2015 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
--- OUTSIDE RECORDS SUMMARY | 2018-11-11 06:31 | XMS REPORT ---
Author Author Randolph Young eClinicalWorks Address Unknown Phone Unavailable Care Team Providers Care Screen Printing Equipment Setter Name Role Phone Randolph Young CP Unavailable Encounters Encounter Location Date 4-6 wk f/u Randolph Young MD Nov 25, 2013 PT IS FEELING SICK Randolph Young MD [...] UPDATE Randolph Young MD Nov 28, 2013 [facility] Randolph Young MD Dec 01, 2013 Answering Service/Dizziness Randolph oYung MD Dec 01, 2013 Unknown Randolph Young [...] Active Problem Polyarthralgia 719.49 Active Problem Other intermediate card tender (current) drug therapy Z79.899 Active Problem Lupus 710.0 Active Social History Social History Element Qualifiers Date Reported Diet: no. Jan 31, 2015 Tobacco Use: . Are you a:: never smoker Jan 31, 2015 Marital Status: . Jan 31, 2015 Caffeine: yes. frequency: 2 cups Jan 31, 2015 Exercise: yes. walking Jan 31, 2015 Alcohol: no. 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
--- OUTSIDE RECORDS SUMMARY | 2018-11-11 06:31 | XMS REPORT ---
Author Author Randolph Young eClinicalWorks Address Unknown Phone Unavailable Care Team Providers Care Act Tutor Name Role Phone Randolph Young CP Unavailable Encounters Encounter Location Date 4-6 wk f/u Randolph Young MD Nov 25, 2013 [facility] Randolph Young MD Mar 29, 2015 scheduled for erna Young MD Mar 08, 2015 PT IS FEELING SICK Randolph Young MD Feb 23, 2015 Erna Young MD Apr 11, 2015 DepoMedrol IM Randolph Young MD September 19, 2014 bi report developer/Neurologist Randolph Young MD May 10, 2015 LUPUS [...] of systemic lupus erythematosus M32.8 Active Problem Polyarthralgia 719.49 Active Assessment Central retinal vein thrombosis H34.819 Active Problem Thyroid enlargement E04.9 Active Problem Complication following infusion and therapeutic injection T80.90XA Active Problem Central retinal vein thrombosis H34.819 Active Problem Other intermediate (current) drug therapy Z79.899 Active Problem Lupus 710.0 Active Problem Lupus M32.9 Active Problem Other forms of systemic lupus erythematosus M32.8 Active Medications Medication Code System Code Instructions Start Date End Date Status Dosage Meloxicam [facility] [address]-50 7.5 MG Orally bid with food Active 1 tablet Loratadine [facility] [address]-25 10 MG Orally Once a day Active 1 tablet Citalopram Hydrobromide [facility] [address]-90 20 MG Orally Once a day Active 1 tablet Seroquel [facility] [address]-66 50 MG Orally at bedtime Active 1 or 2 tablets Tramadol Unknown 0 50 mg orally bid Active one tab Duexis [facility] [address]-48 800-26.6 MG Orally Three times a day Active 1 tablet Benlysta [facility] 53377-676-55 10MG/KG Q4 WEEKS Active 10MG/KG IV Lorazepam [facility] [address]-74 2 MG Orally Once a day Active 1 tablet at bedtime as needed PredniSONE [facility] [address]-96 10 MG Orally q am with food Active 1 tablet Acetaminophen-Codeine #3 [facility] [address]-38 300-30 MG Orally every 6 hrs Active 1 tablet as needed Azelastine HCl [facility] [address]-90 137 MCG/SPRAY Nasally prn Active 1 puff in each nostril [place] Jelly [facility] [address]73-[address]578 200 MG Orally Active as directed ClobetaPlus Ointment [facility] [address]-56 0.05 & 2.3 % Externally Active as directed Plaquenil [facility] [address]-71 200 MG Orally bid Active 1 tablet with food or milk Social History Social History Element Qualifiers Date Reported Diet: no. Apr 26, 2015 Tobacco Use: . Are you a:: never smoker Apr 26, 2015 Marital Status: . Apr 26, 2015 Caffeine: yes. frequency: 2 cups Apr 26, 2015 Exercise: yes. walking Apr 26, 2015 Alcohol: no. 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 Apr 26, 2015 Vital Signs Date/Time: Apr 23, 2015 Weight 254 lbs Height 63 in Temperature 97.0 F Cardiac Monitoring Heart Rate 78 /min Blood Pressure Diastolic 72 mm Hg Blood Pressure Systolic 122 mm Hg Results LUPUS ANTICOAGULANT EVALUATION WITH REFLEX DRVVT SCREEN(-< OR=45 seconds) 38 LUPUS ANTICOAGULANT(-NOT DETECTED ) SEE NOTE PTT-LA SCREEN(-< OR=40 seconds) 31 Beta-2 Glycoprotein I Ab,G,A,M B2 GLYCOPROTEIN I (IGG)AB(-< OR=20 SGU) <9 B2 GLYCOPROTEIN I (IGA)AB(-< OR=20 LATASHA) <9 B2 GLYCOPROTEIN I (IGM)AB(-< OR=20 SMU) <9 Protein C and S Activity with Reflex to Protein C and/or S Antigen INTERPRETATION(- ) SEE NOTE PROTEIN C, ACTIVITY(-70-180 % normal) >200 PROTEIN C, ANTIGEN(- % normal) TNP PROTEIN S, ACTIVITY(-60-140 % normal) 91 PROTEIN S ANTIGEN, TOTAL(- % normal) TNP CARDIOLIPIN AB (IGA,IGG,IGM) CARDIOLIPIN AB (IGG)(- GPL) <14 CARDIOLIPIN AB (IGM)(- MPL) <12 CARDIOLIPIN AB (IGA)(- APL) <11 Summary Purpose eClinicalWorks Submission
--- OUTSIDE RECORDS SUMMARY | 2018-11-11 06:31 | XMS REPORT ---
Author Author Randolph Young eClinicalWorks Address Unknown Phone Unavailable Care Team Providers Care Credit Report Checker Name Role Phone Randolph Young CP Unavailable Encounters Encounter Location Date 4-6 wk f/u Randolph Young MD Nov 25, 2013 [facility] Randolph Young MD Mar 29, 2015 scheduled for erna Young MD Mar 08, 2015 PT IS FEELING SICK Randolph Young MD Feb 23, 2015 Erna Young MD Apr 11, 2015 DepoMedrol IM Randolph Young MD September 19, 2014 cattle knocker/Neurologist Randolph Young MD May 10, 2015 LUPUS FLARE Rnadolph Young MD August 22, 2014 Message Randolph [...] UPDATE Randolph Young MD Nov 28, 2013 [facility] Randolph Young MD Dec 01, [...] 2015 [id number] Randolph Young MD 2015 labs Rnadolph Young MD 2015 Benlysta Randolph Young MD 2015 Ultrasound Randolph Young MD Jan 09, 2015 Problems Problem Type Condition ICD-9 Code Onset Dates Condition Status Problem Polyarthralgia 719.49 Active Problem Thyroid enlargement E04.9 Active Problem Complication following infusion and therapeutic injection T80.90XA Active Problem Central retinal vein thrombosis H34.819 Active Problem Other usp (current) drug therapy Z79.899 Active Problem Lupus [...] Alcohol: no. 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
--- OUTSIDE RECORDS SUMMARY | 2018-11-11 06:31 | XMS REPORT ---
Author Author Randolph Young eClinicalWorks Address Unknown Phone Unavailable Care Team Providers Care Supervisor Heavy Equipment Name Role Phone Randolph Young CP Unavailable Encounters Encounter Location Date 4-6 wk f/u Randolph Young MD Nov 25, 2013 [facility] Randolph Young MD Mar 29, 2015 scheduled for erna Young MD Mar 08, 2015 PT IS FEELING SICK Randolph Young MD Feb 23, 2015 Erna Young MD Apr 11, 2015 DepoMedrol IM Randolph Young MD September 19, 2014 transformation analyst/Neurologist Randolph Young MD May 10, 2015 LUPUS [...] Young MD August 10, 2015 3m f/u Rnadolph Young MD 2015 CT lungs Randolph Young MD October 08, 2015 OV ?? Randolph Young MD Jan 31, 2015 Promethazine. Randolph Young MD October 09, 2015 Treatment Randolph Young MD Feb 01, 2015 FOLLOW UP Randolph Young MD October 08, 2015 FEELING SICK/ SINCE HER IINFUSION Randolph Young MD Feb 07, 2015 CT SCAN Randolph Young MD October 12, 2015 [id number] Randolph Young MD 2015 labs [...] retinal vein thrombosis H34.819 Active Problem Other half-way (current) drug therapy Z79.899 [...] Alcohol: no. 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
--- OUTSIDE RECORDS SUMMARY | 2018-11-11 06:31 | XMS REPORT ---
Author Author Randolph Young eClinicalWorks Address Unknown Phone Unavailable Care Team Providers Care Prizer Hand Name Role Phone Randloph Young CP Unavailable Encounters Encounter Location Date [...] UPDATE Randolph Young MD Nov 28, 2013 [facility] Randolph Young MD Dec 01, [...] Randolph Young MD Feb 07, 2015 [id number] Ranodlph Young MD 2015 labs Randolph Young MD [...] systemic lupus erythematosus M32.8 Active Problem Other custodial (current) drug therapy Z79.899 Active Social History Social History Element Qualifiers Date Reported Diet: no. Apr 26, 2015 Tobacco Use: . Are you a:: never smoker Apr 26, 2015 Marital Status: . Apr 26, 2015 Caffeine: yes. frequency: 2 cups Apr 26, 2015 Exercise: yes. walking Apr 26, 2015 Alcohol: no. 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
--- OUTSIDE RECORDS SUMMARY | 2018-11-11 06:31 | XMS REPORT ---
Author Author Randolph Young eClinicalWorks Address Unknown Phone Unavailable Care Team Providers Care Diet Consultant Name Role Phone Randolph Young CP Unavailable [...] Randolph Young MD Nov 28, 2013 [facility] Randolph Young MD Dec 01, [...] 2015 Erna Young MD Apr 11, 2015 solar business developer/Neurologist Randolph Young MD May 10, 2015 Message Randolph Young MD Apr 06, 2015 Message Randolph Young MD Apr 11, 2015 follow up Randolph Young MD Apr 23, 2015 pt feeling bad Randolph Young MD May 16, 2015 [facility] Randolph Young MD May 17, 2015 sable study Randolph Young MD July 05, 2015 [facility] paperwork. Randolhp Young MD June 18, 2015 billing. Randolph [...] retinal vein thrombosis H34.819 Active Problem Other alf (current) drug therapy Z79.899 Active Problem Lupus 710.0 Active Problem Lupus M32.9 Active Problem Other forms of systemic lupus erythematosus M32.8 Active Medications Medication Code System Code Instructions Start Date End Date Status Dosage Promethazine HCl [facility] [address]-43 25 MG Orally every 6 hours prn for nausea October 09, 2015 Dec 06, 2015 Active 1 tablet as needed Social History Social History Element Qualifiers Date Reported Diet: no. Nov 06, 2015 Tobacco Use: . Are you a:: never smoker Nov 06, 2015 Marital Status: . Nov 06, 2015 Caffeine: yes. frequency: 2 cups Nov 06, 2015 Exercise: yes. walking Nov 06, 2015 Alcohol: no. 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
--- OUTSIDE RECORDS SUMMARY | 2018-11-11 06:31 | XMS REPORT ---
Author Author Randolph Young eClinicalWorks Address Unknown Phone Unavailable Care Team Providers Care Electron Tube Assembler Name Role Phone Randolph Young CP Unavailable [...] IM Randolph Young MD September 19, 2014 site worker/Neurologist Randolph Young MD May 10, 2015 LUPUS [...] Infection Randolph Young MD May 03, 2014 [facility] jevon disability Randolph Young MD May 17, [...] Code Onset Dates Condition Status Assessment Other chcf (current) drug therapy Z79.899 Active Problem Polyarthralgia 719.49 Active Assessment Other forms of systemic lupus erythematosus M32.8 Active Problem Thyroid enlargement E04.9 Active Problem Complication following infusion and therapeutic injection T80.90XA Active Problem Central retinal vein thrombosis H34.819 Active Problem Other long term care pharmacist (current) drug therapy Z79.899 Active Problem Lupus 710.0 Active Problem Lupus M32.9 Active Problem Other forms of systemic lupus erythematosus M32.8 Active Medications Medication Code System Code Instructions Start Date End Date Status Dosage PredniSONE [facility] [address]-45 10 MG Orally q am with food Active 1 tablet Acetaminophen-Codeine #3 [facility] [address]-52 300-30 MG Orally every 6 hrs Active 1 tablet as needed Benlysta [facility] 53649-229-45 10MG/KG Q4 WEEKS Active 10MG/KG IV Eylea [facility] [address]-62 2 MG/0.05ML Intraocular into the eye q 6 weeks Active 0.[address] [facility] [address]-27 0.05 & 2.3 % Externally Active as directed Hydroxychloroquine Sulfate [facility] 59035433689 200 MG Active TAKE 1 TABLET BY MOUTH TWICE A DAY WITH FOOD OR MILK Tramadol Unknown 0 50 mg orally twice a day Active one tablet Lorazepam [facility] [address]-21 2 MG Orally Once a day Active 1 tablet at bedtime as needed Citalopram Hydrobromide [facility] [address]-24 20 MG Orally Once a day Active [address] [facility] [address]-78 10 MG Orally Once a day Active [address] [facility] 13378929373 7.5 MG Active TAKE 1 TABLET BY MOUTH TWICE A DAY WITH FOOD [place] Jelly [facility] [address]339 200 MG Orally Active as directed Seroquel [facility] [address]-20 50 MG Orally at bedtime Active 1 or 2 tablets Social History Social History Element Qualifiers Date Reported Diet: no. October 08, 2015 Tobacco Use: . Are you a:: never smoker October 08, 2015 Marital Status: . October 08, 2015 Caffeine: yes. frequency: 2 cups October 08, 2015 Exercise: yes. walking October 08, 2015 Alcohol: no. 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
--- OUTSIDE RECORDS SUMMARY | 2018-11-11 06:31 | XMS REPORT ---
Author Author Randolph Young eClinicalWorks Address Unknown Phone Unavailable Care Team Providers Care Warehouse Distribution Manager Name Role Phone Randolph Young CP Unavailable Encounters Encounter Location Date 4-6 wk f/u Randolph Young MD Nov 25, 2013 [facility] Randolph Young MD Mar 29, 2015 scheduled for erna Young MD Mar 08, 2015 PT IS FEELING SICK Randolph Young MD Feb 23, 2015 Erna Young MD Apr 11, 2015 DepoMedrol IM Randolph Young MD September 19, 2014 coloring checker/Neurologist Randolph Young MD May 10, 2015 LUPUS [...] MD May 17, 2015 FMLA Update Randolph Yonug MD May 19, 2014 Balance Randolph Young [...] retinal vein thrombosis H34.819 Active Problem Other keno terminal operator (current) drug therapy Z79.899 Active Problem Lupus 710.0 Active Problem Lupus M32.9 Active Problem Other forms of systemic lupus erythematosus M32.8 Active Medications Medication Code System Code Instructions Start Date End Date Status Dosage Promethazine HCl [facility] [address]-23 25 MG Orally every 6 hours prn for nausea October 09, 2015 Nov 08, 2015 Active 1 tablet as needed Social History Social History Element Qualifiers Date Reported Diet: no. October 08, 2015 Tobacco Use: . Are you a:: never smoker October 08, 2015 Marital Status: . October 08, 2015 Caffeine: yes. frequency: 2 cups October 08, 2015 Exercise: yes. walking October 08, 2015 Alcohol: no. 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
--- OUTSIDE RECORDS SUMMARY | 2018-11-11 06:31 | XMS REPORT ---
Author Author Randolph Young eClinicalWorks Address Unknown Phone Unavailable Care Team Providers Care Dough Sheeter Name Role Phone Randolph Young CP Unavailable Encounters Encounter Location Date 4-6 wk f/u Randolph Young MD Nov 25, 2013 [facility] Randolph Young MD Mar 29, 2015 scheduled for erna Young MD Mar 08, 2015 PT IS FEELING SICK Randolph Young MD Feb 23, 2015 Erna Young MD Apr 11, 2015 DepoMedrol IM Randolph Young MD September 19, 2014 design drafter/Neurologist Randolph Young MD May 10, 2015 LUPUS [...] f/u Randolph Yuong MD June 20, 2014 pt feeling bad [...] retinal vein thrombosis H34.819 Active Problem Other manager long term care (current) drug therapy Z79.899 Active Problem [...] Alcohol: no. 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
--- OUTSIDE RECORDS SUMMARY | 2018-11-11 06:31 | XMS REPORT ---
Author Author Randolph Young eClinicalWorks Address Unknown Phone Unavailable Care Team Providers Care Professor Of Environmental Science Name Role Phone Randolph Young CP Unavailable Encounters Encounter Location Date 4-6 wk f/u Randolph Young MD Nov 25, 2013 [facility] Randolph Young MD Mar 29, 2015 scheduled for erna Young MD Mar 08, 2015 PT IS FEELING SICK Randolph Young MD Feb 23, 2015 Erna Young MD Apr 11, 2015 DepoMedrol IM Randolph Young MD September 19, 2014 armature coil winder/Neurologist Randolph Young MD May 10, 2015 LUPUS [...] Young MD Jan 31, 2015 3m f/u Randolph Young MD 2015 [...] retinal vein thrombosis H34.819 Active Problem Other audience coordinator (current) drug therapy Z79.899 Active Problem Lupus [...] Apr 26, 2015 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
--- OUTSIDE RECORDS SUMMARY | 2018-11-11 06:32 | XMS REPORT ---
Author Author Randolph Young eClinicalWorks Address Unknown Phone Unavailable Care Team Providers Care Grain Grader Name Role Phone Randolph Young CP Unavailable Encounters Encounter Location Date 4-6 wk f/u Randolph Young MD Nov 25, 2013 Unknown Randolph Young MD Jan 07, 2016 FOLLOW UP Randolph Young MD Dec 10, 2015 Prednisone Randolph Young MD Feb 01, 2016 FOLLOW UP Randolph Young MD Nov 06, 2015 DepoMedrol IM Randolph Young MD September 19, 2014 Promethazine Randolph Young MD Dec 07, 2015 LUPUS FLARE Randolph Young MD August 22, 2014 Refills request Randolph Young MD Dec 07, 2015 UPDATE Randolph Young MD August 28, 2014 BOA Randolph Young MD Dec 10, 2015 Research Randolph Young MD August 22, 2014 FMLA UPDATE Randolph Young MD May 22, 2014 3m f/u Randolph Young MD June 20, 2014 Kidney Infection Randolph Young MD May 03, 2014 GI Randolph Young MD Nov 06, 2015 FMLA Update Randolph Young MD May 19, 2014 Balance Randolph Young MD October 09, 2014 FMLA UPDATE Randolph Young MD Nov 28, 2013 [facility] Randolph Young MD Dec 01, 2013 Answering Service/Dizziness Randolph Young MD Dec 01, 2013 Unknown Randolph Young MD Nov 27, 2013 Pt. Depo Update Randolph Young MD July 11, 2013 4 w f/u Randolhp Young MD July 04, 2013 rash Randolph [...] MD 2015 labs Randolph Young MD 2015 Bensharmila Young MD 2015 Ultrasound Randolph Young MD Jan 09, 2015 [facility] Randolph Young MD Mar 29, 2015 scheduled for erna Young MD Mar 08, 2015 PT IS FEELING SICK Randolph Young MD Feb 23, 2015 Erna Young MD Apr 11, 2015 hydroblaster/Neurologist Randolph Young MD May 10, 2015 Message Randolph Young MD Apr 06, 2015 Message Randolph Young MD Apr 11, 2015 follow up Randolph Young MD Apr 23, 2015 pt feeling bad Randolph Young MD May 16, 2015 [facility] Randolph Young MD May 17, 2015 [facility] Randolph Young MD July 05, 2015 [facility] paperwork. Randolph Young MD June 18, [...] ICD-9 Code Onset Dates Condition Status Problem Thyroid enlargement E04.9 Active Problem Complication following infusion and therapeutic injection T80.90XA Active Problem Central retinal vein thrombosis H34.819 Active Problem Other oyster picker (current) drug therapy Z79.899 Active Problem Lupus M32.9 Active Problem Other forms of systemic lupus erythematosus M32.8 Active Social History Social History Element Qualifiers Date Reported Diet: no. Feb 04, 2016 Tobacco Use: . Are you a:: never smoker Feb 04, 2016 Marital Status: . Feb 04, 2016 Caffeine: yes. frequency: 2 cups Feb 04, 2016 Exercise: yes. walking Feb 04, 2016 Alcohol: no. 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
--- OUTSIDE RECORDS SUMMARY | 2018-11-11 06:32 | XMS REPORT ---
Author Author Oliva Tavares [facility] eClinicalWorks Address Unknown Phone Unavailable Care Team Providers Care Metal Framer Name Role Phone Oliva Tavares CP Unavailable Allergies, Adverse Reactions, Alerts Substance Reaction Event Type N.K.D.A. Info Not Available Non Drug Allergy Encounters Encounter Location Date 4-6 wk f/u Randolph Young MD Nov 25, 2013 Unknown Randolph Young MD Jan 07, 2016 FOLLOW UP Randolph Young MD Dec 10, 2015 FU Randolph Young MD Feb 04, 2016 Prednisone Randolph Young MD Feb 01, 2016 [...] UPDATE Randolph Young MD Nov 28, 2013 [facility] Randolph Young MD Dec 01, 2013 Answering Service/Dizziness Randolph Young MD Dec 01, 2013 Unknown Randolph Young MD Nov 27, 2013 Pt. Depo Update Randolph Yuong MD July 11, 2013 4 w f/u [...] 2015 Erna Young MD Apr 11, 2015 rough patcher/Neurologist Randolph Young MD May 10, 2015 Message Randolph Young MD Apr 06, 2015 Message Randolph Young MD Apr 11, 2015 follow up Randolph Young MD Apr 23, 2015 pt feeling bad Randolph Young MD May 16, 2015 [facility] disability Randolph Young MD May 17, 2015 sab study Randolph Young MD July 05, 2015 [facility] paperwork. Randolph Young MD June 18, 2015 [...] [facility] (current) drug therapy Z79.899 Active Assessment Muscle spasm of back M62.830 Active Problem Thyroid enlargement E04.9 Active Problem Complication following infusion and therapeutic injection T80.90XA Active Problem Central retinal vein thrombosis H34.819 Active Problem Other [facility] (current) drug therapy Z79.899 Active Assessment Lupus M32.9 Active Problem Lupus M32.9 Active Problem Other forms of systemic lupus erythematosus M32.8 Active Medications Medication Code System Code Instructions Start Date End Date Status Dosage ClobetaPlus Ointment [facility] [address]-29 0.05 & 2.3 % Externally Active as directed Cyclobenzaprine HCl [facility] [address]-00 10 MG Orally Three times a day Feb 04, 2016 Apr 04, 2016 Active 1 tablet Benlysta [facility] 15839-178-69 10MG/KG Q4 WEEKS Active 10MG/KG IV Linzess [facility] [address]-94 145 MCG Orally Once a day Active 1 capsule Citalopram Hydrobromide [facility] [address]-98 20 MG Orally Once a day Active 1 tablet Meloxicam [facility] 58064203156 7.5 MG Active TAKE 1 TABLET BY MOUTH TWICE A DAY WITH FOOD [place] [facility] [address]-07 325-7.5 MG Orally once a day as needed Jan 07, 2016 Feb 04, 2016 Inactive 1 tablet as needed Acetaminophen-Codeine #3 [facility] [address]-44 300-30 MG Orally every 6 hrs Apr 04, 2016 Active 1 tablet as needed Lorazepam [facility] [address]-23 2 MG Orally Once a day Active 1 tablet at bedtime as needed Loratadine [facility] [address]-69 10 MG Orally Once a day Active 1 tablet Eylea [facility] [address]-92 2 MG/0.05ML Intraocular into the eye q 6 weeks Active 0.05 ml [place] Jelly [facility] [address]25-[address]76 200 MG Orally Active as directed Seroquel [facility] [address]-02 50 MG Orally at bedtime Active 1 or 2 tablets Social History Social History Element Qualifiers Date Reported Diet: no. Feb 04, 2016 Tobacco Use: . Are you a:: never smoker Feb 04, 2016 Marital Status: . Feb 04, 2016 Caffeine: yes. frequency: 2 cups Feb 04, 2016 Exercise: yes. walking Feb 04, 2016 Alcohol: no. 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
--- OUTSIDE RECORDS SUMMARY | 2018-11-11 06:32 | XMS REPORT ---
Author Author Admin, [facility] Address Unknown Phone Unavailable Allergies, Adverse Reactions, Alerts Allergy Name Reaction Description Start Date Severity Status Provider No Known Allergies Renee Koroma MA Conditions or Problems Problem Name Problem Code Onset Date Status Entry Date Provider Comment Standard Description Annotate INSOMNIA 780.52 Active Beverley Mera MD Insomnia, unspecified Elevated blood pressure 796.2 Active Beverley Mera MD Elevated blood pressure reading without diagnosis of hypertension Screening for endocrine disease V77.99 Active Beverley Mera MD Screening for other and unspecified endocrine, nutritional, metabolic, and immunity disorders Vitamin D deficiency 268.9 Active Beverley Mera MD Unspecified vitamin D deficiency Reactive airway disease 493.90 Active Fiona Alvarez MD Asthma, unspecified FATIGUE 780.79 Active Fiona Alvarez MD Other malaise and fatigue Hot flashes 627.2 Active Fiona Alvarez MD Symptomatic menopausal or female climacteric states Snoring 786.09 Active Fiona Alvarez MD Other dyspnea and respiratory abnormality Body aches 780.99 Active Fiona Alvarez MD Other general symptoms Joint pain 719.40 Active Fiona Alvarez MD Pain in joint, site unspecified Onychomycosis 110.1 Active Fiona Alvarez MD Dermatophytosis of nail ANXIETY DISORDER IN CONDITIONS CLASSIFIED ELSEWHERE Active Julius Paniagua LPC Anxiety disorder in conditions classified elsewhere 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 Active Grey Woodard MD Other and unspecified factitious illness Laparoscopic adjustable gastric banding V45.86 Active Sam Sauceda MD Bariatric surgery status Multiple thyroid nodules 241.1 Active Sam Sauceda MD Nontoxic multinodular goiter Screening for anemia V78.1 Active Sam Sauceda MD Screening for other and unspecified deficiency anemia Screening for lipid disorder V77.91 Active Sam Sauceda MD Screening for lipoid disorders Well woman exam V72.3 Active Sam Sauceda MD Special investigations and examinations - Gynecological examination Major depression, recurrent, moderate 296.32 Active Grey Woodard MD Major depressive disorder, recurrent episode, moderate degree Obsessive-compulsive disorder, unspecified Active Grey Woodard MD Systemic lupus erythematosus 710.0 Active Grey Woodard MD Systemic lupus erythematosus Seizure disorder ICD-780.39 Inactive Grey Woodard MD Anxiety disorder in conditions classified elsewhere 293.84 Inactive Grey Woodard MD Anxiety disorder in conditions classified elsewhere Major depression, recurrent, in remission 296.35 Inactive Grey Woodard MD Major depressive disorder, recurrent episode, in partial or unspecified remission Obsessive-compulsive disorder 300.3 Inactive Grey Woodard MD Obsessive-compulsive disorders Seizure disorder 780.39 Resolved rGey Woodard MD Other convulsions Medication List Medication Instructions Start Date Stop Date Generic Name NDC Status Provider Patient Instruction AMBIEN 5 MG ORAL TABLET 1 by mouth nightly at bedtime as needed for insomnia ZOLPIDEM TARTRATE 02730821294 Nataly Mera MD Active HYDROCHLOROTHIAZIDE 12.5 MG ORAL CAPSULE 1 by mouth every day HYDROCHLOROTHIAZIDE 75657506847 Nataly Mera MD Active LAMISIL 250 MG ORAL TABLET 1 by mouth every day TERBINAFINE HCL 80228130883 Active Fiona Alvarez MD Active PROAIR HFA 108 (90 BASE) MCG/ACT INHALATION AEROSOL SOLUTION 2 puffs every 4 - 6 hours as needed ALBUTEROL SULFATE 89567337614 Active Fiona Alvarez MD Active CELEXA 40 MG ORAL TABLET 1 tab By Mouth qdaily for depression , anxiety CITALOPRAM HYDROBROMIDE 39633688108 Active Grey Woodard MD Active TYLENOL WITH CODEINE #3 300-30 MG ORAL TABLET one tablet every 6 hrs as needed ACETAMINOPHEN-CODEINE 23790492735 Active Fiona Alvarez MD Active VITAMIN D (ERGOCALCIFEROL) 44221 UNIT ORAL CAPSULE One tablet by mouth once per week for 6 to 8 weeks ERGOCALCIFEROL 19650696862 Active Beverley Mera MD Active B-12 COMPLIANCE INJECTION 1000 MCG/ML INJECTION KIT Administer 1mL weekly x 2 weeks CYANOCOBALAMIN 97850857941 Active Fiona Alvarez MD Active CYCLOBENZAPRINE HCL TABLET CYCLOBENZAPRINE HCL TABS 88586186127 Active Grey Woodard MD Active FOLIC ACID TABLET FOLIC ACID TABS 46180123434 Nataly Woodard MD Active FUROSEMIDE 20 MG ORAL TABLET 1 tab By Mouth qdaily for fluid retention FUROSEMIDE 91543226534 Active Grey Woodard MD Active LORAZEPAM 2 MG ORAL TABLET 1 tab By Mouth Twice a Day for anxiety LORAZEPAM 31773980217 Nataly Woodard MD Active MELOXICAM 7.5 MG ORAL TABLET 1 tab By Mouth Twice a Day for pain MELOXICAM 60237965934 Nataly Woodard MD Active PROMETHAZINE HCL TABS PROMETHAZINE HCL TABS 32268018930 Nataly Woodard MD Active REMERON 45 MG ORAL TABLET 1 tab By Mouth take at bedtime for insomnia REMERON 45 MG ORAL TABLET 153692 MIRTAZAPINE Inactive LAMISIL 250 MG ORAL TABLET 1 by mouth every day LAMISIL 250 MG ORAL TABLET 673763 TERBINAFINE HCL Inactive PREDNISONE 10 MG ORAL TABLET 1 tablet once a day for 5 days PREDNISONE 10 MG ORAL TABLET 396813 PREDNISONE Inactive EFFEXOR XR 37.5 MG ORAL CAPSULE EXTENDED RELEASE 24 HOUR 1 cap By Mouth qdaily for anxiety, OCD EFFEXOR XR 37.5 MG ORAL CAPSULE EXTENDED RELEASE 24 HOUR VENLAFAXINE HCL Inactive CELEXA 40 MG ORAL TABLET 1 tab By Mouth Every Morning for anxiety, depression CELEXA 40 MG ORAL TABLET 865508 CITALOPRAM HYDROBROMIDE Inactive METHOTREXATE TABLET METHOTREXATE TABLET METHOTREXATE SODIUM TABS Inactive SEROQUEL 50 MG ORAL TABLET 1-2 tablets By Mouth take at bedtime for migraines SEROQUEL 50 MG ORAL TABLET 985842 QUETIAPINE FUMARATE Inactive REMERON 45 MG ORAL TABLET 1 tab By Mouth take at bedtime for insomnia MIRTAZAPINE 64925628720 No Longer Active Grey Woodard MD Active LAMISIL 250 MG ORAL TABLET 1 by mouth every day TERBINAFINE HCL 22347656324 No Longer Active Fiona Alvarez MD Active PREDNISONE 10 MG ORAL TABLET 1 tablet once a day for 5 days PREDNISONE 40006559192 No Longer Active Fiona Alvarez MD Active EFFEXOR XR 37.5 MG ORAL CAPSULE EXTENDED RELEASE 24 HOUR 1 cap By Mouth qdaily for anxiety, OCD VENLAFAXINE HCL 55670705417 No Longer Active Grey Woodard MD Active CELEXA 40 MG ORAL TABLET 1 tab By Mouth Every Morning for anxiety, depression CITALOPRAM HYDROBROMIDE 43256915556 No Longer Active Grey Woodard MD Active METHOTREXATE TABLET METHOTREXATE SODIUM TABS 89120659462 No Longer Active Fiona Alvarez MD Active SEROQUEL 50 MG ORAL TABLET 1-2 tablets By Mouth take at bedtime for migraines QUETIAPINE FUMARATE 23978728691 No Longer Active Grey Woodard MD Active Vital Signs Date Name Value Unit Range Description blood pressure, diastolic 90 mm[Hg] BP warner blood pressure, systolic 129 mm[Hg] BP sys height E&M 63 [in_us] Bdy height pulse rate E&M 99 /min Heart rate respiratory rate E&M 16 /min Resp rate temperature E&M 98.3 [degF] Body temperature weight E&M 255.20 [lb_av] Weight Measured blood pressure, diastolic 88 mm[Hg] BP warner blood pressure, systolic 138 mm[Hg] BP sys height E&M 63 [in_us] Bdy height pulse rate E&M 104 /min Heart rate respiratory rate E&M 23 /min Resp rate temperature E&M 98.8 [degF] Body temperature weight E&M 254 [lb_av] Weight Measured blood pressure, diastolic 88 mm[Hg] BP warner blood pressure, systolic 127 mm[Hg] BP sys height E&M 63 [in_us] Bdy height pulse rate E&M 90 /min Heart rate respiratory rate E&M 16 /min Resp rate temperature E&M 98.3 [degF] Body temperature weight E&M 262 [lb_av] Weight Measured blood pressure, diastolic 89 mm[Hg] BP warner blood pressure, systolic 128 mm[Hg] BP sys height E&M 63 [in_us] Bdy height pulse rate E&M 98 /min Heart rate respiratory rate E&M 17 /min Resp rate temperature E&M 98.6 [degF] Body temperature weight E&M 264.80 [lb_av] Weight Measured blood pressure, diastolic 84 mm[Hg] BP warner blood pressure, systolic 127 mm[Hg] BP sys height E&M 63 [in_us] Bdy height pulse rate E&M 132 /min Heart rate weight E&M 265.20 [lb_av] Weight Measured blood pressure, diastolic 104 mm[Hg] BP warner blood pressure, systolic 146 mm[Hg] BP sys height E&M 63 [in_us] Bdy height pulse rate E&M 137 /min Heart rate weight E&M 269.40 [lb_av] Weight Measured blood pressure, diastolic 86 mm[Hg] BP warner blood pressure, systolic 137 mm[Hg] BP sys height E&M 63 [in_us] Bdy height pulse rate E&M 83 /min Heart rate weight E&M 256.60 [lb_av] Weight Measured blood pressure, diastolic 86 mm[Hg] BP warner blood pressure, systolic 137 mm[Hg] BP sys height E&M 63 [in_us] Bdy height pulse rate E&M 76 /min Heart rate respiratory rate E&M 17 /min Resp rate temperature E&M 98.1 [degF] Body temperature weight E&M 261.40 [lb_av] Weight Measured blood pressure, diastolic 83 mm[Hg] BP warner blood pressure, systolic 120 mm[Hg] BP sys height E&M 63 [in_us] Bdy height pulse rate E&M 98 /min Heart rate weight E&M 261.38 [lb_av] Weight Measured blood pressure, diastolic 80 mm[Hg] BP warner blood pressure, systolic 127 mm[Hg] BP sys height E&M 63 [in_us] Bdy height pulse rate E&M 94 /min Heart rate weight E&M 258.40 [lb_av] Weight Measured blood pressure, diastolic 81 mm[Hg] BP warner blood pressure, systolic 124 mm[Hg] BP sys height E&M 63 [in_us] Bdy height pulse rate E&M 109 /min Heart rate weight E&M 255.38 [lb_av] Weight Measured blood pressure, diastolic 85 mm[Hg] BP warner blood pressure, systolic 139 mm[Hg] BP sys height E&M 63 [in_us] Bdy height pulse rate E&M 92 /min Heart rate weight E&M 254.80 [lb_av] Weight Measured blood pressure, diastolic 82 mm[Hg] BP warner blood pressure, systolic 115 mm[Hg] BP sys height E&M 63 [in_us] Bdy height pulse rate E&M 86 /min Heart rate respiratory rate E&M 19 /min Resp rate temperature E&M 98.9 [degF] Body temperature weight E&M 253 [lb_av] Weight Measured blood pressure, diastolic 78 mm[Hg] BP warner blood pressure, systolic 124 mm[Hg] BP sys height E&M 63 [in_us] Bdy height pulse rate E&M 82 /min Heart rate weight E&M 253.60 [lb_av] Weight Measured Diagnostic Results Date Name Value Unit Range Description Office Visit: Acute Visit rm 2 - Urinalysis pH, urine, semiquantitative 5.5 Lab Report: TSH+Free T4, CBC With Differential/Platelet, Comp. Metabolic ... - Hematology lymphocyte count, blood, automated 2.6 X10E3/UL 10*3/mm3 0.7-3.1 Office Visit: Acute Visit rm 2 - Urinalysis bilirubin, urine negative Lab Report: TSH+Free T4, CBC With Differential/Platelet, Comp. Metabolic ... - Chemistry urea nitrogen, blood 12 mg/dL 6-24 creatinine, serum 0.91 mg/dL 0.57-1.00 chloride, serum 97 mmol/L 96-106 Lab Report: TSH+Free T4, CBC With Differential/Platelet, Comp. Metabolic ... - Hematology mean corpuscular volume, RBC 84 fL 79-97 Lab Report: TSH+Free T4, CBC With Differential/Platelet, Comp. Metabolic ... - Chemistry triglyceride, serum, fasting 106 mg/dL 0-149 Lab Report: TSH+Free T4, CBC With Differential/Platelet, Comp. Metabolic ... - Hematology erythrocyte (RBC) count 5.65 X10E6/UL 10*6/mm3 3.77-5.28 Lab Report: TSH+Free T4, CBC With Differential/Platelet, Comp. Metabolic ... - Chemistry Estimated Glomerular Filtration Rate (calc) 74 mL/min/1.73m2 >59 Lab Report: FSH and LH, TSH, Vitamin B12 - Chemistry follicle stimulating hormone, serum 5.9 m[iU]/mL Lab Report: TSH+Free T4, CBC With Differential/Platelet, Comp. Metabolic ... - Hematology platelet count 405 X10E3/UL 10*3/mm3 150-379 Office Visit: Acute Visit rm 2 - Urinalysis appearance, urine clear Lab Report: TSH+Free T4, CBC With Differential/Platelet, Comp. Metabolic ... - Hematology red blood cell distribution width 15.6 % 12.3-15.4 Lab Report: TSH+Free T4, CBC With Differential/Platelet, Comp. Metabolic ... - Chemistry protein, total, serum 7.5 g/dL 6.0-8.5 HDL cholesterol, serum 48 mg/dL >39 Office Visit: Acute Visit rm 2 - Urinalysis glucose, urine, semiquantitative negative Lab Report: TSH+Free T4, CBC With Differential/Platelet, Comp. Metabolic ... - Chemistry albumin/globulin ratio, serum 1.4 1.2-2.2 Lab Report: TSH+Free T4, CBC With Differential/Platelet, Comp. Metabolic ... - Hematology eosinophils as percent of blood leukocytes 0 % Not Estab. Lab Report: TSH+Free T4, CBC With Differential/Platelet, Comp. Metabolic ... - Chemistry Absolute Neutrophils 9.3 X10E3/UL 10*3/uL 1.4-7.0 Lab Report: TSH+Free T4, CBC With Differential/Platelet, Comp. Metabolic ... - Hematology basophil count, absolute 0.1 x10E3/uL 0.0-0.2 Lab Report: TSH+Free T4, CBC With Differential/Platelet, Comp. Metabolic ... - Chemistry alanine aminotransferase (SGPT), serum 22 U/L 0-32 LDL cholesterol, serum 133 mg/dL 0-99 Lab Report: TSH+Free T4, CBC With Differential/Platelet, Comp. Metabolic ... - Hematology monocytes as percent of blood leukocytes 6 % Not Estab. Office Visit: Acute Visit rm 2 - Urinalysis nitrite, urine, semiquantitative negative Lab Report: TSH+Free T4, CBC With Differential/Platelet, Comp. Metabolic ... - Urinalysis urine culture No growth Lab Report: TSH+Free T4, CBC With Differential/Platelet, Comp. Metabolic ... - Chemistry cholesterol, serum 202 mg/dL 100-199 Lab Report: TSH+Free T4, CBC With Differential/Platelet, Comp. Metabolic ... - Hematology mean corpuscular hemoglobin concentration, RBC 32.5 G/DL % 31.5-35.7 hemoglobin, blood 15.4 g/dL 11.1-15.9 Office Visit: Acute Visit 2 - Urinalysis leukocyte esterase, urine, by dipstick negative Lab Report: TSH+Free T4, CBC With Differential/Platelet, Comp. Metabolic ... - Hematology leukocyte count, blood 12.9 X10E3/UL 10*3/mm3 3.4-10.8 Lab Report: FSH and LH, TSH, Vitamin B12 - Chemistry B-12, serum 470 pg/mL 232-1245 Office Visit: Acute Visit 2 - Urinalysis protein, urine, semiquantitative (dipstick) negative Lab Report: TSH+Free T4, CBC With Differential/Platelet, Comp. Metabolic ... - Hematology hematocrit, blood 47.4 % 34.0-46.6 Lab Report: TSH+Free T4, CBC With Differential/Platelet, Comp. Metabolic ... - Chemistry globulin, serum 3.1 1.5-4.5 vitamin D 25-hydroxy, serum 12.9 ng/mL 30.0-100.0 thyroid stimulating hormone, serum 0.780 u[iU]/mL 0.450-4.500 albumin, serum 4.4 g/dL 3.5-5.5 very low density lipoproteins 21 mg/dL 5-40 Office Visit: Acute Visit 2 - Urinalysis urobilinogen, urine, semiquantitative (dipstick) negative Lab Report: TSH+Free T4, CBC With Differential/Platelet, Comp. Metabolic ... - Chemistry calcium, serum 10.4 mg/dL 8.7-10.2 Lab Report: TSH+Free T4, CBC With Differential/Platelet, Comp. Metabolic ... - Hematology basophils as percent of blood leukocytes 1 % Not Estab. Lab Report: TSH+Free T4, CBC With Differential/Platelet, Comp. Metabolic ... - Chemistry thyroxine, serum, free 1.21 ng/dL 0.82-1.77 Lab Report: TSH+Free T4, CBC With Differential/Platelet, Comp. Metabolic ... - Hematology monocyte count, blood, automated 0.8 X10E3/UL 10*3/uL 0.1-0.9 Lab Report: TSH+Free T4, CBC With Differential/Platelet, Comp. Metabolic ... - Chemistry immature granulocytes, percentage of total cells, blood 1 % Not Estab. urea nitrogen/creatinine ratio, serum 13 9-23 Lab Report: TSH+Free T4, CBC With Differential/Platelet, Comp. Metabolic ... - Genetics/fertility eGFR if 85 mL/min/1.73m2 >59 Lab Report: TSH+Free T4, CBC With Differential/Platelet, Comp. Metabolic ... - Hematology lymphocytes as percent of blood leukocytes 20 % Not Estab. Lab Report: TSH+Free T4, CBC With Differential/Platelet, Comp. Metabolic ... - Chemistry carbon dioxide, venous blood 24 mmol/L 18-29 sodium, serum 138 mmol/L 287-070 2033/04/19 hemoglobin A1C, blood, as % of total hemoglobin 6.7 % 4.8-5.6 alkaline phosphatase, serum 74 U/L 39-117 Office Visit: Acute Visit 2 - Urinalysis ketones, urine, by test strip negative Lab Report: TSH+Free T4, CBC With Differential/Platelet, Comp. Metabolic ... - Hematology Eosinophil Absolute Count 0.0 X10E3/UL 10*3/uL 0.0-0.4 Office Visit: Acute Visit 2 - Urinalysis specific gravity, urine 1.015 Lab Report: TSH+Free T4, CBC With Differential/Platelet, Comp. Metabolic ... - Hematology mean corpuscular hemoglobin, RBC 27.3 pg 26.6-33.0 Lab Report: TSH+Free T4, CBC With Differential/Platelet, Comp. Metabolic ... - Chemistry bilirubin, serum, total <0.2 mg/dL mg/dL 0.0-1.2 Lab Report: TSH+Free T4, CBC With Differential/Platelet, Comp. Metabolic ... - Hematology neutrophils as percent of blood leukocytes 72 % Not Estab. Office Visit: Acute Visit 2 - Urinalysis blood in urine (hemoglobin) by dipstick negative Lab Report: TSH+Free T4, CBC With Differential/Platelet, Comp. Metabolic ... - Chemistry blood glucose, random 87 mg/dL 65-99 potassium, serum 4.9 mmol/L 3.5-5.2 aspartate aminotransferase (SGOT), serum 22 U/L 0-40 Office Visit: Acute Visit rm 2 - Urinalysis urine color yellow Lab Report: FSH and LH, TSH, Vitamin B12 - Chemistry luteinizing hormone, serum 6.2 m[iU]/mL Encounters Date Encounter Provider Code Facility 14:47:38 CDT Est Patient Detailed - [id number] Beverley Mera MD CPT-45590 [facility] 13:11:33 CDT Est Patient Detailed - 13668 Beverley Mera MD CPT-02363 [facility] 13:46:35 CDT Est Patient Exp Problem - 64841 Fiona Alvarez MD CPT-91735 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 13:23:58 SPARES SCHEDULER Est Patient Detailed - 74486 Grey Woodard MD CPT-61921 [facility] 09:04:50 CDT Est Patient Detailed - 35351 Grey Woodard MD CPT-28013 [facility] 12:13:41 CDT Est Patient Exp Problem - 71772 Grey Woodard MD CPT-72107 [facility] 09:56:13 CDT Est Patient Detailed - 48376 Fiona Alvarez MD CPT-22318 [facility] 13:02:46 CDT Est Patient Exp Problem - 74764 Grey Woodard MD CPT-88751 [facility] 11:28:01 CDT Est Patient Detailed - 13187 Grey Woodard MD CPT-67099 [facility] 11:11:11 CDT Est Patient Detailed - 23445 Grey Woodard MD CPT-86212 [facility] 11:08:23 CDT Est Patient Detailed - 09939 Grey Woodard MD CPT-87840 [facility] 17:31:19 CDT Est Patient Exp Problem - 61289 Anny Zaman D.O. CPT-39239 [facility] 08:48:42 CDT Est Patient Detailed - 97553 Grey Woodard MD CPT-85972 [facility] 11:10:09 CDT Est Patient Exp Problem - 02977 Grey Woodard MD CPT-01716 [facility] 11:50:07 SPARES SCHEDULER Est Patient Exp Problem - 77237 Sam Sauceda MD CPT-63366 [facility] Procedures Code Procedure Name Date Entry Date Standard Description CPT-95558 Diagnostic evaluation (no medical) - 85777 08:41:07 CDT CPT-20228 Est Patient Well Exam (40 - 64 Yrs) - 21635 11:50:06 SPARES SCHEDULER CPT-73025 Diagnostic evaluation with medical - 95715 15:03:00 SPARES SCHEDULER
--- OUTSIDE RECORDS SUMMARY | 2018-11-11 06:32 | XMS REPORT ---
Author Author Oliva Tavares [facility] eClinical[employer] Address Unknown Phone Unavailable Care Team Providers Care Colorman Name Role Phone Oliva Tavares CP Unavailable Allergies, Adverse Reactions, Alerts Substance Reaction Event Type N.K.D.A. Info Not Available Non Drug Allergy Encounters Encounter Location Date 4-6 wk f/u Randolph Young MD Nov 25, 2013 FOLLOW UP Randolph Young MD Dec 10, 2015 FOLLOW UP Randolph Young MD Nov 06, [...] UPDATE Randolph Young MD Nov 28, 2013 [facility] Randolph Young MD Dec 01, 2013 Answering [...] 2015 Erna Young MD Apr 11, 2015 [employer]/Neurologist Randolph Young MD May 10, 2015 Message Randolph Young MD Apr 06, 2015 Message Randolph Young MD Apr 11, 2015 follow up Randolph Young MD Apr 23, 2015 pt feeling bad Randolph Young MD May 16, 2015 [facility] Randolph Young MD May 17, 2015 [facility] study Randolph Young MD July 05, 2015 [facility] paperwork. 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.899 Active Assessment Lupus M32.9 Active Problem Lupus M32.9 Active Problem Other forms of systemic lupus erythematosus M32.8 Active Medications Medication Code System Code Instructions Start Date End Date Status Dosage Linzess [facility] [address]-85 145 MCG Orally Once a day Active 1 capsule Acetaminophen-Codeine #3 [facility] [address]-31 300-30 MG Orally every 6 hrs Active 1 tablet as needed Loratadine [facility] [address]-48 10 MG Orally Once a day Active 1 tablet Seroquel [facility] [address]-92 50 MG Orally at bedtime Active 1 or 2 tablets Hydroxychloroquine Sulfate [facility] 57423773232 200 MG Active TAKE 1 TABLET BY MOUTH TWICE A DAY WITH FOOD OR MILK ClobetaPlus Ointment [facility] [address]-39 0.05 & 2.3 % Externally Active as directed Promethazine HCl [facility] [address]-42 25 MG Orally every 6 hrs Dec 10, 2015 Dec 13, 2015 Active 1 tablet as needed Benlysta [facility] 14848-617-32 10MG/KG Q4 WEEKS Active 10MG/KG IV Citalopram Hydrobromide [facility] [address]-08 20 MG Orally Once a day Active 1 tablet Lorazepam [facility] [address]-42 2 MG Orally Once a day Active 1 tablet at bedtime as needed Meloxicam [facility] 52265901384 7.5 MG Active TAKE 1 TABLET BY MOUTH TWICE A DAY WITH FOOD Eylea [facility] [address]-67 2 MG/0.05ML Intraocular into the eye q 6 weeks Active 0.05 ml Social History Social History Element Qualifiers Date Reported Diet: no. Dec 10, 2015 Tobacco Use: . Are you a:: never smoker Dec 10, 2015 Marital Status: . Dec 10, 2015 Caffeine: yes. frequency: 2 cups Dec 10, 2015 Exercise: yes. walking Dec 10, 2015 Alcohol: no. 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
--- OUTSIDE RECORDS SUMMARY | 2018-11-11 06:32 | XMS REPORT ---
Author Author Randolph Young Organization [employer] Address Unknown Phone Unavailable Care Team Providers Care Cone Operator Name Role Phone Randolph Young CP Unavailable Allergies No Known Allergies Problems Problem Type Condition Code Onset Dates Condition Status Problem Other [facility] (current) drug therapy Z79.899 Active Problem Lupus M32.9 Active Problem Polyarthralgia M25.50 Active Problem Tremor R25.1 Active Problem Movement disorder G25.9 Active Problem Thyroid enlargement E04.9 Active Problem Complication following infusion and therapeutic injection T80.90XA Active Problem Hip bursitis M70.70 Active Problem Central retinal vein thrombosis H34.819 Active Medications Medication Code System Code Instructions Start Date End Date Status Dosage Azathioprine [facility] 02948264323 50 MG Orally 3 pills in the am and then 2 pills q pm Nov 05, 2018 Active as directed Results No Known Results Summary Purpose eClinicalWorks Submission
--- OUTSIDE RECORDS SUMMARY | 2018-11-11 06:32 | XMS REPORT ---
Author Author Randolph Young eClinicalWorks Address Unknown Phone Unavailable Care Team Providers Care Chemical Research Technician Name Role Phone Randolph Young CP Unavailable Encounters Encounter Location Date 4-6 wk f/u Randolph Young MD Nov 25, 2013 Follow-Up Randolph Young MD Mar 25, 2016 Unknown Randolph Young MD Jan 07, 2016 [...] UPDATE Randolph Young MD Nov 28, 2013 [facility] Randolph Young MD Dec 01, [...] IINFUSION Randolph Young MD Feb 07, 2015 BOA Randolph Young MD May 08, 2016 [id number] Randolph Young MD 2015 labs Randolph Young MD 2015 Benvanceta Randolph Young MD 2015 Ultrasound Randolph Young MD Jan 09, 2015 BENLYSTA PREMEDS Randolph Young MD Mar 29, 2015 scheduled for erna Young MD Mar 08, 2015 PT IS FEELING SICK Randolph Young MD Feb 23, 2015 Bensharmila Young MD Apr 11, 2015 special forces specialist/Neurologist Randolph Young MD May 10, 2015 Message Randolph Young MD Apr 06, 2015 Message Randolph Young MD Apr 11, 2015 follow up Randolph Young MD Apr 23, 2015 pt feeling bad Randolph Young MD May 16, 2015 [facility] disability Randolph Young MD May 17, 2015 sab study Randolph Young MD July 05, 2015 [facility] paperwork. 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 May 12, 2016 Tobacco Use: . Are you a:: never smoker May 12, 2016 Marital Status: . May 12, 2016 Caffeine: yes. frequency: 2 cups May 12, 2016 Exercise: yes. walking May 12, 2016 Alcohol: no. 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
--- OUTSIDE RECORDS SUMMARY | 2018-11-11 06:32 | XMS REPORT ---
Author Author Randolph Young eClinicalWorks Address Unknown Phone Unavailable Care Team Providers Care Commutator Inspector Name Role Phone Randolph Young CP Unavailable Encounters Encounter Location Date 4-6 wk f/u Randolph Young MD Nov 25, 2013 FOLLOW UP Randolph Young MD Nov 06, 2015 DepoMedrol IM Randolph Young MD September 19, 2014 Promethazine Randolph Young MD Dec 07, 2015 LUPUS FLARE Randolph Young MD August 22, 2014 Refills request Randolph Young MD Dec 07, 2015 UPDATE Ranodlph Young MD August 28, 2014 Research Randolph [...] UPDATE Randolph Young MD Nov 28, 2013 [facility] Randolph Young MD Dec 01, 2013 [...] 2015 Erna Young MD Apr 11, 2015 independent beauty consultant/Neurologist Randolph Young MD May 10, 2015 Message Randolph Young MD Apr 06, 2015 Message Randolph Young MD Apr 11, 2015 follow up Randolph Young MD Apr 23, 2015 pt feeling bad Randolph Young MD May 16, 2015 [facility] disability Randolph Young MD May 17, 2015 sable study Randolph Young MD July 05, 2015 [facility] paperwork. 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
--- OUTSIDE RECORDS SUMMARY | 2018-11-11 06:32 | XMS REPORT ---
Author Author Oliva Tavares [facility] eClinicalWorks Address Unknown Phone Unavailable Care Team Providers Care United [place] Marshal Name Role Phone Oliva Tavares CP Unavailable [...] MD Nov 28, 2013 [facility] Randolph Young MD Dec 01, 2013 Answering [...] 2015 Erna Young MD Apr 11, 2015 in service coordinator/Neurologist Randolph Young MD May 10, 2015 Message Randolph Young MD Apr 06, 2015 Message Randolph Young MD Apr 11, 2015 follow up Randolph Young MD Apr 23, 2015 pt feeling bad Randolph Young MD May 16, 2015 [facility] Randolph Young MD May 17, 2015 sable study Randolph Young MD July 05, 2015 [facility] paperwork. Randolph Young MD June 18, [...] Code Onset Dates Condition Status Assessment Other retirement (current) drug therapy Z79.899 Active Problem Polyarthralgia 719.49 Active Assessment Lupus M32.9 Active Problem Thyroid enlargement E04.9 Active Problem Complication following infusion and therapeutic injection T80.90XA Active Problem Central retinal vein thrombosis H34.819 Active Problem Other retirement (current) drug therapy Z79.899 Active Problem Lupus 710.0 Active Problem Lupus M32.9 Active Problem Other forms of systemic lupus erythematosus M32.8 Active Medications Medication Code System Code Instructions Start Date End Date Status Dosage [place] [facility] [address]959 200 MG Orally Active as directed Hydroxychloroquine Sulfate [facility] 72883035959 200 MG Active TAKE 1 TABLET BY MOUTH TWICE A DAY WITH FOOD OR MILK Lorazepam [facility] [address]-55 2 MG Orally Once a day Active 1 tablet at bedtime as needed Meloxicam [facility] 09351124356 7.5 MG Active TAKE 1 TABLET BY MOUTH TWICE A DAY WITH FOOD PredniSONE [facility] [address]-75 10 MG Orally q am with food Active [address] [facility] [address]-31 2 MG/0.05ML Intraocular into the eye q 6 weeks Active 0.[address] [facility] [address]-63 25 MG Orally every 6 hours prn for nausea October 09, 2015 Nov 08, 2015 Active 1 tablet as needed Loratadine [facility] [address]-44 10 MG Orally Once a day Active [address] [facility] [address]-16 50 MG Orally at bedtime Active 1 or [address] [facility] 93518-980-22 10MG/KG Q4 WEEKS Active 10MG/KG IV Acetaminophen-Codeine #3 [facility] [address]-16 300-30 MG Orally every 6 hrs Feb 04, 2016 Active 1 tablet as needed Tramadol Unknown 0 50 mg orally twice a day Active one tablet ClobetaPlus Ointment [facility] [address]-89 0.05 & 2.3 % Externally Active as directed Citalopram Hydrobromide [facility] [address]-19 20 MG Orally Once a day Active 1 tablet Social History Social History Element Qualifiers Date Reported Diet: no. Nov 06, 2015 Tobacco Use: . Are you a:: never smoker Nov 06, 2015 Marital Status: . Nov 06, 2015 Caffeine: yes. frequency: 2 cups Nov 06, 2015 Exercise: yes. walking Nov 06, 2015 Alcohol: no. 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
--- OUTSIDE RECORDS SUMMARY | 2018-11-11 06:32 | XMS REPORT ---
Author Author Randolph Young eClinicalWorks Address Unknown Phone Unavailable Care Team Providers Care Farm Machine Operator Name Role Phone Randolph Young CP Unavailable Encounters Encounter Location Date 4-6 wk f/u Randolph Young MD Nov 25, 2013 FOLLOW UP Randloph Young MD Nov 06, 2015 DepoMedrol IM [...] UPDATE Randolph Young MD Nov 28, 2013 [facility] Randolph Young MD Dec 01, 2013 [...] 2015 Erna Young MD Apr 11, 2015 staff development manager/Neurologist Randolph Young MD May 10, 2015 Message Randolph Young MD Apr 06, 2015 Message Randolph Young MD Apr 11, 2015 follow up Randolph Young MD Apr 23, 2015 pt feeling bad Randolph Young MD May 16, [address] [facility] Randolph Young MD May 17, 2015 sab study Randolph Young MD July 05, 2015 [facility] paperwork. Randolph Young MD June 18, [...] vein thrombosis H34.819 Active Problem Other intermediate project manager (current) drug therapy Z79.899 Active Problem Lupus [...] Alcohol: no. 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
--- OUTSIDE RECORDS SUMMARY | 2018-11-11 06:32 | XMS REPORT ---
Author Author Oliva Tavares [facility] eClinicalWorks Address Unknown Phone Unavailable Care Team Providers Care Continuous Dryout Operator Name Role Phone Oliva Tavares CP Unavailable [...] UPDATE Randolph Young MD Nov 28, 2013 [facility] Randolph Young MD Dec 01, [...] MD 2015 labs Randolph Young MD 2015 Benesme Young MD 2015 Ultrasound Randolph Young MD Jan 09, 2015 BENESME PREMEDS Randolph Young MD Mar 29, 2015 scheduled for erna Young MD Mar 08, 2015 PT IS FEELING SICK Randolph Young MD Feb 23, 2015 Erna Young MD Apr 11, 2015 billing clinician/Neurologist Randolph Young MD May 10, 2015 Message Randolph Young MD Apr 06, 2015 Message Randolph Young MD Apr 11, 2015 follow up Randolph Young MD Apr 23, 2015 pt feeling bad Randolph Young MD May 16, 2015 [facility] Randolph Young MD May 17, 2015 sab study Randolph Young MD July 05, 2015 [facility] paperwork. Randolph Young MD June 18, 2015 billing. Randolph Young MD July 23, 2015 Unknown Randolph Young MD Jan 31, 2015 infusion appt Randolph Young MD August 10, 2015 CT lungs Randolph Young MD October 08, 2015 Promethazine. Randolph Young MD October 09, 2015 FOLLOW UP Randolph Young MD October 08, 2015 CT SCAN Randolph Young MD October 12, 2015 Refill -Chunazine Randolph Young MD Nov 06, 2015 Problems Problem Type Condition ICD-9 Code Onset Dates Condition Status Assessment Other nursing home (current) drug therapy Z79.899 Active Problem Thyroid enlargement E04.9 Active Problem Complication following infusion and therapeutic injection T80.90XA Active Problem Central retinal vein thrombosis H34.819 Active Problem Other nursing home (current) drug therapy Z79.899 Active Assessment Lupus M32.9 Active Problem Lupus M32.9 Active Problem Other forms of systemic lupus erythematosus M32.8 Active Medications Medication Code System Code Instructions Start Date End Date Status Dosage Citalopram Hydrobromide [facility] [address]-91 20 MG Orally Once a day Active 1 tablet ClobetaPlus Ointment [facility] [address]-46 0.05 & 2.3 % Externally Active as directed [place] [facility] [address]-80 325-7.5 MG Orally once a day as needed Jan 07, 2016 Feb 06, 2016 Active 1 tablet as needed Eylea [facility] [address]-88 2 MG/0.05ML Intraocular into the eye q 6 weeks Active 0.05 ml Loratadine [facility] [address]-81 10 MG Orally Once a day Active 1 tablet Lorazepam [facility] [address]-60 2 MG Orally Once a day Active 1 tablet at bedtime as needed Meloxicam [facility] 28328978872 7.5 MG Active TAKE 1 TABLET BY MOUTH TWICE A DAY WITH FOOD Linzess [facility] [address]-13 145 MCG Orally Once a day Active 1 capsule Seroquel [facility] [address]-69 50 MG Orally at bedtime Active 1 or 2 tablets Acetaminophen-Codeine #3 [facility] [address]-33 300-30 MG Orally every 6 hrs Active 1 tablet as needed Benlysta [facility] 92016-231-90 10MG/KG Q4 WEEKS Active 10MG/KG IV Social History Social History Element Qualifiers Date Reported Diet: no. Jan 07, 2016 Tobacco Use: . Are you a:: never smoker Jan 07, 2016 Marital Status: . Jan 07, 2016 Caffeine: yes. frequency: 2 cups Jan 07, 2016 Exercise: yes. walking Jan 07, 2016 Alcohol: no. 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
--- OUTSIDE RECORDS SUMMARY | 2018-11-11 06:32 | XMS REPORT ---
Author Author Randolph Young eClinicalWorks Address Unknown Phone Unavailable Care Team Providers Care Power Marketer Name Role Phone Randolph Young CP Unavailable [...] Randolph Young MD Nov 28, 2013 [facility] Randolph Young MD Dec 01, 2013 [...] ?? Randolph Young MD Jan 31, 2015 HIP INJ Randolph Young MD May 21, 2016 Treatment Randolph Young MD Feb 01, 2015 FEELING SICK/ SINCE HER IINFUSION Randolph Young MD Feb 07, 2015 BOA Randolph Young MD May 08, 2016 C1113 Randolph Young MD 2015 [facility] C1112 Study Randolph Young MD May 26, 2016 labs Randolph Young MD 2015 Benlysta Randolph Young MD 2015 Ultrasound Randolph Young MD Jan 09, 2015 BENLYSTA PREMEDS Randolph Young MD Mar 29, 2015 scheduled for erna Young MD Mar 08, 2015 PT IS FEELING SICK Randolph Young MD Feb 23, 2015 Erna Young MD Apr 11, 2015 transit vehicle inspector/Neurologist Randolph Young MD May 10, 2015 Message Randolph Young MD Apr 06, 2015 Message Randolph Young MD Apr 11, 2015 follow up Randolph Young MD Apr 23, 2015 pt feeling bad Randolph Young MD May 16, 2015 [facility] disability Randolph Young MD May 17, 2015 sable study Randolph Young MD July 05, 2015 [facility] paperwork. Randolph Young MD June 18, [...] systemic lupus erythematosus M32.8 Active Problem Other skilled nursing (current) drug therapy Z79.899 Active Problem Complication [...] Alcohol: no. 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
--- OUTSIDE RECORDS SUMMARY | 2018-11-11 06:32 | XMS REPORT ---
Author Author Randolph Young eClinicalWorks Address Unknown Phone Unavailable Care Team Providers Care Assistant Health Educator Name Role Phone Randolph Young CP Unavailable [...] [facility] Randolph Young MD Dec 01, 2013 Answering [...] SICK Randolph Young MD Feb 23, 2015 Benvanceta Randolph Young MD Apr 11, 2015 group leader semiconductor testing/Neurologist Randolph Young MD May 10, 2015 Message Randolph Young MD Apr 06, 2015 Message Randolph Young MD Apr 11, 2015 follow up Randolph Young MD Apr 23, 2015 pt feeling bad Randolph Young MD May 16, 2015 [facility] disability Randolph Young MD May 17, 2015 sab study Randolph Young MD July 05, 2015 [facility] paperwork. 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 Z79.899 Active Assessment Lupus M32.9 Active Problem Lupus M32.9 Active Problem Other forms of systemic lupus erythematosus M32.8 Active Medications Medication Code System Code Instructions Start Date End Date Status Dosage Zyrtec Allergy [facility] [address]-03 10 MG Orally Once a day Active 1 tablet ClobetaPlus Ointment [facility] [address]-14 0.05 & 2.3 % Externally twice a day Active Unknown Folic Acid [facility] [address]-41 1 MG Orally Once a day Mar 25, 2016 Active 1 tablet Benlysta [facility] 30507-066-84 10MG/KG Q4 WEEKS Active 10MG/KG IV Albuterol Unknown 0 90 MCG/ACT Inhalation Active as directed Seroquel [facility] [address]-75 50 MG Orally at bedtime Active 1 or 2 tablets Lorazepam [facility] [address]-13 2 MG Orally Once a day Active 1 tablet at bedtime as needed Cyclobenzaprine HCl [facility] [address]-99 10 MG Orally Three times a day Feb 04, 2016 Active 1 tablet Methotrexate [facility] [address]-46 2.5 MG Orally q week Mar 25, 2016 Active 3 tablets Eylea [facility] [address]-26 2 MG/0.05ML Intraocular into the eye q 6 weeks Active 0.05 ml Citalopram Hydrobromide [facility] [address]-47 20 MG Orally Once a day Active 1 tablet Acetaminophen-Codeine #3 [facility] [address]-23 300-30 MG Orally every 6 hrs Active 1 tablet as needed Meloxicam [facility] 18711361113 7.5 MG once a day Active 1 tablet Social History Social History Element Qualifiers Date Reported Diet: no. Mar 25, 2016 Tobacco Use: . Are you a:: never smoker Mar 25, 2016 Marital Status: . Mar 25, 2016 Caffeine: yes. frequency: 2 cups Mar 25, 2016 Exercise: yes. walking Mar 25, 2016 Alcohol: no. 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 CITIZEN [place](-> OR=60 mL/min/1.73m2) 89 ALKALINE PHOSPHATASE(-33-115 U/L) 63 eGFR (-> OR=60 mL/min/1.73m2) 103 BILIRUBIN, TOTAL(-0.2-1.2 mg/dL) 0.3 BUN/CREATININE RATIO(-6-22 (calc)) 8 ALBUMIN/GLOBULIN RATIO(-1.0-2.5 (calc)) 1.4 SODIUM(-135-146 mmol/L) 140 GLOBULIN(-1.9-3.7 g/dL (calc)) 2.9 POTASSIUM(-3.5-5.3 mmol/L) 4.3 GLUCOSE(-65-99 mg/dL) 88 CHLORIDE(-98-110 mmol/L) 103 ALBUMIN(-3.6-5.1 g/dL) 4.0 UREA NITROGEN (BUN)(-7-25 mg/dL) 6 PROTEIN, TOTAL(-6.1-8.1 g/dL) 6.9 SED RATE BY MODIFIED WESTERGREN SED RATE BY MODIFIED WESTERGREN(-< OR=20 mm/h) 9 C-REACTIVE PROTEIN C-REACTIVE PROTEIN(-<0.80 mg/dL) 0.87 CBC (INCLUDES DIFF/PLT) MCHC(-32.0-36.0 g/dL) 32.4 MCH(-27.0-33.0 pg) 27.1 PLATELET COUNT(-140-400 Thousand/uL) 319 RDW(-11.0-15.0 %) 15.5 BASOPHILS(- %) 0.3 ABSOLUTE NEUTROPHILS(-2588-2450 cells/uL) 5237 ABSOLUTE LYMPHOCYTES(-850-3900 cells/uL) 2442 MPV(-7.5-11.5 fL) 9.6 ABSOLUTE BASOPHILS(-0-200 cells/uL) 26 HEMATOCRIT(-35.0-45.0 %) 43.8 NEUTROPHILS(- %) 60.9 MCV(-80.0-100.0 fL) 83.7 RED BLOOD CELL COUNT(-3.80-5.10 Million/uL) 5.23 ABSOLUTE MONOCYTES(-200-950 cells/uL) 740 ABSOLUTE EOSINOPHILS(-15-500 cells/uL) 155 HEMOGLOBIN(-11.7-15.5 g/dL) 14.2 EOSINOPHILS(- %) 1.8 WHITE BLOOD CELL COUNT(-3.8-10.8 Thousand/uL) 8.6 LYMPHOCYTES(- %) 28.4 MONOCYTES(- %) 8.6 Summary Purpose eClinicalWorks Submission
--- OUTSIDE RECORDS SUMMARY | 2018-11-11 06:32 | XMS REPORT ---
Author Author Randolph Young eClinicalWorks Address Unknown Phone Unavailable Care Team Providers Care Security Solutions Architect Name Role Phone Randolph Young CP Unavailable [...] UPDATE Randolph Young MD Nov 28, 2013 [facility] Randolph Young MD Dec 01, [...] 2015 Erna Young MD Apr 11, 2015 shrub planter/Neurologist Randolph Young MD May 10, 2015 Message Randolph Young MD Apr 06, 2015 Message Randolph Young MD Apr 11, 2015 follow up Randolph Young MD Apr 23, 2015 pt feeling bad Randolph Young MD May 16, 2015 [facility] disability Randolph Young MD May 17, 2015 sable study Randolph Young MD July 05, 2015 [facility] paperwork. Randolph Young MD June 18, [...] retinal vein thrombosis H34.819 Active Problem Other emt intermediate (current) drug therapy Z79.899 Active Problem Lupus M32.9 Active Problem Other forms of systemic lupus erythematosus M32.8 Active Summary Purpose eClinicalWorks Submission
--- OUTSIDE RECORDS SUMMARY | 2018-11-11 06:32 | XMS REPORT ---
Author Author Randolph Young eClinicalWorks Address Unknown Phone Unavailable Care Team Providers Care Health And Safety Technician Name Role Phone Randolph Young CP [...] 26, 2016 labs Randolph Young MD 2015 Benvanceta Randolph Young MD 2015 Ultrasound Randolph Young MD Jan 09, 2015 BENLYSTA PREMEDS Randolph Young MD Mar 29, 2015 scheduled for erna Young MD Mar 08, 2015 PT IS FEELING SICK Randolph Young MD Feb 23, 2015 Benvanceta Randolph Young MD Apr 11, 2015 fancy packer/Neurologist Randolph Young MD May 10, 2015 Message Randolph Young MD Apr 06, 2015 Message Randolph Young MD Apr 11, 2015 follow up Randolph Young MD Apr 23, 2015 pt feeling bad Randolph Young MD May 16, 2015 [facility] disability Randolph Young MD May 17, 2015 sable study Randolph Young MD July 05, 2015 [facility] paperwork. Randolph Young MD June 18, [...] systemic lupus erythematosus M32.8 Active Problem Other intermediate (current) drug therapy Z79.899 Active Problem Complication [...] Alcohol: no. 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
[2018-11-11 08:50] VITALS: BP 126/80
== END | disposition home or self-care (01) ==
LOC: OR 06:21
PROVIDERS: ATTEND Internal Medicine Gastroenterology
DX: K29.50 Unspecified chronic gastritis without bleeding (principal); K44.9 Diaphragmatic hernia without obstruction or gangrene; E73.9 Lactose intolerance, unspecified; Z71.3 Dietary counseling and surveillance; Z68.42 Body mass index [BMI] 45.0-49.9, adult
CPT/HCPCS: 43239; 88305; 88312; 93005; J2250; J2704; J3010

== ENCOUNTER → 2021-01-31 | Day surgery (SDC) | payer MEDICARE ==
[~2021-01-31] MED LIST changes: +CLARITIN10 MG PO; +CYMBALTA30 MG PO; +DICLOFENAC SODI50 MG PO; -FENTANYL CITRATE/PF 100MCG/2 ML INJ ONE; +GLIPIZIDE5 MG PO; +KLONOPIN2 MG PO; +LIDOCAINE HCL 2% LOCAL INJ 5 ML SDV VIAL INJ ONE; +PROPOFOL IV EMULSION 10 MG/ML 20 ML VIAL ONE; -PROPOFOL IV EMULSION 10 MG/ML 50 ML VIAL ONE; +TRULANCE3 MG PO
[2021-01-31 10:55] VITALS: BP 122/81
== END | disposition home or self-care (01) ==
LOC: OR 08:02
PROVIDERS: ATTEND Internal Medicine Gastroenterology
DX: K59.00 Constipation, unspecified (principal); K63.5 Polyp of colon; K29.00 Acute gastritis without bleeding; K29.50 Unspecified chronic gastritis without bleeding; K21.9 Gastro-esophageal reflux disease without esophagitis; K44.9 Diaphragmatic hernia without obstruction or gangrene; K64.8 Other hemorrhoids; Z71.3 Dietary counseling and surveillance; G47.33 Obstructive sleep apnea (adult) (pediatric); E11.9 Type 2 diabetes mellitus without complications; Z88.6 Allergy status to analgesic agent; Z88.8 Allergy status to other drugs, medicaments and biological substances; Z01.810 Encounter for preprocedural cardiovascular examination; Z01.812 Encounter for preprocedural laboratory examination; Z20.822 Contact with and (suspected) exposure to COVID-19; Z79.899 Other long term (current) drug therapy; Z79.84 Long term (current) use of oral hypoglycemic drugs; Z68.42 Body mass index [BMI] 45.0-49.9, adult
CPT/HCPCS: 36415; 43239; 45385; 82948; 93005; J2001; J2250; J2704; U0002